=== PATIENT | male | born 1935 | race Caucasian/White ===

== ENCOUNTER 2016-05-11 08:31 | Inpatient (IN) | payer OTHER ==
[2016-05-11] VITALS (10 sets, daily range): BP systolic 95–116; BP diastolic 69–80; PULSE 85–103; TEMP 36.6–36.9; O2SAT 90–99; Ht 180.3 cm; Wt 90.0 kg
[~2016-05-11] VITALS: Ht 180.3 cm; Wt 90.0 kg
[~2016-05-11 08:31] MED LIST: AMOX1TAB43 PO; ATOR-22 PO; DXY100 PO; MULT-190 PO; OMEP20TA PO; OXYC-57 PO; PRED10TA PO; VNTHFA/IN INH; WARF2.5T8 PO
[2016-05-11] MEDS ORDERED: ALBUT/IPRATROP 3MG/0.5MG NEB 3 ML VIAL INH ONE (09:00)
[2016-05-11] MEDS ORDERED: SODIUM CHLORIDE 0.9% 1000ML 1,000 ML IV STA (09:02)
--- NOTE | 2016-05-11 09:11 | EMERGENCY ROOM VISIT NOTE ---
History Report prepared by Wanda: Leia Garcia Under the Supervision of: Dr. Dennys Bal M.D. First contact with patient: 08:47 Chief Complaint: RESPIRATORY PROBLEMS Stated Complaint: RESPIRATORY Nursing Triage Summary: pt here to room B12B from home for respiratory problems. pt was admitted to [facility] 2 weeks ago for pneumonia. pt was placed on prednisone. as per report pt stopped his prednisone. pt states he did not stop his prednisone. pt also states that home health that was arranged at his prior discharge was set to come to his house to do duoneb treatments but as per pt no one ever came to give him a treatment even when he called. 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 pt on arrival with 6 L NC and 94% NC. pt tachypneic and short of breath upon arrival. pt [id number]. pt with demand pacer in place, a-port access for chemo tx (last chemo tx approx 1 month ago) for lymphatic cancer and prostate ca. pt with afib History of Present Illness The patient is a 81 year old male who presents to the Emergency Room with complaints of persistent respiratory problems over the past week. The patient was admitted to the hospital 2 weeks ago for pneumonia and was discharged 6 days ago after treatment. He followed up with a crystal machining coordinator upon discharge and still had some pneumonia. He was instructed to use oxygen at home and 4 breathing treatments a day. The patient was unable to obtain a nebulizer machine until last night and has not gotten any oxygen, so he has not been able to follow the treatment recommendations. The patient called an ambulance this morning due to his worsening shortness of breath. He notes that it improves with rest and worsens with exertion. His O2 sat prior to arrival was 75% on room air. He was put on a 15L nonrebreather which improved his O2 sat to 90s. The patient has lymphatic and prostate cancer. His most recent chemotherapy treatment was a month ago. He was supposed to have a CT scan this morning. He is currently on Prednisone. Source of History: patient Onset: persistent Position: other (Respiratory) Timing: other (persistent) Modifying Factors (Worsening): exertion Modifying Factors (Relieving): rest Review of Systems See HPI for pertinent positives & negatives. A total of 10 systems reviewed and were otherwise negative. Past Medical & Surgical Medical Problems: (1) Asthma (2) Complete AV block (3) Coronary artery disease (4) Dyslipidemia (5) HTN (hypertension) (6) LBBB (left bundle branch block) (7) Metastatic colorectal cancer (8) Obstructive lung disease (9) Pneumoconiosis (10) Pulmonary embolism Surgical Problems: (1) History of appendectomy (2) History of cataract extraction with lens replacement (3) History of cholecystectomy (4) History of partial colectomy Family History FH: cancer Social History Smoking Status: Former Smoker Housing Status: lives with family Occupation Status: retired Current/Historical Medications Scheduled Aspirin (Ecotrin Low Strength), 81 MG PO DAILY Atorvastatin (Lipitor), 20 MG PO QAM Ipratropium-Albuterol (Duoneb), 1 INHA PO QID Ocuvite Preservision (Ocuvite Preservision), 1 TAB PO QAM Omeprazole (Omeprazole), 20 MG PO QAM Ondansetron Hcl (Zofran), 4 MG PO PRN Warfarin Sod (Jantoven), 2.5 MG PO UD Scheduled PRN Albuterol Hfa (Ventolin Hfa), 2 PUFFS INH Q4 PRN for SOB/Wheezing Oxycodone/Acetaminophen 5MG/325MG (Percocet 5MG/325MG), 1 TABLET PO Q6H PRN for Pain Allergies Coded Allergies: Procaine (Verified Adverse Reaction, Unknown, SWEATS, SOB, RAPID HEART BEAT, 05/11/16) Physical Exam Vital Signs Date Time Temp Pulse Resp B/P Pulse Ox O2 Delivery O2 Flow Rate FiO2 05/11/16 12:00 93 18 115/72 90 Nasal Cannula 4.0 05/11/16 11:06 104 18 119/73 98 BiPAP 40 05/11/16 09:53 103 25 142/68 99 BiPAP 40 05/11/16 09:30 103 24 99 BiPAP/CPAP 40 05/11/16 09:25 103 99 40 05/11/16 09:01 95 Nasal Cannula 6.0 05/11/16 08:48 79 05/11/16 08:40 94 Nasal Cannula 6.0 05/11/16 08:40 36.3 91 30 158/64 94 Nasal Cannula 6.0 05/11/16 08:40 94 Nasal Cannula 6.0 Physical Exam GENERAL: Patient is a healthy-appearing well-nourished 81 year old male HEAD: Normocephalic atraumatic EYES: Ocular movements intact pupils equal and react to light OROPHARYNX mucous membranes are moist no exudates present no erythema or edema present NECK: Supple no nuchal rigidity CHEST: Good equal expansion LUNGS: Short of breath on exam. CARDIAC: Normal S1 and S2 ABDOMEN: Soft nontender no guarding BACK: No CVA tenderness EXTREMITIES: No pain upon palpation normal muscle strength in all groups no clubbing cyanosis or edema NEURO: Patient is following commands is answering questions appropriately. Alert and oriented x3 Cranial Nerves 2-12 grossly intact Medical Decision & Procedures ER Provider Diagnostic Interpretation: CT results as stated below per my review and radiologist interpretation: CT ANGIOGRAM OF THE CHEST CLINICAL HISTORY: Colon carcinoma. Shortness of breath. Possible acute pulmonary embolism. COMPARISON STUDY: 04/25/2016 TECHNIQUE: Following the IV administration of 119 mL of Optiray-320, CT angiogram of the thorax was performed from the thoracic inlet to the lung bases utilizing the pulmonary embolus protocol. Images are reviewed in the axial, sagittal, and coronal planes. IV contrast was administered without complication. MIP imaging was performed. CT DOSE: 2019.71 mGy.cm FINDINGS: There are mildly enlarged mediastinal lymph nodes, similar to the preceding study. There was no evidence of thoracic aortic dilatation. There were no pulmonary artery filling defects to indicate acute pulmonary embolism. No pleural effusions are visualized. There is severe pulmonary emphysema. There are progressive bibasal airspace opacities. There is subtle diffuse increased groundglass attenuation of the lungs. There is a stable 21 mm right upper lobe density. A second 11 mm right apical density also remains unchanged. The spleen remains enlarged. There is a stable 19 mm hypodensity within the liver likely representing a cyst IMPRESSION: 1. No CT evidence of acute pulmonary embolism 2. Mild mediastinal lymphadenopathy unchanged the prior study 3. Severe pulmonary emphysema 4. Stable indeterminate right upper lobe irregular nodular densities 5. Developing groundglass attenuation of the lungs, and bibasilar dependent airspace opacities. Diagnostic considerations include pulmonary edema versus an inflammatory/infectious process. Clinical and radiographic follow-up is recommended Electronically signed by: Luciano Cm M.D. 05/11/2016 10:[address] OF THE ABDOMEN AND PELVIS WITH CONTRAST CLINICAL HISTORY: Colon cancer. COMPARISON STUDY: CT of the abdomen and pelvis September 08, 2015. TECHNIQUE: Following IV administration of 119 mL of Optiray-320, axial images of the abdomen and pelvis were obtained from the lung bases to the proximal femurs. Images were reviewed in the axial, sagittal, and coronal planes. IV contrast was administered without complication. FINDINGS: The chest will be reported separately. Several hepatic cysts are again noted. Several additional hypodense hepatic lesions are again noted. These have decreased in size since CT of July 27, 2015. A 1.5 cm right hepatic lobe lesion shown on image 11 has slightly decreased in size since exam of September 08, 2015 when it measured 1.8 cm. No new hepatic lesions are present. The spleen, adrenal glands, kidneys and pancreas are unremarkable. There is no abdominal or pelvic lymphadenopathy. No suspicious skeletal lesions are identified. There are postsurgical findings within the sigmoid colon. There is no evidence for a bowel obstruction. IMPRESSION: 1. No acute process within the abdomen or pelvis. 2. Slight decrease in several hepatic metastases since prior CT of September 08, 2015. Electronically signed by: Glen Elizabeth M.D. 05/11/2016 11:05 AM Laboratory Results 05/11/16 09:15 Red Blood Count 4.14, Mean Corpuscular Volume 85.3, Mean Corpuscular Hemoglobin 28.5, Mean Corpuscular Hemoglobin Concent 33.4, Mean Platelet Volume 10.6, Neutrophils (%) (Auto) 82.6, Lymphocytes (%) (Auto) 4.0, Monocytes (%) (Auto) 11.7, Eosinophils (%) (Auto) 0.0, Basophils (%) (Auto) 0.0, Neutrophils # (Auto ) 3.95, Lymphocytes # (Auto) 0.19, Monocytes # (Auto) 0.56, Eosinophils # (Auto ) 0.00, Basophils # (Auto) 0.00 05/11/16 09:15 Test 05/11/16 09:15 05/11/16 09:18 White Blood Count 4.78 K/uL (4.8-10.8) Red Blood Count 4.14 M/uL (4.7-6.1) Hemoglobin 11.8 g/dL (14.0-18.0) Hematocrit 35.3 % (42-52) Mean Corpuscular Volume 85.3 fL (80-100) Mean Corpuscular Hemoglobin 28.5 pg (25-34) Mean Corpuscular Hemoglobin Concent 33.4 g/dl (32-36) Platelet Count 128 K/uL (130-400) Mean Platelet Volume 10.6 fL (7.4-10.4) Neutrophils (%) (Auto) 82.6 % Lymphocytes (%) (Auto) 4.0 % Monocytes (%) (Auto) 11.7 % Eosinophils (%) (Auto) 0.0 % Basophils (%) (Auto) 0.0 % Neutrophils # (Auto) 3.95 K/uL (1.4-6.5) Lymphocytes # (Auto) 0.19 K/uL (1.2-3.4) Monocytes # (Auto) 0.56 K/uL (0.11-0.59) Eosinophils # (Auto) 0.00 K/uL (0-0.5) Basophils # (Auto) 0.00 K/uL (0-0.2) RDW Standard Deviation 58.7 fL (36.4-46.3) RDW Coefficient of Variation 18.9 % (11.5-14.5) Immature Granulocyte % (Auto) 1.7 % Immature Granulocyte # (Auto) 0.08 K/uL (0.00-0.02) Prothrombin Time 48.0 SECONDS (9.0-12.0) Prothromb Time International Ratio 4.2 (0.9-1.1) Activated Partial Thromboplast Time 49.9 SECONDS (21.0-31.0) Partial Thromboplastin Ratio 1.9 Est Creatinine Clear Calc Drug Dose 69.8 ml/min Estimated GFR () 81.4 Estimated GFR (Non- 70.3 BUN/Creatinine Ratio 11.4 (10-20) Calcium Level 8.6 mg/dl (8.5-10.1) Phosphorus Level 2.1 mg/dl (2.5-4.9) Magnesium Level 2.2 mg/dl (1.8-2.4) Total Bilirubin 2.5 mg/dl (0.2-1) Aspartate Amino Transf (AST/SGOT) 31 U/L (15-37) Alanine Aminotransferase (ALT/SGPT) 13 U/L (12-78) Alkaline Phosphatase 78 U/L (45-117) Total Creatine Kinase 30 U/L (39-308) Creatine Kinase MB 0.6 ng/ml (0.5-3.6) Creatine Kinase MB Ratio 2.0 (0-3.0) Troponin I 0.031 ng/ml (0-0.045) Pro-B-Type Natriuretic Peptide 4623 pg/ml (0-1800) Total Protein 6.1 gm/dl (6.4-8.2) Albumin 3.1 gm/dl (3.4-5.0) Globulin 3.0 gm/dl (2.5-4.0) Albumin/Globulin Ratio 1.0 (0.9-2) Bedside Hemoglobin 11.6 g/dl (14.0-18.0) Bedside Hematocrit 34 % (42-52) Bedside Sodium 131 mEq/L (135-144) Bedside Potassium 3.9 mEq/L (3.3-5.0) Bedside Chloride 97 mEq/L (101-112) Bedside Total CO2 21 mEq/l (24-31) Anion Gap 18.0 mmol/L (16-25) Bedside Blood Urea Nitrogen 11 mg/dl (7-18) Bedside Creatinine 0.9 mg/dl (0.6-1.3) Bedside Glucose (other) 157 mg/dl (70-99) Bedside Ionized Calcium (Rhonda) 1.13 mmol/l (1.12-1.32) Labs reviewed by ED physician. Medications Administered Medications (Trade) Dose Ordered Sig/Karie Route Start Time Stop Time Status Last Admin Dose Admin Albuterol/ Ipratropium 12 ml 12 ml ONE ONCE INH 05/11/16 09:00 05/11/16 09:02 DC 05/11/16 09:25 12 ML Sodium Chloride (Nss 1000ml) 1,000 ml @ 999 mls/hr Q1H1M STAT IV 05/11/16 09:02 05/11/16 10:02 DC 05/11/16 09:27 999 MLS/HR Piperacillin Sod/ Tazobactam Sod 4.5 gm 4.5 gm NOW STAT IV 05/11/16 11:15 05/11/16 11:18 DC 05/11/16 12:18 4.5 GM Vancomycin HCl/ Sodium Chloride (Vancomycin Inj/ Nss 250ml) 270 ml @ 125 mls/hr NOW STAT IV 05/11/16 11:15 05/11/16 13:24 DC 05/11/16 13:06 125 MLS/HR ECG Indication: SOB/dyspnea Rate (beats per minute): 98 Rhythm: other (ventricularly paced) Findings: no acute ischemic change, no ectopy ED Course 0850: Past medical records reviewed. The patient was evaluated in room B12. A complete history and physical examination was performed. 0900: Ordered DuoNeb 12 ml INH, NSS 1000 ml @ 999 mls/hr IV. 1115: Ordered Vancomycin HCl 1000 mg/NSS 270 ml @ 125 mls/hr IV, Levofloxacin 500 mg IV, Zosyn 4.5 gm IV. 1124: Upon reexamination the patient is resting comfortably. I discussed results and treatment plan with the patient. He verbalizes agreement and understanding. 1131: I spoke with Dr. Kirkland from the [facility] Service. The patient will be evaluated for further management. Medical Decision Differential diagnosis: Etiologies such as infections, reactive airway disease, pneumonia, pneumothorax , COPD, CHF, cardiac ischemia, pulmonary embolism, musculoskeletal, gastrointestinal, as well as others were entertained. This is an 81-year-old male that presents emergency department complaining of hypoxia. The patient has had no follow-up with home health care. He was placed on BiPAP upon arrival to emergency department due to how short of breath he was. He was given an hour-long breathing treatment. His CAT scan of his chest is concerning for pneumonia. The patient had plans for an outpatient CAT scan of his abdomen pelvis as lungs as well as his chest today so he was sent for those in the emergency department. I did panculture the patient up and started him on antibiotics. I did discuss the case with the hospitalist service who agreed to admit the patient. Patient was in agreement with the treatment plan. Consults Time Called: [phone] Consulting Physician: Dr. Kirkland from the [facility] Returned Call: [phone] I discussed the case with him. The patient will be evaluated for further management. Impression Primary Impression: Hypoxia Additional Impression: Pneumonia Critical Care I have personally spent greater than 30 minutes of critical care time in the direct management of this patient. This includes bedside care, interpretation of diagnostic studies, and testing, discussion with consultants, patient, and family members, and other required patient management activities. This 30 minutes is in excess of all separately billable procedures. Scribe Attestation The scribe's documentation has been prepared under my direction and personally reviewed by me in its entirety. I confirm that the note above accurately reflects all work, treatment, procedures, and medical decision making performed by me. Departure Information Dispostion Being Evaluated By Hospitalist Referrals Thony Carreno M.D. (PCP) Patient Instructions A Signature Page, [facility]
[2016-05-11] MEDS ORDERED: OPTIRAY 320 IV PRN (09:15)
[2016-05-11 09:34] LABS: ISTAT CREATININE 0.9 mg/dl (0.6-1.3); ISTAT HEMOGLOBIN 11.6 g/dl (14.0-18.0); ISTAT IONIZED CALCIUM 1.13 mmol/l (1.12-1.32)
[2016-05-11 09:39] LABS: COMPLETE YES; HEMATOCRIT 35.3 % (42-52); IG% 1.7 %; LYMPH ABS # 0.19 K/uL (1.2-3.4); MEAN CELL VOLUME 85.3 fL (80-100); MEAN CORPUSCULAR HEMOGLOBIN 28.5 pg (25-34); MEAN CORPUSCULAR HGB CONC 33.4 g/dl (32-36); MEAN PLATELET VOLUME 10.6 fL (7.4-10.4); MONO % 11.7 %; NEUT % 82.6 %; PLATELET COUNT 128 K/uL (130-400); RED BLOOD COUNT 4.14 M/uL (4.7-6.1); WHITE BLOOD COUNT 4.78 K/uL (4.8-10.8)
[2016-05-11 09:58] LABS: BUN/CREATININE RATIO 11.4 (10-20); CALCIUM 8.6 mg/dl (8.5-10.1); MAGNESIUM 2.2 mg/dl (1.8-2.4); POTASSIUM 3.8 mmol/L (3.5-5.1)
[2016-05-11 10:03] LABS: PHOSPHORUS 2.1 mg/dl (2.5-4.9)
--- NOTE | 2016-05-11 10:55 | DIAGNOSTIC IMAGING REPORT ---
CT ANGIOGRAM OF THE CHEST CLINICAL HISTORY: Colon carcinoma. Shortness of breath. Possible acute pulmonary embolism. COMPARISON STUDY: 04/25/2016 TECHNIQUE: Following the IV administration of 119 mL of Optiray-320, CT angiogram of the thorax was performed from the thoracic inlet to the lung bases utilizing the pulmonary embolus protocol. Images are reviewed in the axial, sagittal, and coronal planes. IV contrast was administered without complication. MIP imaging was performed. CT DOSE: 2019.71 mGy.cm FINDINGS: There are mildly enlarged mediastinal lymph nodes, similar to the preceding study. There was no evidence of thoracic aortic dilatation. There were no pulmonary artery filling defects to indicate acute pulmonary embolism. No pleural effusions are visualized. There is severe pulmonary emphysema. There are progressive bibasal airspace opacities. There is subtle diffuse increased groundglass attenuation of the lungs. There is a stable 21 mm right upper lobe density. A second 11 mm right apical density also remains unchanged. The spleen remains enlarged. There is a stable 19 mm hypodensity within the liver likely representing a cyst IMPRESSION: 1. No CT evidence of acute pulmonary embolism 2. Mild mediastinal lymphadenopathy unchanged the prior study 3. Severe pulmonary emphysema 4. Stable indeterminate right upper lobe irregular nodular densities 5. Developing groundglass attenuation of the lungs, and bibasilar dependent airspace opacities. Diagnostic considerations include pulmonary edema versus an inflammatory/infectious process. Clinical and radiographic follow-up is recommended Electronically signed by: Luciano Cm M.D. 05/11/2016 10:53 AM
--- NOTE | 2016-05-11 11:06 | DIAGNOSTIC IMAGING REPORT ---
CT OF THE ABDOMEN AND PELVIS WITH CONTRAST CLINICAL HISTORY: Colon cancer. COMPARISON STUDY: CT of the abdomen and pelvis September 08, 2015. TECHNIQUE: Following IV administration of 119 mL of Optiray-320, axial images of the abdomen and pelvis were obtained from the lung bases to the proximal femurs. Images were reviewed in the axial, sagittal, and coronal planes. IV contrast was administered without complication. FINDINGS: The chest will be reported separately. Several hepatic cysts are again noted. Several additional hypodense hepatic lesions are again noted. These have decreased in size since CT of July 27, 2015. A 1.5 cm right hepatic lobe lesion shown on image 11 has slightly decreased in size since exam of September 08, 2015 when it measured 1.8 cm. No new hepatic lesions are present. The spleen, adrenal glands, kidneys and pancreas are unremarkable. There is no abdominal or pelvic lymphadenopathy. No suspicious skeletal lesions are identified. There are postsurgical findings within the sigmoid colon. There is no evidence for a bowel obstruction. IMPRESSION: 1. No acute process within the abdomen or pelvis. 2. Slight decrease in several hepatic metastases since prior CT of September 08, 2015. Electronically signed by: Glen Elizabeth M.D. 05/11/2016 11:05 AM
[2016-05-11] MEDS ORDERED: CMD/25 PO (11:07)
[2016-05-11] MEDS ORDERED: IPRASOL4 PO (11:07)
[2016-05-11] MEDS ORDERED: ONDA4TAB65 PO (11:09)
[2016-05-11] MEDS ORDERED: PIPERACILLIN/TAZOBACTAM 4.5 GM/100ML D5W IV STA (11:15)
[2016-05-11] MEDS ORDERED: VANCOMYCIN INJ 1,000 MG in SODIUM CHLORIDE 0.9% 250ML 250 ML IV STA (11:15)
[2016-05-11] MEDS ORDERED: LEVAQUIN 500MG / 100ML D5W IV ONE (11:15)
[2016-05-11] MEDS ORDERED: ACETAMINOPHEN 325 MG TAB PO PRN (12:15)
[2016-05-11] MEDS ORDERED: ONDANSETRON INJ 2 MG/ML 2 ML VIAL IV PRN (12:15)
[2016-05-11] MEDS ORDERED: LORAZEPAM 2 MG/ML 1 ML VIAL IV STA (13:01)
[2016-05-11 13:03] LABS: PARTIAL THROMBOPLASTIN RATIO 1.9
[2016-05-11 13:06] LABS: INR 4.2 (0.9-1.1)
[2016-05-11] MEDS ORDERED: ASPI-428 PO (13:46)
[2016-05-11] MEDS ORDERED: SODIUM CHLORIDE 0.65% NA SOLN 45 ML (OCEAN) PRN (14:00)
[2016-05-11] MEDS ORDERED: LORAZEPAM 0.5 MG TAB PO PRN (14:00)
[2016-05-11] MEDS ORDERED: OXYCODONE/ACETAMINOPHEN 5-325 TAB PO PRN (14:00)
[2016-05-11] MEDS ORDERED: WARFARIN SOD 2.5 MG TAB PO SCH (14:00)
[2016-05-11] MEDS ORDERED: PIPERACILL/TAZOBAC IV 0 GM in DEXTROSE 5% 100ML 100 ML IV SCH (14:15)
[2016-05-11] MEDS ORDERED: VANCOMYCIN INJ 0 MG in SODIUM CHLORIDE 0.9% 500ML 500 ML IV SCH (14:15)
[2016-05-11] MEDS ORDERED: LEVALBUTEROL 0.63MG/3 ML NEB INH PRN (14:15)
[2016-05-11] MEDS ORDERED: PNEUMOCOCCAL POLYSACCHARIDES 25 MCG/0.5 ML VIAL/SYR IM. ONE (14:30)
[2016-05-11] MEDS ORDERED: INFLUENZA ADMINISTRATION CHARGE ONE (14:30)
[2016-05-11] MEDS ORDERED: VANCOMYCIN CONSULT ACTIVE PRN (14:30)
[2016-05-11] MEDS ORDERED: PIPERACILL/TAZOBAC CONSULT ACTIVE PRN (14:30)
[2016-05-11] MEDS ORDERED: PNEUMOCOCCAL ADMINISTRATION CHARGE ONE (14:30)
[2016-05-11] MEDS ORDERED: INFLUENZA VIRUS QUAD VACCINE 0.5 ML SYR IM. ONE (14:30)
--- NOTE | 2016-05-11 14:42 | History and Physical ---
History & Physical Date & Time of Service: May 11, 2016 at 12:00 . Chief Complaint: cough, SOB . Primary Care Physician: Thony Carreno M.D. . History of Present Illness Source: patient, family, clinic records, hospital records 81 YO male followed by Dr. Carreno for primary care, Dr. Holm for Cardiology, Dr. Steel for Pulmonary, and Dr. Barkley for Medical Oncology. History of nonocclusive coronary artery disease, reduced LVEF, pacemaker, interstitial lung disease, colon cancer, pulmonary embolism, and other problems noted below. 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 Received chemo with FOLFIRI followed by bevacizumab. Hospitalized 04/25/16 - 05/02/16 with pneumonia. Blood cultures were negative. Sputum culture grew Eikenella corrodens. Discharged on doxycycline and prednisone taper; finished prednisone about 4 days prior to admission. Has noted increasing chest congestion and dyspnea over the past several days. He feels like he has had a low grade temp, also experiencing chills and sweats. Dyspnea worse on exertion. Cough nonproductive. Occasional intermittent sharp midsternal chest pain- nonradiating. Neb treatment last evening seemed to help somewhat. Worsening dyspnea today. Extremely dyspneic at rest. EMS summoned. Upon their arrival patient appeared to be in respiratory distress. O2 saturation in the field was 75% on RA. . 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 Status: Chronic (3) Coronary artery disease Permanent Comment: cath 1986 20% mid LAD stenosis; Lexiscan neg for ischemia 03/27/16 Status: Chronic (4) Dyslipidemia Status: Chronic (5) HTN (hypertension) Status: Chronic (6) LBBB (left bundle branch block) Status: Chronic (7) Metastatic colorectal cancer Permanent Comment: mets to lymph nodes, liver, lung; currently undergoing chemotherapy Status: Chronic (8) Obstructive lung disease Permanent Comment: Status: Chronic (9) Pneumoconiosis Status: Chronic (10) Pulmonary embolism Permanent Comment: 11/01/15 Status: Chronic Surgical Problems: (1) History of appendectomy Status: Chronic (2) History of cataract extraction with lens replacement Status: Chronic (3) History of cholecystectomy Status: Chronic (4) History of partial colectomy Permanent Comment: 06/2015 due to Colon CA performed by Dr. Wong Status: Chronic . Family History FATHER Diabetes mellitus MOTHER Diabetes mellitus Heart disease Hypertension BROTHER Cancer BROTHER Heart disease SISTER Heart disease SISTER Stroke Social History Smoking Status: Former Smoker Alcohol Use: occasionally Marital Status: Occupational Status: retired Immunizations History of Pneumococcal: Yes Multi-Drug Resistant Organisms History of MDRO: Yes Type of MDRO: MRSA Allergies Coded Allergies: Procaine (Verified Adverse Reaction, Unknown, SWEATS, SOB, RAPID HEART BEAT, 05/11/16) Home Medications Scheduled Aspirin (Ecotrin Low Strength), 81 MG PO DAILY Atorvastatin (Lipitor), 20 MG PO QAM Ipratropium-Albuterol (Duoneb), 1 INHA PO QID Ocuvite Preservision (Ocuvite Preservision), 1 TAB PO QAM Omeprazole (Omeprazole), 20 MG PO QAM Ondansetron Hcl (Zofran), 4 MG PO PRN Warfarin Sod (Jantoven), 2.5 MG PO UD Scheduled PRN Albuterol Hfa (Ventolin Hfa), 2 PUFFS INH Q4 PRN for SOB/Wheezing Oxycodone/Acetaminophen 5MG/325MG (Percocet 5MG/325MG), 1 TABLET PO Q6H PRN for Pain Review of Systems Constitutional: + chills, + fever, + sweats, + weight loss (wt fluctuating) Eyes: + worsening of vision (macular degeneration), No diplopia ENT: + hearing loss, + nasal symptoms Respiratory: + cough, + dyspnea at rest, + dyspnea on exertion, + shortness of breath, + wheezing Cardiovascular: + chest pain, No edema, No palpitations Abdomen: + constipation, + diarrhea, + nausea, No GI bleeding, No pain, No vomiting Musculoskeletal: + muscle pain, No joint pain Genitourinary - Male: + urinary frequency, + urinary urgency, No dysuria, No hematuria Neurologic: + problem reported (headaches), No balance problems, No memory loss Endocrine: No excessive thirst Hematologic / Lymphatic: + abnormal bleeding/bruising, No swollen lymph nodes Integumentary: No new/changing skin lesions, No rash Physical Exam Vital Signs Date Time Temp Pulse Resp B/P Pulse Ox O2 Delivery O2 Flow Rate FiO2 05/11/16 13:53 93 20 120/69 99 BiPAP 40 05/11/16 13:33 36.7 102 18 112/80 98 BiPAP 40 05/11/16 13:00 104 18 112/80 96 BiPAP 40 05/11/16 12:30 105 18 94 Nasal Cannula 6.0 05/11/16 12:16 100 05/11/16 12:00 93 18 115/72 90 Nasal Cannula 4.0 05/11/16 11:06 104 18 119/73 98 BiPAP 40 05/11/16 09:53 103 25 142/68 99 BiPAP 40 05/11/16 09:30 103 24 99 BiPAP/CPAP 40 05/11/16 09:25 103 99 40 05/11/16 09:01 95 Nasal Cannula 6.0 05/11/16 08:48 79 05/11/16 08:40 94 Nasal Cannula 6.0 05/11/16 08:40 36.3 91 30 158/64 94 Nasal Cannula 6.0 05/11/16 08:40 94 Nasal Cannula 6.0 General Appearance: WD/WN, + moderate distress Head: normocephalic, atraumatic Eyes: normal inspection, PERRL, EOMI, sclerae normal, + pertinent finding ( conjunctivae pink) ENT: normal ENT inspection, pharynx normal, + pertinent finding (hearing impaired; dentition poor) Neck: supple, no adenopathy, thyroid normal, trachea midline, + JVD Respiratory/Chest: + respiratory distress, + rhonchi, + wheezing Cardiovascular: no edema, + JVD, + pertinent finding (distant heart sounds, no murmur or gallop appreciated, occasional ectopy) Abdomen/GI: normal bowel sounds, non tender, soft, no organomegaly, no pulsatile mass Extremities/Musculoskelatal: no calf tenderness, normal capillary refill, no pedal edema Neurologic/Psych: 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 nml as tested (PERRL, EOMI, no facial palsy, no dysarthria, tongue midline), no motor/sensory deficits, alert, normal mood/ affect, oriented x 3 Skin: normal color, warm/dry, no rash, + pertinent finding (echymoses left ankle / foot) Lymphatic: no adenopathy Diagnostics Laboratory Results Results Past 24 Hours Test 05/11/16 08:59 05/11/16 09:15 12/22/16 09:18 Range/Units Creatine Kinase MB Ratio 2.0 0-3.0 White Blood Count 4.78 4.8-10.8 K/uL Red Blood Count 4.14 4.7-6.1 M/uL Hemoglobin 11.8 14.0-18.0 g/dL Hematocrit 35.3 42-52 % Mean Corpuscular Volume 85.3 80-100 fL Mean Corpuscular Hemoglobin 28.5 25-34 pg Mean Corpuscular Hemoglobin Concent 33.4 32-36 g/dl Platelet Count 128 130-400 K/uL Mean Platelet Volume 10.6 7.4-10.4 fL Neutrophils (%) (Auto) 82.6 % Lymphocytes (%) (Auto) 4.0 % Monocytes (%) (Auto) 11.7 % Eosinophils (%) (Auto) 0.0 % Basophils (%) (Auto) 0.0 % Neutrophils # (Auto) 3.95 1.4-6.5 K/uL Lymphocytes # (Auto) 0.19 1.2-3.4 K/uL Monocytes # (Auto) 0.56 0.11-0.59 K/uL Eosinophils # (Auto) 0.00 0-0.5 K/uL Basophils # (Auto) 0.00 0-0.2 K/uL RDW Standard Deviation 58.7 36.4-46.3 fL RDW Coefficient of Variation 18.9 11.5-14.5 % Immature Granulocyte % (Auto) 1.7 % Immature Granulocyte # (Auto) 0.08 0.00-0.02 K/uL Prothrombin Time 48.0 9.0-12.0 SECONDS Prothromb Time International Ratio 4.2 0.9-1.1 Activated Partial Thromboplast Time 49.9 21.0-31.0 SECONDS Partial Thromboplastin Ratio 1.9 Sodium Level 133 136-145 mmol/L Potassium Level 3.8 3.5-5.1 mmol/L Chloride Level 100 98-107 mmol/L Carbon Dioxide Level 20 21-32 mmol/L Anion Gap 13.0 18.0 16-25 mmol/L Blood Urea Nitrogen 11 7-18 mg/dl Creatinine 1.00 0.60-1.40 mg/dl Est Creatinine Clear Calc Drug Dose 69.8 ml/min Estimated GFR () 81.4 Estimated GFR (Non- 70.3 BUN/Creatinine Ratio 11.4 10-20 Random Glucose 147 70-99 mg/dl Calcium Level 8.6 8.5-10.1 mg/dl Phosphorus Level 2.1 2.5-4.9 mg/dl Magnesium Level 2.2 1.8-2.4 mg/dl Total Bilirubin 2.5 0.2-1 mg/dl Aspartate Amino Transf (AST/SGOT) 31 15-37 U/L Alanine Aminotransferase (ALT/SGPT) 13 12-78 U/L Alkaline Phosphatase 78 45-117 U/L Total Creatine Kinase 30 39-308 U/L Creatine Kinase MB 0.6 0.5-3.6 ng/ml Troponin I 0.031 0-0.045 ng/ml Pro-B-Type Natriuretic Peptide 4623 0-1800 pg/ml Total Protein 6.1 6.4-8.2 gm/dl Albumin 3.1 3.4-5.0 gm/dl Globulin 3.0 2.5-4.0 gm/dl Albumin/Globulin Ratio 1.0 0.9-2 Bedside Hemoglobin 11.6 14.0-18.0 g/dl Bedside Hematocrit 34 42-52 % Bedside Sodium 131 135-144 mEq/L Bedside Potassium 3.9 3.3-5.0 mEq/L Bedside Chloride 97 101-112 mEq/L Bedside Total CO2 21 24-31 mEq/l Bedside Blood Urea Nitrogen 11 7-18 mg/dl Bedside Creatinine 0.9 0.6-1.3 mg/dl Bedside Glucose (other) 157 70-99 mg/dl Bedside Ionized Calcium (Rhodna) 1.13 1.12-1.32 mmol/l Microbiology Results 05/11/16 Blood Culture, Received Pending 05/11/16 Blood Culture, Received Pending Diagnostic Radiology CT ANGIOGRAM OF THE CHEST CLINICAL HISTORY: Colon carcinoma. Shortness of breath. Possible acute pulmonary embolism. COMPARISON STUDY: 04/25/2016 TECHNIQUE: Following the IV administration of 119 mL of Optiray-320, CT angiogram of the thorax was performed from the thoracic inlet to the lung bases utilizing the pulmonary embolus protocol. Images are reviewed in the axial, sagittal, and coronal planes. IV contrast was administered without complication. MIP imaging was performed. CT DOSE: 2019.71 mGy.cm FINDINGS: There are mildly enlarged mediastinal lymph nodes, similar to the preceding study. There was no evidence of thoracic aortic dilatation. There were no pulmonary artery filling defects to indicate acute pulmonary embolism. No pleural effusions are visualized. There is severe pulmonary emphysema. There are progressive bibasal airspace opacities. There is subtle diffuse increased groundglass attenuation of the lungs. There is a stable 21 mm right upper lobe density. A second 11 mm right apical density also remains unchanged. The spleen remains enlarged. There is a stable 19 mm hypodensity within the liver likely representing a cyst IMPRESSION: 1. No CT evidence of acute pulmonary embolism 2. Mild mediastinal lymphadenopathy unchanged the prior study 3. Severe pulmonary emphysema 4. Stable indeterminate right upper lobe irregular nodular densities 5. Developing groundglass attenuation of the lungs, and bibasilar dependent airspace opacities. Diagnostic considerations include pulmonary edema versus an inflammatory/infectious process. Clinical and radiographic follow-up is recommended Electronically signed by: Luciano Cm M.D. 05/11/2016 10:[address] OF THE ABDOMEN AND PELVIS WITH CONTRAST CLINICAL HISTORY: Colon cancer. COMPARISON STUDY: CT of the abdomen and pelvis September 08, 2015. TECHNIQUE: Following IV administration of 119 mL of Optiray-320, axial images of the abdomen and pelvis were obtained from the lung bases to the proximal femurs. Images were reviewed in the axial, sagittal, and coronal planes. IV contrast was administered without complication. FINDINGS: The chest will be reported separately. Several hepatic cysts are again noted. Several additional hypodense hepatic lesions are again noted. These have decreased in size since CT of July 27, 2015. A 1.5 cm right hepatic lobe lesion shown on image 11 has slightly decreased in size since exam of September 08, 2015 when it measured 1.8 cm. No new hepatic lesions are present. The spleen, adrenal glands, kidneys and pancreas are unremarkable. There is no abdominal or pelvic lymphadenopathy. No suspicious skeletal lesions are identified. There are postsurgical findings within the sigmoid colon. There is no evidence for a bowel obstruction. IMPRESSION: 1. No acute process within the abdomen or pelvis. 2. Slight decrease in several hepatic metastases since prior CT of September 08, 2015. Electronically signed by: Glen Elizabeth M.D. 05/11/2016 11:05 AM . . EKG EKG performed at 09:06 reviewed and demonstrated ventricular paced rhythm at 98 / minute, repolarization changes. . Impression Assessment and Plan ACUTE HYPOXIC RESPIRATORY FAILURE Underlying interstitial / obstructive lung disease. Recent pneumonia. Pulmonary embolism about 6 months ago. Worsening SOB over past few days. O2 sats in field 75% on RA today. Dyspneic, tachypneic upon arrival to ED. CTA chest negative for pulmonary embolism, but demonstrated possible pulmonary infiltrates and / or pulmonary edema. BNP elevated. Low grade temp at home, but afebrile in ED. WBC 4780. Check influenza A/B PCR. Management of possible pneumonia and CHF as discussed above. Required BiPAP in ED for ventilatory support- continue as needed. Titrate supplemental O2. PROBABLE PNEUMONIA CT chest suggests pulmonary infiltrates. Recent hospitalization for pneumonia. History of MRSA. Blood cultures obtained in ED. IV antibiotic therapy with levofloxacin, piperacillin / tazobactam, vancomycin pending micro data. Consult Pulmonary Medicine. EXACERBATION OBSTRUCTIVE LUNG DISEASE IV methylprednisolone --> prednisone 40 mg daily. Levalbuterol / ipratropium nebs. POSSIBLE CHF CT suggests pulmonary edema. BNP elevated. Echo last month in clinic 45-50%. IV furosemide x 1, then follow fluid status, labs. HEADACHES Check CT head to rule out mets, sinus disease. HYPOPHOSPHATEMIA Serum phosphorus 2.1. PO replacement. Follow. METASTATIC COLON CA Management per Medical Oncology. HISTORY MRSA Contact isolation. VTE PROPHYLAXIS / HISTORY OF PULMONARY EMBOLISM INR supratherapeutic- follow and titrate warfarin. VACCINATION STATUS Has received pneumococcal vaccination. Need to clarify influenza vaccination status. RESUSCITATION STATUS Discussed with children / POA's. He does not have a living will. He would like resuscitation attempted in the event of a cardiopulmonary arrest if there is a reasonable chance of a meaningful recovery, but does not want prolonged extraordinary measures if prognosis is poor. Therefore, code status = "Level 1" (full resuscitation). DISPOSITION Admit to Telemetry Unit. Expected discharge to home. Medical follow-up with Dr. Carreno. Cardiology follow-up with Dr. Holm. Pulmonary follow-up with Dr. Steel. Medical Oncology follow-up with Dr. Barkley. . Advanced Directives Existing Advance Directive: No Existing Living Will: No Existing Power of Income Tax Adjuster: No VTE Prophylaxis VTE Risk Assessment Done? Y/N: Yes Risk Level: High Given or contraindicated: Warfarin (Coumadin)
[2016-05-11 15:00] LABS: URINE APPEARANCE CLEAR (CLEAR); URINE BILIRUBIN NEG (NEG); URINE COLOR YELLOW; URINE EPITHELIAL CELL AUTO 0-5 /lpf (0-5); URINE NITRITE NEG (NEG); URINE SPECIFIC GRAVITY > 1.045 (1.000-1.030); UROBILINOGEN NEG (NEG)
[2016-05-11 15:08] LABS: MANUAL MICROSCOPIC REQUIRED? NO; REVIEW REQ? NO
[2016-05-11] MEDS ORDERED: FUROSEMIDE INJ 20 MG in SYRINGE 0 ML IV ONE (16:00)
[2016-05-11] MEDS ORDERED: LEVOFLOXACIN CONSULT ACTIVE PRN (16:00)
[2016-05-11] MEDS ORDERED: METHYLPREDNISOLONE IV 40 MG in SYRINGE 0 ML IV ONE (16:00)
--- NOTE | 2016-05-11 16:00 | DIAGNOSTIC IMAGING REPORT ---
HEAD CT NONCONTRAST CT DOSE: 786.26 mGy.cm HISTORY: colon cancer, headache TECHNIQUE: Multiaxial CT images of the head were performed without the use of intravenous contrast. Automated exposure control was utilized for this study. Comparison: Head CT 11/01/2015. Findings: The paranasal sinuses and mastoid air cells are clear. The calvarium and skull base are intact. There is no mass, hematoma, midline shift, acute infarct. White matter hypodensity is nonspecific but suggestive of microvascular ischemic change. The ventricles and sulci demonstrate mild age-related involutional changes. Impression: No acute intracranial abnormality. Electronically signed by: Ebenezer Vela M.D. 05/11/2016 3:59 PM
--- NOTE | 2016-05-11 16:12 | Pharmacy Progress Note ---
Pharmacy Antibiotic Consult Date of Service: May 11, 2016. Pharmacy Dosing Scope Pharmacy is consulted to initiate vancomycin, levaquin, and zosyn IV dosing therapy, order appropriate labs and adjust drug dose/frequency. Subjective The patient is a 81 year old male admitted on May 11, 2016 at 12:08. Objective Height (Feet): 5 Height (Inches): 11.00 Weight (Kilograms): 102.500 Lab Results (24hrs): Laboratory Tests Test 05/11/16 09:15 BUN/Creatinine Ratio 11.4 Blood Urea Nitrogen 11 mg/dl Creatinine 1.00 mg/dl White Blood Count 4.78 K/uL Red Blood Count 4.14 M/uL Hemoglobin 11.8 g/dL Hematocrit 35.3 % Mean Corpuscular Volume 85.3 fL Mean Corpuscular Hemoglobin 28.5 pg Mean Corpuscular Hemoglobin Concent 33.4 g/dl Platelet Count 128 K/uL Mean Platelet Volume 10.6 fL Neutrophils (%) (Auto) 82.6 % Lymphocytes (%) (Auto) 4.0 % Monocytes (%) (Auto) 11.7 % Eosinophils (%) (Auto) 0.0 % Basophils (%) (Auto) 0.0 % Neutrophils # (Auto) 3.95 K/uL Lymphocytes # (Auto) 0.19 K/uL Monocytes # (Auto) 0.56 K/uL Eosinophils # (Auto) 0.00 K/uL Basophils # (Auto) 0.00 K/uL Assessment & Plan Patient admitted with probable pneumonia and started on vancomycin, zosyn, and levaquin. Hx of MRSA and recent hospitalization 04/25-05/02 for which he was discharged on doxycycline. Admitted due to worsening of symptoms, SOB. BC x 2 are ordered. Vancomycin: * LD: 1000 mg (~10 mg/kg) iv given in ED * Will start MD of 1250 mg (~12 mg/kg) iv q 14 hrs - will start earlier due to not full LD given * Estimated kinetics: ke~0.0625 hrs, t1/2~11 hrs, CrCl ~70 ml/min * Will check a vancomycin trough prior to the 1200 dose on 05/13 to ensure therapeutic; patient does have elevated BMI (BMI~32 kg/m2) so could possibly accumulate, therefore was less aggressive with dosing Zosyn: * Received 4.5 gm iv x 1 in ED; start 3.375 gm iv q 8 hrs which is appropriate for CrCl >20 ml/min Levaquin: * Had order for ED; however not charted on/not given - will start Levaquin 500 mg iv qd (appropriate for CrCl >50 ml/min) Pharmacy will continue to follow and will adjust dose/frequency as necessary. Thank you
[2016-05-11 16:16] LABS: INFLUENZA A PCR Neg for Influ A (NEG); INFLUENZA B PCR Neg for Influ B (NEG)
[2016-05-11] MEDS: IPRATROPIUM BROMIDE NEB SOLN 0.02% 2.5 ML VIAL INH SCH ×2 (16:20→19:00)
[2016-05-11] MEDS: LEVALBUTEROL 1.25MG/0.5ML NEB INH SCH ×2 (16:20→19:01)
[2016-05-11] MEDS: LEVOFLOXACIN / D5W 500 MG in PREMIXED IN D5W 100 ML IV SCH (16:25)
[2016-05-11] MEDS: POT PHOSPHATE MONOBASIC W/ SOD TAB PO SCH ×2 (16:27→20:23)
[2016-05-11] MEDS ORDERED: GLUCAGON FOR INJ 1 MG VIAL SQ PRN (17:00)
[2016-05-11] MEDS ORDERED: GLUCOSE 40% GEL 15 GM TUBE PO PRN (17:00)
[2016-05-11] MEDS ORDERED: DEXTROSE 50% 50 ML SYR IV PRN (17:00)
[2016-05-11] MEDS ORDERED: GLUCOSE 10 TABS/TUBE PO PRN (17:00)
[2016-05-11] MEDS: PIPERACILL/TAZOBAC IV 3.375 GM in DEXTROSE 5% 100ML IV SCH (18:21)
[2016-05-11] MEDS: VANCOMYCIN INJ 1,250 MG in SODIUM CHLORIDE 0.9% 250ML 250 ML IV SCH (18:21)
--- NOTE | 2016-05-11 19:16 | Pulmonary Consultation ---
History General Date of Service: May 11, 2016. Stated Complaint: Acute Respiratory Failure HPI The patient is a 81 year old male who presents to [facility] with complaints of Acute Respiratory Failure. The patient's primary care provider is Thony Carreno M.D.. 81-year-old gentleman here for follow-up on progressive dyspnea on exertion over the last 6 months with acute on chronic changes over the last 3-4 days. During our interview he noted some fever, chills mild pleurisy and possible aspiration-type events. His daughter is at the bedside during our interview. 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 The patient underwent surgical resection on 2015 with notable 4 out of 20 lymph nodes positive for metastatic disease. He was pathologically staged at T3N2a. The patient then underwent chemotherapy with a regimen of FOLFIRI/Bevacizumab. Patient was also worked up for shortness of breath and CT thorax on 11/01/15 showed left-sided pulmonary embolism. The patient preferred oral anticoagulation instead of subcutaneous Lovenox and was initiated has been continued on Coumadin. The patient was recently admitted to [facility] from04/25-2015 for hypoxia, asthma exacerbation and pneumonia. He was treated with IV antibiotics Zosyn/doxycycline as well as oxygen and steroids. During that admission the patient grew grew out PROBABLE EIKENELLA CORRODENS (notable oral organism). He has also had intermittent complaints of possible aspiration like events. Primary function test (05/10/2015) PRE POST % CHANGE FEV1/FVC: 83 84 1 FEV1: 2.49/79 % 2.68/85 % 7 FVC: 3.01/74 % 3.20/79 % 6 25-27%: 2.89/95 % 3.21/106 % 11 T.24/73 % VC: 0.01/74 % RV: 1.83/66 % FRC: 2.64/74 % DLCO: 50 % DLCO/VA: 80 % CT head 05/11/16: No signs of acute intracranial abnormalities CT abdomen 05/11/16: No acute processes noted within the abdomen or pelvis CT of the chest 05/11/16: Comparison study 04/25/2016 No evidence of acute pulmonary embolisms No change in mediastinal lymphadenopathy Signs of severe pulmonary emphysema Stable right upper lobe irregular nodule Development of ground-glass attenuations bibasilar dependent regions Stable right upper lobe nodules 21 mm and 11 mm Review of Systems Constitutional: reports: weakness 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 Appendectomy 2. Cardiac Cath 3. Cataract Extraction 4. Cholecystectomy 5. Colon Surgery 6. Eye Surgery 7. Foot Surgery 8. Pacemaker Placement 9. Port-A-Cath placement 08/05/2015 Family History Cancer BROTHER Diabetes mellitus FATHER MOTHER Heart disease MOTHER BROTHER SISTER Hypertension MOTHER Stroke SISTER Social History Hx Tobacco Use In Past Year?: No (quit 25 years ago) Smoking Status: Former Smoker Marital status: Occupational Status: retired Immunizations History of Pneumococcal: Yes History of MDRO History of MDRO: Yes Type of MDRO: MRSA Allergies Coded Allergies: Procaine (Verified Adverse Reaction, Unknown, SWEATS, SOB, RAPID HEART BEAT, 05/11/16) Current Medications Reported Home Medications Medications Dose Route/Sig Max Daily Dose Days Date Category Dose Instructions Ecotrin Low Strength (Aspirin) 81 Mg Tab 81 Mg PO DAILY 05/11/16 Reported Zofran (Ondansetron Hcl) 4 Mg Tab 4 Mg PO PRN 05/11/16 Reported Duoneb (Ipratropium-Albuterol) 3 Ml Nebu 1 Inha PO QID 05/11/16 Reported Jantoven (Warfarin Sodium) 2.5 Mg Tab 2.5 Mg PO UD 04/25/16 Reported Dose as of 05/10/16 2.5 mg daily. Ventolin Hfa (Albuterol) 200 Puffs/54893 Mcg Aers 2 Puffs INH Q4 PRN 11/03/15 Rx Percocet 5MG/325MG (Oxycodone/Acetaminophen) Tab 1 Tablet PO Q6H PRN 09/08/15 Reported PAIN Ocuvite Preservision (Multivitamins/Minerals) 1 Tab Tab 1 Tab PO QAM 06/10/15 Reported Omeprazole 20 Mg Tab 20 Mg PO QAM 06/10/15 Reported Lipitor (Atorvastatin Calcium) 20 Mg Tab 20 Mg PO QAM 06/10/15 Reported Physical Physical Exam Vital Signs: Date Time Temp Pulse Resp B/P Pulse Ox O2 Delivery O2 Flow Rate FiO2 05/11/16 16:20 95 22 95 Nasal Cannula 6.0 05/11/16 16:00 93 Nasal Cannula 6.0 05/11/16 15:57 36.9 85 18 105/69 93 05/11/16 15:05 36.6 94 20 116/73 95 Nasal Cannula 6.0 05/11/16 13:53 93 20 120/69 99 BiPAP 40 05/11/16 13:33 36.7 102 18 112/80 98 BiPAP 40 05/11/16 13:00 104 18 112/80 96 BiPAP 40 05/11/16 12:30 105 18 94 Nasal Cannula 6.0 05/11/16 12:16 100 05/11/16 12:00 93 18 115/72 90 Nasal Cannula 4.0 05/11/16 11:06 104 18 119/73 98 BiPAP 40 05/11/16 09:53 103 25 142/68 99 BiPAP 40 05/11/16 09:30 103 24 99 BiPAP/CPAP 40 05/11/16 09:25 103 99 40 05/11/16 09:01 95 Nasal Cannula 6.0 05/11/16 08:48 79 05/11/16 08:40 94 Nasal Cannula 6.0 05/11/16 08:40 36.3 91 30 158/64 94 Nasal Cannula 6.0 05/11/16 08:40 94 Nasal Cannula 6.0 General Appearance: mild distress Head: NORMOCEPHALIC, ATRAUMATIC Eyes: PERRLA, NO DISCHARGE ENT: NORMAL EAR EXAM, NORMAL NASAL EXAM, NORMAL MOUTH EXAM, NORMAL THROAT EXAM , other (should not patient has severe hearing difficulties) Neck: NORMAL RANGE OF MOTION, NO TENDERNESS, TRACHEA MIDLINE, NO STRIDOR Respiratory: other (clear to auscultation on the apices bilaterally but notable Velcro rales bilaterally at the bases progressing notable crackles about long term up the hemithoraces) Cardiovasular: REGULAR RATE/RHYTHM, NORMAL S1S2, NO M/G/R Abdomen: NON TENDER, other (decreased bowel sounds notably bloated) Genitourinary - Male: EXTERNAL GENITALIA NORMAL Back: NORMAL INSPECTION, NO MIDLINE TENDERNESS, NO CVA TENDERNESS Upper Extremities: NO EDEMA Lower Extremities: NO EDEMA Pulses: carotid (R) (1+), carotid (L) (1+), dorsalis pedis (R) (1+), dorsalis pedis (L) (1+) Neuro: ALERT, ORIENTED x 3, NORMAL MOTOR EXAM Reflexes: biceps (R) (1+), bicpes (L) (1+) Babinski Testing: right (downgoing), left (downgoing) Psychiatric: NORMAL AFFECT, NO SUICIDAL IDEATION Diagnostics Labs Results Past 24 Hours Test 05/11/16 08:59 05/11/16 09:15 05/11/16 09:18 05/11/16 14:10 Range/Units Creatine Kinase MB Ratio 2.0 0-3.0 White Blood Count 4.78 4.8-10.8 K/uL Red Blood Count 4.14 4.7-6.1 M/uL Hemoglobin 11.8 14.0-18.0 g/dL Hematocrit 35.3 42-52 % Mean Corpuscular Volume 85.3 80-100 fL Mean Corpuscular Hemoglobin 28.5 25-34 pg Mean Corpuscular Hemoglobin Concent 33.4 32-36 g/dl Platelet Count 128 130-400 K/uL Mean Platelet Volume 10.6 7.4-10.4 fL Neutrophils (%) (Auto) 82.6 % Lymphocytes (%) (Auto) 4.0 % Monocytes (%) (Auto) 11.7 % Eosinophils (%) (Auto) 0.0 % Basophils (%) (Auto) 0.0 % Neutrophils # (Auto) 3.95 1.4-6.5 K/uL Lymphocytes # (Auto) 0.19 1.2-3.4 K/uL Monocytes # (Auto) 0.56 0.11-0.59 K/uL Eosinophils # (Auto) 0.00 0-0.5 K/uL Basophils # (Auto) 0.00 0-0.2 K/uL RDW Standard Deviation 58.7 36.4-46.3 fL RDW Coefficient of Variation 18.9 11.5-14.5 % Immature Granulocyte % (Auto) 1.7 % Immature Granulocyte # (Auto) 0.08 0.00-0.02 K/uL Prothrombin Time 48.0 9.0-12.0 SECONDS Prothromb Time International Ratio 4.2 0.9-1.1 Activated Partial Thromboplast Time 49.9 21.0-31.0 SECONDS Partial Thromboplastin Ratio 1.9 Sodium Level 133 136-145 mmol/L Potassium Level 3.8 3.5-5.1 mmol/L Chloride Level 100 98-107 mmol/L Carbon Dioxide Level 20 21-32 mmol/L Anion Gap 13.0 18.0 16-25 mmol/L Blood Urea Nitrogen 11 7-18 mg/dl Creatinine 1.00 0.60-1.40 mg/dl Est Creatinine Clear Calc Drug Dose 69.8 ml/min Estimated GFR () 81.4 Estimated GFR (Non- 70.3 BUN/Creatinine Ratio 11.4 10-20 Random Glucose 147 70-99 mg/dl Calcium Level 8.6 8.5-10.1 mg/dl Phosphorus Level 2.1 2.5-4.9 mg/dl Magnesium Level 2.2 1.8-2.4 mg/dl Total Bilirubin 2.5 0.2-1 mg/dl Aspartate Amino Transf (AST/SGOT) 31 15-37 U/L Alanine Aminotransferase (ALT/SGPT) 13 12-78 U/L Alkaline Phosphatase 78 45-117 U/L Total Creatine Kinase 30 39-308 U/L Creatine Kinase MB 0.6 0.5-3.6 ng/ml Troponin I 0.031 0-0.045 ng/ml Pro-B-Type Natriuretic Peptide 4623 0-1800 pg/ml Total Protein 6.1 6.4-8.2 gm/dl Albumin 3.1 3.4-5.0 gm/dl Globulin 3.0 2.5-4.0 gm/dl Albumin/Globulin Ratio 1.0 0.9-2 Bedside Hemoglobin 11.6 14.0-18.0 g/dl Bedside Hematocrit 34 42-52 % Bedside Sodium 131 135-144 mEq/L Bedside Potassium 3.9 3.3-5.0 mEq/L Bedside Chloride 97 101-112 mEq/L Bedside Total CO2 21 24-31 mEq/l Bedside Blood Urea Nitrogen 11 7-18 mg/dl Bedside Creatinine 0.9 0.6-1.3 mg/dl Bedside Glucose (other) 157 70-99 mg/dl Bedside Ionized Calcium (Rhonda) 1.13 1.12-1.32 mmol/l Urine Color YELLOW Urine Appearance CLEAR CLEAR Urine pH 5.0 4.5-7.5 Urine Specific [place] > 1.045 1.000-1.030 Urine Protein TRACE NEG Urine Glucose (UA) 3+ NEG Urine Ketones 1+ NEG Urine Occult Blood TRACE NEG Urine Nitrite NEG NEG Urine Bilirubin NEG NEG Urine Urobilinogen NEG NEG Urine Leukocyte Esterase NEG NEG Urine WBC (Auto) 0 0-5 /hpf Urine RBC (Auto) 0-4 0-4 /hpf Urine Hyaline Casts (Auto) 0 0-5 /lpf Urine Epithelial Cells (Auto) 0-5 0-5 /lpf Urine Bacteria (Auto) NEG NEG Test 05/11/16 14:20 05/11/16 16:29 Range/Units Influenza Type A (RT-PCR) Neg for Influ A NEG Influenza Type B (RT-PCR) Neg for Influ B NEG Bedside Glucose 208 70-99 mg/dl Microbiology Results 05/11/16 Blood Culture, Received Pending 05/11/16 Blood Culture, Received Pending 05/11/16 MRSA DNA Surveillance Screen - Final, Complete Specimen Negative for MRSA by DNA Probe Diagnostic Radiology CT head 05/11/16: No signs of acute intracranial abnormalities CT abdomen 05/11/16: No acute processes noted within the abdomen or pelvis CT of the chest 05/11/16: Comparison study 04/25/2016 No evidence of acute pulmonary embolisms No change in mediastinal lymphadenopathy Signs of severe pulmonary emphysema Stable right upper lobe irregular nodule Development of ground-glass attenuations bibasilar dependent regions Stable right upper lobe nodules 21 mm and 11 mm EKG Ventricular paced rhythm Impression Assessment and Plan 81-year-old gentleman with hypoxemia admitted with respiratory insufficiency: #1 hypoxemia: The patient's hypoxemia is most likely multifactorial with a combination of: Progressive interstitial lung disease, mild volume overload, possible aspiration and possible infection. I agree with the current teams regiments of antibiotics as well as diuresis and oxygen support. I also believe it is important to maintain this patient on aspiration precautions and repeat swallow evaluation/video. With progressive interstitial lung disease is most helpful to treat patient with higher levels of steroids anywhere from 0.5-2 mg/ kg. As this patient is notably intolerant to steroids and has elevated glucoses in the past will initiate a lower dose at 0.5 mg/kg increasing his current dose from 40 mg a day to 50 mg of prednisone. #2 pulmonary embolism: Patient has been chronically anticoagulated with Coumadin in the last 2 CT angios so no signs of repeat pulmonary emboli. Patient has been on Coumadin as he did not prefer Lovenox subcutaneously and Xeralto and other newer anticoagulants had not fully been recommended for cancer related pulmonary emboli at this time. Follow-up thank you for this interesting consultation we'll continue to follow.
[2016-05-11] MEDS: TAMSULOSIN HCL 0.4 MG CAP PO SCH (20:22)
[2016-05-11] MEDS: RANITIDINE HCL 150 MG TAB PO SCH (20:22)
[2016-05-11] MEDS: INSULIN ASPART 100 UNITS/ML 3 ML PEN SC SCH (20:24)
[2016-05-12] VITALS (13 sets, daily range): BP systolic 113–139; BP diastolic 56–83; PULSE 81–103; TEMP 36.3–36.8; O2SAT 89–96
--- NOTE | 2016-05-12 00:18 | CARDIOLOGY CONSULTATION ---
DATE OF CONSULTATION: 05/11/2016 REFERRING PHYSICIAN: Dr. Lonny Kirkland. REASON FOR CONSULTATION: Possible congestive heart failure, respiratory insufficiency. CHIEF COMPLAINT ON ADMISSION: Shortness of breath. HISTORY OF PRESENT ILLNESS: The patient presented to the Emergency Department with worsening shortness of breath at the behest of his daughter. He was recently admitted with community acquired pneumonia. He was treated with antibiotics and discharged to home. He voices concern regarding lack of home health upon his return home. He has been waiting for a nebulizer for 2 weeks since discharge. The patient notes progressive dyspnea, cough as well as shortness of breath with exertion. Upon arrival to the Emergency Department, he was found to be hypoxic and tachycardic. BiPAP was placed. The patient was treated with steroids, antibiotics, and IV diuretic therapy approximately 30 minutes ago. He is currently resting comfortably. I recently evaluated him in the cardiology clinic in February. Due slowly progressive shortness of breath, repeat resting 2D transthoracic echo as well as Lexiscan nuclear stress testing was performed. A stress test was found to be negative for inducible ischemia. Both his stress test and echocardiogram demonstrated mild decline in LV systolic function with qualitative ejection fraction of 45-50%. There was evidence of mild pulmonary hypertension, no significant valvular heart disease. Currently, the patient is comfortable lying in his hospital bed. He denies orthopnea, paroxysmal nocturnal dyspnea. No weight gain or lower extremity edema. His ProBNP was found to be elevated on admission. His troponins are not significantly elevated. The patient denies any chest discomfort, although notes intermittent chest heaviness associated with cough and shortness of breath. Denies lightheadedness, dizziness, syncope or near syncope. ECG demonstrates a ventricular paced rhythm with intermittent atrioventricular paced rhythm as well. The patient carries a history of recent pulmonary embolus diagnosed in October as well as metastatic colon cancer for which he was treated recently with chemotherapy in January. REVIEW OF SYSTEMS: The pertinent positive noted above, a comprehensive 10-system review is otherwise negative. PAST MEDICAL HISTORY: 1. Metastatic colon cancer. 2. Mild left ventricular systolic dysfunction. 3. Recent pneumonia. 4. Reactive airways disease. 5. Complete AV block status post pacemaker implantation. 6. Pulmonary fibrosis. 7. COPD. 8. Pulmonary embolus. 9. Hypertension. 10. Moderate right internal carotid artery stenosis. 11. Dyslipidemia. 12. Pulmonary nodules. PAST SURGICAL HISTORY: 1. Cardiac catheterization demonstrating mild nonobstructive CAD in 1986. 2. Appendectomy. 3. Cataract surgery. 4. Cholecystectomy. 5. Colectomy. FAMILY HISTORY: Negative for premature CAD or sudden cardiac , however noncontributory given the patient's advanced age and current clinical status. SOCIAL HISTORY: Former tobacco abuse. He is . ALLERGIES: LISTED TO PROCAINE. OUTPATIENT MEDICATIONS: 1. Aspirin 81 mg daily. 2. Atorvastatin 20 mg. 3. DuoNeb q.i.d. 4. Omeprazole 20 mg daily. 5. Zofran 4 mg as needed. 6. Warfarin is 2.5 mg daily. Ventricular pacing with occasional AV paced rhythm. The underlying rhythm appears to be sinus. CTA of the chest: No evidence of pulmonary embolus, severe emphysema, ground-glass attenuation of the lungs suggesting edema versus inflammatory/infectious process. CT of the head: No acute intracranial abnormality. LABORATORY DATA: ProBNP 4623. Troponin 0.031. Sodium is 131, potassium is 3.9, chloride is 97, CO2 21, BUN 1 is 11, and creatinine is 0.9. White blood cell count 4.78, hemoglobin is 11.6, platelet count is 128. INR is 4.2 on admission. Influenza screen is negative for influenza A and B. PHYSICAL EXAMINATION: VITAL SIGNS: Temperature is 36.9 degrees centigrade, pulse is 100 beats per minute and regular, respiratory rate is 18 breaths per minute, blood pressure is 115/72, SaO2 94% on 6 liters nasal cannula. GENERAL: Chronically ill, no acute distress, hard of hearing. HEENT: Mucous membranes are dry. No scleral icterus. Conjunctivae pink. NECK: Veins are flat without JVD or HJR. There is no carotid bruit. HEART: Regular, borderline tachycardic with a normal S1 and S2. There is a soft mid systolic murmur heard at the left sternal border. LUNGS: Demonstrate crackles at the bases bilaterally. No rhonchi, mild end expiratory wheeze. ABDOMEN: Soft and nontender. No rebound or guarding. EXTREMITIES: Warm and dry without clubbing, cyanosis, or edema. NEUROLOGIC: Demonstrates no focal motor deficit. FINAL IMPRESSION: 1. Complex 81-year-old male admitted with acute respiratory insufficiency which is multifactorial including recent community acquired pneumonia, underlying pulmonary fibrosis. Mild pulmonary vascular congestion not excluded. Diagnostic testing somewhat equivocal given underlying pulmonary fibrosis and recent pneumonia. His mildly elevated ProBNP is also somewhat difficult to interpret in this complex chronically ill patient. 2. Mild left ventricular systolic dysfunction with most recent ejection fraction of 45-50%. No significant valvular disease. 3. Recent pulmonary embolus, on chronic anticoagulation. Repeat CT angiogram of the chest demonstrates no evidence of pulmonary embolus. 4. Complete atrioventricular block status post pacemaker placement. 5. Metastatic colon cancer. 6. Chronic anticoagulation with Coumadin -- INR supratherapeutic. No signs/symptoms of bleeding. PLAN AND RECOMMENDATIONS: Agree with dose of low dose diuretic therapy to assess clinical response at this time. The patient's respiratory status improved with conservative treatment thus far. He will continue intravenous antibiotics, corticosteroids, nebulizer treatments as per the discretion of pulmonary medicine and the hospitalist service. I will re-interrogate his pacemaker to exclude the presence of paroxysmal dysrhythmias. I do not believe current clinical status represents an acute coronary syndrome. His INR is supratherapeutic; however, we would not recommend reversal at this time. We will repeat his INR in the a.m. We will reassess basic metabolic panel and clinical status determining need for further diuretic therapy pending clinical course. I will not repeat his echocardiogram at this time. We will continue to follow closely during hospitalization. Thank you for allowing me to take part in the care of your patient.
[2016-05-12] MEDS: PIPERACILL/TAZOBAC IV 3.375 GM in DEXTROSE 5% 100ML IV SCH ×3 (02:13→17:27)
[2016-05-12 06:29] LABS: PROTHROMBIN TIME (PATIENT) 62.4 SECONDS (9.0-12.0)
[2016-05-12 06:31] LABS: INR 5.4 (0.9-1.1)
[2016-05-12 06:39] LABS: CALCIUM 8.5 mg/dl (8.5-10.1); CREATININE 0.83 mg/dl (0.60-1.40); POTASSIUM 3.7 mmol/L (3.5-5.1)
[2016-05-12 06:46] LABS: PHOSPHORUS 2.8 mg/dl (2.5-4.9)
[2016-05-12] MEDS: IPRATROPIUM BROMIDE NEB SOLN 0.02% 2.5 ML VIAL INH SCH ×4 (06:58→19:32)
[2016-05-12] MEDS: LEVALBUTEROL 1.25MG/0.5ML NEB INH SCH ×4 (06:58→19:32)
[2016-05-12] MEDS: INSULIN ASPART 100 UNITS/ML 3 ML PEN SC SCH ×4 (07:00→20:56)
--- NOTE | 2016-05-12 07:40 | DIAGNOSTIC IMAGING REPORT ---
CHEST ONE VIEW PORTABLE CLINICAL HISTORY: Shortness of breath. COMPARISON STUDY: Chest CT T May 11, 2016 FINDINGS: A right subclavian [id number] and dual lead left pacemaker are in place. There is no pneumothorax. Cardiomegaly is unchanged. Diffuse interstitial thickening and bibasilar opacities are present. IMPRESSION: Mild interstitial thickening and lower lung airspace opacities which may reflect an infectious process or pulmonary edema superimposed upon chronic interstitial lung disease. Electronically signed by: Glen Elizabeth M.D. 05/12/2016 7:39 AM
--- NOTE | 2016-05-12 08:37 | ONCOLOGY CONSULTATION ---
DATE OF CONSULTATION: 05/12/2016 REASON FOR CONSULTATION: An 81-year-old gentleman with acute respiratory failure secondary to unresolved pneumonia. Renard also is under treatment for metastatic colorectal cancer. HISTORY OF PRESENT ILLNESS: Renard is an 81-year-old gentleman well known to [facility] with history of metastatic colorectal cancer, currently receiving chemotherapy. He was admitted to [facility] yesterday after complaining of increasing chest congestion and dyspnea. He was recently hospitalized from April 25 through May 02 with pneumonia. He was discharged on doxycycline and prednisone taper. Renard states he had a couple of good days before the most part feels he did not recover completely from his previous hospitalization. He describes a low-grade fever with occasional chills and sweats. Dyspnea is worse on exertion with a nonproductive cough. He has been started on oxygen, broad spectrum antimicrobials and bronchodilators. CTA of the chest is negative for pulmonary embolism. Stable mediastinal lymphadenopathy is also noted as well as evidence for emphysema and right upper lobe irregular nodular densities. The interpreting radiologist also notes developing ground-glass attenuation in the bases bilaterally. CT scan of the abdomen and pelvis confirms a slight attenuation of the hepatic lesions secondary to metastatic disease. He is due to receive his next course of chemotherapy on 17 of May. PAST MEDICAL HISTORY: Significant for COPD, complete AV block, coronary artery disease, dyslipidemia, hypertension, left bundle branch block, metastatic colorectal cancer, pneumoconiosis and pulmonary embolism. PAST SURGICAL HISTORY: Includes cataract extraction, appendectomy, cholecystectomy and partial colectomy. FAMILY HISTORY: Includes diabetes mellitus on both sides of his family; heart disease and hypertension on his mother's side; his brother suffers from cancer and another brother with heart disease; sister with heart disease and another sibling sister to be specific with stroke. SOCIAL HISTORY: The patient is , retired. He is a reformed smoker. Negative for alcohol. MEDICATIONS: On admission include aspirin 81 mg p.o. daily, atorvastatin 20 mg p.o. daily, DuoNeb 1 inhalation p.o. q.i.d., Ocuvite 1 tablet p.o. q.a.m., omeprazole 20 mg p.o. daily, Zofran 4 mg p.o. q. 6 hours p.r.n. and warfarin 2.5 mg p.o. daily. ALLERGIES: PROCAINE. REVIEW OF SYSTEMS: GENERAL: Positive for low grade fever, sweats and fluctuating weight. HEENT: Negative for headaches, lightheadedness or dizziness. No dysphagia or sore throat. No sinus symptoms. LYMPH: Negative for history of lymphoproliferative disorder. PULMONARY: Positive for dyspnea on exertion, shortness of breath, wheezing and cough. He reports no hemoptysis. CARDIOVASCULAR: Negative for angina, no palpitations. Positive history of coronary artery disease. ABDOMEN: Positive for constipation, occasional nausea, no hematochezia, melena or jeanna rectal bleeding. MUSCULOSKELETAL: No arthralgias or myalgias. ENDOCRINE: Negative for diabetes or thyroid disease. NEUROLOGIC: Negative for seizure, stroke, or migraine headache. HEMATOLOGIC: Positive for anemia and mild thrombocytopenia. PHYSICAL EXAMINATION: GENERAL: Renard is a pleasant 81-year-old gentleman, in no acute distress. VITAL SIGNS: Temperature 36.3, pulse 93, respirations 22, blood pressure 134/78. SKIN: Pale, warm, dry, noncyanotic without petechia, rash or ecchymosis. HEENT: Atraumatic, normocephalic. Eyes: PERRLA, EOMI. Sclerae nonicteric. No conjunctival injection. Nares patent without rhinorrhea or discharge. Throat is clear. Tongue midline. Mucous membranes are moist. NECK: Supple without JVD or thyromegaly. LYMPH: No cervical, supraclavicular, axillary palpable nodes. HEART: Regular rate and rhythm. No clicks, rubs, murmurs or gallops. LUNGS: Diffuse rhonchi heard in all key posteriorly. ABDOMEN: Soft, nontender, nondistended, without palpable hepatosplenomegaly. EXTREMITIES: No calf tenderness or swelling. No clubbing, cyanosis or edema. NEUROLOGICALLY: He is awake, alert and oriented x3. Cranial nerves II-XII are intact. No gross motor or sensory deficits are noted. LABORATORY DATA: WBC count 4780, hemoglobin 11.8, platelet count 128,000. Sodium 137, potassium 3.7, chloride 103, carbon dioxide 22, BUN 13, creatinine 0.83. RADIOGRAPHIC DATA: As described in the HPI. IMPRESSION: 1. Exacerbation of chronic obstructive pulmonary disease. 2. Superimposed unresolved pneumonia. 3. Metastatic colorectal cancer. 4. Acute hypoxic respiratory failure. PLAN: From an oncologic standpoint, chemotherapy will be suspended until patient is medically stable. He has had 2 hospitalizations here in the last couple of weeks and thus reluctant to resume cytotoxic therapy until he is recovered. I agree with his current medical management. Blood counts are adequate, transfusion is not needed at this time. He is scheduled to resume chemotherapy on the ; however, in light of recent clinical events, again treatment will be held indefinitely. I have nothing further to add at this time; however, will be surgeon chief throughout the holiday weekend. If there are any questions or concerns, feel free to call me at any time. Thank you for allowing me to participate in Renard's care MTDD
[2016-05-12] MEDS: VANCOMYCIN INJ 1,250 MG in SODIUM CHLORIDE 0.9% 250ML 250 ML IV SCH ×2 (08:38→21:24)
[2016-05-12] MEDS: POT PHOSPHATE MONOBASIC W/ SOD TAB PO SCH ×4 (09:16→19:58)
[2016-05-12] MEDS: RANITIDINE HCL 150 MG TAB PO SCH ×2 (09:16→19:58)
[2016-05-12] MEDS: ATORVASTATIN 20 MG TAB PO SCH (09:17)
[2016-05-12] MEDS: ASPIRIN 81 MG ECTAB PO SCH (09:17)
[2016-05-12] MEDS: CEROVITE ADV FORMULA TAB PO SCH (09:18)
--- NOTE | 2016-05-12 11:08 | Cardiology Follow-Up ---
Subjective General Date of Service: May 12, 2016. Pt evaluation today including: conversation w/ patient, physical exam, chart review, lab review, review of studies, review of inpatient medication list History of Present Illness The patient is a 81 year old male seen in follow up. Respiratory status improved with medical therapy. Denies chest discomfort or palpitations. No orthopnea or paroxysmal nocturnal dyspnea. Cough improved. Allergies Coded Allergies: Procaine (Verified Adverse Reaction, Unknown, SWEATS, SOB, RAPID HEART BEAT, 05/11/16) Social History Smoking Status: Former Smoker Hx Tobacco Use In Past Year?: No (quit 25 years ago) Hx Alcohol Use - Type And Amou: No Hx Substance Use - Type And Am: No Problem List Medical Problems: (1) Colitis Status: Acute (2) Diarrhea Status: Acute (3) Hypophosphatemia Status: Acute (4) Pneumonia Status: Acute (5) Pneumonia Status: Acute Review of Systems Respiratory: + cough, + dyspnea on exertion, + shortness of breath, No hemoptysis, No wheezing Cardiac: No chest pain, No edema, No orthopnea, No palpitations Physical Exam Vital Signs Last Vital Signs Documentation Date Time Temp Pulse Resp B/P Pulse Ox O2 Delivery O2 Flow Rate FiO2 05/12/16 07:56 36.4 84 18 120/63 89 Nasal Cannula 6.0 05/11/16 20:15 40 Physical Exam Constitutional: General Apperance: overweight Level of Distress: NAD, chronically ill Head: normocephalic ENMT: normal ENT inspection Neck: supple, trachea midline Lungs: Auscultation: rales/crackles on the left, rales/crackles on the right Cardiovascular: Heart Auscultation: RRR, normal S1, normal S2, I/ WSM Abdomen: Inspection & Palpation: soft, non-distended, no tenderness, guarding & rebound, no masses Extremities: no cyanosis, no edema, no clubbing, no ulcers Neurologic: Gait & Station: pertinent finding (no focal motor deficit) Cranial Nerves: grossly intact Assessment and Plan Assessment and Plan FINAL IMPRESSION: 1. Multifactorial respiratory insufficiency secondary to recent community acquired pneumonia, COPD exacerbation, progressive pulmonary fibrosis, and mild volume overload. 2. Mild left ventricular systolic dysfunction with most recent ejection fraction of 45-50%. No significant valvular disease. 3. Recent pulmonary embolus, on chronic anticoagulation. Repeat CT angiogram of the chest demonstrates no evidence of pulmonary embolus. 4. Complete atrioventricular block status post pacemaker placement. 5. Metastatic colon cancer. 6. Chronic anticoagulation with Coumadin -- INR supratherapeutic. No signs/symptoms of bleeding. PLAN AND RECOMMENDATIONS: Give additional 20 mg intravenous Lasix today. Repeat basic metabolic panel in the a.m. and reassess volume status at that time. Continue other cardiovascular medications as previously ordered. Hold Coumadin with supratherapeutic INR. Repeat INR in the a.m. Antibiotics, nebulizer treatments, corticosteroids as per pulmonary medicine. Laboratory Results Last 24 Hours Test 05/11/16 14:10 05/11/16 14:20 05/11/16 16:29 05/11/16 19:48 Urine Color YELLOW Urine Appearance CLEAR Urine pH 5.0 Urine Specific [place] > 1.045 Urine Protein TRACE Urine Glucose (UA) 3+ Urine Ketones 1+ Urine Occult Blood TRACE Urine Nitrite NEG Urine Bilirubin NEG Urine Urobilinogen NEG Urine Leukocyte Esterase NEG Urine WBC (Auto) 0 /hpf Urine RBC (Auto) 0-4 /hpf Urine Hyaline Casts (Auto) 0 /lpf Urine Epithelial Cells (Auto) 0-5 /lpf Urine Bacteria (Auto) NEG Influenza Type A (RT-PCR) Neg for Influ A Influenza Type B (RT-PCR) Neg for Influ B Bedside Glucose 208 mg/dl 238 mg/dl Test 05/12/16 05:29 05/12/16 07:18 Prothrombin Time 62.4 SECONDS Prothromb Time International Ratio 5.4 Sodium Level 137 mmol/L Potassium Level 3.7 mmol/L Chloride Level 103 mmol/L Carbon Dioxide Level 22 mmol/L Anion Gap 12.0 mmol/L Blood Urea Nitrogen 13 mg/dl Creatinine 0.83 mg/dl Est Creatinine Clear Calc Drug Dose 80.7 ml/min Estimated GFR () 95.6 Estimated GFR (Non- 82.5 BUN/Creatinine Ratio 16.0 Random Glucose 159 mg/dl Calcium Level 8.5 mg/dl Phosphorus Level 2.8 mg/dl Bedside Glucose 190 mg/dl
[2016-05-12] MEDS ORDERED: FUROSEMIDE INJ 20 MG in SYRINGE 0 ML IV ONE (11:45)
--- NOTE | 2016-05-12 13:42 | Clinical Documentation Query ---
CLINICAL DOCUMENTATION QUERY Dr. DIAZ, In your clinical opinion is this patient being managed for: ( x) Acute on chronic systolic CHF ( ) Other explanation of clinical findings (Please Explain) ( ) Unable to determine (Please Define) ( ) Need to Discuss ( ) Not Agree The medical record reflects the following clinical findings, treatment, and risk factors. Clinical Indicators: 81 yo male presenting with persistent respiratory problems. O2 sat 75% on RA at home, 94% on 6L and 99% on BIPAP. BNP 4623. Most recent ECHO showed EF 45-50%. Lungs noted to have bilateral crackles. Treatment: O2/BIPAP support, IV lasix, cardiology consult, tele, I/O, daily wts Risk Factors: age, CAD, HTN Please clarify and document your clinical opinion in the progress notes and discharge summary. Terms such as "probable", "suspected", "likely", "questionable", "possible", or "still to be ruled out" are acceptable. IF IN AGREEMENT, YOU MUST DOCUMENT ABOVE DIAGNOSTIC STATEMENT IN DAILY PROGRESS NOTES AND DISCHARGE SUMMARY. This document is not part of the patient's record. Thank You, Ria Baez, RN [phone]
[2016-05-12] MEDS ORDERED: WARFARIN SOD 2.5 MG TAB PO SCH ×2 (16:00)
[2016-05-12] MEDS: LEVOFLOXACIN / D5W 500 MG in PREMIXED IN D5W 100 ML IV SCH (16:03)
--- NOTE | 2016-05-12 17:04 | Pulmonology Progress Note ---
Pulmonary Progress Note Date of Service May 12, 2016. Attending Dr. Rip Steel Subjective Patient shortness of breath is greatly improved. Only notes dyspnea on exertion back to baseline. Objective The patient is able to complete full sentences not using accessory muscle sitting in a chair showing no signs of increased work of breathing. He denies fever, cough, chills or signs of aspiration at this time. Neck sign Physical exam: Respiratory: Crackles bilaterally mid lung down posteriorly with Velcro rales inspiration Cardiac: S1-S2 regular rate and rhythm 2/6 systolic murmur best appreciated left upper sternal border Labs: INR 5.4 Radiology Chest x-ray 05/12/16: Poor penetration expiratory film does appear to have increased hilar fullness parabronchial cuffing with costophrenic blunting left greater than right Assessment & Plan 81-year-old gentleman with progressive hypoxia and history of stage IV colon cancer: #1 Hypoxemia: It's possible our patient is having progressive hypoxia secondary to ILD/C.O.P. FOLFIRI chemotherapy induced ILD has been very rarely reported with irinotecan being the most likely source. At this time I suggest we just continue his current prednisone dosing and monitor him for response. We should also continue to monitor the patient for silent GERD which would be consistent with the lower lobe increasing fibrosis. #2 Pneumonia: Would also continue to cover for active pneumonia at this time for a total of a 7 day course. Data Medications: Current Inpatient Medications Medications (Trade) Dose Ordered Sig/Karie Route Start Time Stop Time Status Last Admin Dose Admin Ioversol (Optiray 320) 125 ml UD PRN IV 05/11/16 09:15 05/15/16 09:14 Acetaminophen (Tylenol Tab) 650 mg Q4H PRN PO 05/11/16 12:15 06/10/16 12:14 Ondansetron HCl (Zofran Inj) 4 mg Q6H PRN IV 05/11/16 12:15 06/10/16 12:14 Aspirin (Ecotrin Tab) 81 mg DAILY PO 05/12/16 09:00 06/11/16 08:59 05/12/16 09:17 81 MG Atorvastatin Calcium (Lipitor Tab) 20 mg QAM PO 05/12/16 09:00 06/11/16 08:59 05/12/16 09:17 20 MG Multivitamins/ Minerals (Multivitamin W/ Minerals Tab) 1 tab QAM PO 05/12/16 09:00 06/11/16 08:59 05/12/16 09:18 1 TAB Oxycodone/ Acetaminophen (Percocet 5-325MG Tab) 1 tab Q6H PRN PO 05/11/16 14:00 05/25/16 13:59 Ranitidine HCl (zANTac TAB) 150 mg BID PO 05/11/16 21:00 06/10/16 20:59 05/12/16 09:16 150 MG Lorazepam (Ativan Tab) 0.5 mg Q8H PRN PO 05/11/16 14:00 06/10/16 13:59 Sodium Chloride ([place] Nasal [place]) 4 sprays Q2H PRN NA 05/11/16 14:00 06/10/16 13:59 Potassium/ Phosphorus/Sodium (Phospha 250 Neutral 155-852-130 Mg) 1 tab QID PO 05/11/16 17:00 06/10/16 16:59 05/12/16 16:06 1 TAB Prednisone 40 mg 40 mg DAILY PO 05/12/16 09:00 06/11/16 08:59 05/12/16 09:17 40 MG Levofloxacin/Prmx (Levaquin / D5W/ Premixed D5W) 100 ml @ 100 mls/hr DAILY@1600 IV 05/11/16 16:00 05/21/16 15:59 05/12/16 16:03 100 MLS/HR Ipratropium [place] (Atrovent 0.02% 0.5MG/2.5ML Neb) 0.5 mg QIDR INH 05/11/16 16:00 06/10/16 15:59 05/12/16 14:32 0.5 MG Levalbuterol (Xopenex 1.25MG/ 0.5ML Neb) 1.25 mg QIDR INH 05/11/16 16:00 06/10/16 15:59 05/12/16 14:32 1.25 MG Levalbuterol (Xopenex 0.63 Mg/ 3 Ml Neb) 0.63 mg Q2H PRN INH 05/11/16 14:15 06/10/16 14:14 Vancomycin HCl (Consult) 1 ea UD PRN N/A 05/11/16 14:30 06/10/16 14:29 Piperacillin Sod/ Tazobactam Sod (Consult) 1 ea UD PRN N/A 05/11/16 14:30 06/10/16 14:29 Levofloxacin 1 ea 1 ea UD PRN N/A 05/11/16 16:00 06/10/16 15:59 Vancomycin HCl 1250 mg/Sodium Chloride 275 ml @ 125 mls/hr Q14H IV 05/11/16 18:00 05/21/16 17:59 05/12/16 08:38 125 MLS/HR Piperacillin Sod/ Tazobactam Sod/ Dextrose (Zosyn Iv/D5 100ml) 115 ml @ 28.75 mls/ hr Q8H IV 05/11/16 18:00 05/21/16 17:59 05/12/16 09:24 28.75 MLS/HR Insulin Aspart (novoLOG ASPART) SLIDING SCALE G... ACHS SC 05/11/16 21:00 06/10/16 20:59 05/12/16 07:00 1 UNITS Glucose (Glucose 40% Gel) 15-30 GRAMS 15 GRAMS... UD PRN PO 05/11/16 17:00 06/10/16 16:59 Glucose (Glucose Chew Tab) 4-8 Tablets 4 Tabl... UD PRN PO 05/11/16 17:00 06/10/16 16:59 Dextrose (Dextrose 50% 50ML Syringe) 25-50ML OF 50% DW IV FOR... UD PRN IV 05/11/16 17:00 06/10/16 16:59 Glucagon (Glucagon Inj) 1 mg UD PRN SQ 05/11/16 17:00 06/10/16 16:59 Tamsulosin HCl (Flomax Cap) 0.4 mg HS PO 05/11/16 21:00 06/10/16 20:59 05/11/16 20:22 0.4 MG I & O: 24-Hour Column 05/12/16 08:00 Intake Total 1385 ml Output Total 850 ml Balance 535 ml Vital Signs: Date Time Temp Pulse Resp B/P Pulse Ox O2 Delivery O2 Flow Rate FiO2 05/12/16 15:52 36.7 103 20 122/72 96 Nasal Cannula 6.0 Humidified Oxygen 05/12/16 14:33 89 20 96 Nasal Cannula 6.0 05/12/16 12:45 36.6 95 18 139/83 92 Nasal Cannula 05/12/16 12:00 92 Nasal Cannula 6.0 05/12/16 11:10 101 20 95 Nasal Cannula 6.0 05/12/16 08:00 89 Nasal Cannula 6.0 05/12/16 07:56 36.4 84 18 120/63 89 Nasal Cannula 6.0 05/12/16 06:59 81 20 89 Nasal Cannula 6.0 05/12/16 04:00 36.3 93 22 134/78 95 Nasal Cannula 7.0 05/12/16 04:00 95 Nasal Cannula 6.0 05/12/16 00:10 95 Nasal Cannula 6.0 05/12/16 00:00 36.8 82 21 113/56 90 Nasal Cannula 7.0 05/11/16 20:15 95 Nasal Cannula 6.0 40 05/11/16 19:54 36.9 102 22 95/72 95 05/11/16 19:09 88 20 90 Nasal Cannula 6.0 Laboratory Results: Last 24 Hours Test 05/11/16 19:48 05/12/16 05:29 05/12/16 07:18 05/12/16 11:33 Bedside Glucose 238 mg/dl 190 mg/dl 138 mg/dl Prothrombin Time 62.4 SECONDS Prothromb Time International Ratio 5.4 Sodium Level 137 mmol/L Potassium Level 3.7 mmol/L Chloride Level 103 mmol/L Carbon Dioxide Level 22 mmol/L Anion Gap 12.0 mmol/L Blood Urea Nitrogen 13 mg/dl Creatinine 0.83 mg/dl Est Creatinine Clear Calc Drug Dose 80.7 ml/min Estimated GFR () 95.6 Estimated GFR (Non- 82.5 BUN/Creatinine Ratio 16.0 Random Glucose 159 mg/dl Calcium Level 8.5 mg/dl Phosphorus Level 2.8 mg/dl Test 05/12/16 16:23 Bedside Glucose 227 mg/dl
--- NOTE | 2016-05-12 19:54 | Progress Note ---
Internal Med Progress Note Date of Service: May 12, 2016. Provider Documentation: SUBJECTIVE: patient says his sob is better than yesterday but whenever exerts feeling sob has cough afebrile denies chest pain no nausea hemodynamics stable OBJECTIVE: Vital Signs-as noted below Exam: General-alert and awake and oriented ENT-normal hearing Neck-no neck masses Lungs-cta b/l no wheezing bibasilar crackles present Heart-s1 and s2 heard regular rate and rhythm, no murmurs Abdomen-soft bowel sounds present nn tender no distension Extremities-no edema present no erythema Neuro-alert and awake moves extremities Lab data as noted below. ASSESSMENT & PLAN: ACUTE HYPOXIC RESPIRATORY FAILURE Underlying interstitial / obstructive lung disease. Recently in the hospital for pneumonia. Had Pulmonary embolism about 6 months ago. presented with sob and hypoxia. CTA chest done in ER negative for pulmonary embolism, but demonstrated possible pulmonary infiltrates and / or pulmonary edema. influenza negative improving with steroids, abx and received Lasix PROBABLE PNEUMONIA HCAP? CT chest suggests pulmonary infiltrates. Recent hospitalization for pneumonia. History of MRSA. Await cultures On IV antibiotic therapy with levofloxacin, piperacillin / tazobactam, vancomycin continue same for now pulmonary on board and appreciate inputs EXACERBATION OBSTRUCTIVE LUNG DISEASE received solumedrol currently on prednisone POSSIBLE CHF CT - pulmonary edema. BNP elevated. Echo last month in clinic 45-50%. had iv lasix yesterday and today will f/u volume status and labs appreciate cardiology inputs. HEADACHES unremarkable CT head no complaints today HYPOPHOSPHATEMIA Serum phosphorus 2.1. PO replacement. replaced METASTATIC COLON CA Management per Medical Oncology. 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 HISTORY MRSA Contact isolation. VTE PROPHYLAXIS / HISTORY OF PULMONARY EMBOLISM INR 5.4. RESUSCITATION STATUS level 1 as per h and P DISPOSITION Monitor in Telemetry Unit. Expected discharge to home. Medical follow-up with Dr. Carreno. Cardiology follow-up with Dr. Holm. Pulmonary follow-up with Dr. Steel. Medical Oncology follow-up with Dr. Barklye. . Vital Signs: Date Time Temp Pulse Resp B/P Pulse Ox O2 Delivery O2 Flow Rate FiO2 05/12/16 19:39 36.4 103 18 128/74 93 Nasal Cannula 6.0 05/12/16 19:32 84 18 94 Nasal Cannula 6.0 05/12/16 16:00 Nasal Cannula 6.0 Humidified Oxygen 05/12/16 15:52 36.7 103 20 122/72 96 Nasal Cannula 6.0 Humidified Oxygen 05/12/16 14:33 89 20 96 Nasal Cannula 6.0 05/12/16 12:45 36.6 95 18 139/83 92 Nasal Cannula 05/12/16 12:00 92 Nasal Cannula 6.0 05/12/16 11:10 101 20 95 Nasal Cannula 6.0 05/12/16 08:00 89 Nasal Cannula 6.0 05/12/16 07:56 36.4 84 18 120/63 89 Nasal Cannula 6.0 05/12/16 06:59 81 20 89 Nasal Cannula 6.0 05/12/16 04:00 36.3 93 22 134/78 95 Nasal Cannula 7.0 05/12/16 04:00 95 Nasal Cannula 6.0 05/12/16 00:10 95 Nasal Cannula 6.0 05/12/16 00:00 36.8 82 21 113/56 90 Nasal Cannula 7.0 05/11/16 20:15 95 Nasal Cannula 6.0 40 05/11/16 19:54 36.9 102 22 95/72 95 Lab Results: Results Past 24 Hours Test 05/11/16 19:48 05/12/16 05:29 05/12/16 07:18 05/12/16 11:33 Range/Units Bedside Glucose 238 190 138 70-99 mg/dl Prothrombin Time 62.4 9.0-12.0 SECONDS Prothromb Time International Ratio 5.4 0.9-1.1 Sodium Level 137 136-145 mmol/L Potassium Level 3.7 3.5-5.1 mmol/L Chloride Level 103 98-107 mmol/L Carbon Dioxide Level 22 21-32 mmol/L Anion Gap 12.0 3-11 mmol/L Blood Urea Nitrogen 13 7-18 mg/dl Creatinine 0.83 0.60-1.40 mg/dl Est Creatinine Clear Calc Drug Dose 80.7 ml/min Estimated GFR () 95.6 Estimated GFR (Non- 82.5 BUN/Creatinine Ratio 16.0 10-20 Random Glucose 159 70-99 mg/dl Calcium Level 8.5 8.5-10.1 mg/dl Phosphorus Level 2.8 2.5-4.9 mg/dl Test 12/23/16 16:23 Range/Units Bedside Glucose 227 70-99 mg/dl
[2016-05-12] MEDS: TAMSULOSIN HCL 0.4 MG CAP PO SCH (19:58)
[2016-05-13] VITALS (14 sets, daily range): BP systolic 117–142; BP diastolic 59–76; PULSE 65–106; TEMP 35.9–36.9; O2SAT 90–96
[2016-05-13] MEDS: PIPERACILL/TAZOBAC IV 3.375 GM in DEXTROSE 5% 100ML IV SCH ×3 (02:20→17:15)
[2016-05-13 06:41] LABS: PROTHROMBIN TIME (PATIENT) 52.6 SECONDS (9.0-12.0)
[2016-05-13 06:45] LABS: BLOOD UREA NITROGEN 13 mg/dl (7-18); BUN/CREATININE RATIO 17.1 (10-20); CALCIUM 8.1 mg/dl (8.5-10.1); CARBON DIOXIDE 27 mmol/L (21-32); CHLORIDE 102 mmol/L (98-107); CREATININE 0.76 mg/dl (0.60-1.40); GLUCOSE 130 mg/dl (70-99); SODIUM 139 mmol/L (136-145)
[2016-05-13 06:46] LABS: INR 4.6 (0.9-1.1)
[2016-05-13] MEDS: IPRATROPIUM BROMIDE NEB SOLN 0.02% 2.5 ML VIAL INH SCH ×4 (06:51→19:30)
[2016-05-13] MEDS: LEVALBUTEROL 1.25MG/0.5ML NEB INH SCH ×4 (06:51→19:30)
[2016-05-13] MEDS: INSULIN ASPART 100 UNITS/ML 3 ML PEN SC SCH ×4 (07:00→21:44)
[2016-05-13 07:20] LABS: POTASSIUM 3.7 mmol/L (3.5-5.1)
--- NOTE | 2016-05-13 07:45 | PULMONARY PROGRESS NOTE ---
DATE: 05/13/2016 SUBJECTIVE: The patient is improved every day. He states he is able to stand up now and walk to the other side of his room and sit down in the chair without significant hypoxemia. He denies cough or chest pain. States he feels 100% better than he did at the time of admission. His oxygen saturation has improved now on 6 liters a sat is 96%. I reviewed the CT scan and x-rays. This certainly could be consistent with cryptogenic organizing pneumonitis or pneumonia associated with his chemotherapy. According to nurses' notes, he had a fairly good night last night, sleeping comfortably and he was out of bed yesterday for an extended period of time. He is tolerating his antimicrobial agents and steroids well. PHYSICAL EXAMINATION: VITAL SIGNS: Stable and he is afebrile. Oxygen saturation is again 96% on 6 liters. Blood pressure is 117/76. His weight is stable at 91.4 kilograms, that is probably his baseline. NECK: His posterior pharynx shows no evidence of thrush. There is no neck vein distention or HJR. HEART: Regular rate and rhythm. Heart sounds are distant. No murmurs are heard. LUNGS: Reveal few crackles at the lung bases, right greater than left. No fremitus or dullness to percussion is noted. Expansion of the thorax actually is very good with deep inspiration. ABDOMEN: Soft, nontender. He has no cyanosis, clubbing or edema. LABORATORY DATA: Stable. He does have a history of pulmonary embolism, which has resolved. His pacer implanted, which has been functioning well, has a mild cardiomyopathy with an LVEF of about 45-50%. H\T\H on the was 11.6 and 34%. PRP today looks good with a CO2 of 27. INR is high at 4.6. MRSA DNA surveillance screen is negative. Blood cultures are still pending. IMPRESSION: 1. Bilateral pulmonary infiltrates. It is certainly conceivable this could be related to cryptogenic organizing pneumonia. Seems to be improving. 2. Recent history of pulmonary embolism. The INR is a bit high and that has been adjusted. 3. Metastatic colon carcinoma. 4. Cardiomyopathy. 5. Status post pacer implantation. RECOMMENDATIONS: At this point, I would continue with his present medications. Good ulcer prophylaxis would be helpful as well. I think the Atrovent could be discontinued. Continue on the Xopenex, vancomycin, Zosyn, and prednisone 40 mg daily. The addition of Protonix along with the Zantac would be helpful as well. Cardiology notes are appreciated. Overall, he is stable.
[2016-05-13] MEDS: ATORVASTATIN 20 MG TAB PO SCH (08:29)
[2016-05-13] MEDS: ASPIRIN 81 MG ECTAB PO SCH (08:29)
[2016-05-13] MEDS: CEROVITE ADV FORMULA TAB PO SCH (08:29)
[2016-05-13] MEDS: RANITIDINE HCL 150 MG TAB PO SCH ×2 (08:30→21:42)
[2016-05-13] MEDS: POT PHOSPHATE MONOBASIC W/ SOD TAB PO SCH ×4 (08:30→21:42)
[2016-05-13] MEDS ORDERED: VANCOMYCIN TROUGH ONE (11:30)
--- NOTE | 2016-05-13 11:33 | HEME/ONC PROGRESS NOTE ---
DATE: 05/13/2016 DIAGNOSES: 1. Exacerbation of chronic obstructive pulmonary disease. 2. Superimposed unresolved pneumonia. 3. Metastatic colorectal cancer. 4. Acute hypoxic respiratory failure. HOSPITAL COURSE: Renard is a pleasant 81-year-old gentleman well known to [facility] with current diagnosis of metastatic colorectal cancer. He was admitted to [facility] yesterday with what appears to be exacerbation of COPD. This is second such admission in the last couple of weeks. He continues on corticosteroids, bronchodilators and broad-spectrum antibiotics. Seems to be feeling much better. States his appetite is decent; however, has not moved his bowels in last 24 hours. He has been out of bed periodically. He reports no difficulties overnight. PHYSICAL EXAMINATION: GENERAL: He is in no acute distress. VITAL SIGNS: Temperature 36.4, pulse 80, respirations 20, blood pressure 142/59. SKIN: Without rash or lesion. HEENT: Oral mucosa without erythema or ulceration. NECK: Supple. HEART: Regular rate and rhythm. No clicks, rubs, murmurs, gallops. LUNGS: Coarse rhonchi heard in the posterior bases bilaterally. ABDOMEN: Soft, nontender, nondistended. EXTREMITIES: No clubbing, cyanosis or edema. NEUROLOGIC: Grossly intact. LABORATORY DATA: Sodium 139, chloride 102, carbon dioxide 27, potassium 3.7, creatinine 0.76, BUN 13. Chest x-ray from 05/12/2016 reveals mild interstitial thickening and lower lung airspace opacities thought to be superimposed pneumonia or pulmonary edema. IMPRESSION: 1. Exacerbation of chronic obstructive pulmonary disease. 2. Superimposed pneumonia. 3. Metastatic colorectal cancer. PLAN: Renard seems to be doing a bit better today. Again, he has had 2 hospitalizations in the past couple of weeks and therefore we will continue to hold chemotherapy until he is medically stable. Agree with current medical management and perhaps extend his course of corticosteroids (slower wean). Will ensure expedient hospital follow up upon discharge.
[2016-05-13] MEDS: VANCOMYCIN INJ 1,250 MG in SODIUM CHLORIDE 0.9% 250ML 250 ML IV SCH (13:12)
--- NOTE | 2016-05-13 14:40 | Progress Note ---
Internal Med Progress Note Date of Service: May 13, 2016. Provider Documentation: SUBJECTIVE: says sob while walking resting feeling better afebrile 'has cough eating ok OBJECTIVE: Vital Signs-as noted below Exam: General-alert and awake and oriented ENT-normal hearing Neck-no neck masses Lungs-cta b/l no wheezing no crackles Heart-s1 and s2 heard regular rate and rhythm, no murmurs Abdomen-soft bowel sounds present nn tender no distension Extremities-no edema present no erythema Neuro-alert and awake moves extremities Lab data as noted below. ASSESSMENT & PLAN: ACUTE HYPOXIC RESPIRATORY FAILURE Underlying interstitial / obstructive lung disease. Recently in the hospital for pneumonia. Had Pulmonary embolism about 6 months ago. presented with sob and hypoxia. CTA chest done in ER negative for pulmonary embolism, but demonstrated possible pulmonary infiltrates and / or pulmonary edema. influenza negative improving with steroids, abx and received Lasix may need long steroid taper continue same for now PROBABLE PNEUMONIA HCAP? CT chest suggests pulmonary infiltrates. Recent hospitalization for pneumonia. History of MRSA. Await cultures On IV antibiotic therapy with levofloxacin, piperacillin / tazobactam, vancomycin mrsa swab negative will stop vancomycin pulmonary on board and appreciate inputs EXACERBATION OBSTRUCTIVE LUNG DISEASE received solumedrol currently on prednisone will taper slowly POSSIBLE CHF CT - pulmonary edema. BNP elevated. Echo last month in clinic 45-50%. had iv lasix yesterday and today will f/u volume status and labs appreciate cardiology inputs. HEADACHES unremarkable CT head no complaints today HYPOPHOSPHATEMIA Serum phosphorus 2.1. PO replacement. replaced METASTATIC COLON CA Management per Medical Oncology. 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 HISTORY MRSA Contact isolation. VTE PROPHYLAXIS / HISTORY OF PULMONARY EMBOLISM INR 4.6 RESUSCITATION STATUS level 1 as per h and P DISPOSITION Monitor in Telemetry Unit. Expected discharge to home. pt/ot prior to dishrge social service for d/c planning Medical follow-up with Dr. Carreno. Cardiology follow-up with Dr. Hlom. Pulmonary follow-up with Dr. Steel. Medical Oncology follow-up with Dr. Barkley. . Vital Signs: Date Time Temp Pulse Resp B/P Pulse Ox O2 Delivery O2 Flow Rate FiO2 05/13/16 12:00 36.4 105 20 132/62 95 Nasal Cannula 6.0 05/13/16 12:00 Nasal Cannula 6.0 05/13/16 11:09 65 16 91 Nasal Cannula 6.0 05/13/16 08:00 Nasal Cannula 6.0 05/13/16 07:41 36.4 80 20 142/59 94 6.0 05/13/16 06:50 80 16 93 Nasal Cannula 6.0 05/13/16 04:00 96 Nasal Cannula 6.0 95 05/13/16 03:53 36.9 71 20 117/76 96 Nasal Cannula 7.0 05/13/16 00:15 93 Nasal Cannula 6.0 05/13/16 00:00 36.3 83 20 120/62 93 Nasal Cannula 7.0 05/12/16 20:00 Nasal Cannula 6.0 Humidified Oxygen 05/12/16 19:39 36.4 103 18 128/74 93 Nasal Cannula 6.0 05/12/16 19:32 84 18 94 Nasal Cannula 6.0 05/12/16 16:00 Nasal Cannula 6.0 Humidified Oxygen 05/12/16 15:52 36.7 103 20 122/72 96 Nasal Cannula 6.0 Humidified Oxygen Lab Results: Results Past 24 Hours Test 05/12/16 16:23 05/12/16 20:13 05/13/16 05:30 05/13/16 05:39 Range/Units Bedside Glucose 227 223 70-99 mg/dl Prothrombin Time 52.6 9.0-12.0 SECONDS Prothromb Time International Ratio 4.6 0.9-1.1 Sodium Level 139 136-145 mmol/L Potassium Level 3.5-5.1 mmol/L Chloride Level 102 98-107 mmol/L Carbon Dioxide Level 27 21-32 mmol/L Anion Gap 10.0 3-11 mmol/L Blood Urea Nitrogen 13 7-18 mg/dl Creatinine 0.76 0.60-1.40 mg/dl Est Creatinine Clear Calc Drug Dose 88.1 ml/min Estimated GFR () 99.2 Estimated GFR (Non- 85.6 BUN/Creatinine Ratio 17.1 10-20 Random Glucose 130 70-99 mg/dl Calcium Level 8.1 8.5-10.1 mg/dl Phosphorus Level 3.0 2.5-4.9 mg/dl Test 05/13/16 06:54 05/13/16 06:58 05/13/16 11:16 05/13/16 11:42 Range/Units Potassium Level 3.7 3.5-5.1 mmol/L Chemistry Specimen Hemolysis Bedside Glucose 122 157 70-99 mg/dl Vancomycin Level Trough 11.2 SEE COMMENT mcg/ml
[2016-05-13] MEDS: LEVOFLOXACIN / D5W 500 MG in PREMIXED IN D5W 100 ML IV SCH (15:41)
[2016-05-13] MEDS: TAMSULOSIN HCL 0.4 MG CAP PO SCH (21:42)
[2016-05-14] VITALS (13 sets, daily range): BP systolic 111–160; BP diastolic 60–82; PULSE 71–98; TEMP 36.4–36.7; O2SAT 88–98
[2016-05-14] MEDS ORDERED: VANCOMYCIN INJ 1,250 MG in SODIUM CHLORIDE 0.9% 250ML 250 ML IV SCH ×2
[2016-05-14] MEDS: PIPERACILL/TAZOBAC IV 3.375 GM in DEXTROSE 5% 100ML IV SCH ×3 (02:23→17:15)
[2016-05-14 05:59] LABS: INR 3.1 (0.9-1.1); PROTHROMBIN TIME (PATIENT) 34.4 SECONDS (9.0-12.0)
[2016-05-14 06:19] LABS: BUN/CREATININE RATIO 15.1 (10-20); CALCIUM 8.4 mg/dl (8.5-10.1); CREATININE 0.67 mg/dl (0.60-1.40); POTASSIUM 3.8 mmol/L (3.5-5.1)
[2016-05-14 06:22] LABS: PHOSPHORUS 2.4 mg/dl (2.5-4.9)
[2016-05-14] MEDS: LEVALBUTEROL 1.25MG/0.5ML NEB INH SCH ×4 (06:58→19:47)
[2016-05-14] MEDS: IPRATROPIUM BROMIDE NEB SOLN 0.02% 2.5 ML VIAL INH SCH ×4 (06:58→19:47)
[2016-05-14] MEDS: INSULIN ASPART 100 UNITS/ML 3 ML PEN SC SCH ×4 (07:00→21:14)
[2016-05-14] MEDS: ASPIRIN 81 MG ECTAB PO SCH (07:58)
[2016-05-14] MEDS: CEROVITE ADV FORMULA TAB PO SCH (07:58)
[2016-05-14] MEDS: ATORVASTATIN 20 MG TAB PO SCH (07:58)
[2016-05-14] MEDS: POT PHOSPHATE MONOBASIC W/ SOD TAB PO SCH ×4 (07:59→21:13)
[2016-05-14] MEDS: RANITIDINE HCL 150 MG TAB PO SCH ×2 (08:00→21:13)
[2016-05-14] MEDS: PANTOprazole SOD 40 MG TAB PO SCH (08:00)
[2016-05-14] MEDS ORDERED: POT PHOSPHATE MONOBASIC W/ SOD TAB PO SCH (09:00)
[2016-05-14] MEDS ORDERED: POLYETHYLENE (MIRALAX) 17 GM PACK PO ONE (10:00)
[2016-05-14] MEDS ORDERED: POLYETHYLENE (MIRALAX) 17 GM PACK PO PRN (10:00)
[2016-05-14] MEDS: LEVOFLOXACIN / D5W 500 MG in PREMIXED IN D5W 100 ML IV SCH (15:33)
[2016-05-14] MEDS ORDERED: COUGH DROP (SUGAR FREE) LOZ 24 LOZ/1 BOX ONE (17:28)
--- NOTE | 2016-05-14 17:35 | Progress Note ---
Internal Med Progress Note Date of Service: May 14, 2016. Provider Documentation: SUBJECTIVE: little more sob in morning has cough constipated no pains afebrile eating ok OBJECTIVE: Vital Signs-as noted below Exam: General-alert and awake and oriented ENT-normal hearing Neck-no neck masses Lungs-cta b/l no wheezing mild bibasilar crackles Heart-s1 and s2 heard regular rate and rhythm, no murmurs Abdomen-soft bowel sounds present nn tender no distension Extremities-trace pedal edema present no erythema Neuro-alert and awake moves extremities Lab data as noted below. ASSESSMENT & PLAN: ACUTE HYPOXIC RESPIRATORY FAILURE Underlying interstitial / obstructive lung disease. Recently in the hospital for pneumonia. Had Pulmonary embolism about 6 months ago. presented with sob and hypoxia. CTA chest done in ER negative for pulmonary embolism, but demonstrated possible pulmonary infiltrates and / or pulmonary edema. influenza negative improving with steroids, abx and received Lasix may need long steroid taper as per pulmonary continue same for now f/u cxr in am. PROBABLE PNEUMONIA HCAP? CT chest suggests pulmonary infiltrates. Recent hospitalization for pneumonia. History of MRSA. On IV antibiotic therapy with levofloxacin, piperacillin / tazobactam, vancomycin mrsa swab negative will stop vancomycin await cx no growth pulmonary on board and appreciate inputs EXACERBATION OBSTRUCTIVE LUNG DISEASE received solumedrol currently on prednisone will taper slowly POSSIBLE CHF CT - pulmonary edema. BNP elevated. Echo last month in clinic 45-50%. had iv lasix will f/u volume status and labs will give one dose of Lasix today appreciate cardiology inputs. HEADACHES unremarkable CT head no complaints today HYPOPHOSPHATEMIA Serum phosphorus 2.1. PO replacement. METASTATIC COLON CA Management per Medical Oncology. 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 VTE PROPHYLAXIS / HISTORY OF PULMONARY EMBOLISM INR 3.1 RESUSCITATION STATUS level 1 as per h and P DISPOSITION Monitor in Telemetry Unit. Expected discharge to home. pt/ot prior to discharge social service for d/c planning Medical follow-up with Dr. Carreno. Cardiology follow-up with Dr. Holm. Pulmonary follow-up with Dr. Steel. Medical Oncology follow-up with Dr. Barkley. . Vital Signs: Date Time Temp Pulse Resp B/P Pulse Ox O2 Delivery O2 Flow Rate FiO2 12/25/16 16:00 Nasal Cannula 6.0 05/14/16 15:55 36.7 89 20 137/76 94 Nasal Cannula 5.0 05/14/16 14:34 75 20 93 Nasal Cannula 4.5 05/14/16 12:00 Nasal Cannula 6.0 05/14/16 11:45 36.4 91 20 131/69 97 Nasal Cannula 5.0 05/14/16 11:02 77 20 95 Nasal Cannula 4.5 05/14/16 08:00 Nasal Cannula 6.0 05/14/16 07:34 36.7 73 20 111/60 98 Nasal Cannula 6.0 05/14/16 06:59 71 20 96 Nasal Cannula 6.0 05/14/16 04:00 36.5 88 20 121/60 98 Nasal Cannula 6.0 05/14/16 04:00 95 Nasal Cannula 6.0 05/14/16 00:00 36.6 83 19 140/65 98 Nasal Cannula 6.0 05/13/16 23:59 90 Nasal Cannula 6.0 05/13/16 20:00 90 Nasal Cannula 6.0 05/13/16 19:52 35.9 106 19 123/60 90 Nasal Cannula 6.0 05/13/16 19:30 106 24 90 Nasal Cannula 6.0 Lab Results: Results Past 24 Hours Test 05/13/16 20:22 05/14/16 05:40 05/14/16 06:34 05/14/16 10:57 Range/Units Bedside Glucose 218 105 125 70-99 mg/dl Prothrombin Time 34.4 9.0-12.0 SECONDS Prothromb Time International Ratio 3.1 0.9-1.1 Sodium Level 142 136-145 mmol/L Potassium Level 3.8 3.5-5.1 mmol/L Chloride Level 106 98-107 mmol/L Carbon Dioxide Level 27 21-32 mmol/L Anion Gap 9.0 3-11 mmol/L Blood Urea Nitrogen 10 7-18 mg/dl Creatinine 0.67 0.60-1.40 mg/dl Est Creatinine Clear Calc Drug Dose 104.2 ml/min Estimated GFR () 104.4 Estimated GFR (Non- 90.1 BUN/Creatinine Ratio 15.1 10-20 Random Glucose 108 70-99 mg/dl Calcium Level 8.4 8.5-10.1 mg/dl Phosphorus Level 2.4 2.5-4.9 mg/dl
[2016-05-14] MEDS ORDERED: FUROSEMIDE INJ 20 MG in SYRINGE 0 ML IV ONE (18:00)
[2016-05-14] MEDS: TAMSULOSIN HCL 0.4 MG CAP PO SCH (21:13)
[2016-05-15] VITALS (12 sets, daily range): BP systolic 117–134; BP diastolic 65–73; PULSE 72–102; TEMP 36.5–36.8; O2SAT 83–96
[2016-05-15] MEDS: PIPERACILL/TAZOBAC IV 3.375 GM in DEXTROSE 5% 100ML IV SCH ×3 (02:04→17:30)
[2016-05-15 06:52] LABS: HEMATOCRIT 28.6 % (42-52); MEAN CORPUSCULAR HEMOGLOBIN 27.7 pg (25-34); MEAN CORPUSCULAR HGB CONC 31.5 g/dl (32-36); RED BLOOD COUNT 3.25 M/uL (4.7-6.1); WHITE BLOOD COUNT 3.44 K/uL (4.8-10.8)
[2016-05-15] MEDS: IPRATROPIUM BROMIDE NEB SOLN 0.02% 2.5 ML VIAL INH SCH ×4 (06:53→18:52)
[2016-05-15] MEDS: LEVALBUTEROL 1.25MG/0.5ML NEB INH SCH ×4 (06:53→18:52)
[2016-05-15] MEDS: INSULIN ASPART 100 UNITS/ML 3 ML PEN SC SCH ×4 (07:00→20:15)
[2016-05-15 07:02] LABS: INR 1.8 (0.9-1.1); PROTHROMBIN TIME (PATIENT) 19.5 SECONDS (9.0-12.0)
[2016-05-15 07:35] LABS: BUN/CREATININE RATIO 13.2 (10-20); CALCIUM 8.4 mg/dl (8.5-10.1); CREATININE 0.71 mg/dl (0.60-1.40); PHOSPHORUS 2.5 mg/dl (2.5-4.9); POTASSIUM 3.8 mmol/L (3.5-5.1)
--- NOTE | 2016-05-15 07:38 | PROGRESS NOTE ---
DATE: 05/15/2016 The patient is very comfortable this morning. He continues to have shortness of breath with any exertion with oxygen desaturation with exertion such as when he stands. Last night he was standing at the bedside, dropped his sat to 88%. When he is sitting quietly, he does well. He slept very well last night. His oxygen saturation on 6 liters is 92-93%. He denies cough of any significance. No sputum production, chest pain, orthopnea. He has not had any peripheral edema. He states he is 100% better than at the time of admission but still takes a while to recover from his dyspnea. PHYSICAL EXAMINATION: VITAL SIGNS: Stable. He is afebrile. His blood pressure is 134/82 and was 134/67 this morning at 0309. I\T\O was 1134 in, 4525 out. His weight is 89.6 kilograms, it generally runs around 91.4 kilograms. Nurses' notes and medications reviewed. HEENT: Posterior pharynx looks good with no thrush. NECK: There is no neck vein distention or HJR. LUNGS: No subcutaneous emphysema is noted. Expansion of the thorax is good with deep inspiration. Lungs reveal coarse breath sounds bilaterally. Few crackles at the bases, otherwise they are clear. HEART: Regular rate and rhythm. Pacer pocket looks good. Right subclavian line looks good. ABDOMEN: Soft, nontender. EXTREMITIES: He has no cyanosis, clubbing or edema, and there is no clinical evidence of DVT. Chest x-ray this morning shows more of an alveolar-type pattern compared to the previous x-ray of 05/12/2016. There are small patchy alveolar infiltrates in all lung key, a bit heavier at the bases. No cardiomegaly or pneumothorax is noted. No significant effusions are noted. LABORATORY DATA: White count is 3.44, H\T\H 9 and 28.6%, platelet count is pending. INR is 1.8. PRP is pending. Sugars have been in the 200 range. His CO2 yesterday was 27 on the electrolytes with phosphorus of 2.4. Blood cultures are negative from 05/11/2016. MRSA DNA surveillance screen by DNA probe is negative. IMPRESSION: 1. Bilateral pulmonary infiltrates. This may be hypersensitivity pneumonitis related to his medication treatment for metastatic colon carcinoma. I think it is unlikely or at least less likely now that this is an infectious process. 2. Profound hypoxemia related to the alveolar infiltrates. By his exam, clinical presentation, he is improved. Chest x-ray continues to show severe disease. So far, all the cultures have been unremarkable. RECOMMENDATIONS: 1. At this point, I would like to obtain a Legionella titer. 2. Continue with his present medications including high dose prednisone, Zosyn and Levaquin. Levaquin will be a good choice if this would be Legionnaires, although I think that is less likely. At this point, however, he is improving. 3. Increase activity as much as possible, keep his strength up. Perhaps bedside PT would be helpful or even getting him over to physical therapy in a wheelchair would be helpful. He will need high-flow O2 for any activity. Overall, at this point, by his presentation and his clinical exam, he is improved.
[2016-05-15 07:49] LABS: COMPLETE YES; GIANT PLATELETS 1+; IG% 0.9 %; LYMPH % 15.1 %; LYMPH ABS # 0.52 K/uL (1.2-3.4); MEAN PLATELET VOLUME 9.2 fL (7.4-10.4); MONO % 10.5 %; NEUT % 73.5 %; PLATELET COUNT 98 K/uL (130-400); PLT ESTIMATE DECREASED; POLYCHROMASIA 1+
[2016-05-15] MEDS: PANTOprazole SOD 40 MG TAB PO SCH (08:04)
[2016-05-15] MEDS: ASPIRIN 81 MG ECTAB PO SCH (08:04)
[2016-05-15] MEDS: RANITIDINE HCL 150 MG TAB PO SCH ×2 (08:04→20:07)
[2016-05-15] MEDS: POT PHOSPHATE MONOBASIC W/ SOD TAB PO SCH ×4 (08:05→20:10)
[2016-05-15] MEDS: CEROVITE ADV FORMULA TAB PO SCH (08:05)
[2016-05-15] MEDS: ATORVASTATIN 20 MG TAB PO SCH (08:05)
--- NOTE | 2016-05-15 08:11 | DIAGNOSTIC IMAGING REPORT ---
CHEST ONE VIEW PORTABLE CLINICAL HISTORY: congestion COMPARISON STUDY: 05/12/2016 FINDINGS: The heart remains enlarged. There is a left subclavian dual-chamber central venous pacemaker present. There is a right-sided A-Port catheter. There are progressive bilateral residual opacities, consistent with congestive failure superimposed on chronic lung disease.[ IMPRESSION: Progressive bilateral interstitial opacities, likely representing worsening congestive failure superimposed on chronic lung disease. Electronically signed by: Luciano Cm M.D. 05/15/2016 8:09 AM
[2016-05-15] MEDS: FUROSEMIDE INJ 40 MG in SYRINGE 0 ML IV SCH (10:12)
[2016-05-15] MEDS: LEVOFLOXACIN / D5W 500 MG in PREMIXED IN D5W 100 ML IV SCH (15:51)
[2016-05-15] MEDS ORDERED: WARFARIN SOD 1 MG TAB PO SCH (16:00)
--- NOTE | 2016-05-15 16:50 | Progress Note ---
Internal Med Progress Note Date of Service: May 15, 2016. Provider Documentation: SUBJECTIVE: resting in the chair says whenever he is sitting he is ok but when he stands up or walking his oxygen sats dropping says feeling better than when he came in afebrile has dry cough eating ok constipated OBJECTIVE: Vital Signs-as noted below Exam: General-alert and awake and oriented ENT-normal hearing Neck-no neck masses Lungs-cta b/l no wheezing bibasilar crackles Heart-s1 and s2 heard regular rate and rhythm, no murmurs Abdomen-soft bowel sounds present nn tender no distension Extremities- no pedal edema present no erythema Neuro-alert and awake moves extremities Lab data as noted below. ASSESSMENT & PLAN: 81M with hx of copd,, interstitial lung disease, systolic chf, hx of PE hx of metastatic colon cancer who was in hospital recently with similar complaints presented with acute respiratory failure from possible health care pneumonia. copd/interstitial lung disease flare and acute systolic chf. On abx, steroids, nebs and Lasix. Slowly improving. 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 Cxr today also shows worsening chf. Started on iv Lasix 40mg daily. Need to re discuss with cardiology. close monitor. ACUTE HYPOXIC RESPIRATORY FAILURE Underlying interstitial / obstructive lung disease. Recently in the hospital for pneumonia. Had Pulmonary embolism about 6 months ago. presented with sob and hypoxia. CTA chest done in ER negative for pulmonary embolism, but demonstrated possible pulmonary infiltrates and / or pulmonary edema. influenza negative improving with steroids, abx and received Lasix may need long steroid taper as per pulmonary continue same for now appreciate pulmonary inputs PROBABLE PNEUMONIA HCAP? CT chest suggests pulmonary infiltrates. Recent hospitalization for pneumonia. History of MRSA. On IV antibiotic therapy with levofloxacin, piperacillin / tazobactam, vancomycin mrsa swab negative Stopped vancomycin cx no growth currently on Levaquin and Zosyn #5 pulmonary on board and appreciate inputs EXACERBATION OBSTRUCTIVE LUNG DISEASE received solumedrol currently on prednisone will taper slowly POSSIBLE acute on chronic systolic CHF CT - pulmonary edema. BNP elevated. Echo last month in clinic 45-50%. had iv lasix will f/u volume status and labs cxr today shows worsening chf will start on iv lasix 40mg daily as renal function is ok and monitor' will d/w cardiology HEADACHES unremarkable CT head no complaints today HYPOPHOSPHATEMIA Serum phosphorus 2.1. PO replacement. METASTATIC COLON CA Management per Medical Oncology. 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 VTE PROPHYLAXIS / HISTORY OF PULMONARY EMBOLISM presented with inr 4.2 Coumadin held inr 1.8 today- restart Coumadin at lower dose1.5mg daily and adjust based on inr RESUSCITATION STATUS level 1 as per h and P DISPOSITION Monitor in Telemetry Unit. Expected discharge to home. pt/ot prior to discharge social service for d/c planning Medical follow-up with Dr. Carreno. Cardiology follow-up with Dr. Holm. Pulmonary follow-up with Dr. Steel. Medical Oncology follow-up with Dr. Barkley. . Vital Signs: Date Time Temp Pulse Resp B/P Pulse Ox O2 Delivery O2 Flow Rate FiO2 05/15/16 19:02 36.5 82 18 129/70 96 6.0 05/15/16 18:52 85 20 96 Nasal Cannula 6.0 05/15/16 16:00 Nasal Cannula 6.0 Humidified Oxygen 05/15/16 15:55 36.5 86 20 117/73 96 6.0 05/15/16 15:23 77 20 96 Nasal Cannula 6.0 05/15/16 12:00 Nasal Cannula 6.0 Humidified Oxygen 05/15/16 11:59 36.5 102 22 126/70 90 Nasal Cannula 6.0 05/15/16 11:00 80 20 91 Nasal Cannula 5.0 05/15/16 08:00 92 Nasal Cannula 6.0 Humidified Oxygen 05/15/16 07:14 36.7 84 18 130/65 92 Nasal Cannula 6.0 Humidified Oxygen 05/15/16 06:53 72 20 83 Nasal Cannula 5.0 05/15/16 04:00 92 Nasal Cannula 6.0 05/15/16 03:09 36.8 82 19 134/67 92 Nasal Cannula 6.0 05/14/16 23:59 88 Nasal Cannula 5.0 05/14/16 23:27 36.5 98 20 134/82 88 Nasal Cannula 5.0 Lab Results: Results Past 24 Hours Test 05/15/16 00:00 05/15/16 06:31 05/15/16 06:40 05/15/16 11:32 Range/Units Bedside Glucose 110 131 70-99 mg/dl White Blood Count 3.44 4.8-10.8 K/uL Red Blood Count 3.25 4.7-6.1 M/uL Hemoglobin 9.0 14.0-18.0 g/dL Hematocrit 28.6 42-52 % Mean Corpuscular Volume 88.0 80-100 fL Mean Corpuscular Hemoglobin 27.7 25-34 pg Mean Corpuscular Hemoglobin Concent 31.5 32-36 g/dl Platelet Count 98 130-400 K/uL Mean Platelet Volume 9.2 7.4-10.4 fL Neutrophils (%) (Auto) 73.5 % Lymphocytes (%) (Auto) 15.1 % Monocytes (%) (Auto) 10.5 % Eosinophils (%) (Auto) 0.0 % Basophils (%) (Auto) 0.0 % Neutrophils # (Auto) 2.53 1.4-6.5 K/uL Lymphocytes # (Auto) 0.52 1.2-3.4 K/uL Monocytes # (Auto) 0.36 0.11-0.59 K/uL Eosinophils # (Auto) 0.00 0-0.5 K/uL Basophils # (Auto) 0.00 0-0.2 K/uL RDW Standard Deviation 60.4 36.4-46.3 fL RDW Coefficient of Variation 18.8 11.5-14.5 % Immature Granulocyte % (Auto) 0.9 % Immature Granulocyte # (Auto) 0.03 0.00-0.02 K/uL Platelet Estimate DECREASED Giant Platelets 1+ Polychromasia 1+ Prothrombin Time 19.5 9.0-12.0 SECONDS Prothromb Time International Ratio 1.8 0.9-1.1 Sodium Level 141 136-145 mmol/L Potassium Level 3.8 3.5-5.1 mmol/L Chloride Level 105 98-107 mmol/L Carbon Dioxide Level 29 21-32 mmol/L Anion Gap 7.0 3-11 mmol/L Blood Urea Nitrogen 9 7-18 mg/dl Creatinine 0.71 0.60-1.40 mg/dl Est Creatinine Clear Calc Drug Dose 86.9 ml/min Estimated GFR () 102.0 Estimated GFR (Non- 88.0 BUN/Creatinine Ratio 13.2 10-20 Random Glucose 117 70-99 mg/dl Calcium Level 8.4 8.5-10.1 mg/dl Phosphorus Level 2.5 2.5-4.9 mg/dl Test 05/15/16 16:14 05/15/16 20:05 Range/Units Bedside Glucose 209 216 70-99 mg/dl
[2016-05-15] MEDS ORDERED: WARFARIN SOD 0.5 MG TAB PO ONE (17:00)
[2016-05-15] MEDS: TAMSULOSIN HCL 0.4 MG CAP PO SCH (20:09)
[2016-05-16] VITALS (13 sets, daily range): BP systolic 85–140; BP diastolic 63–85; PULSE 74–109; TEMP 36.4–36.8; O2SAT 93–99
[2016-05-16] MEDS: PIPERACILL/TAZOBAC IV 3.375 GM in DEXTROSE 5% 100ML IV SCH ×2 (02:01→09:22)
[2016-05-16 06:03] LABS: INR 1.6 (0.9-1.1); PROTHROMBIN TIME (PATIENT) 17.4 SECONDS (9.0-12.0)
[2016-05-16 06:23] LABS: CALCIUM 8.2 mg/dl (8.5-10.1)
[2016-05-16 06:24] LABS: BUN/CREATININE RATIO 13.8 (10-20); CREATININE 0.64 mg/dl (0.60-1.40); POTASSIUM 3.7 mmol/L (3.5-5.1)
[2016-05-16 06:25] LABS: PHOSPHORUS 2.8 mg/dl (2.5-4.9)
[2016-05-16] MEDS: INSULIN ASPART 100 UNITS/ML 3 ML PEN SC SCH ×4 (07:00→19:53)
--- NOTE | 2016-05-16 07:22 | PULMONARY PROGRESS NOTE ---
DATE: 05/16/2016 The patient is improved. He states he was able to walk around in his room yesterday. The dyspnea was considerably improved and the recovery time from the development of dyspnea was much shorter. His oxygen saturation has been stable at 99% on 6 liters. He slept fairly well last night. He states his strength is good. His vital signs are stable. He is afebrile. According to nurses' notes, he had a fairly good night last night with a paced rhythm, no complaints of shortness of breath or chest discomfort. He continues to tolerate the IV antimicrobial agents fairly well. PHYSICAL EXAMINATION: VITAL SIGNS: His weight is 88.7 kilograms. He was 91.4 kilograms on the . HEENT: Posterior pharynx is unremarkable, no neck vein distention or HJR. HEART: Regular rate and rhythm. LUNGS: Revealed coarse breath sounds but otherwise are clear now. ABDOMEN: Soft, nontender. EXTREMITIES: He has no cyanosis or clubbing. Chest x-ray yesterday revealed worsening congestive failure, although that is not supported by the I\T\O or his weight. Hemoglobin 9.0 yesterday. White count 3.4. PRP is unremarkable today with a CO2 of 29, ionized calcium 2.8. INR is 1.6. IMPRESSION: 1. Pulmonary infiltrates. This certainly could be consistent with cryptogenic organizing pneumonia. 2. Metastatic colon carcinoma. 3. Ventricular paced rhythm on the monitor. RECOMMENDATIONS: At this point, I would continue with the steroids. Increase the Coumadin to obtain an INR of 2-2.5. I would follow the glucose, PRP, BUN, creatinine and CBC carefully. I am not sure whether the Zosyn is effective now and that has been on board since the . I think that probably could be discontinued. I will continue on the Levaquin for a full 10 days. That could even be switched over to p.o. Overall, he is improving slowly. Increasing his activity and getting him to physical therapy would be helpful as well.
[2016-05-16] MEDS: IPRATROPIUM BROMIDE NEB SOLN 0.02% 2.5 ML VIAL INH SCH ×4 (07:44→19:35)
[2016-05-16] MEDS: LEVALBUTEROL 1.25MG/0.5ML NEB INH SCH ×4 (07:44→19:35)
--- NOTE | 2016-05-16 08:17 | DIAGNOSTIC IMAGING REPORT ---
CHEST 2 VIEWS ROUTINE CLINICAL HISTORY: Acute respiratory failure. Shortness of breath. COMPARISON STUDY: 05/15/2016 FINDINGS: The heart remains enlarged. There is a left subclavian dual-chamber central venous pacemaker present. There is a right-sided A-Port catheter present. There are bilateral interstitial opacities consistent with congestive failure superimposed on chronic lung disease. This appears slightly improved.[ IMPRESSION: Slight improvement in the bilateral interstitial opacities, likely representing congestive failure superimposed on chronic lung disease Electronically signed by: Luciano Cm M.D. 05/16/2016 8:16 AM
[2016-05-16] MEDS: ATORVASTATIN 20 MG TAB PO SCH (09:00)
[2016-05-16] MEDS: POT PHOSPHATE MONOBASIC W/ SOD TAB PO SCH (09:00)
[2016-05-16] MEDS: RANITIDINE HCL 150 MG TAB PO SCH ×2 (09:19→19:52)
[2016-05-16] MEDS: PANTOprazole SOD 40 MG TAB PO SCH (09:19)
[2016-05-16] MEDS: ASPIRIN 81 MG ECTAB PO SCH (09:19)
[2016-05-16] MEDS: CEROVITE ADV FORMULA TAB PO SCH (09:19)
[2016-05-16] MEDS: FUROSEMIDE INJ 40 MG in SYRINGE 0 ML IV SCH (09:20)
[2016-05-16] MEDS ORDERED: BISACODYL 10 MG SUPP PR PRN (10:15)
[2016-05-16] MEDS: ENOXAPARIN 40 MG/0.4 ML SYR SQ SCH (10:15)
[2016-05-16] MEDS ORDERED: POLYETHYLENE (MIRALAX) 17 GM PACK PO PRN (10:15)
[2016-05-16] MEDS ORDERED: BISACODYL 5 MG TABEC PO PRN (10:15)
--- NOTE | 2016-05-16 10:22 | Progress Note ---
Medicine Progress Note Date & Time of Visit: May 16, 2016 at 09:40. Subjective 81M with hx of copd,, interstitial lung disease, systolic chf, hx of PE and hx of metastatic colon cancer who was in hospital recently with similar complaints presented with acute respiratory failure from possible health care pneumonia. copd/interstitial lung disease flare and acute systolic chf. -reports breathing is slowly improving -not on home oxygen and currently at 6L NC +coughing, non-productive -denies fevers and chills overnight -strength is 5/5 throughout, however, patient has signifcant SOB with ambulation and this is frustrating for him -he also has singificant baseline visual impairment 2/2 reported macular degeneration -reports no BM since admission 6 days ago Objective Last 8 Hrs Date Time Temp Pulse Resp B/P Pulse Ox O2 Delivery O2 Flow Rate FiO2 05/16/16 07:37 77 18 95 Nasal Cannula 6.0 05/16/16 07:16 36.4 74 20 133/75 94 Room Air 05/16/16 04:00 99 Nasal Cannula 6.0 05/16/16 04:00 36.4 78 14 127/65 96 Nasal Cannula 6.0 Physical Exam: GEN: WNWD, in no acute distress, alert and appropriate, 6L NC in place, come conversational dyspnea, port accessed on right anterior chest wall HEENT: NC/AT, PERRL, normal sclerae, MMM, pharynx non-acute CARDIO: reg rate, S1/2 heard without m/g/r, PM in place on left anterior chest wall (subQ) LUNGS: CTA bilaterally, crackles at bases bilaterally, no rales or wheezes, good diaphragmatic excursion ABD: soft, non-tender, non-distended, no rebound or guarding, +BS present EXTREMITY: RP and DP palpable 2+ bilat, no LE swelling or edema, extremities are warm and well-perfused, diffuse ecchymosis noted on left lower leg. NEURO: CN 2-12 grossly intact, sensation intact throughout MUSC: 5/5 strength throughout, no focal deficits, gait not assessed 2/2 fall risk SKIN: warm and dry and as above Laboratory Results: Last 24 Hours Test 05/15/16 11:32 05/15/16 16:14 05/15/16 20:05 05/16/16 05:10 Bedside Glucose 131 mg/dl 209 mg/dl 216 mg/dl Prothrombin Time 17.4 SECONDS Prothromb Time International Ratio 1.6 Sodium Level 141 mmol/L Potassium Level 3.7 mmol/L Chloride Level 106 mmol/L Carbon Dioxide Level 29 mmol/L Anion Gap 6.0 mmol/L Blood Urea Nitrogen 9 mg/dl Creatinine 0.64 mg/dl Est Creatinine Clear Calc Drug Dose 96.4 ml/min Estimated GFR () 106.4 Estimated GFR (Non- 91.8 BUN/Creatinine Ratio 13.8 Random Glucose 109 mg/dl Calcium Level 8.2 mg/dl Phosphorus Level 2.8 mg/dl Test 05/16/16 06:51 Bedside Glucose 80 mg/dl Assessment & Plan 81M with hx of copd,, interstitial lung disease, systolic chf, hx of PE, hx of metastatic colon cancer who was admitted recently with similar complaints presented with acute respiratory failure from possible health care pneumonia. 1. Acute hypoxic respiratory failure-multifactorial 2/2 ILD flare, HCAP vs pulmonary edema in setting of acute systolic CHF (compensated) and underlying COPD (no wheezing present today). H/O PE 6 months ago, on coumadin/no PE found on admission imaging. Flu negative. Blood cultures negative to date. Received Lasix for diuresis and appears euvolemic on exam. Was started on Vanc, Levaquin and Zosyn, however, Vanc was stopped 2/2 MRSA screen negative. (Has h/ o MRSA). Slowly improving on steroids and abx but still requiring 6 via NC when not on home O2. Also still with some conversational dyspnea and SOB limiting ambulation abilities. CXR shows improvement this morning. Per pulm, cont steroids, stop Zosyn and cont Levaquin for 10 days. Per Heme/Onc, agree with long steroid taper and holding any further chemo at this time. 2. H/O MRSA-first swab negative. No open wounds present. Will order swab q72hrs for clearance while admitted. Cont contact isolation until cleared. 3. Chronic systolic CHF-acute decompensation this admission but now is compensated and euvolemic. Initial CT chest revealed pulmonary edema. TTE last month in clinic 45-50%. Per Cardiology, cont daily Lasix 4. Hypophosphatemia-normal phos level today, stopping PO replacement and will check again in am. 5. Metastatic colon cancer-per Oncology. 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 h/o PE-uncertain why not on Lovenox as this is preferred in oncology patient. Cont with coumadin for goal INR 2-3. Currently on warfarin 1.5 mg PO daily just restarted. Will cont at this dose for now and follow daily INR. Cover with Lovenox 40mg for DVT prophy if INR<2.0. 7. Anemia-likely 2/2 chronic disease vs hemodilution vs frequent phlebotomy as inpatient- will monitor in am. 8. Constipation-no BM in 6 days per patient. Discussed using PRNs with nurse to achieve BM today/tomorrow. DVT prophy: Coumadin/Jann 40 for INR<2 Full Code DISPOSITION: Monitor on tele. Expected discharge to home-son and daughter live with him. Medical follow-up with Dr. Carreno. Cardiology follow-up with Dr. Holm. Pulmonary follow-up with Dr. Steel. Medical Oncology follow-up with Dr. Barkley. Yoselin Santiago DO [facility] Hospitalist Continued [facility] stay due to: other (hypoxia) Discharge planning: home Consultants: Pulm, Cards, Heme Current Inpatient Medications: Current Inpatient Medications Medications (Trade) Dose Ordered Sig/Karie Route Start Time Stop Time Status Last Admin Dose Admin Acetaminophen (Tylenol Tab) 650 mg Q4H PRN PO 05/11/16 12:15 06/10/16 12:14 Ondansetron HCl (Zofran Inj) 4 mg Q6H PRN IV 05/11/16 12:15 06/10/16 12:14 Aspirin (Ecotrin Tab) 81 mg DAILY PO 05/12/16 09:00 06/11/16 08:59 05/16/16 09:19 81 MG Atorvastatin Calcium (Lipitor Tab) 20 mg QAM PO 05/12/16 09:00 06/11/16 08:59 05/16/16 09:00 20 MG Multivitamins/ Minerals (Multivitamin W/ Minerals Tab) 1 tab QAM PO 05/12/16 09:00 06/11/16 08:59 05/16/16 09:19 1 TAB Oxycodone/ Acetaminophen (Percocet 5-325MG Tab) 1 tab Q6H PRN PO 05/11/16 14:00 05/25/16 13:59 Ranitidine HCl (zANTac TAB) 150 mg BID PO 05/11/16 21:00 06/10/16 20:59 05/16/16 09:19 150 MG Lorazepam (Ativan Tab) 0.5 mg Q8H PRN PO 05/11/16 14:00 06/10/16 13:59 Sodium Chloride ([place] Nasal Coward) 4 sprays Q2H PRN NA 05/11/16 14:00 06/10/16 13:59 Potassium/ Phosphorus/Sodium (Phospha 250 Neutral 155-852-130 Mg) 1 tab QID PO 05/11/16 17:00 06/10/16 16:59 05/16/16 09:00 1 TAB Prednisone 40 mg 40 mg DAILY PO 05/12/16 09:00 06/11/16 08:59 05/16/16 09:19 40 MG Levofloxacin/Prmx (Levaquin / D5W/ Premixed D5W) 100 ml @ 100 mls/hr DAILY@1600 IV 05/11/16 16:00 05/21/16 15:59 05/15/16 15:51 100 MLS/HR Ipratropium [place] (Atrovent 0.02% 0.5MG/2.5ML Neb) 0.5 mg QIDR INH 05/11/16 16:00 06/10/16 15:59 05/16/16 07:44 0.5 MG Levalbuterol (Xopenex 1.25MG/ 0.5ML Neb) 1.25 mg QIDR INH 05/11/16 16:00 06/10/16 15:59 05/16/16 07:44 1.25 MG Levalbuterol (Xopenex 0.63 Mg/ 3 Ml Neb) 0.63 mg Q2H PRN INH 05/11/16 14:15 06/10/16 14:14 Piperacillin Sod/ Tazobactam Sod (Consult) 1 ea UD PRN N/A 05/11/16 14:30 06/10/16 14:29 Levofloxacin 1 ea 1 ea UD PRN N/A 05/11/16 16:00 06/10/16 15:59 Piperacillin Sod/ Tazobactam Sod/ Dextrose (Zosyn Iv/D5 100ml) 115 ml @ 28.75 mls/ hr Q8H IV 05/11/16 18:00 05/21/16 17:59 05/16/16 09:22 28.75 MLS/HR Insulin Aspart (novoLOG ASPART) SLIDING SCALE G... ACHS SC 05/11/16 21:00 06/10/16 20:59 05/15/16 20:15 3 UNITS Glucose (Glucose 40% Gel) 15-30 GRAMS 15 GRAMS... UD PRN PO 05/11/16 17:00 06/10/16 16:59 Glucose (Glucose Chew Tab) 4-8 Tablets 4 Tabl... UD PRN PO 05/11/16 17:00 06/10/16 16:59 Dextrose (Dextrose 50% 50ML Syringe) 25-50ML OF 50% DW IV FOR... UD PRN IV 05/11/16 17:00 06/10/16 16:59 Glucagon (Glucagon Inj) 1 mg UD PRN SQ 05/11/16 17:00 06/10/16 16:59 Tamsulosin HCl (Flomax Cap) 0.4 mg HS PO 05/11/16 21:00 06/10/16 20:59 05/15/16 20:09 0.4 MG Heparin Sodium (Porcine) (Heparin 100 Unit/ml 5ml Flush) 5 ml PRN PRN IV 05/13/16 02:45 06/12/16 02:44 05/13/16 06:24 5 ML Pantoprazole Sodium (Protonix Tab) 40 mg QAM PO 05/14/16 09:00 06/13/16 08:59 05/16/16 09:19 40 MG Polyethylene 17 gm 17 gm DAILY PRN PO 05/14/16 10:00 06/13/16 09:59 Furosemide/Syringe (Lasix Inj/ Syringe) 4 ml @ 4 mls/min DAILY IV 05/15/16 09:15 06/14/16 09:14 05/16/16 09:20 4 MLS/MIN Warfarin Sodium (Coumadin Tab) 1.5 mg DAILY@16 PO 05/16/16 16:00 06/15/16 15:59
[2016-05-16 12:17] LABS: LEGIONELLA ANTIGEN NOT DETECTED
--- NOTE | 2016-05-16 15:01 | Hematology/Oncology Prog Note ---
Hematology/Onc Progress Note Date of Service May 16, 2016. Diagnoses metastatic colorectal cancer COPD Medications Medications Administered Medications (Trade) Dose Ordered Sig/Karie Route Start Time Stop Time Status Last Admin Dose Admin Albuterol/ Ipratropium 12 ml 12 ml ONE ONCE INH 05/11/16 09:00 05/11/16 09:02 DC 05/11/16 09:25 12 ML Sodium Chloride (Nss 1000ml) 1,000 ml @ 999 mls/hr Q1H1M STAT IV 05/11/16 09:02 05/11/16 10:02 DC 05/11/16 09:27 999 MLS/HR Piperacillin Sod/ Tazobactam Sod (Zosyn Iv) 4.5 gm NOW STAT IV 05/11/16 11:15 05/11/16 11:18 DC 05/11/16 12:18 4.5 GM Levofloxacin 500 mg 500 mg NOW ONCE IV 05/11/16 11:15 05/11/16 11:18 DC 05/11/16 11:15 500 MG Vancomycin HCl/ Sodium Chloride (Vancomycin Inj/ Nss 250ml) 270 ml @ 125 mls/hr NOW STAT IV 05/11/16 11:15 05/11/16 13:24 DC 05/11/16 13:06 125 MLS/HR Lorazepam (Ativan Inj) 0.25 mg NOW STAT IV 05/11/16 13:01 05/11/16 13:02 DC 05/11/16 13:06 0.25 MG Aspirin (Ecotrin Tab) 81 mg DAILY PO 05/12/16 09:00 06/11/16 08:59 05/16/16 09:19 81 MG Atorvastatin Calcium (Lipitor Tab) 20 mg QAM PO 05/12/16 09:00 06/11/16 08:59 05/16/16 09:00 20 MG Multivitamins/ Minerals (Multivitamin W/ Minerals Tab) 1 tab QAM PO 05/12/16 09:00 06/11/16 08:59 05/16/16 09:19 1 TAB Ranitidine HCl 150 mg 150 mg BID PO 05/11/16 21:00 06/10/16 20:59 05/16/16 09:19 150 MG Furosemide/Syringe (Lasix Inj/ Syringe) 2 ml @ 4 mls/min TODAY@1600 ONCE IV 05/11/16 16:00 05/11/16 16:02 DC 05/11/16 16:26 4 MLS/MIN Potassium/ Phosphorus/Sodium 1 tab 1 tab QID PO 05/11/16 17:00 05/16/16 10:08 DC 05/16/16 09:00 1 TAB Methylprednisolone Sodium Succinate/ Syringe (Solu-Medrol IV/ Syringe) 0.64 ml @ 1.5 mls/min TODAY@1600 ONCE IV 05/11/16 16:00 05/11/16 16:02 DC 05/11/16 16:25 1.5 MLS/MIN Prednisone 40 mg 40 mg DAILY PO 05/12/16 09:00 06/11/16 08:59 05/16/16 09:19 40 MG Levofloxacin/Prmx (Levaquin / D5W/ Premixed D5W) 100 ml @ 100 mls/hr DAILY@1600 IV 05/11/16 16:00 05/21/16 15:59 05/15/16 15:51 100 MLS/HR Ipratropium [place] (Atrovent 0.02% 0.5MG/2.5ML Neb) 0.5 mg QIDR INH 05/11/16 16:00 06/10/16 15:59 05/16/16 11:08 0.5 MG Levalbuterol 1.25 mg 1.25 mg QIDR INH 05/11/16 16:00 06/10/16 15:59 05/16/16 11:08 1.25 MG Vancomycin HCl 1250 mg/Sodium Chloride 275 ml @ 125 mls/hr Q14H IV 05/11/16 18:00 05/13/16 14:40 DC 05/13/16 13:12 125 MLS/HR Piperacillin Sod/ Tazobactam Sod/ Dextrose (Zosyn Iv/D5 100ml) 115 ml @ 28.75 mls/ hr Q8H IV 05/11/16 18:00 05/16/16 10:08 DC 05/16/16 09:22 28.75 MLS/HR Insulin Aspart (novoLOG ASPART) SLIDING SCALE G... ACHS SC 05/11/16 21:00 06/10/16 20:59 05/15/16 20:15 3 UNITS Tamsulosin HCl 0.4 mg 0.4 mg HS PO 05/11/16 21:00 06/10/16 20:59 05/15/16 20:09 0.4 MG Furosemide/Syringe (Lasix Inj/ Syringe) 2 ml @ 4 mls/min ONE ONCE IV 05/12/16 11:45 05/12/16 11:46 DC 05/12/16 11:45 4 MLS/MIN Heparin Sodium (Porcine) (Heparin 100 Unit/ml 5ml Flush) 5 ml PRN PRN IV 05/13/16 02:45 06/12/16 02:44 05/13/16 06:24 5 ML Pantoprazole Sodium (Protonix Tab) 40 mg QAM PO 05/14/16 09:00 06/13/16 08:59 05/16/16 09:19 40 MG Polyethylene (Miralax Powder Packet) 17 gm DAILY PRN PO 05/14/16 10:00 06/13/16 09:59 05/16/16 09:56 17 GM Polyethylene (Miralax Powder Packet) 17 gm NOW ONCE PO 05/14/16 10:00 05/14/16 10:05 DC 05/14/16 10:51 17 GM Menthol 24 angie 24 angie STK-MED ONCE .ROUTE 05/14/16 17:28 05/14/16 17:29 DC 05/14/16 17:28 24 ANGIE Furosemide/Syringe (Lasix Inj/ Syringe) 2 ml @ 4 mls/min NOW ONCE IV 05/14/16 18:00 05/14/16 18:01 DC 05/14/16 18:24 4 MLS/MIN Warfarin Sodium 1 mg 1 mg DAILY@16 PO 05/15/16 16:00 05/15/16 16:51 DC 05/15/16 15:52 1 MG Furosemide/Syringe (Lasix Inj/ Syringe) 4 ml @ 4 mls/min DAILY IV 05/15/16 09:15 06/14/16 09:14 05/16/16 09:20 4 MLS/MIN Warfarin Sodium (Coumadin Tab) 0.5 mg NOW ONCE PO 05/15/16 17:00 05/15/16 17:01 DC 05/15/16 17:30 0.5 MG Enoxaparin Sodium (Lovenox Inj) 40 mg QAM SQ 05/16/16 10:15 06/15/16 10:14 05/16/16 10:15 40 MG Subjective Mr. Balderrama was seated in his chair when we spoke. He continues to require nasal cannula oxygen and describes a sensation of chest heaviness and shortness of breath when he stands from sitting. He remains on antibiotics and steroids and received a dose of Lasix for some possible volume overload earlier. Review of Systems: Constitutional: No chills, No fever Eyes: No worsening of vision ENT: No unusual epistaxis Respiratory: + dyspnea on exertion, + shortness of breath Cardiovascular: + edema, + see HPI Abdomen: No nausea, No pain, No vomiting Musculoskeletal: No joint pain, No muscle pain Male : No dysuria Neurologic: No numbness/tingling, No weakness Heme: No abnormal bleeding/bruising, No swollen lymph nodes Skin: No rash Vital Signs Vital Signs Past 12 Hours Date Time Temp Pulse Resp B/P Pulse Ox O2 Delivery O2 Flow Rate FiO2 05/16/16 11:23 36.5 105 20 94/63 97 Nasal Cannula 6.0 05/16/16 11:08 109 22 95 Nasal Cannula 6.0 05/16/16 07:37 77 18 95 Nasal Cannula 6.0 05/16/16 07:16 36.4 74 20 133/75 94 Room Air 05/16/16 04:00 99 Nasal Cannula 6.0 05/16/16 04:00 36.4 78 14 127/65 96 Nasal Cannula 6.0 Physical Exam Constitutional: Level of Distress: NAD, chronically ill Psychiatric: Mental Status: active & alert Orientation: oriented except where noted Eyes: EOM: EOMI ENMT: pharynx normal, pertinent finding (hard of hearing ) Lungs: Respiratory Effort: no dyspnea Auscuitation: breath sounds normal Cardiovascular: Heart Auscultation: RRR, no murmurs Abdomen: Inspection & Palpation: soft, no tenderness, guarding & rebound Extremities: no edema Neurologic: Cranial Nerves: grossly intact Laboratory Last 24 Hours Test 05/15/16 16:14 05/15/16 20:05 05/16/16 05:10 05/16/16 06:51 Bedside Glucose 209 mg/dl 216 mg/dl 80 mg/dl Prothrombin Time 17.4 SECONDS Prothromb Time International Ratio 1.6 Sodium Level 141 mmol/L Potassium Level 3.7 mmol/L Chloride Level 106 mmol/L Carbon Dioxide Level 29 mmol/L Anion Gap 6.0 mmol/L Blood Urea Nitrogen 9 mg/dl Creatinine 0.64 mg/dl Est Creatinine Clear Calc Drug Dose 96.4 ml/min Estimated GFR () 106.4 Estimated GFR (Non- 91.8 BUN/Creatinine Ratio 13.8 Random Glucose 109 mg/dl Calcium Level 8.2 mg/dl Phosphorus Level 2.8 mg/dl Test 05/16/16 11:20 Bedside Glucose 158 mg/dl Assessment & Plan Mr. Balderrama is an 81 year old gentleman with metastatic colorectal cancer. He was initially treated with FOLFIRI/Cetuximab, but was recently changed to maintenance Avastin due to chemo toxicity. He was due for restaging and consideration of treatment change this week, but he was hospitalized with shortness of breath that appears multifactorial, with components of PNA, COPD, ILD, and heart failure. He is being managed by internal medicine for these issues. From an oncologic perspective, we will hold off on treatment until his acute issues are resolved. He will need to return to see Dr. Barkley once he is discharged. His cancer is not contributing to his other medical issues, so for now we will sign off. We would be happy to return to comment at any time if other issues arise.
[2016-05-16] MEDS ORDERED: WARFARIN SOD 1 MG TAB PO SCH (16:00)
[2016-05-16] MEDS: LEVOFLOXACIN / D5W 500 MG in PREMIXED IN D5W 100 ML IV SCH (17:06)
[2016-05-16] MEDS: TAMSULOSIN HCL 0.4 MG CAP PO SCH (19:52)
[2016-05-17] VITALS (9 sets, daily range): BP systolic 116–142; BP diastolic 71–89; PULSE 74–99; TEMP 36.4–36.8; O2SAT 89–97
[2016-05-17 05:42] LABS: HEMATOCRIT 30.6 % (42-52); MEAN CELL VOLUME 86.9 fL (80-100); MEAN CORPUSCULAR HEMOGLOBIN 28.1 pg (25-34); MEAN CORPUSCULAR HGB CONC 32.4 g/dl (32-36); MEAN PLATELET VOLUME 10.1 fL (7.4-10.4); PLATELET COUNT 128 K/uL (130-400); RED BLOOD COUNT 3.52 M/uL (4.7-6.1); WHITE BLOOD COUNT 4.66 K/uL (4.8-10.8)
[2016-05-17 05:52] LABS: INR 1.4 (0.9-1.1); PROTHROMBIN TIME (PATIENT) 15.7 SECONDS (9.0-12.0)
[2016-05-17 06:07] LABS: BUN/CREATININE RATIO 21.3 (10-20); CALCIUM 8.5 mg/dl (8.5-10.1); CREATININE 0.68 mg/dl (0.60-1.40); MAGNESIUM 2.4 mg/dl (1.8-2.4); PHOSPHORUS 2.5 mg/dl (2.5-4.9); POTASSIUM 3.7 mmol/L (3.5-5.1)
[2016-05-17] MEDS: INSULIN ASPART 100 UNITS/ML 3 ML PEN SC SCH ×4 (07:00→20:36)
[2016-05-17] MEDS: LEVALBUTEROL 1.25MG/0.5ML NEB INH SCH ×4 (07:06→19:07)
[2016-05-17] MEDS: IPRATROPIUM BROMIDE NEB SOLN 0.02% 2.5 ML VIAL INH SCH ×4 (07:06→19:07)
[2016-05-17] MEDS ORDERED: PHARMACY GLYCEMIC MGMT CONSULT PRN (08:13)
[2016-05-17] MEDS: CEROVITE ADV FORMULA TAB PO SCH (09:00)
[2016-05-17] MEDS: FUROSEMIDE INJ 40 MG in SYRINGE 0 ML IV SCH (09:00)
[2016-05-17] MEDS: ENOXAPARIN 40 MG/0.4 ML SYR SQ SCH (09:00)
[2016-05-17] MEDS: RANITIDINE HCL 150 MG TAB PO SCH ×2 (09:00→20:36)
[2016-05-17] MEDS: PANTOprazole SOD 40 MG TAB PO SCH (09:00)
[2016-05-17] MEDS: ASPIRIN 81 MG ECTAB PO SCH (09:00)
[2016-05-17] MEDS: ATORVASTATIN 20 MG TAB PO SCH (09:00)
--- NOTE | 2016-05-17 12:04 | Pharmacy Progress Note ---
Glycemic Control Intl Consult Date of Service May 17, 2016. Scope Glycemic Pharmacist consulted by Dr Santiago on 05/17/16 for glycemic control and to write orders per [facility] inpatient glycemic control protocol. Objective Weight (Kilograms): 88.400 Accuchecks BSG (last 24hrs): Test 05/16/16 16:38 05/16/16 19:51 05/17/16 05:15 05/17/16 07:14 Bedside Glucose 325 mg/dl (70-99) 223 mg/dl (70-99) 87 mg/dl (70-99) Random Glucose 108 mg/dl (70-99) Test 05/17/16 11:07 Bedside Glucose 110 mg/dl (70-99) Laboratory Data (last 24hrs) Test 05/17/16 05:15 Anion Gap 7.0 mmol/L BUN/Creatinine Ratio 21.3 Blood Urea Nitrogen 15 mg/dl Creatinine 0.68 mg/dl Potassium Level 3.7 mmol/L Sodium Level 139 mmol/L White Blood Count 4.66 K/uL Recent Pertinent Medications Outpatient Anti-diabetic Regimen: * n/a * A1c = 6.3 % (04/27/16) Risk Factors for Insulin Resistance: * Steroids: Prednisone 40mg PO daily * Infection: Levaquin IV * Diet: AHA Assessment & Plan ASSESSMENT: * Patient is an 81yo non-diabetic male currently with some steroid-induced hyperglycemia. * Recent A1c (6.3%) indicates acceptable glycemic control as an outpatient. * Patient was started on some correctional insulin yesterday and received 9 units last evening for hyperglycemia. * Do not feel that basal insulin is required at this time, but will keep Novolog on board to correct for any steroid-induced hyperglycemia until steroids are tapered off. * Do not feel that patient will likely require any additional meds for glycemic control after discharge. * ADA & AACE recommend a goal blood sugar range 140-180 mg/dl for the majority of critically ill & non-critically ill patients. However, more stringent targets may be selected in individual cases. PLAN FOR INPATIENT GLYCEMIC CONTROL: * No basal insulin at this time. * Continue correction factor of 30 mg/dl/unit * No carb coverage needed at this time. Will re-assess if BSGs unable to be managed w/ correction only. * Change goal range to Low 140 mg/dL - High 180 mg/dL, per ADA/AACE recommendations * Please note that the plan above was derived based on current level of insulin resistance and hospital stress. These recommendations are appropriate for inpatient admission only. Plan of care upon discharge will need to be reassessed to avoid potential outpatient hypo/hyperglycemia. Thank you.
[2016-05-17] MEDS: LEVOFLOXACIN 500 MG TAB PO SCH (17:05)
[2016-05-17] MEDS: WARFARIN SOD 2.5 MG TAB PO SCH (17:06)
--- NOTE | 2016-05-17 20:26 | Progress Note ---
Medicine Progress Note Date & Time of Visit: May 17, 2016 at 20:17. Subjective 81M with hx of copd, interstitial lung disease, systolic chf, hx of PE, hx of metastatic colon cancer who was admitted recently with similar complaints presented with acute respiratory failure from possible health care pneumonia. -doing well on tapered antibiotics -still requiring 6L NC and is extremely winded with minimal movements -just standing at bedside to use urinal is problematic for him and he is visibly frustrated with his lack of progress -some cough, non-productive -denies CP -denies nausea, tolerating PO Objective Last 8 Hrs Date Time Temp Pulse Resp B/P Pulse Ox O2 Delivery O2 Flow Rate FiO2 05/17/16 19:31 36.6 96 20 128/71 97 6.0 05/17/16 19:07 90 18 96 Nasal Cannula 6.0 05/17/16 16:00 Nasal Cannula 6.0 05/17/16 15:43 36.8 99 18 116/72 96 6.0 05/17/16 15:17 84 18 93 Nasal Cannula 6.0 Physical Exam: GEN: WNWD, in no acute distress, alert and appropriate, 6L NC in place, come conversational dyspnea, port accessed on right anterior chest wall HEENT: NC/AT, normal sclerae, MMM, pharynx non-acute CARDIO: reg rate, S1/2 heard without m/g/r, PM in place on left anterior chest wall (subQ) LUNGS: CTA bilaterally, crackles at bases bilaterally, no rales or wheezes, good diaphragmatic excursion ABD: soft, non-tender, non-distended, no rebound or guarding, +BS present EXTREMITY: RP and DP palpable 2+ bilat, no LE swelling or edema, extremities are warm and well-perfused, diffuse ecchymosis noted on left lower leg. NEURO: CN 2-12 grossly intact, sensation intact throughout MUSC: 5/5 strength throughout, no focal deficits, gait not assessed 2/2 fall risk SKIN: warm and dry and as above Laboratory Results: Last 24 Hours Test 05/17/16 05:15 05/17/16 07:14 05/17/16 11:07 05/17/16 16:13 White Blood Count 4.66 K/uL Red Blood Count 3.52 M/uL Hemoglobin 9.9 g/dL Hematocrit 30.6 % Mean Corpuscular Volume 86.9 fL Mean Corpuscular Hemoglobin 28.1 pg Mean Corpuscular Hemoglobin Concent 32.4 g/dl RDW Standard Deviation 57.6 fL RDW Coefficient of Variation 18.2 % Platelet Count 128 K/uL Mean Platelet Volume 10.1 fL Prothrombin Time 15.7 SECONDS Prothromb Time International Ratio 1.4 Sodium Level 139 mmol/L Potassium Level 3.7 mmol/L Chloride Level 102 mmol/L Carbon Dioxide Level 30 mmol/L Anion Gap 7.0 mmol/L Blood Urea Nitrogen 15 mg/dl Creatinine 0.68 mg/dl Est Creatinine Clear Calc Drug Dose 90.7 ml/min Estimated GFR () 103.8 Estimated GFR (Non- 89.6 BUN/Creatinine Ratio 21.3 Random Glucose 108 mg/dl Calcium Level 8.5 mg/dl Phosphorus Level 2.5 mg/dl Magnesium Level 2.4 mg/dl Bedside Glucose 87 mg/dl 110 mg/dl 231 mg/dl Assessment & Plan 81M with hx of copd,, interstitial lung disease, systolic chf, hx of PE, hx of metastatic colon cancer who was admitted recently with similar complaints presented with acute respiratory failure from possible health care pneumonia. 1. Acute hypoxic respiratory failure-multifactorial 2/2 ILD flare (pulm fibrosis from chemo?), HCAP vs pulmonary edema in setting of acute systolic CHF (compensated) and underlying COPD (no wheezing present today). H/O PE 6 months ago, on coumadin/no PE found on admission imaging. Flu negative. Blood cultures negative to date. Received Lasix for diuresis and appears euvolemic on exam. Was started on Vanc, Levaquin and Zosyn, however, Vanc was stopped 2/2 MRSA screen negative. (Has h/o MRSA). Slowly improving on steroids and abx but still requiring 6 via NC when not on home O2. Also still with some conversational dyspnea and SOB limiting ambulation abilities-pt is frustrated with lack of progress. Recent CXR showing improvement. Appreciate pulm re- engaging with patient and setting reasonable expectations as he is concerned with lack of progress. Cont steroids, stopped Zosyn and cont Levaquin for 10 days. Per Heme/Onc, agree with long steroid taper and holding any further chemo at this time. 2. H/O MRSA-first swab negative. No open wounds present. Will order swab q72hrs for clearance while admitted. Cont contact isolation until cleared. 3. Chronic systolic CHF-acute decompensation this admission but now is compensated and euvolemic. Initial CT chest revealed pulmonary edema. TTE last month in clinic 45-50%. Per Cardiology, cont daily Lasix, will add daily standing weights. 4. Hypophosphatemia-resolved. Cont off supplementation. 5. Metastatic colon cancer-per Oncology. 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 h/o PE-Cont with coumadin for goal INR 2-3. Increased daily dose to 2.5mg as at home. Will cont at this dose for now and follow daily INR. Cover with Lovenox 40mg for DVT prophy if INR<2.0. 7. Anemia-likely 2/2 chronic disease vs hemodilution vs frequent phlebotomy as inpatient- improved. Hold am labs to minimize phlebotomy. 8. Constipation-no BM in 6 days per patient. Still persistent although he is starting to feel some movement. Cont PRN meds DVT prophy: Coumadin/Jann 40 for INR<2 Full Code DISPOSITION: Monitor on tele. Expected discharge to home-son and daughter live with him. Medical follow-up with Dr. Carreno. Cardiology follow-up with Dr. Holm. Pulmonary follow-up with Dr. Steel. Medical Oncology follow-up with Dr. Barkley. Yoselin Santiago DO [facility] Hospitalist Continued [facility] stay due to: other (hypoxia) Discharge planning: home Consultants: Pulm, Cards, Heme Current Inpatient Medications: Current Inpatient Medications Medications (Trade) Dose Ordered Sig/Karie Route Start Time Stop Time Status Last Admin Dose Admin Acetaminophen (Tylenol Tab) 650 mg Q4H PRN PO 05/11/16 12:15 06/10/16 12:14 Ondansetron HCl (Zofran Inj) 4 mg Q6H PRN IV 05/11/16 12:15 06/10/16 12:14 Aspirin (Ecotrin Tab) 81 mg DAILY PO 05/12/16 09:00 06/11/16 08:59 05/17/16 09:00 81 MG Atorvastatin Calcium (Lipitor Tab) 20 mg QAM PO 05/12/16 09:00 06/11/16 08:59 05/17/16 09:00 20 MG Multivitamins/ Minerals (Multivitamin W/ Minerals Tab) 1 tab QAM PO 05/12/16 09:00 06/11/16 08:59 05/17/16 09:00 1 TAB Oxycodone/ Acetaminophen (Percocet 5-325MG Tab) 1 tab Q6H PRN PO 05/11/16 14:00 05/25/16 13:59 Ranitidine HCl (zANTac TAB) 150 mg BID PO 05/11/16 21:00 06/10/16 20:59 05/17/16 09:00 150 MG Lorazepam (Ativan Tab) 0.5 mg Q8H PRN PO 05/11/16 14:00 06/10/16 13:59 Sodium Chloride ([place] Nasal [place]) 4 sprays Q2H PRN NA 05/11/16 14:00 06/10/16 13:59 Prednisone (PredniSONE TAB) 40 mg DAILY PO 05/12/16 09:00 06/11/16 08:59 05/17/16 09:00 40 MG Ipratropium [place] (Atrovent 0.02% 0.5MG/2.5ML Neb) 0.5 mg QIDR INH 05/11/16 16:00 06/10/16 15:59 05/17/16 19:07 0.5 MG Levalbuterol (Xopenex 1.25MG/ 0.5ML Neb) 1.25 mg QIDR INH 05/11/16 16:00 06/10/16 15:59 05/17/16 19:07 1.25 MG Levalbuterol (Xopenex 0.63 Mg/ 3 Ml Neb) 0.63 mg Q2H PRN INH 05/11/16 14:15 06/10/16 14:14 Levofloxacin (Consult) 1 ea UD PRN N/A 05/11/16 16:00 06/10/16 15:59 Insulin Aspart (novoLOG ASPART) SLIDING SCALE G... ACHS SC 05/11/16 21:00 06/10/16 20:59 05/17/16 17:09 2 UNITS Glucose (Glucose 40% Gel) 15-30 GRAMS 15 GRAMS... UD PRN PO 05/11/16 17:00 1/21/17 16:59 Glucose (Glucose Chew Tab) 4-8 Tablets 4 Tabl... UD PRN PO 05/11/16 17:00 06/10/16 16:59 Dextrose (Dextrose 50% 50ML Syringe) 25-50ML OF 50% DW IV FOR... UD PRN IV 05/11/16 17:00 06/10/16 16:59 Glucagon (Glucagon Inj) 1 mg UD PRN SQ 05/11/16 17:00 06/10/16 16:59 Tamsulosin HCl (Flomax Cap) 0.4 mg HS PO 05/11/16 21:00 06/10/16 20:59 05/16/16 19:52 0.4 MG Heparin Sodium (Porcine) (Heparin 100 Unit/ml 5ml Flush) 5 ml PRN PRN IV 05/13/16 02:45 06/12/16 02:44 05/13/16 06:24 5 ML Pantoprazole Sodium (Protonix Tab) 40 mg QAM PO 05/14/16 09:00 06/13/16 08:59 05/17/16 09:00 40 MG Polyethylene 17 gm 17 gm DAILY PRN PO 05/14/16 10:00 06/13/16 09:59 05/16/16 09:56 17 GM Furosemide/Syringe (Lasix Inj/ Syringe) 4 ml @ 4 mls/min DAILY IV 05/15/16 09:15 06/14/16 09:14 05/17/16 09:00 4 MLS/MIN Bisacodyl (Dulcolax Tab) 5 mg BID PRN PO 05/16/16 10:15 06/15/16 10:14 Bisacodyl (Dulcolax Supp) 10 mg DAILY PRN [place] 05/16/16 10:15 06/15/16 10:14 Enoxaparin Sodium (Lovenox Inj) 40 mg QAM SQ 05/16/16 10:15 06/15/16 10:14 05/17/16 09:00 40 MG Miscellaneous Information (Consult Glycemic Management Pharmacy) 1 ea UD PRN N/A 05/17/16 08:13 06/16/16 08:12 Warfarin Sodium (Coumadin Tab) 2.5 mg DAILY@16 PO 05/17/16 16:00 06/16/16 15:59 05/17/16 17:06 2.5 MG Levofloxacin (Levaquin Tab) 500 mg DAILY@1600 PO 05/17/16 16:00 05/20/16 16:01 05/17/16 17:05 500 MG
[2016-05-17] MEDS: TAMSULOSIN HCL 0.4 MG CAP PO SCH (20:36)
[2016-05-18] VITALS (12 sets, daily range): BP systolic 101–133; BP diastolic 58–87; PULSE 75–99; TEMP 36–36.8; O2SAT 91–98
[2016-05-18 05:22] LABS: INR 1.3 (0.9-1.1); PROTHROMBIN TIME (PATIENT) 14.1 SECONDS (9.0-12.0)
[2016-05-18] MEDS: INSULIN ASPART 100 UNITS/ML 3 ML PEN SC SCH ×4 (07:00→21:00)
[2016-05-18] MEDS: IPRATROPIUM BROMIDE NEB SOLN 0.02% 2.5 ML VIAL INH SCH ×4 (07:04→19:15)
[2016-05-18] MEDS: LEVALBUTEROL 1.25MG/0.5ML NEB INH SCH ×4 (07:04→19:16)
--- NOTE | 2016-05-18 07:21 | PULMONARY PROGRESS NOTE ---
DATE: 05/18/2016 The patient is comfortable. He states he is considerably improved since the time of admission, but continues to have exertional dyspnea with any activity. He slept fairly well last night. According to nurses' notes he has been stable sleeping periodically throughout the night. On 6 liters his oxygen saturation has been stable. He still gets dyspnea with exertion, even with urinating. He denies cough or chest pain and has not had any peripheral edema. His vital signs are stable. PHYSICAL EXAMINATION: VITAL SIGNS: Blood pressure is 101/61, oxygen saturations 98% on 6 liters and he is afebrile. His I\T\O is 1025 in and 2125 out. He has had more out than in over the last 4 days. His weight is 86.5 kilograms; he was 91.4 kilograms on the . MEDICATIONS: Reviewed. HEENT: Nose exam is unremarkable. Posterior pharynx shows no thrush. There is no adenopathy. No fremitus is noted. Expansion of the thorax is very good with deep inspiration. HEART: Regular rate and rhythm. LUNGS: Continue to reveal coarse breath sounds bilaterally with crackles at the lung bases, left greater than right. The mid lung key and the upper lung key show no crackles, no wheezing is noted. Anteriorly, the lungs are clear. No dullness to percussion is noted. ABDOMEN: Soft, nontender. EXTREMITIES: He has no cyanosis, clubbing or edema. MRSA DNA surveillance screen is negative. Blood cultures are negative. White count 4.66, H\T\H 9.9 and 31%, platelet count 128,000 which has improved. His PRP yesterday looked good with a CO2 of 30. Sugars are in the 87-231 range. Urine legionella titer is negative. Chest x-ray on the is noted and is improved. IMPRESSION: 1. Bilateral pulmonary infiltrates. This is most consistent with cryptogenic organizing pneumonitis. I believe it is improved. 2. Metastatic colon carcinoma. RECOMMENDATIONS: At this point, the patient seems to be stable but it is a slow improvement. I will continue on the Coumadin to keep his INR in the 2-2.5 range. It was 1.3 this morning and that will need to be adjusted. I would finish out the Levaquin 2 more days. Lovenox could be discontinued once the INR is appropriate. I would continue on high dose steroids, prednisone 40 mg daily. He is slowly improving. Increasing his activity will be helpful. Continue on the short acting bronchodilators as well to enhance mucociliary clearance. Overall, he is stable, but I believe the long-term prognosis is guarded at best.
[2016-05-18] MEDS: ASPIRIN 81 MG ECTAB PO SCH (07:35)
[2016-05-18] MEDS: CEROVITE ADV FORMULA TAB PO SCH (07:35)
[2016-05-18] MEDS: FUROSEMIDE INJ 40 MG in SYRINGE 0 ML IV SCH (07:35)
[2016-05-18] MEDS: RANITIDINE HCL 150 MG TAB PO SCH ×2 (07:35→21:06)
[2016-05-18] MEDS: ATORVASTATIN 20 MG TAB PO SCH (07:35)
[2016-05-18] MEDS: PANTOprazole SOD 40 MG TAB PO SCH (07:36)
[2016-05-18] MEDS: ENOXAPARIN 40 MG/0.4 ML SYR SQ SCH (07:36)
--- NOTE | 2016-05-18 10:55 | Pharmacy Progress Note ---
Glycemic: Assessment & Plan Date of Service May 18, 2016. Assessment & Plan Outpatient Anti-diabetic Regimen: * n/a * A1c = 6.3 % (04/27/16) ASSESSMENT: 05/18/16: * Patient received 2 units of insulin in the past 24 hours to correct for some hyperglycemia yesterday afternoon * Expect that this is a reasonable regimen to continue. Patient will likely have some afternoon hyperglycemia while on prednisone, but current correctional parameters appear to be sufficient to correct for this. In an 81yo otherwise non-diabetic patient, would continue current plan. 05/17/16 * Patient is an 81yo non-diabetic male currently with some steroid-induced hyperglycemia. * Recent A1c (6.3%) indicates acceptable glycemic control as an outpatient. * Patient was started on some correctional insulin yesterday and received 9 units last evening for hyperglycemia. * Do not feel that basal insulin is required at this time, but will keep Novolog on board to correct for any steroid-induced hyperglycemia until steroids are tapered off. * Do not feel that patient will likely require any additional meds for glycemic control after discharge. * ADA & AACE recommend a goal blood sugar range 140-180 mg/dl for the majority of critically ill & non-critically ill patients. However, more stringent targets may be selected in individual cases. PLAN FOR INPATIENT GLYCEMIC CONTROL: * No basal insulin at this time. * Continue correction factor of 30 mg/dl/unit * No carb coverage needed at this time. Will re-assess if BSGs unable to be managed w/ correction only. * Change goal range to Low 140 mg/dL - High 180 mg/dL, per ADA/AACE recommendations * Please note that the plan above was derived based on current level of insulin resistance and hospital stress. These recommendations are appropriate for inpatient admission only. Plan of care upon discharge will need to be reassessed to avoid potential outpatient hypo/hyperglycemia. Thank you.
[2016-05-18] MEDS: WARFARIN SOD 2.5 MG TAB PO SCH (15:47)
[2016-05-18] MEDS: LEVOFLOXACIN 500 MG TAB PO SCH (15:47)
--- NOTE | 2016-05-18 17:07 | Progress Note ---
Medicine Progress Note Date & Time of Visit: May 18, 2016 at 1000. Subjective 81M with hx of copd,, interstitial lung disease, systolic chf, hx of PE, hx of metastatic colon cancer who was admitted recently with similar complaints presented with acute respiratory failure from possible health care pneumonia. -pt still very short of breath with standing -denies chest pain -no real change today -afebrile -tolerating PO Objective Last 8 Hrs Date Time Temp Pulse Resp B/P Pulse Ox O2 Delivery O2 Flow Rate FiO2 05/18/16 16:00 Nasal Cannula 6.0 05/18/16 15:42 36.4 90 16 130/69 98 05/18/16 15:41 36.4 05/18/16 12:00 Nasal Cannula 6.0 05/18/16 11:38 36.1 99 20 103/61 96 Nasal Cannula 6.0 05/18/16 11:06 91 18 97 Nasal Cannula 6.0 Physical Exam: GEN: WNWD, in no acute distress, alert and appropriate, 6L NC in place, some conversational dyspnea, port accessed on right anterior chest wall HEENT: NC/AT, normal sclerae, MMM, pharynx non-acute CARDIO: reg rate, S1/2 heard without m/g/r, PM in place on left anterior chest wall (subQ) LUNGS: CTA bilaterally, crackles at bases bilaterally but this is significantly improved today, no rales or wheezes, good diaphragmatic excursion ABD: soft, non-tender, non-distended, no rebound or guarding, +BS present EXTREMITY: RP and DP palpable 2+ bilat, no LE swelling or edema, extremities are warm and well-perfused NEURO: CN 2-12 grossly intact, sensation intact throughout MUSC: 5/5 strength throughout, no focal deficits, gait not assessed 2/2 fall risk SKIN: warm and dry and as above Laboratory Results: Last 24 Hours Test 05/17/16 20:31 05/18/16 04:46 05/18/16 06:55 05/18/16 11:38 Bedside Glucose 178 mg/dl 83 mg/dl 198 mg/dl Prothrombin Time 14.1 SECONDS Prothromb Time International Ratio 1.3 Test 05/18/16 16:14 Bedside Glucose 220 mg/dl Assessment & Plan 81M with hx of copd,, interstitial lung disease, systolic chf, hx of PE, hx of metastatic colon cancer who was admitted recently with similar complaints presented with acute respiratory failure from possible health care pneumonia. 1. Acute hypoxic respiratory failure-multifactorial 2/2 ILD flare (pulm fibrosis from chemo?), HCAP vs pulmonary edema in setting of acute systolic CHF (compensated) and underlying COPD (continues to have no wheezing on exam). H/O PE 6 months ago, on coumadin/no PE found on admission imaging. Flu negative. Blood cultures negative to date. Received Lasix for diuresis and appears euvolemic on exam again today. Was started on Vanc, Levaquin and Zosyn, however , Vanc was stopped 2/2 MRSA screen negative. (Has h/o MRSA). Slowly improving on steroids and abx but still requiring 6 via NC when not on home O2. Also still with some conversational dyspnea and SOB limiting ambulation abilities-pt is still frustrated with lack of progress. Recent CXR showing improvement. Appreciate pulm recs. Cont steroids, stopped Zosyn and cont Levaquin for 10 days. Per Heme/Onc, agree with long steroid taper and holding any further chemo at this time. 2. H/O MRSA-first swab negative. No open wounds present. Will order swab q72hrs for clearance while admitted. Cont contact isolation until cleared by infection control. 3. Chronic systolic CHF-acute decompensation this admission but now is compensated and euvolemic. Initial CT chest revealed pulmonary edema. TTE last month in clinic 45-50%. Per Cardiology, cont daily Lasix, will add daily standing weights. 4. Metastatic colon cancer-per Oncology. 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 h/o PE-Cont with coumadin for goal INR 2-3. Increased daily dose to 2.5mg yesterday, continue this for the next two days and adjust based on INR. Cover with Lovenox 40mg for DVT prophy if INR<2.0. 7. Anemia-likely 2/2 chronic disease vs hemodilution vs frequent phlebotomy as inpatient- improved. Hold am labs to minimize phlebotomy. 8. Constipation-BM today and patient feels better. Cont PRN DVT prophy: Coumadin/Jann 40 for INR<2 Full Code DISPOSITION: Monitor on tele with persistent hypoxia. Expected discharge to home -son and daughter live with him. Medical follow-up with Dr. Carreno. Cardiology follow-up with Dr. Holm. Pulmonary follow-up with Dr. Steel. Medical Oncology follow-up with Dr. Barkley. Yoselin Santiago DO [facility] Hospitalist Continued [facility] stay due to: other (hypoxia) Discharge planning: home Consultants: Pulm, Cards, Heme Current Inpatient Medications: Current Inpatient Medications Medications (Trade) Dose Ordered Sig/Karie Route Start Time Stop Time Status Last Admin Dose Admin Acetaminophen (Tylenol Tab) 650 mg Q4H PRN PO 05/11/16 12:15 06/10/16 12:14 Ondansetron HCl (Zofran Inj) 4 mg Q6H PRN IV 05/11/16 12:15 06/10/16 12:14 Aspirin (Ecotrin Tab) 81 mg DAILY PO 05/12/16 09:00 06/11/16 08:59 05/18/16 07:35 81 MG Atorvastatin Calcium (Lipitor Tab) 20 mg QAM PO 05/12/16 09:00 06/11/16 08:59 05/18/16 07:35 20 MG Multivitamins/ Minerals (Multivitamin W/ Minerals Tab) 1 tab QAM PO 05/12/16 09:00 06/11/16 08:59 05/18/16 07:35 1 TAB Oxycodone/ Acetaminophen (Percocet 5-325MG Tab) 1 tab Q6H PRN PO 05/11/16 14:00 05/25/16 13:59 Ranitidine HCl (zANTac TAB) 150 mg BID PO 05/11/16 21:00 06/10/16 20:59 05/18/16 07:35 150 MG Lorazepam (Ativan Tab) 0.5 mg Q8H PRN PO 05/11/16 14:00 06/10/16 13:59 Sodium Chloride ([place] Nasal [place]) 4 sprays Q2H PRN NA 05/11/16 14:00 06/10/16 13:59 Prednisone (PredniSONE TAB) 40 mg DAILY PO 05/12/16 09:00 06/11/16 08:59 05/18/16 07:35 40 MG Ipratropium [place] (Atrovent 0.02% 0.5MG/2.5ML Neb) 0.5 mg QIDR INH 05/11/16 16:00 06/10/16 15:59 05/18/16 16:14 0.5 MG Levalbuterol (Xopenex 1.25MG/ 0.5ML Neb) 1.25 mg QIDR INH 05/11/16 16:00 06/10/16 15:59 05/18/16 16:14 1.25 MG Levalbuterol (Xopenex 0.63 Mg/ 3 Ml Neb) 0.63 mg Q2H PRN INH 05/11/16 14:15 06/10/16 14:14 Levofloxacin (Consult) 1 ea UD PRN N/A 05/11/16 16:00 06/10/16 15:59 Insulin Aspart (novoLOG ASPART) SLIDING SCALE G... ACHS SC 05/11/16 21:00 06/10/16 20:59 05/18/16 16:47 2 UNITS Glucose (Glucose 40% Gel) 15-30 GRAMS 15 GRAMS... UD PRN PO 05/11/16 17:00 06/10/16 16:59 Glucose (Glucose Chew Tab) 4-8 Tablets 4 Tabl... UD PRN PO 05/11/16 17:00 06/10/16 16:59 Dextrose (Dextrose 50% 50ML Syringe) 25-50ML OF 50% DW IV FOR... UD PRN IV 05/11/16 17:00 06/10/16 16:59 Glucagon (Glucagon Inj) 1 mg UD PRN SQ 05/11/16 17:00 06/10/16 16:59 Tamsulosin HCl (Flomax Cap) 0.4 mg HS PO 05/11/16 21:00 06/10/16 20:59 05/17/16 20:36 0.4 MG Heparin Sodium (Porcine) (Heparin 100 Unit/ml 5ml Flush) 5 ml PRN PRN IV 05/13/16 02:45 06/12/16 02:44 05/18/16 16:07 5 ML Pantoprazole Sodium (Protonix Tab) 40 mg QAM PO 05/14/16 09:00 06/13/16 08:59 05/18/16 07:36 40 MG Polyethylene 17 gm 17 gm DAILY PRN PO 05/14/16 10:00 06/13/16 09:59 05/16/16 09:56 17 GM Furosemide/Syringe (Lasix Inj/ Syringe) 4 ml @ 4 mls/min DAILY IV 05/15/16 09:15 06/14/16 09:14 05/18/16 07:35 4 MLS/MIN Bisacodyl (Dulcolax Tab) 5 mg BID PRN PO 05/16/16 10:15 06/15/16 10:14 Bisacodyl (Dulcolax Supp) 10 mg DAILY PRN [place] 05/16/16 10:15 06/15/16 10:14 Enoxaparin Sodium (Lovenox Inj) 40 mg QAM SQ 05/16/16 10:15 06/15/16 10:14 05/18/16 07:36 40 MG Miscellaneous Information (Consult Glycemic Management Pharmacy) 1 ea UD PRN N/A 05/17/16 08:13 06/16/16 08:12 Warfarin Sodium (Coumadin Tab) 2.5 mg DAILY@16 PO 05/17/16 16:00 06/16/16 15:59 05/18/16 15:47 2.5 MG Levofloxacin (Levaquin Tab) 500 mg DAILY@1600 PO 05/17/16 16:00 05/20/16 16:01 05/18/16 15:47 500 MG
[2016-05-18] MEDS: TAMSULOSIN HCL 0.4 MG CAP PO SCH (21:06)
[2016-05-19] VITALS (10 sets, daily range): BP systolic 111–154; BP diastolic 47–74; PULSE 74–100; TEMP 36.3–36.8; O2SAT 93–98
[2016-05-19] MEDS: INSULIN ASPART 100 UNITS/ML 3 ML PEN SC SCH ×4 (07:00→20:42)
[2016-05-19 07:20] LABS: INR 1.3 (0.9-1.1); PROTHROMBIN TIME (PATIENT) 14.5 SECONDS (9.0-12.0)
[2016-05-19] MEDS: IPRATROPIUM BROMIDE NEB SOLN 0.02% 2.5 ML VIAL INH SCH ×4 (07:39→19:10)
[2016-05-19] MEDS: LEVALBUTEROL 1.25MG/0.5ML NEB INH SCH ×4 (07:39→19:10)
[2016-05-19] MEDS: ENOXAPARIN 40 MG/0.4 ML SYR SQ SCH (08:17)
[2016-05-19] MEDS: RANITIDINE HCL 150 MG TAB PO SCH ×2 (08:18→20:41)
[2016-05-19] MEDS: ASPIRIN 81 MG ECTAB PO SCH (08:18)
[2016-05-19] MEDS: ATORVASTATIN 20 MG TAB PO SCH (08:18)
[2016-05-19] MEDS: CEROVITE ADV FORMULA TAB PO SCH (08:18)
[2016-05-19] MEDS: FUROSEMIDE INJ 40 MG in SYRINGE 0 ML IV SCH (08:18)
[2016-05-19] MEDS: PANTOprazole SOD 40 MG TAB PO SCH (08:18)
[2016-05-19] MEDS: WARFARIN SOD 2.5 MG TAB PO SCH (15:50)
[2016-05-19] MEDS: LEVOFLOXACIN 500 MG TAB PO SCH (15:50)
[2016-05-19] MEDS: TAMSULOSIN HCL 0.4 MG CAP PO SCH (20:41)
--- NOTE | 2016-05-19 23:20 | Progress Note ---
Medicine Progress Note Date & Time of Visit: May 19, 2016 at 17:06. Subjective No changes today ROS otherwise negative except for severe shortness of breath and inability to ambulate Objective Last 8 Hrs Date Time Temp Pulse Resp B/P Pulse Ox O2 Delivery O2 Flow Rate FiO2 05/19/16 16:00 Nasal Cannula 6.0 05/19/16 15:48 36.4 93 22 125/68 95 Room Air 6.0 05/19/16 15:15 84 20 95 Nasal Cannula 6.0 05/19/16 12:55 36.7 100 20 154/47 97 Nasal Cannula 6.0 05/19/16 12:00 Nasal Cannula 6.0 05/19/16 11:06 90 20 97 Nasal Cannula 6.0 Physical Exam: GEN: WNWD, in no acute distress, alert and appropriate, 6L NC in place, some conversational dyspnea, port accessed on right anterior chest wall HEENT: NC/AT, normal sclerae, MMM CARDIO: reg rate, S1/2 heard without m/g/r, PM in place on left anterior chest wall (subQ) LUNGS: CTA bilaterally, crackles at bases bilaterally but this is again significantly improved today, no rales or wheezes, good diaphragmatic excursion ABD: soft, non-tender, non-distended, no rebound or guarding +BS present EXTREMITY: RP and DP palpable 2+ bilat, no LE swelling or edema, extremities are warm and well-perfused NEURO: CN 2-12 grossly intact, sensation intact throughout MUSC: 5/5 strength throughout, no focal deficits, gait not assessed 2/2 fall risk SKIN: warm and dry and as above Laboratory Results: Last 24 Hours Test 05/18/16 20:20 05/19/16 06:23 05/19/16 06:58 05/19/16 11:29 Bedside Glucose 174 mg/dl 84 mg/dl 152 mg/dl Prothrombin Time 14.5 SECONDS Prothromb Time International Ratio 1.3 Test 05/19/16 16:29 Bedside Glucose 219 mg/dl Assessment & Plan 81M with hx of copd,, interstitial lung disease, systolic chf, hx of PE, hx of metastatic colon cancer s/p chemo who was admitted recently with similar complaints presented with acute respiratory failure from possible health care pneumonia, thought to have BOOP 1. 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 H/O PE 6 months ago, on coumadin/no PE found on admission imaging. Flu negative. Blood cultures negative to date. Received Lasix for diuresis and appears euvolemic on exam again today. Was started on Vanc, Levaquin and Zosyn , however, Vanc was stopped 2/2 MRSA screen negative. (Has h/o MRSA). Slowly improving on steroids and abx but still requiring 6 via NC when not on home O2. Also still with some conversational dyspnea and SOB limiting ambulation abilities-pt is still frustrated with lack of progress. Recent CXR showing improvement. Appreciate pulm recs. Cont steroids, stopped Zosyn and cont Levaquin for 10 days, although abx have not improved the situation. Per Heme/Onc , agree with long steroid taper and holding any further chemo at this time. Appreciate continued recs from pulm. Discussed with the patient that it may take 1-2 weeks for him to come off oxygen. 2. H/O MRSA-first swab negative. No open wounds present. Will order swab q7d for clearance while admitted. Cont contact isolation until cleared by infection control. 3. Chronic systolic CHF-acute decompensation this admission but now is compensated and euvolemic. Initial CT chest revealed pulmonary edema. TTE last month in clinic 45-50%. Per Cardiology, cont daily Lasix, will add daily standing weights. 4. Metastatic colon cancer-per Oncology. 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 h/o PE-Cont with coumadin for goal INR 2-3. Increased daily dose to 2.5mg yesterday, continue this for the next two days and adjust based on INR. Cover with Lovenox 40mg for DVT prophy if INR<2.0. 7. Anemia-likely 2/2 chronic disease vs hemodilution vs frequent phlebotomy as inpatient- improved. Hold am labs to minimize phlebotomy. 8. Constipation-BM today and patient feels better. Cont PRN DVT prophy: Coumadin/Jann 40 for INR<2 Full Code DISPOSITION: Monitor on tele with persistent hypoxia. Expected discharge to home -son and daughter live with him. Medical follow-up with Dr. Carreno. Cardiology follow-up with Dr. Holm. Pulmonary follow-up with Dr. Steel. Medical Oncology follow-up with Dr. Barkley. Yoselin Santiago DO [facility] Hospitalist Continued [facility] stay due to: other (hypoxia) Discharge planning: home Consultants: Pulm, Cards, Heme Current Inpatient Medications: Current Inpatient Medications Medications (Trade) Dose Ordered Sig/Karie Route Start Time Stop Time Status Last Admin Dose Admin Acetaminophen (Tylenol Tab) 650 mg Q4H PRN PO 05/11/16 12:15 06/10/16 12:14 Ondansetron HCl (Zofran Inj) 4 mg Q6H PRN IV 05/11/16 12:15 06/10/16 12:14 Aspirin (Ecotrin Tab) 81 mg DAILY PO 05/12/16 09:00 06/11/16 08:59 05/19/16 08:18 81 MG Atorvastatin Calcium (Lipitor Tab) 20 mg QAM PO 05/12/16 09:00 06/11/16 08:59 05/19/16 08:18 20 MG Multivitamins/ Minerals (Multivitamin W/ Minerals Tab) 1 tab QAM PO 05/12/16 09:00 06/11/16 08:59 05/19/16 08:18 1 TAB Oxycodone/ Acetaminophen (Percocet 5-325MG Tab) 1 tab Q6H PRN PO 05/11/16 14:00 05/25/16 13:59 Ranitidine HCl (zANTac TAB) 150 mg BID PO 05/11/16 21:00 06/10/16 20:59 05/19/16 08:18 150 MG Lorazepam (Ativan Tab) 0.5 mg Q8H PRN PO 05/11/16 14:00 06/10/16 13:59 Sodium Chloride ([place] Nasal [place]) 4 sprays Q2H PRN NA 05/11/16 14:00 06/10/16 13:59 Prednisone (PredniSONE TAB) 40 mg DAILY PO 05/12/16 09:00 06/11/16 08:59 05/19/16 08:18 40 MG Ipratropium [place] (Atrovent 0.02% 0.5MG/2.5ML Neb) 0.5 mg QIDR INH 05/11/16 16:00 06/10/16 15:59 05/19/16 15:43 0.5 MG Levalbuterol (Xopenex 1.25MG/ 0.5ML Neb) 1.25 mg QIDR INH 05/11/16 16:00 06/10/16 15:59 05/19/16 15:43 1.25 MG Levalbuterol (Xopenex 0.63 Mg/ 3 Ml Neb) 0.63 mg Q2H PRN INH 05/11/16 14:15 06/10/16 14:14 Levofloxacin (Consult) 1 ea UD PRN N/A 05/11/16 16:00 06/10/16 15:59 Insulin Aspart (novoLOG ASPART) SLIDING SCALE G... ACHS SC 05/11/16 21:00 06/10/16 20:59 05/18/16 16:47 2 UNITS Glucose (Glucose 40% Gel) 15-30 GRAMS 15 GRAMS... UD PRN PO 05/11/16 17:00 06/10/16 16:59 Glucose (Glucose Chew Tab) 4-8 Tablets 4 Tabl... UD PRN PO 05/11/16 17:00 06/10/16 16:59 Dextrose (Dextrose 50% 50ML Syringe) 25-50ML OF 50% DW IV FOR... UD PRN IV 05/11/16 17:00 06/10/16 16:59 Glucagon (Glucagon Inj) 1 mg UD PRN SQ 05/11/16 17:00 06/10/16 16:59 Tamsulosin HCl (Flomax Cap) 0.4 mg HS PO 05/11/16 21:00 06/10/16 20:59 05/18/16 21:06 0.4 MG Heparin Sodium (Porcine) (Heparin 100 Unit/ml 5ml Flush) 5 ml PRN PRN IV 05/13/16 02:45 06/12/16 02:44 05/18/16 16:07 5 ML Pantoprazole Sodium (Protonix Tab) 40 mg QAM PO 05/14/16 09:00 06/13/16 08:59 05/19/16 08:18 40 MG Polyethylene 17 gm 17 gm DAILY PRN PO 05/14/16 10:00 1/24/17 09:59 05/16/16 09:56 17 GM Furosemide/Syringe (Lasix Inj/ Syringe) 4 ml @ 4 mls/min DAILY IV 05/15/16 09:15 06/14/16 09:14 05/19/16 08:18 4 MLS/MIN Bisacodyl (Dulcolax Tab) 5 mg BID PRN PO 05/16/16 10:15 06/15/16 10:14 Bisacodyl (Dulcolax Supp) 10 mg DAILY PRN ME 05/16/16 10:15 06/15/16 10:14 Enoxaparin Sodium (Lovenox Inj) 40 mg QAM SQ 05/16/16 10:15 06/15/16 10:14 05/19/16 08:17 40 MG Miscellaneous Information (Consult Glycemic Management Pharmacy) 1 ea UD PRN N/A 05/17/16 08:13 06/16/16 08:12 Warfarin Sodium (Coumadin Tab) 2.5 mg DAILY@16 PO 05/17/16 16:00 06/16/16 15:59 05/19/16 15:50 2.5 MG Levofloxacin (Levaquin Tab) 500 mg DAILY@1600 PO 05/17/16 16:00 05/20/16 16:01 05/19/16 15:50 500 MG
[2016-05-20] VITALS (12 sets, daily range): BP systolic 107–124; BP diastolic 38–74; PULSE 73–102; TEMP 36–36.9; O2SAT 90–99
[2016-05-20 06:25] LABS: HEMATOCRIT 30.4 % (42-52); MEAN CELL VOLUME 86.4 fL (80-100); MEAN CORPUSCULAR HEMOGLOBIN 27.6 pg (25-34); MEAN CORPUSCULAR HGB CONC 31.9 g/dl (32-36); MEAN PLATELET VOLUME 9.7 fL (7.4-10.4); PLATELET COUNT 142 K/uL (130-400); RED BLOOD COUNT 3.52 M/uL (4.7-6.1); WHITE BLOOD COUNT 4.57 K/uL (4.8-10.8)
[2016-05-20 06:36] LABS: INR 1.5 (0.9-1.1); PROTHROMBIN TIME (PATIENT) 16.1 SECONDS (9.0-12.0)
[2016-05-20] MEDS: IPRATROPIUM BROMIDE NEB SOLN 0.02% 2.5 ML VIAL INH SCH ×4 (06:47→19:20)
[2016-05-20] MEDS: LEVALBUTEROL 1.25MG/0.5ML NEB INH SCH ×4 (06:47→19:20)
[2016-05-20] MEDS: INSULIN ASPART 100 UNITS/ML 3 ML PEN SC SCH ×4 (07:00→20:56)
[2016-05-20 07:04] LABS: BUN/CREATININE RATIO 26.1 (10-20); CALCIUM 8.7 mg/dl (8.5-10.1); CREATININE 0.72 mg/dl (0.60-1.40); POTASSIUM 3.6 mmol/L (3.5-5.1)
[2016-05-20] MEDS: FUROSEMIDE INJ 40 MG in SYRINGE 0 ML IV SCH (08:13)
[2016-05-20] MEDS: ASPIRIN 81 MG ECTAB PO SCH (08:13)
[2016-05-20] MEDS: ATORVASTATIN 20 MG TAB PO SCH (08:13)
[2016-05-20] MEDS: CEROVITE ADV FORMULA TAB PO SCH (08:14)
[2016-05-20] MEDS: ENOXAPARIN 40 MG/0.4 ML SYR SQ SCH (08:14)
[2016-05-20] MEDS: RANITIDINE HCL 150 MG TAB PO SCH ×2 (08:14→20:52)
[2016-05-20] MEDS: PANTOprazole SOD 40 MG TAB PO SCH (08:14)
[2016-05-20] MEDS: LEVOFLOXACIN 500 MG TAB PO SCH (16:00)
[2016-05-20] MEDS: WARFARIN SOD 2.5 MG TAB PO SCH (16:00)
--- NOTE | 2016-05-20 18:20 | Progress Note ---
Medicine Progress Note Date & Time of Visit: May 20, 2016 at 08:18. Subjective No real changes today Same report of shortness of breath with standing up Tolerating PO Afebrile. Objective Last 8 Hrs Date Time Temp Pulse Resp B/P Pulse Ox O2 Delivery O2 Flow Rate FiO2 05/20/16 07:10 36.4 78 24 107/38 96 Nasal Cannula 6.0 Humidified Oxygen 05/20/16 06:47 73 20 99 Nasal Cannula 6.0 05/20/16 04:25 36.9 76 21 119/42 97 Nasal Cannula 6.0 05/20/16 04:00 95 Nasal Cannula 6.0 95 Physical Exam: GEN: WNWD, in no acute distress, alert and appropriate, 6L NC in place, some conversational dyspnea, port accessed on right anterior chest wall HEENT: NC/AT, normal sclerae, MMM CARDIO: reg rate, S1/2 heard without m/g/r, PM in place on left anterior chest wall (subQ) LUNGS: CTA bilaterally, crackles at bases bilaterally but this is again significantly improved today, no rales or wheezes, good diaphragmatic excursion ABD: soft, non-tender, non-distended, no rebound or guarding +BS present EXTREMITY: RP and DP palpable 2+ bilat, no LE swelling or edema, extremities are warm and well-perfused NEURO: CN 2-12 grossly intact, sensation intact throughout MUSC: 5/5 strength throughout, no focal deficits, gait not assessed 2/2 fall risk SKIN: warm and dry and as above Laboratory Results: Last 24 Hours Test 05/19/16 11:29 05/19/16 16:29 05/19/16 20:38 05/20/16 05:53 Bedside Glucose 152 mg/dl 219 mg/dl 182 mg/dl White Blood Count 4.57 K/uL Red Blood Count 3.52 M/uL Hemoglobin 9.7 g/dL Hematocrit 30.4 % Mean Corpuscular Volume 86.4 fL Mean Corpuscular Hemoglobin 27.6 pg Mean Corpuscular Hemoglobin Concent 31.9 g/dl RDW Standard Deviation 55.3 fL RDW Coefficient of Variation 17.5 % Platelet Count 142 K/uL Mean Platelet Volume 9.7 fL Prothrombin Time 16.1 SECONDS Prothromb Time International Ratio 1.5 Sodium Level 140 mmol/L Potassium Level 3.6 mmol/L Chloride Level 104 mmol/L Carbon Dioxide Level 28 mmol/L Anion Gap 8.0 mmol/L Blood Urea Nitrogen 19 mg/dl Creatinine 0.72 mg/dl Est Creatinine Clear Calc Drug Dose 85.7 ml/min Estimated GFR () 101.4 Estimated GFR (Non- 87.5 BUN/Creatinine Ratio 26.1 Random Glucose 90 mg/dl Calcium Level 8.7 mg/dl Test 05/20/16 06:30 Bedside Glucose 85 mg/dl Assessment & Plan 81M with hx of copd,, interstitial lung disease, systolic chf, hx of PE, hx of metastatic colon cancer s/p chemo who was admitted recently with similar complaints presented with acute respiratory failure from possible health care pneumonia, thought to have BOOP 1. 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 H/O PE 6 months ago, on coumadin/no PE found on admission imaging. Flu negative. Blood cultures negative to date. Received Lasix for diuresis and appears euvolemic on exam again today. Was started on Vanc, Levaquin and Zosyn , however, Vanc was stopped 2/2 MRSA screen negative. (Has h/o MRSA). Slowly improving on steroids and abx but still requiring 6 via NC when not on home O2. Also still with some conversational dyspnea and SOB limiting ambulation abilities-pt is still frustrated with lack of progress. Recent CXR showing improvement. Appreciate pulm recs. Cont steroids, stopped Zosyn and cont Levaquin for 10 days, although abx have not improved the situation. Per Heme/Onc , agree with long steroid taper and holding any further chemo at this time. Appreciate continued recs from pulm. Discussed with the patient that it may take 1-2 weeks for him to come off oxygen. No real changes today-cont current medical therapy. 2. H/O MRSA-first swab negative. No open wounds present. Will order swab q7d for clearance while admitted. Cont contact isolation until cleared by infection control. 3. Chronic systolic CHF-acute decompensation this admission but now is compensated and euvolemic. Initial CT chest revealed pulmonary edema. TTE last month in clinic 45-50%. Per Cardiology, cont daily Lasix, will add daily standing weights. 4. Metastatic colon cancer-per Oncology. 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 h/o PE-Cont with coumadin for goal INR 2-3. Continue at 2.5mg dosage for now. INR this for the next two days and adjust based on INR. Cover with Lovenox 40mg for DVT prophy if INR<2.0. 7. Anemia-likely 2/2 chronic disease vs hemodilution vs frequent phlebotomy as inpatient- improved. Hold am labs to minimize phlebotomy. DVT prophy: Coumadin/Jann 40 for INR<2 Full Code DISPOSITION: Monitor on tele with persistent hypoxia. Expected discharge to home -son and daughter live with him. Medical follow-up with Dr. Carreno. Cardiology follow-up with Dr. Holm. Pulmonary follow-up with Dr. Steel. Medical Oncology follow-up with Dr. Barkley. Yoselin Santiago DO [facility] Hospitalist Continued [facility] stay due to: other (hypoxia) Discharge planning: home Consultants: Pulm, Cards, Heme Current Inpatient Medications: Current Inpatient Medications Medications (Trade) Dose Ordered Sig/Karie Route Start Time Stop Time Status Last Admin Dose Admin Acetaminophen (Tylenol Tab) 650 mg Q4H PRN PO 05/11/16 12:15 06/10/16 12:14 Ondansetron HCl (Zofran Inj) 4 mg Q6H PRN IV 05/11/16 12:15 06/10/16 12:14 Aspirin (Ecotrin Tab) 81 mg DAILY PO 05/12/16 09:00 06/11/16 08:59 05/20/16 08:13 81 MG Atorvastatin Calcium (Lipitor Tab) 20 mg QAM PO 05/12/16 09:00 06/11/16 08:59 05/20/16 08:13 20 MG Multivitamins/ Minerals (Multivitamin W/ Minerals Tab) 1 tab QAM PO 05/12/16 09:00 06/11/16 08:59 05/20/16 08:14 1 TAB Oxycodone/ Acetaminophen (Percocet 5-325MG Tab) 1 tab Q6H PRN PO 05/11/16 14:00 05/25/16 13:59 Ranitidine HCl (zANTac TAB) 150 mg BID PO 05/11/16 21:00 06/10/16 20:59 05/20/16 08:14 150 MG Lorazepam (Ativan Tab) 0.5 mg Q8H PRN PO 05/11/16 14:00 06/10/16 13:59 Sodium Chloride ([place] Nasal [place]) 4 sprays Q2H PRN NA 05/11/16 14:00 06/10/16 13:59 Prednisone (PredniSONE TAB) 40 mg DAILY PO 05/12/16 09:00 06/11/16 08:59 05/20/16 08:14 40 MG Ipratropium [place] (Atrovent 0.02% 0.5MG/2.5ML Neb) 0.5 mg QIDR INH 05/11/16 16:00 06/10/16 15:59 05/20/16 06:47 0.5 MG Levalbuterol (Xopenex 1.25MG/ 0.5ML Neb) 1.25 mg QIDR INH 05/11/16 16:00 06/10/16 15:59 05/20/16 06:47 1.25 MG Levalbuterol (Xopenex 0.63 Mg/ 3 Ml Neb) 0.63 mg Q2H PRN INH 05/11/16 14:15 06/10/16 14:14 Levofloxacin (Consult) 1 ea UD PRN N/A 05/11/16 16:00 06/10/16 15:59 Insulin Aspart (novoLOG ASPART) SLIDING SCALE G... ACHS SC 05/11/16 21:00 06/10/16 20:59 05/19/16 20:42 1 UNITS Glucose (Glucose 40% Gel) 15-30 GRAMS 15 GRAMS... UD PRN PO 05/11/16 17:00 06/10/16 16:59 Glucose (Glucose Chew Tab) 4-8 Tablets 4 Tabl... UD PRN PO 05/11/16 17:00 06/10/16 16:59 Dextrose (Dextrose 50% 50ML Syringe) 25-50ML OF 50% DW IV FOR... UD PRN IV 05/11/16 17:00 06/10/16 16:59 Glucagon (Glucagon Inj) 1 mg UD PRN SQ 05/11/16 17:00 06/10/16 16:59 Tamsulosin HCl (Flomax Cap) 0.4 mg HS PO 05/11/16 21:00 06/10/16 20:59 05/19/16 20:41 0.4 MG Heparin Sodium (Porcine) (Heparin 100 Unit/ml 5ml Flush) 5 ml PRN PRN IV 05/13/16 02:45 06/12/16 02:44 05/18/16 16:07 5 ML Pantoprazole Sodium (Protonix Tab) 40 mg QAM PO 05/14/16 09:00 06/13/16 08:59 05/20/16 08:14 40 MG Polyethylene 17 gm 17 gm DAILY PRN PO 05/14/16 10:00 06/13/16 09:59 05/16/16 09:56 17 GM Furosemide/Syringe (Lasix Inj/ Syringe) 4 ml @ 4 mls/min DAILY IV 05/15/16 09:15 06/14/16 09:14 05/20/16 08:13 4 MLS/MIN Bisacodyl (Dulcolax Tab) 5 mg BID PRN PO 05/16/16 10:15 06/15/16 10:14 Bisacodyl (Dulcolax Supp) 10 mg DAILY PRN [place] 05/16/16 10:15 06/15/16 10:14 Enoxaparin Sodium (Lovenox Inj) 40 mg QAM SQ 05/16/16 10:15 06/15/16 10:14 05/20/16 08:14 40 MG Miscellaneous Information (Consult Glycemic Management Pharmacy) 1 ea UD PRN N/A 05/17/16 08:13 06/16/16 08:12 Warfarin Sodium (Coumadin Tab) 2.5 mg DAILY@16 PO 05/17/16 16:00 06/16/16 15:59 05/19/16 15:50 2.5 MG Levofloxacin (Levaquin Tab) 500 mg DAILY@1600 PO 05/17/16 16:00 05/20/16 16:01 05/19/16 15:50 500 MG
[2016-05-20] MEDS: TAMSULOSIN HCL 0.4 MG CAP PO SCH (20:52)
[2016-05-21] VITALS (10 sets, daily range): BP systolic 111–141; BP diastolic 64–87; PULSE 70–97; TEMP 36.3–37.1; O2SAT 94–100
[2016-05-21 06:39] LABS: INR 1.5 (0.9-1.1); PROTHROMBIN TIME (PATIENT) 16.1 SECONDS (9.0-12.0)
[2016-05-21] MEDS: INSULIN ASPART 100 UNITS/ML 3 ML PEN SC SCH ×4 (07:00→20:57)
[2016-05-21] MEDS: LEVALBUTEROL 1.25MG/0.5ML NEB INH SCH ×4 (07:14→19:18)
[2016-05-21] MEDS: IPRATROPIUM BROMIDE NEB SOLN 0.02% 2.5 ML VIAL INH SCH ×4 (07:14→19:18)
--- NOTE | 2016-05-21 09:46 | Pharmacy Progress Note ---
Glycemic: Assessment & Plan Date of Service May 21, 2016. Assessment & Plan Item Value Date Time Bedside Glucose 94 mg/dl 05/21/16 0624 Bedside Glucose 211 mg/dl H 05/20/16 2023 Bedside Glucose 278 mg/dl H 05/20/16 1620 Bedside Glucose 168 mg/dl H 05/20/16 1112 Bedside Glucose 85 mg/dl 05/20/16 0630 05/17/16: The patient received 2 units of insulin. 05/18/16: The patient received 3 units of insulin. 05/19/16: The patient received 3 units of insulin. 05/20/16: The patient received 6 units of insulin. Plan: Steroid induced hyperglycemia (prednisone 40mg po qAM). The hyperglycemic effects appear to peak @ dinner each day but pt nicely responds to Novolog per CF. Fasting BSGs normalize each am. No changes warranted. * Basal insulin: not ordered at this time * Correctional Insulin: Novolog Correction per scale ACHS Goal Range: Low 140 mg/dL - High 180 mg/dL Correction Factor: 30 mg/dL/unit * Prandial insulin: not ordered at this time Pharmacy will continue to monitor patient daily and write orders per [facility] inpatient glycemic control protocol. Thanks. * Please note that the plan above was derived based on current level of insulin resistance and hospital stress. These recommendations are appropriate for inpatient admission only. Plan of care upon discharge will need to be reassessed to avoid potential outpatient hypo/hyperglycemia.
[2016-05-21] MEDS: RANITIDINE HCL 150 MG TAB PO SCH ×2 (09:53→21:09)
[2016-05-21] MEDS: CEROVITE ADV FORMULA TAB PO SCH (09:53)
[2016-05-21] MEDS: ENOXAPARIN 40 MG/0.4 ML SYR SQ SCH (09:54)
[2016-05-21] MEDS: ASPIRIN 81 MG ECTAB PO SCH (09:54)
[2016-05-21] MEDS: PANTOprazole SOD 40 MG TAB PO SCH (09:54)
[2016-05-21] MEDS: ATORVASTATIN 20 MG TAB PO SCH (09:54)
[2016-05-21] MEDS: FUROSEMIDE INJ 40 MG in SYRINGE 0 ML IV SCH (09:55)
--- NOTE | 2016-05-21 11:18 | Pulmonology Progress Note ---
Pulmonary Progress Note Date of Service May 21, 2016. Attending Dr. Rip Steel Subjective Patient still notes dyspnea on exertion but also is complaining of upper abdominal gas type symptoms. Objective Patient little more tachypnea During conversation and will using accessory muscles showing signs of increased work of breathing. Physical exam: Respiratory: Crackles bilaterally mid lung down posteriorly with Velcro rales inspiration/rhonchi and expiration. Cardiac: S1-S2 regular rate and rhythm 2/6 systolic murmur best appreciated left upper sternal border Assessment & Plan 81-year-old gentleman with progressive hypoxia and history of stage IV colon cancer: #1 Hypoxemia: Hypoxia with ILD/C.O.P. on CT the thorax also likely secondary to FOLFIRI chemotherapy with irinotecan being the most likely source. Steroids are currently 40 mg per day I will move him back to 50 mg day per day to keep him at 0.5 mg/kilograms. Patient is to hypoxic and sick at this time to undergo bronchoscopy and/or surgical lung biopsy. #2 Pneumonia: Agree with Dr. Rizzo with continuing/finishing out current Levaquin IV therapy. #2 GI: Patient complaining of upper GI type symptoms will obtain KUB for evaluation. Data Medications: Current Inpatient Medications Medications (Trade) Dose Ordered Sig/Karie Route Start Time Stop Time Status Last Admin Dose Admin Acetaminophen (Tylenol Tab) 650 mg Q4H PRN PO 05/11/16 12:15 06/10/16 12:14 Ondansetron HCl (Zofran Inj) 4 mg Q6H PRN IV 05/11/16 12:15 06/10/16 12:14 Aspirin (Ecotrin Tab) 81 mg DAILY PO 05/12/16 09:00 06/11/16 08:59 05/21/16 09:54 81 MG Atorvastatin Calcium (Lipitor Tab) 20 mg QAM PO 05/12/16 09:00 06/11/16 08:59 05/21/16 09:54 20 MG Multivitamins/ Minerals (Multivitamin W/ Minerals Tab) 1 tab QAM PO 05/12/16 09:00 06/11/16 08:59 05/21/16 09:53 1 TAB Oxycodone/ Acetaminophen (Percocet 5-325MG Tab) 1 tab Q6H PRN PO 05/11/16 14:00 05/25/16 13:59 Ranitidine HCl (zANTac TAB) 150 mg BID PO 05/11/16 21:00 06/10/16 20:59 05/21/16 09:53 150 MG Lorazepam (Ativan Tab) 0.5 mg Q8H PRN PO 05/11/16 14:00 06/10/16 13:59 Sodium Chloride ([place] Nasal [place]) 4 sprays Q2H PRN NA 05/11/16 14:00 06/10/16 13:59 Prednisone (PredniSONE TAB) 40 mg DAILY PO 05/12/16 09:00 06/11/16 08:59 05/21/16 09:53 40 MG Ipratropium [place] (Atrovent 0.02% 0.5MG/2.5ML Neb) 0.5 mg QIDR INH 05/11/16 16:00 06/10/16 15:59 05/21/16 07:14 0.5 MG Levalbuterol (Xopenex 1.25MG/ 0.5ML Neb) 1.25 mg QIDR INH 05/11/16 16:00 06/10/16 15:59 05/21/16 07:14 1.25 MG Levalbuterol (Xopenex 0.63 Mg/ 3 Ml Neb) 0.63 mg Q2H PRN INH 05/11/16 14:15 06/10/16 14:14 Insulin Aspart (novoLOG ASPART) SLIDING SCALE G... ACHS SC 05/11/16 21:00 06/10/16 20:59 05/20/16 20:56 2 UNITS Glucose (Glucose 40% Gel) 15-30 GRAMS 15 GRAMS... UD PRN PO 05/11/16 17:00 06/10/16 16:59 Glucose (Glucose Chew Tab) 4-8 Tablets 4 Tabl... UD PRN PO 05/11/16 17:00 06/10/16 16:59 Dextrose (Dextrose 50% 50ML Syringe) 25-50ML OF 50% DW IV FOR... UD PRN IV 05/11/16 17:00 06/10/16 16:59 Glucagon (Glucagon Inj) 1 mg UD PRN SQ 05/11/16 17:00 06/10/16 16:59 Tamsulosin HCl (Flomax Cap) 0.4 mg HS PO 05/11/16 21:00 06/10/16 20:59 05/20/16 20:52 0.4 MG Heparin Sodium (Porcine) (Heparin 100 Unit/ml 5ml Flush) 5 ml PRN PRN IV 05/13/16 02:45 06/12/16 02:44 05/18/16 16:07 5 ML Pantoprazole Sodium (Protonix Tab) 40 mg QAM PO 05/14/16 09:00 06/13/16 08:59 05/21/16 09:54 40 MG Polyethylene 17 gm 17 gm DAILY PRN PO 05/14/16 10:00 06/13/16 09:59 05/16/16 09:56 17 GM Furosemide/Syringe (Lasix Inj/ Syringe) 4 ml @ 4 mls/min DAILY IV 05/15/16 09:15 06/14/16 09:14 05/21/16 09:55 4 MLS/MIN Bisacodyl (Dulcolax Tab) 5 mg BID PRN PO 05/16/16 10:15 06/15/16 10:14 Bisacodyl (Dulcolax Supp) 10 mg DAILY PRN [place] 05/16/16 10:15 06/15/16 10:14 Enoxaparin Sodium (Lovenox Inj) 40 mg QAM SQ 05/16/16 10:15 06/15/16 10:14 05/21/16 09:54 40 MG Miscellaneous Information (Consult Glycemic Management Pharmacy) 1 ea UD PRN N/A 05/17/16 08:13 06/16/16 08:12 Warfarin Sodium (Coumadin Tab) 4 mg DAILY@16 PO 05/21/16 16:00 06/20/16 15:59 I & O: 24-Hour Column 05/21/16 08:00 Intake Total 640 ml Output Total 1900 ml Balance -1260 ml Vital Signs: Date Time Temp Pulse Resp B/P Pulse Ox O2 Delivery O2 Flow Rate FiO2 05/21/16 08:00 Nasal Cannula 6.0 05/21/16 07:51 36.4 80 18 123/70 94 Nasal Cannula 6.0 Humidified Oxygen 05/21/16 07:14 80 16 100 Nasal Cannula 6.0 05/21/16 04:49 36.3 70 20 114/69 98 Nasal Cannula 6.0 05/21/16 04:00 Nasal Cannula 6.0 05/21/16 00:00 Nasal Cannula 6.0 05/20/16 23:08 36.4 76 18 121/62 99 Nasal Cannula 6.0 05/20/16 20:00 Nasal Cannula 6.0 05/20/16 19:20 84 16 96 Nasal Cannula 6.0 05/20/16 19:14 36.7 98 18 111/74 96 Nasal Cannula 6.0 05/20/16 16:06 102 20 95 Nasal Cannula 6.0 05/20/16 16:00 Nasal Cannula 6.0 05/20/16 15:48 36.5 93 20 124/53 95 Nasal Cannula 6.0 05/20/16 12:00 Nasal Cannula 6.0 05/20/16 11:25 36.0 88 16 124/53 90 Nasal Cannula 6.0 Humidified Oxygen Laboratory Results: Last 24 Hours Test 05/20/16 16:20 05/20/16 20:23 05/21/16 05:19 05/21/16 06:24 Bedside Glucose 278 mg/dl 211 mg/dl 94 mg/dl Prothrombin Time 16.1 SECONDS Prothromb Time International Ratio 1.5
--- NOTE | 2016-05-21 15:45 | DIAGNOSTIC IMAGING REPORT ---
KUB CLINICAL HISTORY: Generalized abdominal pain. Assess for intraperitoneal free air. FINDINGS: 2 AP, portable, supine abdominal radiograph are correlated with abdominal CT dated 05/11/2016. There is a nonobstructed abdominal bowel gas pattern noting moderate colonic fecal retention. No evidence of intraperitoneal free air is seen on these supine views. There are no abnormal abdominal calcifications. Cholecystotomy clips are noted in the right upper quadrant. The skeletal structures are osteopenic. There is lumbosacral spondylosis. Cardiomegaly is observed. Interstitial lung disease is partially imaged at the lung bases. IMPRESSION: 1. Nonobstructed abdominal gas pattern noting moderate colonic fecal retention. 2. There is no evidence of intraperitoneal free air as clinically queried on these supine views. Note that upright or decubitus views are more sensitive. Electronically signed by: Jean Paul Johnson M.D. 05/21/2016 3:43 PM
[2016-05-21] MEDS: WARFARIN SOD 4 MG TAB PO SCH (16:13)
[2016-05-21] MEDS: TAMSULOSIN HCL 0.4 MG CAP PO SCH (21:09)
--- NOTE | 2016-05-21 22:51 | Progress Note ---
Medicine Progress Note Date & Time of Visit: May 21, 2016 at 17:19. Subjective Same reports of wworking hard to breathe when he stands up Chest fullness when he stands up since last chemo treatment KUB today reveal presence of stool but no free air or obstruction CT chest was performed on admission Objective Last 8 Hrs Date Time Temp Pulse Resp B/P Pulse Ox O2 Delivery O2 Flow Rate FiO2 05/21/16 16:00 Nasal Cannula 6.0 05/21/16 15:51 84 16 96 Nasal Cannula 6.0 05/21/16 15:28 37.1 86 18 116/76 96 Nasal Cannula 6.0 05/21/16 12:00 Nasal Cannula 6.0 05/21/16 12:00 36.3 94 16 118/64 94 Nasal Cannula 6.0 05/21/16 11:43 84 16 96 Nasal Cannula 6.0 Physical Exam: GEN: WNWD, in no acute distress, alert and appropriate, 6L NC in place, port accessed on right anterior chest wall HEENT: NC/AT, normal sclerae, MMM CARDIO: reg rate, S1/2 heard without m/g/r, PM in place on left anterior chest wall (subQ) LUNGS: CTA bilaterally, No crackles, no rales or wheezes, good diaphragmatic excursion ABD: soft, non-tender, non-distended, no rebound or guarding +BS present EXTREMITY: no LE swelling or edema, extremities are warm and well-perfused N/M: generally deconditioned SKIN: warm and dry and as above Laboratory Results: Last 24 Hours Test 05/20/16 20:23 05/21/16 05:19 05/21/16 06:24 05/21/16 11:15 Bedside Glucose 211 mg/dl 94 mg/dl 122 mg/dl Prothrombin Time 16.1 SECONDS Prothromb Time International Ratio 1.5 Test 05/21/16 16:17 Bedside Glucose 193 mg/dl Assessment & Plan 81M with hx of copd, interstitial lung disease, systolic chf, hx of PE, hx of metastatic colon cancer s/p chemo who was admitted recently with similar complaints presented with acute respiratory failure from possible health care pneumonia, thought to have BOOP 1. 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 H/O PE 6 months ago, on coumadin/no PE found on admission imaging. Flu negative. Blood cultures negative to date. Was started on Vanc, Levaquin and Zosyn, however, Vanc was stopped 2/2 MRSA screen negative. (Has h/o MRSA). Slowly improving on steroids and abx but still requiring 6 via NC when not on home O2. Conversational dyspnea has improved and SOB limiting ambulation abilities-pt is still frustrated with lack of progress. Recent CXR showing improvement. Appreciate pulm recs to cont current treatment. Cont steroids, stopped Zosyn and cont Levaquin for 10 days. Per Heme/Onc, agree with long steroid taper and holding any further chemo at this time. Lungs improved and resp to cont to wean oxygen as tolerated. Cont current medical therapy. 2. H/O MRSA-first swab negative. No open wounds present. Will order swab q7d for clearance while admitted. Cont contact isolation until cleared by infection control. 3. Chronic systolic CHF-acute decompensation this admission but now is compensated and euvolemic. Initial CT chest revealed pulmonary edema. TTE last month in clinic 45-50%. Per Cardiology, cont daily Lasix, will add daily standing weights. 4. Metastatic colon cancer-per Oncology. 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 h/o PE-Cont with coumadin for goal INR 2-3. Increased to 4mg dosage. INR for the next two days and adjust based on INR. Cover with Lovenox 40mg for DVT prophy if INR<2.0. 7. Anemia-likely 2/2 chronic disease vs hemodilution vs frequent phlebotomy as inpatient- improved. Hold am labs to minimize phlebotomy. 8. Chronic constipation-cont PRN laxatives/suppositories DVT prophy: Coumadin/Jann 40 for INR<2 Full Code DISPOSITION: Monitor on tele with persistent hypoxia. Expected discharge to home -son and daughter live with him. Medical follow-up with Dr. Carreno. Cardiology follow-up with Dr. Holm. Pulmonary follow-up with Dr. Steel. Medical Oncology follow-up with Dr. Barkley. Yoselin [place], DO [facility] Hospitalist Continued [facility] stay due to: other (hypoxia) Discharge planning: home Consultants: Pulfernandez, Cortney, Nick Current Inpatient Medications: Current Inpatient Medications Medications (Trade) Dose Ordered Sig/Karie Route Start Time Stop Time Status Last Admin Dose Admin Acetaminophen (Tylenol Tab) 650 mg Q4H PRN PO 05/11/16 12:15 06/10/16 12:14 Ondansetron HCl (Zofran Inj) 4 mg Q6H PRN IV 05/11/16 12:15 06/10/16 12:14 Aspirin (Ecotrin Tab) 81 mg DAILY PO 05/12/16 09:00 06/11/16 08:59 05/21/16 09:54 81 MG Atorvastatin Calcium (Lipitor Tab) 20 mg QAM PO 05/12/16 09:00 06/11/16 08:59 05/21/16 09:54 20 MG Multivitamins/ Minerals (Multivitamin W/ Minerals Tab) 1 tab QAM PO 05/12/16 09:00 06/11/16 08:59 05/21/16 09:53 1 TAB Oxycodone/ Acetaminophen (Percocet 5-325MG Tab) 1 tab Q6H PRN PO 05/11/16 14:00 05/25/16 13:59 Ranitidine HCl (zANTac TAB) 150 mg BID PO 05/11/16 21:00 06/10/16 20:59 05/21/16 09:53 150 MG Lorazepam (Ativan Tab) 0.5 mg Q8H PRN PO 05/11/16 14:00 06/10/16 13:59 Sodium Chloride ([place] Nasal [place]) 4 sprays Q2H PRN NA 05/11/16 14:00 06/10/16 13:59 Ipratropium [place] (Atrovent 0.02% 0.5MG/2.5ML Neb) 0.5 mg QIDR INH 05/11/16 16:00 06/10/16 15:59 05/21/16 15:51 0.5 MG Levalbuterol (Xopenex 1.25MG/ 0.5ML Neb) 1.25 mg QIDR INH 05/11/16 16:00 06/10/16 15:59 05/21/16 15:51 1.25 MG Levalbuterol (Xopenex 0.63 Mg/ 3 Ml Neb) 0.63 mg Q2H PRN INH 05/11/16 14:15 06/10/16 14:14 Insulin Aspart (novoLOG ASPART) SLIDING SCALE G... ACHS SC 05/11/16 21:00 06/10/16 20:59 05/20/16 20:56 2 UNITS Glucose (Glucose 40% Gel) 15-30 GRAMS 15 GRAMS... UD PRN PO 05/11/16 17:00 06/10/16 16:59 Glucose (Glucose Chew Tab) 4-8 Tablets 4 Tabl... UD PRN PO 05/11/16 17:00 06/10/16 16:59 Dextrose (Dextrose 50% 50ML Syringe) 25-50ML OF 50% DW IV FOR... UD PRN IV 05/11/16 17:00 06/10/16 16:59 Glucagon (Glucagon Inj) 1 mg UD PRN SQ 05/11/16 17:00 06/10/16 16:59 Tamsulosin HCl (Flomax Cap) 0.4 mg HS PO 05/11/16 21:00 06/10/16 20:59 05/20/16 20:52 0.4 MG Heparin Sodium (Porcine) (Heparin 100 Unit/ml 5ml Flush) 5 ml PRN PRN IV 05/13/16 02:45 06/12/16 02:44 05/18/16 16:07 5 ML Pantoprazole Sodium (Protonix Tab) 40 mg QAM PO 05/14/16 09:00 06/13/16 08:59 05/21/16 09:54 40 MG Polyethylene 17 gm 17 gm DAILY PRN PO 05/14/16 10:00 06/13/16 09:59 05/16/16 09:56 17 GM Furosemide/Syringe (Lasix Inj/ Syringe) 4 ml @ 4 mls/min DAILY IV 05/15/16 09:15 06/14/16 09:14 05/21/16 09:55 4 MLS/MIN Bisacodyl (Dulcolax Tab) 5 mg BID PRN PO 05/16/16 10:15 06/15/16 10:14 Bisacodyl (Dulcolax Supp) 10 mg DAILY PRN [place] 05/16/16 10:15 06/15/16 10:14 Enoxaparin Sodium (Lovenox Inj) 40 mg QAM SQ 05/16/16 10:15 06/15/16 10:14 05/21/16 09:54 40 MG Miscellaneous Information (Consult Glycemic Management Pharmacy) 1 ea UD PRN N/A 05/17/16 08:13 06/16/16 08:12 Warfarin Sodium (Coumadin Tab) 4 mg DAILY@16 PO 05/21/16 16:00 06/20/16 15:59 05/21/16 16:13 4 MG Prednisone (PredniSONE TAB) 50 mg DAILY PO 05/22/16 09:00 06/21/16 08:59
[2016-05-22] VITALS (12 sets, daily range): BP systolic 83–124; BP diastolic 49–97; PULSE 76–103; TEMP 36–36.6; O2SAT 93–98
[2016-05-22 05:56] LABS: HEMATOCRIT 31.5 % (42-52); MEAN CELL VOLUME 85.1 fL (80-100); MEAN CORPUSCULAR HEMOGLOBIN 27.8 pg (25-34); MEAN CORPUSCULAR HGB CONC 32.7 g/dl (32-36); MEAN PLATELET VOLUME 9.5 fL (7.4-10.4); PLATELET COUNT 143 K/uL (130-400)
[2016-05-22 06:31] LABS: BUN/CREATININE RATIO 25.8 (10-20); CALCIUM 8.6 mg/dl (8.5-10.1); CREATININE 0.81 mg/dl (0.60-1.40); POTASSIUM 3.5 mmol/L (3.5-5.1)
[2016-05-22] MEDS: INSULIN ASPART 100 UNITS/ML 3 ML PEN SC SCH ×4 (07:00→21:00)
[2016-05-22] MEDS: IPRATROPIUM BROMIDE NEB SOLN 0.02% 2.5 ML VIAL INH SCH ×4 (07:06→20:28)
[2016-05-22] MEDS: LEVALBUTEROL 1.25MG/0.5ML NEB INH SCH ×4 (07:06→20:28)
[2016-05-22] MEDS: PANTOprazole SOD 40 MG TAB PO SCH (07:45)
[2016-05-22] MEDS: FUROSEMIDE INJ 40 MG in SYRINGE 0 ML IV SCH (07:45)
[2016-05-22] MEDS: ATORVASTATIN 20 MG TAB PO SCH (07:45)
[2016-05-22] MEDS: RANITIDINE HCL 150 MG TAB PO SCH ×2 (07:45→20:59)
[2016-05-22] MEDS: ASPIRIN 81 MG ECTAB PO SCH (07:45)
[2016-05-22] MEDS: CEROVITE ADV FORMULA TAB PO SCH (07:45)
[2016-05-22] MEDS: ENOXAPARIN 40 MG/0.4 ML SYR SQ SCH (07:47)
--- NOTE | 2016-05-22 08:55 | PULMONARY PROGRESS NOTE ---
DATE: 05/22/2016 DATE: 05/22/2016 TIME: 8:15 a.m. SUBJECTIVE: The patient continues to have difficulty when he is standing. He states that about 3:00 a.m. today he had some distress when he was standing up to urinate. He describes a feeling in his chest when this happens. This time it felt higher up near the throat. Usually it was lowered down. Subsequently, he felt some relief. This seems to be only when standing. Overall, the patient feels that he is gradually getting a bit less short of breath than he has been. Obviously, he has been ill for several weeks. He feels like he has mucus to bring up but nothing ever comes up. His cough is mild. The patient states he continues to have episodes of constipation alternating with diarrhea. He relates that this all began after his colon surgery. OBJECTIVE: GENERAL: The patient was fairly comfortable at rest. VITAL SIGNS: He is afebrile. Most recent temperature was 36.6. NECK: Palpation of the neck reveals no lymph nodes. CHEST: Inspection of the chest reveals a pacemaker in the left upper chest and a port on the right side. Heart rate is 97 per minute. Occasional extrasystoles were seen. These would appear to be PVCs. The upper lung key were fairly clear. Rales are heard bilaterally from the mid lung key and downward. Respiratory rate is 20 breaths per minute. Blood pressure is 113/49. Oxygen saturation was 95% on 5 liter nasal cannula. ABDOMEN: Soft. Scars were seen from prior surgeries. Bowel sounds were present and sounded normal. No definite mass was palpable. EXTREMITIES: Showed no cyanosis, clubbing or edema. LABORATORY DATA: CBC showed a white count of 5.3. Hemoglobin is 10.3. Platelets today are 143,000. These results are all fairly similar to prior results. There is not an INR reported from today. Sodium was 138, potassium 3.5, chloride 101, bicarbonate 29. BUN was 21 with a creatinine of 0.81. Random glucose was 146. The patient had a KUB done yesterday. This showed a nonobstructive abdominal gas pattern with no evidence of free air. IMPRESSIONS: 1. Respiratory failure with hypoxia. 2. Interstitial lung disease -- possibly related to chemotherapy. 3. Pneumonia. 4. Emphysema. 5. History of colon cancer, stage IV. COMMENTS AND RECOMMENDATIONS: The patient describes slow improvement. He still sounds very abnormal on x-ray. He is currently on prednisone 50 mg daily. His INRs have not prolonged to a significant degree. Consideration is given to adjusting the warfarin dose. This is deferred to his hospitalist team. Would continue the neb treatments with levalbuterol and ipratropium. Will continue to follow the patient with you.
[2016-05-22] MEDS: WARFARIN SOD 4 MG TAB PO SCH (16:32)
--- NOTE | 2016-05-22 18:58 | Progress Note ---
Medicine Progress Note Date & Time of Visit: May 22, 2016 at 18:51. Subjective Pt with same reports today of feeling of fullness frm the xiphoid process up to lower neck when he stands up at bedside. Gets very short of breath when he stands at bedside Unable to ambulate and expressing frustration Stating that he only needs one month so he can get his affairs in order Reoriented him to stay optimistic as he is improving albeit slowly Tolerating PO Down to 5L NC today Objective Last 8 Hrs Date Time Temp Pulse Resp B/P Pulse Ox O2 Delivery O2 Flow Rate FiO2 05/22/16 16:00 Nasal Cannula 5.0 Humidified Oxygen 05/22/16 15:59 36.0 103 14 118/97 98 Nasal Cannula 5.0 Humidified Oxygen 05/22/16 15:24 103 18 97 Nasal Cannula 6.0 05/22/16 12:00 Nasal Cannula 5.0 05/22/16 11:58 36.5 96 18 124/94 93 Nasal Cannula 5.0 Humidified Oxygen 05/22/16 10:56 88 18 96 Nasal Cannula 5.0 Physical Exam: GEN: WNWD, in no acute distress, alert and appropriate, 5L NC in place, port accessed on right anterior chest wall HEENT: NC/AT, normal sclerae, MMM CARDIO: reg rate, S1/2 heard without m/g/r, PM in place on left anterior chest wall (subQ) LUNGS: CTA bilaterally, mild crackles (sounds like velcro) at right lower base, no rales or wheezes, good diaphragmatic excursion ABD: soft, non-tender, non-distended, no rebound or guarding +BS present EXTREMITY: no LE swelling or edema, extremities are warm and well-perfused N/M: generally deconditioned SKIN: warm and dry and as above Laboratory Results: Last 24 Hours Test 05/21/16 20:21 05/22/16 05:41 05/22/16 07:00 05/22/16 11:03 Bedside Glucose 210 mg/dl 104 mg/dl 177 mg/dl White Blood Count 5.30 K/uL Red Blood Count 3.70 M/uL Hemoglobin 10.3 g/dL Hematocrit 31.5 % Mean Corpuscular Volume 85.1 fL Mean Corpuscular Hemoglobin 27.8 pg Mean Corpuscular Hemoglobin Concent 32.7 g/dl RDW Standard Deviation 53.7 fL RDW Coefficient of Variation 17.2 % Platelet Count 143 K/uL Mean Platelet Volume 9.5 fL Sodium Level 138 mmol/L Potassium Level 3.5 mmol/L Chloride Level 101 mmol/L Carbon Dioxide Level 29 mmol/L Anion Gap 8.0 mmol/L Blood Urea Nitrogen 21 mg/dl Creatinine 0.81 mg/dl Est Creatinine Clear Calc Drug Dose 76.2 ml/min Estimated GFR () 96.6 Estimated GFR (Non- 83.4 BUN/Creatinine Ratio 25.8 Random Glucose 146 mg/dl Calcium Level 8.6 mg/dl Test 05/22/16 15:56 Bedside Glucose 269 mg/dl Assessment & Plan 81M with hx of copd, interstitial lung disease, systolic chf, hx of PE, hx of metastatic colon cancer s/p chemo who was admitted recently with similar complaints presented with acute respiratory failure from possible health care pneumonia, thought to have BOOP 1. 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 H/O PE 6 months ago, on coumadin/no PE found on admission imaging. Flu negative. Blood cultures negative to date. Was started on Vanc, Levaquin and Zosyn, however, Vanc was stopped 2/2 MRSA screen negative. (Has h/o MRSA). Slowly improving on steroids and abx but still requiring 6 via NC when not on home O2. Conversational dyspnea has improved and SOB limiting ambulation abilities-pt is still frustrated with lack of progress. Recent CXR showing improvement. Appreciate pulm recs to cont current treatment. Cont steroids, stopped Zosyn and cont Levaquin for 10 days (last day today). Per Heme/Onc, agree with long steroid taper and holding any further chemo at this time. Lungs improved and resp to cont to wean oxygen as tolerated. Cont current medical therapy. 2. H/O MRSA-first swab negative. No open wounds present. Will order swab q7d for clearance while admitted. Cont contact isolation until cleared by infection control. 3. Chronic systolic CHF-acute decompensation this admission but now is compensated and euvolemic. Initial CT chest revealed pulmonary edema. TTE last month in clinic 45-50%. Per Cardiology, cont daily Lasix, will add daily standing weights. 4. Metastatic colon cancer-per Oncology. 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 h/o PE-Cont with coumadin for goal INR 2-3. No PE seen on admission CTA. Warfarin Increased to 4mg dosage yesterday and today. Follow INR. Cover with Lovenox 40mg for DVT prophy if INR<2.0. 7. Anemia-likely 2/2 chronic disease vs hemodilution vs frequent phlebotomy as inpatient- improved. Hold am labs to minimize phlebotomy. 8. Chronic constipation-cont PRN laxatives/suppositories DVT prophy: Coumadin/Jann 40 for INR<2 Full Code DISPOSITION: Monitor on tele with persistent hypoxia. Expected discharge to home -son and daughter live with him. Medical follow-up with Dr. Carreno. Cardiology follow-up with Dr. Holm. Pulmonary follow-up with Dr. Steel. Medical Oncology follow-up with Dr. Barkley. Yoselin Santiago DO [facility] Hospitalist Continued [facility] stay due to: other (hypoxia) Discharge planning: home Consultants: Pulm, Cards, Heme Current Inpatient Medications: Current Inpatient Medications Medications (Trade) Dose Ordered Sig/Karie Route Start Time Stop Time Status Last Admin Dose Admin Acetaminophen (Tylenol Tab) 650 mg Q4H PRN PO 05/11/16 12:15 06/10/16 12:14 Ondansetron HCl (Zofran Inj) 4 mg Q6H PRN IV 05/11/16 12:15 06/10/16 12:14 Aspirin (Ecotrin Tab) 81 mg DAILY PO 05/12/16 09:00 06/11/16 08:59 05/22/16 07:45 81 MG Atorvastatin Calcium (Lipitor Tab) 20 mg QAM PO 05/12/16 09:00 06/11/16 08:59 05/22/16 07:45 20 MG Multivitamins/ Minerals (Multivitamin W/ Minerals Tab) 1 tab QAM PO 05/12/16 09:00 06/11/16 08:59 05/22/16 07:45 1 TAB Oxycodone/ Acetaminophen (Percocet 5-325MG Tab) 1 tab Q6H PRN PO 05/11/16 14:00 05/25/16 13:59 Ranitidine HCl (zANTac TAB) 150 mg BID PO 05/11/16 21:00 06/10/16 20:59 05/22/16 07:45 150 MG Lorazepam (Ativan Tab) 0.5 mg Q8H PRN PO 05/11/16 14:00 06/10/16 13:59 Sodium Chloride ([place] Nasal [place]) 4 sprays Q2H PRN NA 05/11/16 14:00 06/10/16 13:59 Ipratropium [place] (Atrovent 0.02% 0.5MG/2.5ML Neb) 0.5 mg QIDR INH 05/11/16 16:00 06/10/16 15:59 05/22/16 15:24 0.5 MG Levalbuterol (Xopenex 1.25MG/ 0.5ML Neb) 1.25 mg QIDR INH 05/11/16 16:00 06/10/16 15:59 05/22/16 15:24 1.25 MG Levalbuterol (Xopenex 0.63 Mg/ 3 Ml Neb) 0.63 mg Q2H PRN INH 05/11/16 14:15 06/10/16 14:14 05/22/16 04:02 0.63 MG Insulin Aspart (novoLOG ASPART) SLIDING SCALE G... ACHS SC 05/11/16 21:00 06/10/16 20:59 05/22/16 16:34 3 UNITS Glucose (Glucose 40% Gel) 15-30 GRAMS 15 GRAMS... UD PRN PO 05/11/16 17:00 06/10/16 16:59 Glucose (Glucose Chew Tab) 4-8 Tablets 4 Tabl... UD PRN PO 05/11/16 17:00 06/10/16 16:59 Dextrose (Dextrose 50% 50ML Syringe) 25-50ML OF 50% DW IV FOR... UD PRN IV 05/11/16 17:00 06/10/16 16:59 Glucagon (Glucagon Inj) 1 mg UD PRN SQ 05/11/16 17:00 06/10/16 16:59 Tamsulosin HCl (Flomax Cap) 0.4 mg HS PO 05/11/16 21:00 06/10/16 20:59 05/21/16 21:09 0.4 MG Heparin Sodium (Porcine) (Heparin 100 Unit/ml 5ml Flush) 5 ml PRN PRN IV 05/13/16 02:45 06/12/16 02:44 05/18/16 16:07 5 ML Pantoprazole Sodium (Protonix Tab) 40 mg QAM PO 05/14/16 09:00 06/13/16 08:59 05/22/16 07:45 40 MG Polyethylene 17 gm 17 gm DAILY PRN PO 05/14/16 10:00 06/13/16 09:59 05/16/16 09:56 17 GM Furosemide/Syringe (Lasix Inj/ Syringe) 4 ml @ 4 mls/min DAILY IV 05/15/16 09:15 06/14/16 09:14 05/22/16 07:45 4 MLS/MIN Bisacodyl (Dulcolax Tab) 5 mg BID PRN PO 05/16/16 10:15 06/15/16 10:14 Bisacodyl (Dulcolax Supp) 10 mg DAILY PRN [place] 05/16/16 10:15 06/15/16 10:14 Enoxaparin Sodium (Lovenox Inj) 40 mg QAM SQ 05/16/16 10:15 06/15/16 10:14 05/22/16 07:47 40 MG Miscellaneous Information (Consult Glycemic Management Pharmacy) 1 ea UD PRN N/A 05/17/16 08:13 06/16/16 08:12 Warfarin Sodium (Coumadin Tab) 4 mg DAILY@16 PO 05/21/16 16:00 06/20/16 15:59 05/22/16 16:32 4 MG Prednisone (PredniSONE TAB) 50 mg DAILY PO 05/22/16 09:00 06/21/16 08:59 05/22/16 07:46 50 MG
[2016-05-22] MEDS: TAMSULOSIN HCL 0.4 MG CAP PO SCH (20:58)
[2016-05-23] VITALS (10 sets, daily range): BP systolic 109–130; BP diastolic 65–78; PULSE 78–105; TEMP 36.6–36.9; O2SAT 94–98
[2016-05-23 05:35] LABS: HEMATOCRIT 31.3 % (42-52); MEAN CORPUSCULAR HEMOGLOBIN 28.6 pg (25-34); MEAN CORPUSCULAR HGB CONC 33.2 g/dl (32-36); MEAN PLATELET VOLUME 9.7 fL (7.4-10.4); PLATELET COUNT 152 K/uL (130-400); RED BLOOD COUNT 3.64 M/uL (4.7-6.1); WHITE BLOOD COUNT 6.52 K/uL (4.8-10.8)
[2016-05-23 06:03] LABS: BUN/CREATININE RATIO 20.9 (10-20); CALCIUM 8.6 mg/dl (8.5-10.1); CREATININE 0.83 mg/dl (0.60-1.40); POTASSIUM 3.6 mmol/L (3.5-5.1)
[2016-05-23] MEDS: INSULIN ASPART 100 UNITS/ML 3 ML PEN SC SCH ×4 (07:00→20:48)
[2016-05-23] MEDS: IPRATROPIUM BROMIDE NEB SOLN 0.02% 2.5 ML VIAL INH SCH ×4 (07:12→19:45)
[2016-05-23] MEDS: LEVALBUTEROL 1.25MG/0.5ML NEB INH SCH ×4 (07:12→19:45)
[2016-05-23] MEDS: ASPIRIN 81 MG ECTAB PO SCH (08:33)
[2016-05-23] MEDS: PANTOprazole SOD 40 MG TAB PO SCH (08:33)
[2016-05-23] MEDS: RANITIDINE HCL 150 MG TAB PO SCH ×2 (08:33→20:41)
[2016-05-23] MEDS: CEROVITE ADV FORMULA TAB PO SCH (08:33)
[2016-05-23] MEDS: FUROSEMIDE 40 MG TAB PO SCH (08:33)
[2016-05-23] MEDS: ATORVASTATIN 20 MG TAB PO SCH (08:33)
--- NOTE | 2016-05-23 08:33 | Pharmacy Progress Note ---
Glycemic Control: Progress Nt Date of Service May 23, 2016. Scope Glycemic Pharmacist consulted by Dr Santiago on 05/17/16 for glycemic control and to write orders per [facility] inpatient glycemic control protocol. Objective Accuchecks BSG (last 24hrs): Test 05/22/16 11:03 05/22/16 15:56 05/22/16 20:16 05/23/16 05:20 Bedside Glucose 177 mg/dl (70-99) 269 mg/dl (70-99) 192 mg/dl (70-99) Random Glucose 132 mg/dl (70-99) Laboratory Data (last 24hrs) Test 05/23/16 05:20 Anion Gap 6.0 mmol/L BUN/Creatinine Ratio 20.9 Blood Urea Nitrogen 17 mg/dl Creatinine 0.83 mg/dl Potassium Level 3.6 mmol/L Sodium Level 138 mmol/L White Blood Count 6.52 K/uL Recent Pertinent Medications Outpatient Anti-diabetic Regimen: * N/A * A1c = 6.3 % 04/27/16 indicating pre-diabetes The patient is currently receiving: * Basal insulin: not needed at this time * Correctional Insulin: Novolog Correction per scale ACHS Goal Range: Low 120 mg/dL - High 150 mg/dL Correction Factor: 30 mg/dL/unit * Prandial insulin: Per carb ratio of 1 unit per -- grams CHO consumed Risk Factors for Insulin Resistance: * Steroids * Diet Assessment & Plan ASSESSMENT: * 81yo male without history of diabetes - no outpatient antidiabetic medications. A1c is indicative of "pre-diabetes." Based on age and co- morbidities, would not recommend any outpatient treatment for steroid induced hyperglycemia. Will likely resolve with each step down in steroid dosing. * Pt with steroid induced hyperglycemia d/t prednisone. Hyperglycemia is being controlled with conservative bolus insulin with Novolog per scale (CF only) * Patient has required minimal insulin (0-3 units/day) with adequate control & minimal medication changes. * ADA & AACE recommend a goal blood sugar range 140-180 mg/dl for the majority of critically ill & non-critically ill patients. However, more stringent targets may be selected in individual cases. Will use a slightly more stringent goal range of 120-150mg/dl based on tight glycemic control as an outpatient. PLAN FOR INPATIENT GLYCEMIC CONTROL: * Continue Correctional Insulin with NOVOLOG per scale ACHS or Q6hrs while NPO * Goal Range: Low 120 mg/dL - High 150 mg/dL * Correction Factor: 30 mg/dL/unit * Nutritional / Prandial insulin per carb ratio of 1 unit per -- grams CHO consumed * Pharmacy is signing off of glycemic consult. Please feel free to re-consult if needed. Thank you. * Please note that the plan above was derived based on current level of insulin resistance and hospital stress. These recommendations are appropriate for inpatient admission only. Plan of care upon discharge will need to be reassessed to avoid potential outpatient hypo/hyperglycemia. Thank you.
[2016-05-23] MEDS ORDERED: BISACODYL 5 MG TABEC PO PRN (09:00)
[2016-05-23] MEDS ORDERED: BISACODYL 5 MG TABEC PO SCH (09:00)
[2016-05-23 11:15] LABS: INR 2.2 (0.9-1.1); PROTHROMBIN TIME (PATIENT) 24.7 SECONDS (9.0-12.0)
--- NOTE | 2016-05-23 11:48 | PROGRESS NOTE ---
DATE: 05/23/2016 DATE: 05/23/2016. PROBLEM LIST: Includes: 1. Respiratory failure with hypoxia. 2. Interstitial lung disease. 3. Pneumonia. 4. Emphysema. 5. History of colon cancer stage IV. SUBJECTIVE: The patient reports that his breathing is doing better. He states that he continues to have difficulty when he stands up. He has a sensation in his upper chest where it feels like everything is closing off. He states it had been lower down but recently has moved up into his upper chest. He is doing better with his breathing overall. He is requiring less oxygen and he is less short of breath. He has no significant cough at this time. He has not noticed any wheezing. He denies any other concerns or problems. No abdominal pain, no chest pain, no change in his bowels. He still has difficulty with alternating diarrhea and constipation. No swelling in his extremities. OBJECTIVE: GENERAL: The patient is an 81-year-old male in no acute distress, lying in bed. He is alert and oriented x3. Mood is good. Affect is good. VITAL SIGNS: Temp 36.9, pulse 89, respirations 18, blood pressure 125/77, pulse ox 94% on 5 liters. HEAD, EYES, EARS, NOSE, AND THROAT: Normocephalic, atraumatic. Pupils equal, round and reactive to light and accommodation. Extraocular movements are intact. [place] moist gingival and buccal mucosa. NECK: Short, thick, supple. No mass. No adenopathy. No JVD, no thyromegaly, no bruits. CHEST: The patient has bibasilar rales about midway up his chest, otherwise chest for the most part is clear. CARDIOVASCULAR: Regular rate and rhythm. No appreciated murmurs, gallops or rubs. ABDOMEN: Obese, soft, nontender. EXTREMITIES: No cyanosis or clubbing. No erythema or edema. NEUROLOGIC: Cranial nerves II through XII are intact. No focal deficit noted. LABORATORY DATA: Shows white count 6000, H\T\H 10.4 and 31.3, platelet count 152,000. No new imaging data. IMPRESSION: 1. Respiratory failure with hypoxia. The patient is doing better. His oxygen demand is improving. I would recommend that we continue him on prednisone 50 mg currently and do a very slow taper. 2. Interstitial lung disease, question if this is from his chemotherapy. At this point, continue prednisone 50 mg daily. 3. Pneumonia, improving. 4. Emphysema. 5. Stage IV colon cancer. Unfortunately, the patient is unable to receive chemotherapy at this time due to his interstitial lung disease. PLAN: At this point is to continue his medications as they are. I would like to continue to follow the patient.
[2016-05-23] MEDS: WARFARIN SOD 4 MG TAB PO SCH (16:07)
--- NOTE | 2016-05-23 17:04 | Progress Note ---
Internal Med Progress Note Date of Service: May 23, 2016. Provider Documentation: SUBJECTIVE: says he is fine when in the bed but as soon he is on feet his oxygn edith drop and he feels sob coughing but no sputum AFEBRILE NO CHEST PAIN EATING OK CONSTIPATED OBJECTIVE: Vital Signs-as noted below Exam: General-alert and awake and oriented ENT-normal hearing Neck-no neck masses Lungs-cta b/l no wheezing bibasilar crackles Heart-s1 and s2 heard regular rate and rhythm, no murmurs Abdomen-soft bowel sounds present nn tender no distension Extremities- no pedal edema present no erythema Neuro-alert and awake moves extremities Lab data as noted below. ASSESSMENT & PLAN: 81M with hx of copd,, interstitial lung disease, systolic chf, hx of PE hx of metastatic colon cancer who was in hospital recently with similar complaints presented with acute respiratory failure from possible health care pneumonia. copd/interstitial lung disease flare and acute systolic chf. On abx, steroids, nebs and Lasix. Slowly improving. 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 As Cxr showed worsening chf. Started on iv Lasix 40mg daily. currently on lasix 40mg daily, prednisone 50mg daily with plan for sow taper,complete abx course with levaquin. ACUTE HYPOXIC RESPIRATORY FAILURE Underlying interstitial / obstructive lung disease. Recently in the hospital for pneumonia. Had Pulmonary embolism about 6 months ago. presented with sob and hypoxia. CTA chest done in ER negative for pulmonary embolism, but demonstrated possible pulmonary infiltrates and / or pulmonary edema. influenza negative improving with steroids, abx and received Lasix may need long steroid taper as per pulmonary currently on 50mg daily prednisone and to taper slowly appreciate pulmonary inputs PROBABLE PNEUMONIA HCAP? CT chest suggests pulmonary infiltrates. Recent hospitalization for pneumonia. History of MRSA. On IV antibiotic therapy with levofloxacin, piperacillin / tazobactam, vancomycin mrsa swab negative Stopped vancomycin cx no growth was on Levaquin and Zosyn currently off of abx pulmonary on board and appreciate inputs EXACERBATION OBSTRUCTIVE LUNG DISEASE received solumedrol currently on prednisone 50mg daily will taper slowly two step home oxygen evaluations at the time of discharge POSSIBLE acute on chronic systolic CHF CT - pulmonary edema. BNP elevated. Echo last month in clinic 45-50%. had iv lasix will f/u volume status and labs [id number] cxr shows worsening chf received iv lasix 40mg daily as renal function is ok and monitor' currently on po Lasix 40mg daily will f/u cxr in am HEADACHES unremarkable CT head no complaints today HYPOPHOSPHATEMIA Serum phosphorus 2.1. PO replacement. METASTATIC COLON CA Management per Medical Oncology. 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 VTE PROPHYLAXIS / HISTORY OF PULMONARY EMBOLISM presented with inr 4.2 Coumadin held currently on Coumadin 4mg daily INR today 2.2 RESUSCITATION STATUS level 1 as per h and P DISPOSITION Monitor in Telemetry Unit. Expected discharge to home. pt/ot prior to discharge social service for d/c planning Medical follow-up with Dr. Carreno. Cardiology follow-up with Dr. Holm. Pulmonary follow-up with Dr. Steel. Medical Oncology follow-up with Dr. Barkley. . Vital Signs: Date Time Temp Pulse Resp B/P Pulse Ox O2 Delivery O2 Flow Rate FiO2 05/23/16 15:28 36.6 84 18 130/78 96 Nasal Cannula 3.0 05/23/16 15:20 90 16 98 Nasal Cannula 4.0 05/23/16 14:00 96 Nasal Cannula 4.0 05/23/16 12:00 Nasal Cannula 5.0 05/23/16 11:53 36.7 89 18 119/66 96 05/23/16 11:16 78 12 97 Nasal Cannula 6.0 05/23/16 08:46 36.9 89 18 125/77 94 5.0 05/23/16 08:00 Nasal Cannula 5.0 05/23/16 07:13 87 12 98 Nasal Cannula 6.0 05/23/16 04:00 Nasal Cannula 5.0 Humidified Oxygen 05/23/16 03:45 81 18 109/67 96 Nasal Cannula 5.0 Humidified Oxygen 05/23/16 00:05 Nasal Cannula 5.0 Humidified Oxygen 05/22/16 23:57 36.4 80 18 106/69 98 Nasal Cannula 5.0 05/22/16 20:28 88 18 97 Nasal Cannula 6.0 05/22/16 20:00 Nasal Cannula 5.0 Humidified Oxygen 05/22/16 19:21 36.6 97 20 115/73 97 Nasal Cannula 5.0 Humidified Oxygen Lab Results: Results Past 24 Hours Test 05/22/16 20:16 05/23/16 05:20 05/23/16 06:31 05/23/16 10:40 Range/Units Bedside Glucose 192 113 70-99 mg/dl White Blood Count 6.52 4.8-10.8 K/uL Red Blood Count 3.64 4.7-6.1 M/uL Hemoglobin 10.4 14.0-18.0 g/dL Hematocrit 31.3 42-52 % Mean Corpuscular Volume 86.0 80-100 fL Mean Corpuscular Hemoglobin 28.6 25-34 pg Mean Corpuscular Hemoglobin Concent 33.2 32-36 g/dl RDW Standard Deviation 53.9 36.4-46.3 fL RDW Coefficient of Variation 17.1 11.5-14.5 % Platelet Count 152 130-400 K/uL Mean Platelet Volume 9.7 7.4-10.4 fL Sodium Level 138 136-145 mmol/L Potassium Level 3.6 3.5-5.1 mmol/L Chloride Level 100 98-107 mmol/L Carbon Dioxide Level 32 21-32 mmol/L Anion Gap 6.0 3-11 mmol/L Blood Urea Nitrogen 17 7-18 mg/dl Creatinine 0.83 0.60-1.40 mg/dl Est Creatinine Clear Calc Drug Dose 74.3 ml/min Estimated GFR () 95.6 Estimated GFR (Non- 82.5 BUN/Creatinine Ratio 20.9 10-20 Random Glucose 132 70-99 mg/dl Calcium Level 8.6 8.5-10.1 mg/dl Prothrombin Time 24.7 9.0-12.0 SECONDS Prothromb Time International Ratio 2.2 0.9-1.1 Test 05/23/16 11:34 05/23/16 16:15 Range/Units Bedside Glucose 205 220 70-99 mg/dl
[2016-05-23] MEDS: TAMSULOSIN HCL 0.4 MG CAP PO SCH (20:41)
[2016-05-24] VITALS (10 sets, daily range): BP systolic 117–145; BP diastolic 55–99; PULSE 61–96; TEMP 36.3–37; O2SAT 90–100
[2016-05-24] MEDS: INSULIN ASPART 100 UNITS/ML 3 ML PEN SC SCH ×4 (07:00→20:21)
[2016-05-24] MEDS: LEVALBUTEROL 1.25MG/0.5ML NEB INH SCH ×4 (07:03→20:11)
[2016-05-24] MEDS: IPRATROPIUM BROMIDE NEB SOLN 0.02% 2.5 ML VIAL INH SCH ×4 (07:03→20:11)
[2016-05-24] MEDS: PANTOprazole SOD 40 MG TAB PO SCH (08:09)
[2016-05-24] MEDS: FUROSEMIDE 40 MG TAB PO SCH (08:09)
[2016-05-24] MEDS: CEROVITE ADV FORMULA TAB PO SCH (08:09)
[2016-05-24] MEDS: RANITIDINE HCL 150 MG TAB PO SCH ×2 (08:09→20:16)
[2016-05-24] MEDS: ATORVASTATIN 20 MG TAB PO SCH (08:09)
[2016-05-24] MEDS: ASPIRIN 81 MG ECTAB PO SCH (08:09)
[2016-05-24 10:23] LABS: INR 2.5 (0.9-1.1); PROTHROMBIN TIME (PATIENT) 27.7 SECONDS (9.0-12.0)
--- NOTE | 2016-05-24 10:37 | PROGRESS NOTE ---
DATE: 05/24/2016 DATE: 05/24/2016. PROBLEM LIST: Includes: 1. Respiratory failure with hypoxemic. 2. Interstitial lung disease. 3. Pneumonia. 4. Emphysema. 5. History of colon cancer which is stage IV. SUBJECTIVE: The patient reports today that his breathing is significantly improved. He states that he had his oxygen turned down and he no longer has as much of that sensation of pressure going up through his chest. When he is up ambulating he states that it has made a significant difference. He states that he feels much improved today. He states that he is not getting nearly as short of breath as he was when he is up moving around. He states he would like to walk today. He still has a little bit of cough but it is minimal at this time. He is not having any chest congestion at this time, no chest pain or painful respirations. He overall is feeling improved. His oxygen requirement is down to 4 liters via nasal cannula. He states that his bowels have not moved lately. He did have something to help his bowels move today but he states that his bowels have not moved yet. He states that otherwise he is doing well, no GI pain, no abdominal pain, no nausea or vomiting, no indigestion or heartburn, no difficulty voiding. No swelling in his extremities. OBJECTIVE: GENERAL: The patient is an 81-year-old male in no acute distress. He is alert and oriented x3. Mood is good. Affect is good. VITAL SIGNS: Temp 36.4, pulse 89, respirations 20, blood pressure is 117/60, pulse ox 94% on 4 liters. HEAD, EYES, EARS, NOSE, AND THROAT: Normocephalic, atraumatic. Pupils equal, round and reactive to light and accommodation. Extraocular movements are intact. [place] moist gingival and buccal mucosa. NECK: Supple. No mass. No adenopathy. No bruit. CHEST: Improved breath sounds. The patient still has some coarse Velcro rales at the bases, but it is improved compared to yesterday. Rales go about actually one-third of the way up chest today, upper airways sound pretty clear. CARDIOVASCULAR: Regular rate and rhythm. No murmurs, gallops or rubs. ABDOMEN: Obese, soft, nontender. No guarding, rigidity or organomegaly. EXTREMITIES: No erythema or edema. NEUROLOGIC: Cranial nerves II through XII are grossly intact. No focal deficit noted. LABORATORY DATA: INR today is 2.2. Otherwise, no pertinent new lab data. No new imaging data. IMPRESSION: This is an 81-year-old male with a significant history of respiratory failure with hypoxia most likely secondary to interstitial lung disease which was exacerbated by his chemotherapy. At this point, the patient is showing signs of improvement. Would recommend to continue high dose steroids for another day. Currently he is on 50 mg daily and then tomorrow I think we can try and go down to 40 mg and see how he does. If he continues to do well, I would recommend a very slow taper, decreasing by 5 mg every 5 days as an outpatient going home on 40 mg and starting from there. I would like for the patient to ambulate today. This was discussed with him. He is agreeable to this and if he continues hopefully potentially see the patient being discharged to home at the end of the week. I would recommend that he continue aggressive pulmonary toilet and will continue to follow through hospitalization.
--- NOTE | 2016-05-24 15:07 | Progress Note ---
Internal Med Progress Note Date of Service: May 24, 2016. Provider Documentation: SUBJECTIVE: patient says he is feeling much better today he can walk a little today sob and cough much improved afebrile eating ok still constipated OBJECTIVE: Vital Signs-as noted below Exam: General-alert and awake and oriented ENT-normal hearing Neck-no neck masses Lungs-cta b/l no wheezing bibasilar crackles Heart-s1 and s2 heard regular rate and rhythm, no murmurs Abdomen-soft bowel sounds present nn tender no distension Extremities- no pedal edema present no erythema Neuro-alert and awake moves extremities Lab data as noted below. ASSESSMENT & PLAN: 81M with hx of copd,, interstitial lung disease, systolic chf, hx of PE hx of metastatic colon cancer who was in hospital recently with similar complaints presented with acute respiratory failure from possible health care pneumonia. copd/interstitial lung disease flare and acute systolic chf. On abx, steroids, nebs and Lasix. Slowly improving. 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 As Cxr showed worsening chf. Started on iv Lasix 40mg daily. currently on lasix 40mg daily, prednisone 50mg daily with plan for sow taper,completed abx course with levaquin. Improving. pt/ot ACUTE HYPOXIC RESPIRATORY FAILURE Underlying interstitial / obstructive lung disease. Recently in the hospital for pneumonia. Had Pulmonary embolism about 6 months ago. presented with sob and hypoxia. CTA chest done in ER negative for pulmonary embolism, but demonstrated possible pulmonary infiltrates and / or pulmonary edema. influenza negative improving with steroids, abx and received Lasix may need long steroid taper as per pulmonary currently on 50mg daily prednisone and to taper slowly improving to taper prednisone to 40mg daily in am will f/u pt/ot appreciate pulmonary inputs PROBABLE PNEUMONIA HCAP? CT chest suggests pulmonary infiltrates. Recent hospitalization for pneumonia. History of MRSA. On IV antibiotic therapy with levofloxacin, piperacillin / tazobactam, vancomycin mrsa swab negative Stopped vancomycin cx no growth was on Levaquin and Zosyn currently off of abx pulmonary on board and appreciate inputs stable EXACERBATION OBSTRUCTIVE LUNG DISEASE received solumedrol currently on prednisone 50mg daily will taper slowly two step home oxygen evaluations at the time of discharge POSSIBLE acute on chronic systolic CHF CT - pulmonary edema. BNP elevated. Echo last month in clinic 45-50%. had iv lasix will f/u volume status and labs [id number] cxr shows worsening chf received iv lasix 40mg daily as renal function is ok and monitor' currently on po Lasix 40mg daily will f/u cxr in am HEADACHES unremarkable CT head no complaints today HYPOPHOSPHATEMIA Serum phosphorus 2.1. replaced. METASTATIC COLON CA Management per Medical Oncology. 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 VTE PROPHYLAXIS / HISTORY OF PULMONARY EMBOLISM presented with inr 4.2 Coumadin held currently on Coumadin 4mg daily INR today 2.5 changed Coumadin back to 2.5mg daily RESUSCITATION STATUS level 1 as per h and P DISPOSITION Monitor in Telemetry Unit. Expected discharge to home. pt/ot prior to discharge social service for d/c planning Medical follow-up with Dr. Carreno. Cardiology follow-up with Dr. Holm. Pulmonary follow-up with Dr. Steel. Medical Oncology follow-up with Dr. Barkley. . Vital Signs: Date Time Temp Pulse Resp B/P Pulse Ox O2 Delivery O2 Flow Rate FiO2 05/24/16 12:06 36.4 88 20 128/78 96 Nasal Cannula 3.0 05/24/16 12:00 Nasal Cannula 3.0 05/24/16 10:51 82 18 95 Nasal Cannula 4.0 05/24/16 08:00 Nasal Cannula 3.0 05/24/16 07:25 36.4 89 20 117/60 94 Nasal Cannula 4.0 05/24/16 07:03 78 18 96 Nasal Cannula 4.0 05/24/16 04:31 36.3 61 18 118/57 95 Nasal Cannula 4.0 05/24/16 04:00 Nasal Cannula 4.0 05/23/16 23:59 Nasal Cannula 4.0 05/23/16 20:00 Nasal Cannula 4.0 05/23/16 19:45 105 18 96 Nasal Cannula 4.0 05/23/16 19:10 36.8 92 18 117/65 96 05/23/16 16:00 Nasal Cannula 4.0 05/23/16 15:28 36.6 84 18 130/78 96 Nasal Cannula 3.0 05/23/16 15:20 90 16 98 Nasal Cannula 4.0 Lab Results: Results Past 24 Hours Test 05/23/16 16:15 05/23/16 20:16 05/24/16 06:40 05/24/16 10:05 Range/Units Bedside Glucose 220 306 88 70-99 mg/dl Prothrombin Time 27.7 9.0-12.0 SECONDS Prothromb Time International Ratio 2.5 0.9-1.1 Test 05/24/16 10:55 Range/Units Bedside Glucose 225 70-99 mg/dl
[2016-05-24] MEDS: WARFARIN SOD 2.5 MG TAB PO SCH (16:06)
[2016-05-24] MEDS: TAMSULOSIN HCL 0.4 MG CAP PO SCH (20:15)
[2016-05-25] VITALS (10 sets, daily range): BP systolic 111–137; BP diastolic 65–99; PULSE 66–100; TEMP 36.4–36.8; O2SAT 90–98
[2016-05-25 05:13] LABS: COMPLETE YES; EOS % 0.1 %; HEMATOCRIT 30.9 % (42-52); IG% 2.4 %; LYMPH % 9.9 %; LYMPH ABS # 0.67 K/uL (1.2-3.4); MEAN CELL VOLUME 84.9 fL (80-100); MEAN PLATELET VOLUME 10.3 fL (7.4-10.4); MONO % 12.1 %; NEUT % 75.5 %; PLATELET COUNT 146 K/uL (130-400); RED BLOOD COUNT 3.64 M/uL (4.7-6.1); WHITE BLOOD COUNT 6.75 K/uL (4.8-10.8)
[2016-05-25 05:32] LABS: BUN/CREATININE RATIO 19.3 (10-20); CALCIUM 8.7 mg/dl (8.5-10.1); CREATININE 0.74 mg/dl (0.60-1.40); MAGNESIUM 2.3 mg/dl (1.8-2.4); PHOSPHORUS 2.6 mg/dl (2.5-4.9); POTASSIUM 3.3 mmol/L (3.5-5.1)
[2016-05-25] MEDS ORDERED: POTASSIUM CHLR 20 MEQ / WTR 20 MEQ in PREMIXED WATER 100 ML IV STA (05:38)
[2016-05-25] MEDS: IPRATROPIUM BROMIDE NEB SOLN 0.02% 2.5 ML VIAL INH SCH ×4 (07:05→20:26)
[2016-05-25] MEDS: LEVALBUTEROL 1.25MG/0.5ML NEB INH SCH ×4 (07:05→20:26)
[2016-05-25] MEDS: INSULIN ASPART 100 UNITS/ML 3 ML PEN SC SCH ×4 (07:45→21:05)
[2016-05-25] MEDS: CEROVITE ADV FORMULA TAB PO SCH (07:46)
[2016-05-25] MEDS: ASPIRIN 81 MG ECTAB PO SCH (07:46)
[2016-05-25] MEDS: PANTOprazole SOD 40 MG TAB PO SCH (07:46)
[2016-05-25] MEDS: ATORVASTATIN 20 MG TAB PO SCH (07:46)
[2016-05-25] MEDS: RANITIDINE HCL 150 MG TAB PO SCH ×2 (07:46→20:57)
[2016-05-25] MEDS: FUROSEMIDE 40 MG TAB PO SCH (07:47)
--- NOTE | 2016-05-25 09:04 | DIAGNOSTIC IMAGING REPORT ---
CHEST 2 VIEWS ROUTINE HISTORY: Interstitial lung disease. Acute rest heart failure. COMPARISON: Chest 05/16/2016. FINDINGS: Left-sided dual-chamber pacemaker. Right subclavian Port-A-Cath terminates at the SVC. The heart remains enlarged. There are low lung volumes. No pneumothorax. No pleural effusions. Diffuse interstitial thickening most pronounced within the left lung base remains unchanged. No new focal lung consolidations. IMPRESSION: No change compared to the prior study. No acute process within the chest. Diffuse interstitial thickening and low lung volumes consistent with chronic interstitial lung disease persists. Electronically signed by: Ebenezer Vela M.D. 05/25/2016 9:02 AM
[2016-05-25 10:02] LABS: PROTHROMBIN TIME (PATIENT) 33.8 SECONDS (9.0-12.0)
[2016-05-25] MEDS ORDERED: POTASSIUM CHLORIDE 10 MEQ TABCR PO ONE (10:30)
[2016-05-25] MEDS ORDERED: FUROSEMIDE INJ 20 MG in SYRINGE 0 ML IV ONE (10:40)
--- NOTE | 2016-05-25 10:52 | Progress Note ---
Internal Med Progress Note Date of Service: May 25, 2016. Provider Documentation: SUBJECTIVE: patient says he is again feeling worse today. Could not able to stand denies chest pain eating ok moved bowels yesterday has cough OBJECTIVE: Vital Signs-as noted below Exam: General-alert and awake and oriented ENT-normal hearing Neck-no neck masses Lungs-cta b/l no wheezing bibasilar crackles Heart-s1 and s2 heard regular rate and rhythm, no murmurs Abdomen-soft bowel sounds present nn tender no distension Extremities- no pedal edema present no erythema Neuro-alert and awake moves extremities Lab data as noted below. ASSESSMENT & PLAN: 81M with hx of copd,, interstitial lung disease, systolic chf, hx of PE hx of metastatic colon cancer who was in hospital recently with similar complaints presented with acute respiratory failure from possible health care pneumonia. copd/interstitial lung disease flare and acute systolic chf. On abx, steroids, nebs and Lasix. Slowly improving. 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 As Cxr showed worsening chf. Started on iv Lasix 40mg daily. currently on lasix 40mg daily, prednisone 50mg daily with plan for sow taper,completed abx course with levaquin. Not improving. Will d/w Pulmonary for further plans.. pt/ot ACUTE HYPOXIC RESPIRATORY FAILURE Underlying interstitial / obstructive lung disease. Recently in the hospital for pneumonia. Had Pulmonary embolism about 6 months ago. presented with sob and hypoxia. CTA chest done in ER negative for pulmonary embolism, but demonstrated possible pulmonary infiltrates and / or pulmonary edema. influenza negative improving with steroids, abx and received Lasix may need long steroid taper as per pulmonary currently on 50mg daily prednisone and to taper slowly to taper prednisone to 40mg daily in am will f/u pt/ot no significant improvement - will d/w pulmonary for further plans appreciate pulmonary inputs PROBABLE PNEUMONIA HCAP? CT chest suggests pulmonary infiltrates. Recent hospitalization for pneumonia. History of MRSA. On IV antibiotic therapy with levofloxacin, piperacillin / tazobactam, vancomycin mrsa swab negative Stopped vancomycin cx no growth was on Levaquin and Zosyn currently off of abx pulmonary on board and appreciate inputs stable EXACERBATION OBSTRUCTIVE LUNG DISEASE received solumedrol currently on prednisone 50mg daily To taper very slowly will d/w pulmonary two step home oxygen evaluations at the time of discharge POSSIBLE acute on chronic systolic CHF CT - pulmonary edema. BNP elevated. Echo last month in clinic 45-50%. had iv lasix will f/u volume status and labs [id number] cxr shows worsening chf received iv lasix 40mg daily as renal function is ok and monitor' currently on po Lasix 40mg daily repeat cxr today- no change HEADACHES unremarkable CT head no complaints today HYPOPHOSPHATEMIA Serum phosphorus 2.1. replaced. METASTATIC COLON CA Management per Medical Oncology. 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 VTE PROPHYLAXIS / HISTORY OF PULMONARY EMBOLISM presented with inr 4.2 Coumadin held currently on Coumadin 4mg daily INR today 3.0 changed Coumadin back to 2.5mg daily RESUSCITATION STATUS level 1 as per h and P DISPOSITION Monitor in Telemetry Unit. Expected discharge to home. pt/ot prior to discharge social service for d/c planning Medical follow-up with Dr. Carreno. Cardiology follow-up with Dr. Holm. Pulmonary follow-up with Dr. Steel. Medical Oncology follow-up with Dr. Barkley. . Vital Signs: Date Time Temp Pulse Resp B/P Pulse Ox O2 Delivery O2 Flow Rate FiO2 05/25/16 08:27 36.6 66 18 120/65 97 3.0 05/25/16 08:00 Nasal Cannula 2.0 05/25/16 07:05 81 18 90 Nasal Cannula 2.0 05/25/16 04:03 36.4 75 18 125/69 91 3.0 05/25/16 04:02 Nasal Cannula 3.0 05/25/16 00:02 Nasal Cannula 2.0 05/24/16 23:49 37.0 68 18 145/82 94 2.0 05/24/16 20:15 96 18 90 Nasal Cannula 2.0 05/24/16 20:00 Nasal Cannula 3.0 05/24/16 19:22 36.5 88 16 135/99 93 Nasal Cannula 2.0 05/24/16 16:20 36.4 86 18 141/55 100 Nasal Cannula 2.0 05/24/16 16:01 Nasal Cannula 3.0 05/24/16 15:33 67 18 98 Nasal Cannula 3.0 05/24/16 12:06 36.4 88 20 128/78 96 Nasal Cannula 3.0 05/24/16 12:00 Nasal Cannula 3.0 05/24/16 10:51 82 18 95 Nasal Cannula 4.0 Lab Results: Results Past 24 Hours Test 05/24/16 10:55 05/24/16 16:34 05/24/16 19:45 05/25/16 05:00 Range/Units Bedside Glucose 225 276 195 70-99 mg/dl White Blood Count 6.75 4.8-10.8 K/uL Red Blood Count 3.64 4.7-6.1 M/uL Hemoglobin 10.2 14.0-18.0 g/dL Hematocrit 30.9 42-52 % Mean Corpuscular Volume 84.9 80-100 fL Mean Corpuscular Hemoglobin 28.0 25-34 pg Mean Corpuscular Hemoglobin Concent 33.0 32-36 g/dl Platelet Count 146 130-400 K/uL Mean Platelet Volume 10.3 7.4-10.4 fL Neutrophils (%) (Auto) 75.5 % Lymphocytes (%) (Auto) 9.9 % Monocytes (%) (Auto) 12.1 % Eosinophils (%) (Auto) 0.1 % Basophils (%) (Auto) 0.0 % Neutrophils # (Auto) 5.09 1.4-6.5 K/uL Lymphocytes # (Auto) 0.67 1.2-3.4 K/uL Monocytes # (Auto) 0.82 0.11-0.59 K/uL Eosinophils # (Auto) 0.01 0-0.5 K/uL Basophils # (Auto) 0.00 0-0.2 K/uL RDW Standard Deviation 52.6 36.4-46.3 fL RDW Coefficient of Variation 16.9 11.5-14.5 % Immature Granulocyte % (Auto) 2.4 % Immature Granulocyte # (Auto) 0.16 0.00-0.02 K/uL Sodium Level 140 136-145 mmol/L Potassium Level 3.3 3.5-5.1 mmol/L Chloride Level 100 98-107 mmol/L Carbon Dioxide Level 32 21-32 mmol/L Anion Gap 8.0 3-11 mmol/L Blood Urea Nitrogen 14 7-18 mg/dl Creatinine 0.74 0.60-1.40 mg/dl Est Creatinine Clear Calc Drug Dose 83.4 ml/min Estimated GFR () 100.3 Estimated GFR (Non- 86.5 BUN/Creatinine Ratio 19.3 10-20 Random Glucose 99 70-99 mg/dl Calcium Level 8.7 8.5-10.1 mg/dl Phosphorus Level 2.6 2.5-4.9 mg/dl Magnesium Level 2.3 1.8-2.4 mg/dl Test 05/25/16 09:30 Range/Units Prothrombin Time 33.8 9.0-12.0 SECONDS Prothromb Time International Ratio 3.0 0.9-1.1
--- NOTE | 2016-05-25 15:33 | PULMONARY PROGRESS NOTE ---
DATE: 05/25/2016 DATE: 05/25/2016. TIME: 3:05 p.m. SUBJECTIVE: The patient did not feel well this morning. He states he often is more bothered in the morning hours. When he got up this morning and was standing, he developed a lot of discomfort in the chest and felt quite short of breath. Nursing staff states he does desaturate at times when he stands. He feels much better this afternoon. He was able to get up and walk around and do more. The patient indicates this is typically the way it is, later in the day he does better. He has not had much cough. OBJECTIVE: GENERAL: The patient remains afebrile. No lymph nodes are palpable. Heart rate was 100 per minute. Occasional extrasystoles were heard. CHEST: Auscultation of the lung key reveals fairly clear breath sounds in the upper lungs posteriorly, but in the mid and lower lung key there are a lot of crackles throughout. This would correlate with his x-ray findings. Currently, he is on 3 liter nasal cannula and his saturation is 98%. ABDOMEN: Soft and nontender. EXTREMITIES: Showed no edema. Chest x-ray done today showed no change in the bilateral interstitial process. IMPRESSIONS: 1. Respiratory failure with hypoxia. 2. Interstitial lung disease, likely secondary to chemotherapy. 3. Pneumonia. 4. Emphysema. 5. Colon cancer - stage IV. COMMENTS AND RECOMMENDATIONS: The patient is mildly better than earlier in the week, but not dramatically so. He is getting frustrated at being here. He remains on prednisone 50 mg daily. I would continue the prednisone as it is. It is unclear with certainty if he is going to improve in this process, although it is possible. I tried to emphasize to the patient that we still do not know exactly what his long-term course will be. Obviously, his prognosis from the underlying malignancy may well not be very good. He seems somewhat depressed today. I tried to perk up his spirits a bit. We will continue with current therapy.
[2016-05-25] MEDS: WARFARIN SOD 2.5 MG TAB PO SCH (17:21)
[2016-05-25] MEDS: TAMSULOSIN HCL 0.4 MG CAP PO SCH (20:57)
[2016-05-26] VITALS (9 sets, daily range): BP systolic 119–147; BP diastolic 59–83; PULSE 58–94; TEMP 36.3–36.7; O2SAT 91–98
[2016-05-26 06:10] LABS: COMPLETE YES; HEMATOCRIT 28.9 % (42-52); IG% 1.2 %; LYMPH % 11.9 %; LYMPH ABS # 0.61 K/uL (1.2-3.4); MEAN CELL VOLUME 87.8 fL (80-100); MEAN CORPUSCULAR HEMOGLOBIN 28.9 pg (25-34); MEAN CORPUSCULAR HGB CONC 32.9 g/dl (32-36); MEAN PLATELET VOLUME 9.6 fL (7.4-10.4); MONO % 9.4 %; NEUT % 77.5 %; PLATELET COUNT 132 K/uL (130-400); RED BLOOD COUNT 3.29 M/uL (4.7-6.1); WHITE BLOOD COUNT 5.11 K/uL (4.8-10.8)
[2016-05-26 06:40] LABS: BUN/CREATININE RATIO 22.1 (10-20); CALCIUM 8.8 mg/dl (8.5-10.1); CREATININE 0.73 mg/dl (0.60-1.40); MAGNESIUM 2.3 mg/dl (1.8-2.4); POTASSIUM 3.6 mmol/L (3.5-5.1)
[2016-05-26] MEDS: INSULIN ASPART 100 UNITS/ML 3 ML PEN SC SCH ×4 (07:00→21:09)
[2016-05-26] MEDS: IPRATROPIUM BROMIDE NEB SOLN 0.02% 2.5 ML VIAL INH SCH ×4 (07:03→20:35)
[2016-05-26] MEDS: LEVALBUTEROL 1.25MG/0.5ML NEB INH SCH ×4 (07:03→20:35)
[2016-05-26] MEDS: FUROSEMIDE 40 MG TAB PO SCH (09:06)
[2016-05-26] MEDS: CEROVITE ADV FORMULA TAB PO SCH (09:06)
[2016-05-26] MEDS: ASPIRIN 81 MG ECTAB PO SCH (09:06)
[2016-05-26] MEDS: ATORVASTATIN 20 MG TAB PO SCH (09:06)
[2016-05-26] MEDS: PANTOprazole SOD 40 MG TAB PO SCH (09:06)
[2016-05-26] MEDS: RANITIDINE HCL 150 MG TAB PO SCH ×2 (09:06→20:18)
--- NOTE | 2016-05-26 11:08 | Progress Note ---
Internal Med Progress Note Date of Service: May 26, 2016. 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 ASSESSMENT & PLAN: 81M with hx of copd,, interstitial lung disease, systolic chf, hx of PE hx of metastatic colon cancer who was in hospital recently with similar complaints presented with acute respiratory failure from possible health care pneumonia. copd/interstitial lung disease flare and acute systolic chf. On abx, steroids, nebs and Lasix. Slowly improving. 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 As Cxr showed worsening chf. Started on iv Lasix 40mg daily. currently on lasix 40mg daily, prednisone 50mg daily with plan for sow taper,completed abx course with Levaquin. Not improving. To continue current tx plan as per pulmonary.Notified heme/oncology the [facility]. After heme/onco recommendations will consult palliative care for further goals and plan. pt/ot ACUTE HYPOXIC RESPIRATORY FAILURE Underlying interstitial / obstructive lung disease. Recently in the hospital for pneumonia. Had Pulmonary embolism about 6 months ago. presented with sob and hypoxia. CTA chest done in ER negative for pulmonary embolism, but demonstrated possible pulmonary infiltrates and / or pulmonary edema. influenza negative improving with steroids, abx and received Lasix may need long steroid taper as per pulmonary currently on 50mg daily prednisone and to taper slowly to taper prednisone to 40mg daily in am will f/u pt/ot no significant improvement to continue current tx appreciate pulmonary inputs PROBABLE PNEUMONIA HCAP? CT chest suggests pulmonary infiltrates. Recent hospitalization for pneumonia. History of MRSA. On IV antibiotic therapy with levofloxacin, piperacillin / tazobactam, vancomycin mrsa swab negative Stopped vancomycin cx no growth was on Levaquin and Zosyn currently off of abx pulmonary on board and appreciate inputs stable EXACERBATION OBSTRUCTIVE LUNG DISEASE received solumedrol currently on prednisone 50mg daily To taper very slowly will d/w pulmonary refuses placement two step home oxygen evaluations at the time of discharge POSSIBLE acute on chronic systolic CHF CT - pulmonary edema. BNP elevated. Echo last month in clinic 45-50%. had iv lasix will f/u volume status and labs [id number] cxr shows worsening chf received iv lasix 40mg daily as renal function is ok and monitor' currently on po Lasix 40mg daily repeat cxr - no change HEADACHES unremarkable CT head no complaints today HYPOPHOSPHATEMIA Serum phosphorus 2.1. replaced. METASTATIC COLON CA Management per Medical Oncology. 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 VTE PROPHYLAXIS / HISTORY OF PULMONARY EMBOLISM presented with inr 4.2 Coumadin held currently on Coumadin 4mg daily INR today 3.0 changed Coumadin back to 2.5mg daily RESUSCITATION STATUS level 1 as per h and P DISPOSITION Monitor in Telemetry Unit. Expected discharge to home with home helath/PT pt/ot prior to discharge social service for d/c planning Medical follow-up with Dr. Carreno. Cardiology follow-up with Dr. Holm. Pulmonary follow-up with Dr. Steel. Medical Oncology follow-up with Dr. Barkley. . Vital Signs: Date Time Temp Pulse Resp B/P Pulse Ox O2 Delivery O2 Flow Rate FiO2 05/26/16 08:19 36.3 72 18 147/66 91 Nasal Cannula 2.0 05/26/16 07:03 58 18 94 Nasal Cannula 2.0 05/26/16 03:30 Nasal Cannula 2.0 05/26/16 03:28 36.7 70 18 131/59 95 Nasal Cannula 2.0 05/25/16 23:30 Nasal Cannula 2.0 05/25/16 22:56 36.7 82 22 137/74 92 Nasal Cannula 2.0 05/25/16 20:26 86 18 98 Nasal Cannula 3.0 05/25/16 19:30 Nasal Cannula 3.0 1/5/17 19:17 36.7 93 20 111/74 97 Nasal Cannula 3.0 05/25/16 16:00 Nasal Cannula 2.0 05/25/16 15:38 84 18 95 Nasal Cannula 3.0 05/25/16 15:22 36.8 98 20 126/99 93 Nasal Cannula 3.0 05/25/16 12:00 Nasal Cannula 2.0 05/25/16 11:54 36.5 100 18 126/93 98 05/25/16 11:00 85 18 96 Nasal Cannula 3.0 Lab Results: Results Past 24 Hours Test 05/25/16 11:31 05/25/16 16:27 05/25/16 20:49 05/26/16 04:45 Range/Units Bedside Glucose 167 288 175 70-99 mg/dl White Blood Count 5.11 4.8-10.8 K/uL Red Blood Count 3.29 4.7-6.1 M/uL Hemoglobin 9.5 14.0-18.0 g/dL Hematocrit 28.9 42-52 % Mean Corpuscular Volume 87.8 80-100 fL Mean Corpuscular Hemoglobin 28.9 25-34 pg Mean Corpuscular Hemoglobin Concent 32.9 32-36 g/dl Platelet Count 132 130-400 K/uL Mean Platelet Volume 9.6 7.4-10.4 fL Neutrophils (%) (Auto) 77.5 % Lymphocytes (%) (Auto) 11.9 % Monocytes (%) (Auto) 9.4 % Eosinophils (%) (Auto) 0.0 % Basophils (%) (Auto) 0.0 % Neutrophils # (Auto) 3.96 1.4-6.5 K/uL Lymphocytes # (Auto) 0.61 1.2-3.4 K/uL Monocytes # (Auto) 0.48 0.11-0.59 K/uL Eosinophils # (Auto) 0.00 0-0.5 K/uL Basophils # (Auto) 0.00 0-0.2 K/uL RDW Standard Deviation 54.7 36.4-46.3 fL RDW Coefficient of Variation 17.2 11.5-14.5 % Immature Granulocyte % (Auto) 1.2 % Immature Granulocyte # (Auto) 0.06 0.00-0.02 K/uL Sodium Level 139 136-145 mmol/L Potassium Level 3.6 3.5-5.1 mmol/L Chloride Level 101 98-107 mmol/L Carbon Dioxide Level 31 21-32 mmol/L Anion Gap 7.0 3-11 mmol/L Blood Urea Nitrogen 16 7-18 mg/dl Creatinine 0.73 0.60-1.40 mg/dl Est Creatinine Clear Calc Drug Dose 84.5 ml/min Estimated GFR () 100.8 Estimated GFR (Non- 87.0 BUN/Creatinine Ratio 22.1 10-20 Random Glucose 103 70-99 mg/dl Calcium Level 8.8 8.5-10.1 mg/dl Magnesium Level 2.3 1.8-2.4 mg/dl Test 05/26/16 06:54 05/26/16 09:24 Range/Units Bedside Glucose 101 70-99 mg/dl
[2016-05-26 12:00] LABS: INR 2.3 (0.9-1.1)
--- NOTE | 2016-05-26 16:52 | PULMONARY PROGRESS NOTE ---
DATE: 05/26/2016 TIME: 4:30 p.m. SUBJECTIVE: The patient is feeling better. He was less short of breath. He was able to ambulate without difficulty today in his room. The patient did not want to be moved out of ICU today. He prefers to stay in this room until discharge. Clinically, however, he has improved. His son was with him during this evaluation. He has very minimal cough. OBJECTIVE: GENERAL: The patient appeared comfortable. He is afebrile. VITAL SIGNS: Heart rate 94 per minute. Blood pressure 119/68. Respiratory rate was 20 breaths per minute. EARS, NOSE, THROAT: Unremarkable. LUNGS: Rales were heard in the lower lung eky posteriorly bilaterally. Oxygen saturation on 2 liter nasal cannula was 95%. ABDOMEN: Soft. EXTREMITIES: Showed no edema. He still has some ecchymosis in the left foot slightly below the ankle. LABORATORY DATA: White count today was 5.11. Hemoglobin 9.5. Platelets are 132,000. INR is 2.3. Electrolytes show sodium 139, potassium 3.6, chloride 101, bicarbonate 31. BUN 16, creatinine 0.73. IMPRESSIONS: 1. Respiratory failure with hypoxia - improved. 2. Interstitial lung disease, likely secondary to chemotherapy. 3. Pneumonia. 4. Emphysema. 5. Colon cancer - stage IV. COMMENTS AND RECOMMENDATIONS: The patient is clinically improved. Hopefully, he can be discharged soon. He needs oxygen at home which he does not currently have. He also needs a nebulizer at home. His prednisone currently is 50 mg daily. This likely could be decreased to 40 mg daily upon discharge. He should follow up with Dr. Steel in his office after discharge.
[2016-05-26] MEDS: WARFARIN SOD 2.5 MG TAB PO SCH (17:06)
[2016-05-26] MEDS: TAMSULOSIN HCL 0.4 MG CAP PO SCH (20:18)
[2016-05-27] VITALS (8 sets, daily range): BP systolic 108–138; BP diastolic 50–81; PULSE 56–78; TEMP 36.3–36.6; O2SAT 91–95
[2016-05-27] MEDS: INSULIN ASPART 100 UNITS/ML 3 ML PEN SC SCH ×3 (07:00→16:51)
[2016-05-27] MEDS: LEVALBUTEROL 1.25MG/0.5ML NEB INH SCH ×3 (07:03→15:17)
[2016-05-27] MEDS: IPRATROPIUM BROMIDE NEB SOLN 0.02% 2.5 ML VIAL INH SCH ×3 (07:03→15:17)
[2016-05-27 07:06] LABS: COMPLETE YES; EOS % 0.4 %; HEMATOCRIT 28.9 % (42-52); LYMPH % 12.3 %; LYMPH ABS # 0.61 K/uL (1.2-3.4); MEAN CELL VOLUME 86.8 fL (80-100); MEAN CORPUSCULAR HEMOGLOBIN 28.5 pg (25-34); MEAN CORPUSCULAR HGB CONC 32.9 g/dl (32-36); MEAN PLATELET VOLUME 10.1 fL (7.4-10.4); MONO % 12.3 %; PLATELET COUNT 146 K/uL (130-400); RED BLOOD COUNT 3.33 M/uL (4.7-6.1); WHITE BLOOD COUNT 4.96 K/uL (4.8-10.8)
[2016-05-27 07:14] LABS: INR 2.3 (0.9-1.1); PROTHROMBIN TIME (PATIENT) 25.5 SECONDS (9.0-12.0)
[2016-05-27 07:41] LABS: BUN/CREATININE RATIO 17.9 (10-20); CALCIUM 8.8 mg/dl (8.5-10.1); CREATININE 0.75 mg/dl (0.60-1.40); MAGNESIUM 2.3 mg/dl (1.8-2.4); POTASSIUM 3.5 mmol/L (3.5-5.1)
--- NOTE | 2016-05-27 09:10 | PULMONARY PROGRESS NOTE ---
DATE: 05/27/2016 TIME: 8:50 a.m. SUBJECTIVE: The patient states he feels well. He has had no shortness of breath overnight. He has been sitting up today without difficulty. He has not ambulated yet. He has very little cough. OBJECTIVE: GENERAL: The patient appears comfortable. He was in no distress. He is cooperative and alert. VITAL SIGNS: Temperature is 36.6. ENT: Exam is unremarkable. HEART: Heart rate is 62 beats per minute. Blood pressure 117/50. LUNGS: Lung key reveal mild rales bilaterally posteriorly, respiratory rate 20 breaths per minute. Saturation 92% on 2 liters. ABDOMEN: Soft and nontender. LABORATORY DATA: White count today is 4.96. Hemoglobin 9.5. Platelets 146,000. INR is 2.3. Sodium 141, potassium 3.5, chloride 102, bicarbonate 31. BUN 13 with a creatinine of 0.75. IMPRESSION: 1. Acute respiratory failure with hypoxia. 2. Interstitial lung disease -- possibly secondary to chemotherapy. 3. Pneumonia. 4. Emphysema. 5. Colon cancer. COMMENTS AND RECOMMENDATIONS: The patient is scheduled to be discharged soon. This apparently depends upon when they can arrange the proper oxygen and nebulizer machine. I would suggest discharging him on 40 mg of prednisone per day. He should follow up with Dr. Steel in approximately 2 weeks.
[2016-05-27] MEDS: ATORVASTATIN 20 MG TAB PO SCH (09:20)
[2016-05-27] MEDS: CEROVITE ADV FORMULA TAB PO SCH (09:20)
[2016-05-27] MEDS: PANTOprazole SOD 40 MG TAB PO SCH (09:20)
[2016-05-27] MEDS: FUROSEMIDE 40 MG TAB PO SCH (09:20)
[2016-05-27] MEDS: ASPIRIN 81 MG ECTAB PO SCH (09:20)
[2016-05-27] MEDS: RANITIDINE HCL 150 MG TAB PO SCH (09:21)
[2016-05-27 11:15] LABS: ESTIMATED AVERAGE GLUCOSE 114 mg/dl; HA1C FLAG Normal (Normal)
[2016-05-27] MEDS ORDERED: NVLGIPEN SC (13:06)
[2016-05-27] MEDS ORDERED: LSX40 PO (13:06)
[2016-05-27] MEDS ORDERED: PRED10TA PO (13:06)
[2016-05-27] MEDS ORDERED: TAMS0.4C38 PO (13:06)
[2016-05-27] MEDS ORDERED: RANI150T3 PO (13:06)
[2016-05-27] MEDS ORDERED: BISA-16 PO (13:06)
[2016-05-27] MEDS ORDERED: POTA8CAP6 PO (13:07)
--- NOTE | 2016-05-27 13:23 | Discharge Instructions ---
Discharge Instructions Admission Reason for Admission: Acute Respiratory Failure Discharge Discharge Diagnosis / Problem: ACUTE RESPIRATORY FAILURE, INTERSITAL LUNG DISEASE FLARE, ACUTE CHF Discharge Goals Goal(s): Decrease discomfort, Improve function Activity Recommendations Activity Limitations: resume your previous activity . Instructions / Follow-Up Instructions / Follow-Up FOLLOWUP WITH FAMILY DOCTOR ([place]) ON May AT 4:05PM FOLLOWUP WITH PULMONARY IN 1-2 WEEKS FOLLOWUP WITH ONCOLOGY IN 1-2 WEEKS. FOLLOWUP WITH CARDIOLOGY IN 2-3 WEEKS. FOLLOWUP WITH COUMADIN CLINIC IN 3-4 DAYS FOR COUMADIN DOSING. TO TAKE PREDNISONE 50MG DAILY UNTIL FURTHER TAPER BY PULMONARY. PREDNISONE CAN MAKE SUGARS GO HIGH TO USE INSULIN SLIDING SCALE IF NEEDED WHILE ON STEROIDS. INSULIN SLIDING SCALE WITH NOVOLOG: BLOOD SUGARS GOAL RANGE 120- 150 INSULIN SLIDING SCALE BLOOD SUGARS INSULIN 150-180 1 UNIT 180-210 2 UNITS 210-240 3 UNITS 240-270 4 UNITS 270-300 5 UNITS >300 6 UNITS AND CALL FAMILY DOCTOR. LAB: BMP WITH MG LEVELS IN ONE WEEK AND FOLLOW RESULTS WITH FAMILY DOCTOR. Call your Primary Care doctor if any of the following symptoms or problems start or get worse: * Shortness of breath or difficulty breathing * Wake up at night short of breath * Chest pain * Cough * Swelling of your hands, feet, or legs * More fatigued or tired with your normal activity * Palpitations - sudden fast heart beats WEIGHT * Weigh yourself every morning after using the bathroom. * Use the same scale. * Wear the same amount of clothing. * Write your weight down on a chart. * Call your Primary Care doctor if you gain more than 2-3 pounds in 1-2 days. MEDICATIONS * Use this discharge instruction sheet for medication instructions. * Take your medications at the time your doctor ordered. * Do not skip a dose of your medicines. * If you miss a dose of medicine, take it as soon as possible, but DO NOT DOUBLE A DOSE. * Read your medicine information when you get home. * Know all of the side effects of your medicine. If in doubt, ask your pharmacist * Call your Primary Care doctor's office if you have any side effects. * Be sure all of your doctors know what medicine and herbs you take (including cold, flu, and herbal medicine). Take the following with you to your follow-up doctor appointments: * Weight Chart * Medication List * List of questions Do not drink excessive alcohol, beer or wine. Current Hospital Diet Patient's current hospital diet: AHA Diet (Heart Healthy), Diabetes Type 2 Diet Discharge Diet Recommended Diet: AHA Diet (Heart Healthy) Pending Studies Studies pending at discharge: no Laboratory Results Hemoglobin A1c Test 05/27/16 06:10 Range/Units Estimated Average Glucose 114 mg/dl Hemoglobin A1c 5.6 4.5-5.6 % Medical Emergencies . Who to Call and When: Call 911 or go to the Emergency Room if: * If at any time you feel your situation is an emergency * You have tightness or pain in your chest that does not go away with rest or Nitroglycerin * You are very short of breath even with rest . Non-Emergent Contact Non-Emergency issues call your: Primary Care Provider . . "Provider Documentation" section prepared by Ron Finch. VTE Core Measure Inpt VTE Proph given/why not?: Warfarin (Coumadin)
[2016-05-27] MEDS: WARFARIN SOD 2.5 MG TAB PO SCH (16:33)
--- NOTE | 2016-05-27 18:37 | Progress Note ---
Internal Med Progress Note Date of Service: May 27, 2016. Provider Documentation: SUBJECTIVE: Says feeling much better ambulated and felt ok denies any pain doesn't want to stay until Sunday want to go home today OBJECTIVE: Vital Signs-as noted below Exam: General-alert and awake and oriented ENT-normal hearing Neck-no neck masses Lungs-cta b/l no wheezing no crackles Heart-s1 and s2 heard regular rate and rhythm, no murmurs Abdomen-soft bowel sounds present non tender no distension Extremities- no pedal edema present no erythema Neuro-alert and awake moves extremities Lab data as noted below. ASSESSMENT & PLAN: 81M with hx of copd,, interstitial lung disease, systolic chf, hx of PE hx of metastatic colon cancer who was in hospital recently with similar complaints presented with acute respiratory failure from possible health care pneumonia. copd/interstitial lung disease flare and acute systolic chf. On abx, steroids, nebs and Lasix. Slowly improving. 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 As Cxr showed worsening chf. Started on iv Lasix 40mg daily. currently on Lasix 40mg daily, prednisone 50mg daily with plan for sow taper,completed abx course with Levaquin. Not improving. To continue current tx plan as per pulmonary.Notified heme/oncology the patient status. After heme/ onco recommendations will consult palliative care for further goals and plan. pt /ot. But declined to stay until Sunday. Feeling better and wanted to be discharged. Two step done and requiring oxygen 3lts while ambulating and 2lts while resting. ACUTE HYPOXIC RESPIRATORY FAILURE Underlying interstitial / obstructive lung disease. Recently in the hospital for pneumonia. Had Pulmonary embolism about 6 months ago. presented with sob and hypoxia. CTA chest done in ER negative for pulmonary embolism, but demonstrated possible pulmonary infiltrates and / or pulmonary edema. influenza negative improving with steroids, abx and received Lasix may need long steroid taper as per pulmonary currently on 50mg daily prednisone and to taper slowly feeling better and wanted to be discharged discharged on prednisone 50mg daily and further taper as per pulmonary neb machine ordered. Two step home oxygen evaluation done and requiring oxygen 3lts while ambulating and 2ts while resting f/u with pcp and pulmonary PROBABLE PNEUMONIA HCAP? CT chest suggests pulmonary infiltrates. Recent hospitalization for pneumonia. History of MRSA. On IV antibiotic therapy with levofloxacin, piperacillin / tazobactam, vancomycin mrsa swab negative Stopped vancomycin cx no growth was on Levaquin and Zosyn currently off of abx pulmonary on board and appreciate inputs stable EXACERBATION OBSTRUCTIVE LUNG DISEASE received solumedrol currently on prednisone 50mg daily To taper very slowly will d/w pulmonary refuses placement Two step home oxygen evaluation done and requiring oxygen 3lts while ambulating and 2ts while resting POSSIBLE acute on chronic systolic CHF CT - pulmonary edema. BNP elevated. Echo last month in clinic 45-50%. had iv lasix will f/u volume status and labs [id number] cxr shows worsening chf received iv lasix 40mg daily as renal function is ok and monitor' currently on po Lasix 40mg daily repeat cxr - no change discharged on lasix 40mg daily f/u with pcp and cardiology HEADACHES unremarkable CT head no complaints today HYPOPHOSPHATEMIA Serum phosphorus 2.1. replaced. METASTATIC COLON CA Management per Medical Oncology. 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 VTE PROPHYLAXIS / HISTORY OF PULMONARY EMBOLISM presented with inr 4.2 Coumadin held currently on Coumadin 4mg daily INR today 2.3 changed Coumadin back to 2.5mg daily f/u with Coumadin clinic Discharged home with home health Vital Signs: Date Time Temp Pulse Resp B/P Pulse Ox O2 Delivery O2 Flow Rate FiO2 05/27/16 16:17 36.3 71 18 95 Nasal Cannula 05/27/16 15:18 71 18 95 Nasal Cannula 2.0 05/27/16 12:47 36.3 62 20 138/56 92 Nasal Cannula 2.0 05/27/16 12:00 Nasal Cannula 2.0 05/27/16 11:22 78 18 91 Nasal Cannula 3.0 05/27/16 10:24 36.3 64 24 109/60 92 Nasal Cannula 2.0 05/27/16 08:00 Nasal Cannula 2.0 05/27/16 07:03 62 18 92 Nasal Cannula 2.0 05/27/16 04:00 36.6 56 19 117/50 93 Nasal Cannula 2.0 05/27/16 03:30 Nasal Cannula 2.0 05/27/16 00:01 36.6 76 19 108/81 93 Nasal Cannula 2.0 05/26/16 23:30 Nasal Cannula 2.0 05/26/16 20:36 83 18 91 Nasal Cannula 2.0 05/26/16 19:34 36.7 86 22 139/83 97 Nasal Cannula 2.0 05/26/16 19:30 Nasal Cannula 2.0 Lab Results: Results Past 24 Hours Test 05/26/16 20:27 05/27/16 06:10 05/27/16 06:45 05/27/16 11:06 Range/Units Bedside Glucose 178 102 151 70-99 mg/dl White Blood Count 4.96 4.8-10.8 K/uL Red Blood Count 3.33 4.7-6.1 M/uL Hemoglobin 9.5 14.0-18.0 g/dL Hematocrit 28.9 42-52 % Mean Corpuscular Volume 86.8 80-100 fL Mean Corpuscular Hemoglobin 28.5 25-34 pg Mean Corpuscular Hemoglobin Concent 32.9 32-36 g/dl Platelet Count 146 130-400 K/uL Mean Platelet Volume 10.1 7.4-10.4 fL Neutrophils (%) (Auto) 74.0 % Lymphocytes (%) (Auto) 12.3 % Monocytes (%) (Auto) 12.3 % Eosinophils (%) (Auto) 0.4 % Basophils (%) (Auto) 0.0 % Neutrophils # (Auto) 3.67 1.4-6.5 K/uL Lymphocytes # (Auto) 0.61 1.2-3.4 K/uL Monocytes # (Auto) 0.61 0.11-0.59 K/uL Eosinophils # (Auto) 0.02 0-0.5 K/uL Basophils # (Auto) 0.00 0-0.2 K/uL RDW Standard Deviation 54.5 36.4-46.3 fL RDW Coefficient of Variation 17.3 11.5-14.5 % Immature Granulocyte % (Auto) 1.0 % Immature Granulocyte # (Auto) 0.05 0.00-0.02 K/uL Prothrombin Time 25.5 9.0-12.0 SECONDS Prothromb Time International Ratio 2.3 0.9-1.1 Sodium Level 141 136-145 mmol/L Potassium Level 3.5 3.5-5.1 mmol/L Chloride Level 102 98-107 mmol/L Carbon Dioxide Level 31 21-32 mmol/L Anion Gap 8.0 3-11 mmol/L Blood Urea Nitrogen 13 7-18 mg/dl Creatinine 0.75 0.60-1.40 mg/dl Est Creatinine Clear Calc Drug Dose 82.3 ml/min Estimated GFR () 99.7 Estimated GFR (Non- 86.0 BUN/Creatinine Ratio 17.9 10-20 Random Glucose 82 70-99 mg/dl Estimated Average Glucose 114 mg/dl Hemoglobin A1c 5.6 4.5-5.6 % Calcium Level 8.8 8.5-10.1 mg/dl Magnesium Level 2.3 1.8-2.4 mg/dl Test 05/27/16 16:27 Range/Units Bedside Glucose 258 70-99 mg/dl
--- NOTE | 2016-05-27 19:57 | Discharge Summary ---
Discharge Summary Admission Date: May 11, 2016 at 12:08 Discharge Date: May 27, 2016 Discharge Disposition: Home with services Principal Diagnosis: ACUTE RESP FAILURE INTERSTITIAL LUNG DISEASE FLARE COPD FLARE PNEUMONIA? POSSIBLE ACUTE ON CHRONIC SYSTOLIC CHF Secondary Diagnoses/Problems: 1) Asthma Status: Chronic (2) Complete AV block Permanent Comment: s/p pacemaker placement Status: Chronic (3) Coronary artery disease Permanent Comment: cath 1987 20% mid LAD stenosis; Lexiscan neg for ischemia 03/27/16 Status: Chronic (4) Dyslipidemia Status: Chronic (5) HTN (hypertension) Status: Chronic (6) LBBB (left bundle branch block) Status: Chronic (7) Metastatic colorectal cancer Permanent Comment: mets to lymph nodes, liver, lung; currently undergoing chemotherapy Status: Chronic (8) Obstructive lung disease Permanent Comment: Status: Chronic (9) Pneumoconiosis Status: Chronic (10) Pulmonary embolism Permanent Comment: 11/01/15 Status: Chronic Procedures: CTA CHEST: 1. No CT evidence of acute pulmonary embolism 2. Mild mediastinal lymphadenopathy unchanged the prior study 3. Severe pulmonary emphysema 4. Stable indeterminate right upper lobe irregular nodular densities 5. Developing groundglass attenuation of the lungs, and bibasilar dependent airspace opacities. Diagnostic considerations include pulmonary edema versus an inflammatory/infectious process. Clinical and radiographic follow-up is recommended CT ABD/PELVIS: 1. No acute process within the abdomen or pelvis. 2. Slight decrease in several hepatic metastases since prior CT of September 08, 2015. HEAD CT: No acute intracranial abnormality. Consultations: Pulm, Cards, Heme Medication Reconciliation New Medications: Bisacodyl (Dulcolax) 5 Mg Tab 2 TAB PO UD PRN for Constipation, #30 TAB 2 Refills Potassium Chloride (Klor-Con Ext Rel) 8 Meq Tabcr 8 MEQ PO DAILY, #30 CAP 2 Refills Prednisone Tab (Prednisone) 10 Mg Tab 50 MG PO UD, #60 TAB 2 Refills PREDNISONE 50MG PO DAILY UNTIL FURTHER TAPER BY PULMONARY Ranitidine Hcl (Zantac) 150 Mg Tab 150 MG PO BID, #60 TAB 2 Refills Tamsulosin Hcl (Flomax) 0.4 Mg Cap 0.4 MG PO DAILY, #30 CAP 2 Refills Furosemide (Furosemide) 40 Mg Tab 40 MG PO QAM, #30 TAB 2 Refills Insulin Aspart (Novolog Flexpen) 100 Units/Ml Inj 0 UNITS SC ACHS, #1 2 Refills BLOOD SUGARS GOAL RANGE 120- 150 INSULING SLIDING SCALE BLOOD SUGARS INSULIN 150-180 1 UNIT 180-210 2 UNITS 210-240 3 UNITS 240-270 4 UNITS 270-300 5 UNITS >300 6 UNITS AND CALL FAMILY DOCTOR. Continued Medications: Albuterol Hfa (Ventolin Hfa) 200 Puffs/05569 Mcg Aers 2 PUFFS INH Q4 PRN for SOB/Wheezing, #1 2 Refills Aspirin (Ecotrin Low Strength) 81 Mg Tab 81 MG PO DAILY, TAB 3 Refills Atorvastatin (Lipitor) 20 Mg Tab 20 MG PO QAM, TAB Ipratropium-Albuterol (Duoneb) 3 Ml Nebu 1 INHA PO QID, #360 Ocuvite Preservision (Ocuvite Preservision) 1 Tab Tab 1 TAB PO QAM, TAB Omeprazole (Omeprazole) 20 Mg Tab 20 MG PO QAM, TAB Ondansetron Hcl (Zofran) 4 Mg Tab 4 MG PO PRN, TAB Oxycodone/Acetaminophen 5MG/325MG (Percocet 5MG/325MG) Tab 1 TABLET PO Q6H PRN for Pain, TAB PAIN Warfarin Sod (Jantoven) 2.5 Mg Tab 2.5 MG PO UD, TAB Dose as of 05/10/16 2.5 mg daily. Admission Information HPI (per Admitting provider): 81 YO male followed by Dr. Carreno for primary care, Dr. Holm for Cardiology, Dr. Steel for Pulmonary, and Dr. Barkley for Medical Oncology. History of nonocclusive coronary artery disease, reduced LVEF, pacemaker, interstitial lung disease, colon cancer, pulmonary embolism, and other problems noted below. 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 Received chemo with FOLFIRI followed by bevacizumab. Hospitalized 04/25/16 - 05/02/16 with pneumonia. Blood cultures were negative. Sputum culture grew Eikenella corrodens. Discharged on doxycycline and prednisone taper; finished prednisone about 4 days prior to admission. Has noted increasing chest congestion and dyspnea over the past several days. He feels like he has had a low grade temp, also experiencing chills and sweats. Dyspnea worse on exertion. Cough nonproductive. Occasional intermittent sharp midsternal chest pain- nonradiating. Neb treatment last evening seemed to help somewhat. Worsening dyspnea today. Extremely dyspneic at rest. EMS summoned. Upon their arrival patient appeared to be in respiratory distress. O2 saturation in the field was 75% on RA. . Physical Exam (per Admitting): General Appearance: WD/WN, + moderate distress Head: normocephalic, atraumatic Eyes: normal inspection, PERRL, EOMI, sclerae normal, + pertinent finding ( conjunctivae pink) ENT: normal ENT inspection, pharynx normal, + pertinent finding (hearing impaired; dentition poor) Neck: supple, no adenopathy, thyroid normal, trachea midline, + JVD Respiratory/Chest: + respiratory distress, + rhonchi, + wheezing Cardiovascular: no edema, + JVD, + pertinent finding (distant heart sounds, no murmur or gallop appreciated, occasional ectopy) Abdomen/GI: normal bowel sounds, non tender, soft, no organomegaly, no pulsatile mass Extremities/Musculoskelatal: no calf tenderness, normal capillary refill, no pedal edema Neurologic/Psych: content administrator II-XII nml as tested (PERRL, EOMI, no facial palsy, no dysarthria, tongue midline), no motor/sensory deficits, alert, normal mood/ affect, oriented x 3 Skin: normal color, warm/dry, no rash, + pertinent finding (echymoses left ankle / foot) Lymphatic: no adenopathy Physical Exam (per Admitting): General Appearance: WD/WN, + moderate distress Head: normocephalic, atraumatic Eyes: normal inspection, PERRL, EOMI, sclerae normal, + pertinent finding ( conjunctivae pink) ENT: normal ENT inspection, pharynx normal, + pertinent finding (hearing impaired; dentition poor) Neck: supple, no adenopathy, thyroid normal, trachea midline, + JVD Respiratory/Chest: + respiratory distress, + rhonchi, + wheezing Cardiovascular: no edema, + JVD, + pertinent finding (distant heart sounds, no murmur or gallop appreciated, occasional ectopy) Abdomen/GI: normal bowel sounds, non tender, soft, no organomegaly, no pulsatile mass Extremities/Musculoskelatal: no calf tenderness, normal capillary refill, no pedal edema Neurologic/Psych: content administrator II-XII nml as tested (PERRL, EOMI, no facial palsy, no dysarthria, tongue midline), no motor/sensory deficits, alert, normal mood/ affect, oriented x 3 Skin: normal color, warm/dry, no rash, + pertinent finding (echymoses left ankle / foot) Lymphatic: no adenopathy Hospital Course 81M with hx of copd,, interstitial lung disease, systolic chf, hx of PE hx of metastatic colon cancer who was in hospital recently with similar complaints presented with acute respiratory failure from possible health care pneumonia. copd/interstitial lung disease flare and acute systolic chf. On abx, steroids, nebs and Lasix. Slowly improving. 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 As Cxr showed worsening chf. Started on iv Lasix 40mg daily. currently on Lasix 40mg daily, prednisone 50mg daily with plan for sow taper,completed abx course with Levaquin. Not improving. To continue current tx plan as per pulmonary.Notified heme/oncology the patient status. After heme/ onco recommendations will consult palliative care for further goals and plan. pt /ot. But declined to stay until Sunday. Feeling better and wanted to be discharged. Two step done and requiring oxygen 3lts while ambulating and 2lts while resting. ACUTE HYPOXIC RESPIRATORY FAILURE Underlying interstitial / obstructive lung disease. Recently in the hospital for pneumonia. Had Pulmonary embolism about 6 months ago. presented with sob and hypoxia. CTA chest done in ER negative for pulmonary embolism, but demonstrated possible pulmonary infiltrates and / or pulmonary edema. influenza negative improving with steroids, abx and received Lasix may need long steroid taper as per pulmonary currently on 50mg daily prednisone and to taper slowly feeling better and wanted to be discharged discharged on prednisone 50mg daily and further taper as per pulmonary neb machine ordered. Two step home oxygen evaluation done and requiring oxygen 3lts while ambulating and 2ts while resting f/u with pcp and pulmonary PROBABLE PNEUMONIA HCAP? CT chest suggests pulmonary infiltrates. Recent hospitalization for pneumonia. History of MRSA. On IV antibiotic therapy with levofloxacin, piperacillin / tazobactam, vancomycin mrsa swab negative Stopped vancomycin cx no growth was on Levaquin and Zosyn currently off of abx pulmonary on board and appreciate inputs stable EXACERBATION OBSTRUCTIVE LUNG DISEASE received solumedrol currently on prednisone 50mg daily To taper very slowly will d/w pulmonary refuses placement Two step home oxygen evaluation done and requiring oxygen 3lts while ambulating and 2ts while resting POSSIBLE acute on chronic systolic CHF CT - pulmonary edema. BNP elevated. Echo last month in clinic 45-50%. had iv lasix will f/u volume status and labs [id number] cxr shows worsening chf received iv lasix 40mg daily as renal function is ok and monitor' currently on po Lasix 40mg daily repeat cxr - no change discharged on lasix 40mg daily f/u with pcp and cardiology HEADACHES unremarkable CT head no complaints today HYPOPHOSPHATEMIA Serum phosphorus 2.1. replaced. METASTATIC COLON CA Management per Medical Oncology. 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 VTE PROPHYLAXIS / HISTORY OF PULMONARY EMBOLISM presented with inr 4.2 Coumadin held currently on Coumadin 4mg daily INR today 2.3 changed Coumadin back to 2.5mg daily f/u with Coumadin clinic Discharged home with home health Total time spent on discharge = 45MINUTES This includes examination of the patient, discharge planning, medication reconciliation, and communication with other providers. Discharge Instructions Please take this sheet to every appointment for the next month Discharge Instructions Admission Reason for Admission: Acute Respiratory Failure Discharge Discharge Diagnosis / Problem: ACUTE RESPIRATORY FAILURE, INTERSITAL LUNG DISEASE FLARE, ACUTE CHF Discharge Goals Goal(s): Decrease discomfort, Improve function Activity Recommendations Activity Limitations: resume your previous activity . Instructions / Follow-Up Instructions / Follow-Up FOLLOWUP WITH FAMILY DOCTOR ([place]) ON May AT 4:05PM FOLLOWUP WITH PULMONARY IN 1-2 WEEKS FOLLOWUP WITH ONCOLOGY IN 1-2 WEEKS. FOLLOWUP WITH CARDIOLOGY IN 2-3 WEEKS. FOLLOWUP WITH COUMADIN CLINIC IN 3-4 DAYS FOR COUMADIN DOSING. TO TAKE PREDNISONE 50MG DAILY UNTIL FURTHER TAPER BY PULMONARY. PREDNISONE CAN MAKE SUGARS GO HIGH TO USE INSULIN SLIDING SCALE IF NEEDED WHILE ON STEROIDS. INSULIN SLIDING SCALE WITH NOVOLOG: BLOOD SUGARS GOAL RANGE 120- 150 INSULIN SLIDING SCALE BLOOD SUGARS INSULIN 150-180 1 UNIT 180-210 2 UNITS 210-240 3 UNITS 240-270 4 UNITS 270-300 5 UNITS >300 6 UNITS AND CALL FAMILY DOCTOR. LAB: BMP WITH MG LEVELS IN ONE WEEK AND FOLLOW RESULTS WITH FAMILY DOCTOR. Call your Primary Care doctor if any of the following symptoms or problems start or get worse: * Shortness of breath or difficulty breathing * Wake up at night short of breath * Chest pain * Cough * Swelling of your hands, feet, or legs * More fatigued or tired with your normal activity * Palpitations - sudden fast heart beats WEIGHT * Weigh yourself every morning after using the bathroom. * Use the same scale. * Wear the same amount of clothing. * Write your weight down on a chart. * Call your Primary Care doctor if you gain more than 2-3 pounds in 1-2 days. MEDICATIONS * Use this discharge instruction sheet for medication instructions. * Take your medications at the time your doctor ordered. * Do not skip a dose of your medicines. * If you miss a dose of medicine, take it as soon as possible, but DO NOT DOUBLE A DOSE. * Read your medicine information when you get home. * Know all of the side effects of your medicine. If in doubt, ask your pharmacist * Call your Primary Care doctor's office if you have any side effects. * Be sure all of your doctors know what medicine and herbs you take (including cold, flu, and herbal medicine). Take the following with you to your follow-up doctor appointments: * Weight Chart * Medication List * List of questions Do not drink excessive alcohol, beer or wine. Current Hospital Diet Patient's current hospital diet: AHA Diet (Heart Healthy), Diabetes Type 2 Diet Discharge Diet Recommended Diet: AHA Diet (Heart Healthy) Pending Studies Studies pending at discharge: no Laboratory Results Hemoglobin A1c Test 05/27/16 06:10 Range/Units Estimated Average Glucose 114 mg/dl Hemoglobin A1c 5.6 4.5-5.6 % Medical Emergencies . Who to Call and When: Call 911 or go to the Emergency Room if: * If at any time you feel your situation is an emergency * You have tightness or pain in your chest that does not go away with rest or Nitroglycerin * You are very short of breath even with rest . Non-Emergent Contact Non-Emergency issues call your: Primary Care Provider . . "Provider Documentation" section prepared by Ron Finch. VTE Core Measure Inpt VTE Proph given/why not?: Warfarin (Coumadin)
--- NOTE | 2016-05-29 08:20 | EDITING REQUIRED CODING QUERY ---
CODING QUERY To promote full compliance with coding requirements relating to patient care, provider participation is requested in all cases of edge setter uncertainty. Please assist us with the question(s) below: Coding Question(s): There is documentation of possible Pneumonia. 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 Please clarify below, in your clinical opinion, regarding the Possible Pneumonia. ( X ) Possible Pneumonia is likely Hypersensitivity Pneumonitis from chemo ( ) Possible Pneumonia is likely healthcare Pneumonia, unspecified ( ) Possible Pneumonia is likely both Hypersensitivity Pneumonitis and HCAP Pneumonia ( ) Other Pneumonia, Specify Physician's Response(s): Thank you [place] Celis Principal Diagnosis: "_that condition established after study, to be chiefly responsible for occasioning the admission of the patient to the hospital for care." Co-Existing Principal Diagnosis: "_when two or more diagnoses equally meet the criteria for principal diagnosis as determined by the circumstances of admission, diagnostic work up, and/or therapy provided, and the Alphabetic Index, Tabular List, or another coding guideline does not provide sequencing direction, any one of the diagnoses may be sequenced first." "When the physician has documented what appears to be a current diagnosis in the body of the record, but has not included the diagnosis in the final diagnostic statement, the physician should be asked whether the diagnosis should be added." (Source Coding [facility] 2 QTR90. p3-4)
[2016-06-24] MEDS ORDERED: OXYC-57 PO ×2 (14:07→14:09)
[2016-06-24] MEDS ORDERED: CMD2 PO (14:07)
[2016-06-24] MEDS ORDERED: PRD20 PO (14:07)
== END 2016-05-27 18:05 | disposition home health service (06) | DRG 291 ==
LOC: ENRESERVDT → ENRESERVTM → EDBD 08:31 → C.EDB 08:34 → C.2E 12:08 → EDBEDREQ 12:45
PROVIDERS: ADMIT Hospitalist; ATTEND Internal Medicine
DX: I50.23 Acute on chronic systolic (congestive) heart failure (principal); J96.01 Acute respiratory failure with hypoxia; J44.1 Chronic obstructive pulmonary disease with (acute) exacerbation; C78.7 Secondary malignant neoplasm of liver and intrahepatic bile duct; C78.00 Secondary malignant neoplasm of unspecified lung; J70.2 Acute drug-induced interstitial lung disorders; T45.1X5A Adverse effect of antineoplastic and immunosuppressive drugs, initial encounter; E83.39 Other disorders of phosphorus metabolism; R51 Headache; R79.1 Abnormal coagulation profile; K59.00 Constipation, unspecified; I11.0 Hypertensive heart disease with heart failure; J45.909 Unspecified asthma, uncomplicated; I25.10 Atherosclerotic heart disease of native coronary artery without angina pectoris; E78.5 Hyperlipidemia, unspecified; E66.3 Overweight; Z79.899 Other long term (current) drug therapy; Z79.01 Long term (current) use of anticoagulants; Z79.82 Long term (current) use of aspirin; Z86.14 Personal history of Methicillin resistant Staphylococcus aureus infection; Z85.038 Personal history of other malignant neoplasm of large intestine; Z86.711 Personal history of pulmonary embolism; Z95.0 Presence of cardiac pacemaker; Z68.27 Body mass index [BMI] 27.0-27.9, adult; Z87.891 Personal history of nicotine dependence; Z80.9 Family history of malignant neoplasm, unspecified; Z82.49 Family history of ischemic heart disease and other diseases of the circulatory system

== ENCOUNTER 2016-06-13 13:12 | Inpatient (IN) | payer OTHER ==
[~2016-06-13] VITALS: Ht 180.3 cm; Wt 89.1 kg
[~2016-06-13 13:12] MED LIST changes: -AMOX1TAB43 PO; +ASPI-428 PO; +BISA-16 PO; -DXY100 PO; +IPRASOL4 PO; +LSX40 PO; +NVLGIPEN SC; +ONDA4TAB65 PO; +POTA8CAP6 PO; +RANI150T3 PO; +TAMS0.4C38 PO
[2016-06-13] MEDS ORDERED: METHYLPREDNISOLONE 125 MG VIAL IV STA (13:26)
[2016-06-13] MEDS ORDERED: FUROSEMIDE 40 MG/4 ML VIAL IV STA (13:26)
[2016-06-13 13:30] VITALS: PULSE 95; O2SAT 91
[2016-06-13] MEDS ORDERED: ALBUT/IPRATROP 3MG/0.5MG NEB 3 ML VIAL INH ONE (13:30)
[2016-06-13] MEDS ORDERED: TAMS0.4C38 PO (13:42)
[2016-06-13] MEDS ORDERED: CMD/25 PO (13:42)
[2016-06-13] MEDS ORDERED: NVLG SQ (13:42)
[2016-06-13] MEDS ORDERED: PRED10TA PO (13:42)
[2016-06-13] MEDS ORDERED: POTA8CAP6 PO (13:42)
[2016-06-13] MEDS ORDERED: MULTCAP33 PO (13:42)
[2016-06-13] MEDS ORDERED: RANI150T3 PO ×2 (13:42→15:49)
[2016-06-13] MEDS ORDERED: FURO40TA3 PO (13:42)
[2016-06-13] MEDS ORDERED: IPRASOL4 INH (13:42)
[2016-06-13] MEDS ORDERED: OMEP20CA9 PO (13:42)
[2016-06-13] MEDS ORDERED: ATOR-22 PO (13:42)
--- NOTE | 2016-06-13 13:45 | DIAGNOSTIC IMAGING REPORT ---
CHEST ONE VIEW PORTABLE CLINICAL HISTORY: Atypical chest pain COMPARISON STUDY: No previous studies for comparison. FINDINGS: The heart is enlarged. There is a right-sided A-Port catheter present. There is a left subclavian dual-chamber central venous pacemaker present. There are coarse bilateral interstitial pulmonary opacities. The findings could represent chronic interstitial lung disease, congestive failure superimposed on chronic lung disease, or a bilateral interstitial inflammatory process. Clinical and radiographic follow-up is recommended.[ IMPRESSION: Cardiomegaly and coarse bilateral interstitial opacities. Electronically signed by: Luciano Cm M.D. 06/13/2016 1:44 PM Dictated Date/Time: 06/13/2016 1:42 PM
[2016-06-13 13:52] LABS: MEAN CORPUSCULAR HEMOGLOBIN 30.3 pg (25-34); MEAN CORPUSCULAR HGB CONC 33.6 g/dl (32-36); MEAN PLATELET VOLUME 9.9 fL (7.4-10.4); PLATELET COUNT 134 K/uL (130-400)
[2016-06-13 14:01] LABS: POINT OF CARE TROPONIN I 0.04 ng/ml (0-0.045)
[2016-06-13 14:05] LABS: BUN/CREATININE RATIO 22.7 (10-20); CALCIUM 9.1 mg/dl (8.5-10.1); CREATININE 0.89 mg/dl (0.60-1.40); POTASSIUM 4.1 mmol/L (3.5-5.1)
[2016-06-13 14:07] LABS: PARTIAL THROMBOPLASTIN RATIO 1.3; PROTHROMBIN TIME (PATIENT) 22.1 SECONDS (9.0-12.0)
[2016-06-13 14:14] LABS: COMPLETE YES; IG% 2.5 %; NEUT % 89.5 %; POLYCHROMASIA 1+
[2016-06-13] MEDS ORDERED: ONDANSETRON INJ 2 MG/ML 2 ML VIAL IV PRN (15:45)
[2016-06-13] MEDS ORDERED: NITROGLYCERIN 0.4 MG SL PER TAB CHARGE SL PRN (15:45)
[2016-06-13] MEDS ORDERED: ACETAMINOPHEN 325 MG TAB PO PRN (15:45)
[2016-06-13] MEDS ORDERED: GLUCAGON FOR INJ 1 MG VIAL SQ PRN (16:00)
[2016-06-13] MEDS ORDERED: BISACODYL 5 MG TABEC PO PRN (16:00)
[2016-06-13] MEDS ORDERED: GLUCOSE 10 TABS/TUBE PO PRN (16:00)
[2016-06-13] MEDS ORDERED: GLUCOSE 40% GEL 15 GM TUBE PO PRN (16:00)
[2016-06-13] MEDS ORDERED: CEFTRIAXONE SOD INJ 1 GM in DEXTROSE 5% ADD-VANTAGE 50ML 50 ML IV SCH (16:00)
[2016-06-13] MEDS ORDERED: DEXTROSE 50% 50 ML SYR IV PRN (16:00)
[2016-06-13] MEDS ORDERED: VANCOMYCIN CONSULT ACTIVE PRN (16:12)
[2016-06-13] MEDS ORDERED: PHARMACY GLYCEMIC MGMT CONSULT PRN (16:20)
--- NOTE | 2016-06-13 16:27 | Pharmacy Progress Note ---
Pharmacy Antibiotic Consult Date of Service: Jun 13, 2016. Pharmacy Dosing Scope Pharmacy is consulted to initiate vancomycin/Zosyn IV dosing therapy, order appropriate labs and adjust drug dose/frequency. Subjective The patient is a 81 year old male admitted on 06/13/2016 for Pneumonia. There is concern regarding a hospital acquired pneumonia (recent hospitalization, prednisone use) VS aspiration. Therefore expanded coverage is warranted. He has a history of a + MRSA swab in 06/2015 but all additional swabs have been negative. Objective Height (Feet): 5 Height (Inches): 11.00 Weight (Kilograms): 90.000 Lab Results (24hrs): Laboratory Tests Test 06/13/16 13:35 BUN/Creatinine Ratio 22.7 Blood Urea Nitrogen 20 mg/dl Creatinine 0.89 mg/dl White Blood Count 12.40 K/uL Red Blood Count 4.00 M/uL Hemoglobin 12.1 g/dL Hematocrit 36.0 % Mean Corpuscular Volume 90.0 fL Mean Corpuscular Hemoglobin 30.3 pg Mean Corpuscular Hemoglobin Concent 33.6 g/dl Platelet Count 134 K/uL Mean Platelet Volume 9.9 fL Neutrophils (%) (Auto) 89.5 % Lymphocytes (%) (Auto) 4.0 % Monocytes (%) (Auto) 4.0 % Eosinophils (%) (Auto) 0.0 % Basophils (%) (Auto) 0.0 % Neutrophils # (Auto) 11.10 K/uL Lymphocytes # (Auto) 0.50 K/uL Monocytes # (Auto) 0.49 K/uL Eosinophils # (Auto) 0.00 K/uL Basophils # (Auto) 0.00 K/uL Assessment & Plan Loading dose: vancomycin 2250 mg (25 mg/kg) IV X 1 dose then: vancomycin 1350 mg IV every 12 hours (population pharmacokinetics suggest a half-life of 12 hours). Goal peak level estimate: between 35 - 40 mcg/mL. Goal trough level estimate: between 15 - 20 mcg/mL (due to pulmonary source). Trough has been ordered for: before the fourth dose ZOSYN: as the patient is not critically ill, Zosyn 3.375 IV x 1 then q8 hours was selected -due to the possibility of nephrotoxicity with Zosyn + vancomycin --> consider narrowing therapy as soon as possible. MRSA nasal swab was ordered. Pharmacy will continue to follow and will adjust dose/frequency as necessary. Thank you
--- NOTE | 2016-06-13 16:28 | History and Physical ---
History & Physical Date & Time of Service: Jun 13, 2016 at 16:00 Chief Complaint: SOB Primary Care Physician: Thony Carreno M.D. History of Present Illness Source: patient, family, clinic records, hospital records Patient seen and examined. 81 year old male recently admitted to this hospital from 05/11-05/27/15 with acute respiratory failure secondary to pneumonia versus chemo induced pneumonitis with PMHx of COPD, Interstitial lung disease, pulmonary embolism on Coumadin, systolic CHF, Complete AV block s/p pacemaker, HTN, HLD, and colon CA with mets presents to the ED today complaining of increased SOB x 1 week. Patient reports he was doing well upon discharge until last week when his prednisone was decreased from 50mg daily to 20 mg BID, the next day the patient reports he started to become more SOB, he resumed his 50mg daily but his symptoms continued to worsen. Today the patient reports he can not stand up without becoming extremely SOB. He reports associated cough with minimal sputum production, but states he feels like there is a lot of "junk" in his lungs that he can't cough up. He reports he is to use a flutter valve to help with this but it just arrived yesterday. He states he can hear rattling in his chest and sometimes wheezing. He has associated rhinorrhea. He reports he feels generally weak and wiped out. He states he was to have a speech eval and swallow study today for concerns about aspiration but he was too tired to do. He denies fevers, chills, chest pain, palpitations, dyspnea at rest, orthopnea, PND, nausea, vomiting, diarrhea, dysuria, calf pain and edema. He is on 4L oxygen chronically at home. He reports family has had flu like symptoms. In the ED patient is hypoxic on his 4L, other VS are stable, WBC count is 12K, BNP is 2.5K, CXR shows pneumonia, versus CHF. He received a duoneb, solu-medrol and lasix. He is resting comfortably, he will be admitted for further workup and treatment. 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 Status: Chronic (3) Coronary artery disease Permanent Comment: cath 1986 20% mid LAD stenosis; Lexiscan neg for ischemia 03/27/16 Status: Chronic (4) Dyslipidemia Status: Chronic (5) HTN (hypertension) Status: Chronic (6) LBBB (left bundle branch block) Status: Chronic (7) Metastatic colorectal cancer Permanent Comment: mets to lymphnodes; currently undergoing chemotherapy Status: Chronic (8) Obstructive lung disease Permanent Comment: Status: Chronic (9) Pneumoconiosis Status: Chronic (10) Pulmonary embolism Permanent Comment: 11/01/15 Status: Chronic Surgical Problems: (1) History of appendectomy Status: Chronic (2) History of cataract extraction with lens replacement Status: Chronic (3) History of cholecystectomy Status: Chronic (4) History of partial colectomy Permanent Comment: 06/2015 due to Colon CA performed by Dr. Wong Status: Chronic Family History Cancer BROTHER Diabetes mellitus FATHER MOTHER Heart disease MOTHER BROTHER SISTER Hypertension MOTHER Stroke SISTER Social History Smoking Status: Former Smoker Alcohol Use: none Housing status: lives alone Occupational Status: retired Allergies Coded Allergies: Procaine (Verified Adverse Reaction, Unknown, SWEATS, SOB, RAPID HEART BEAT, 05/11/16) Home Medications Scheduled Aspirin (Ecotrin Low Strength), 81 MG PO DAILY Atorvastatin (Lipitor), 20 MG PO QAM Atorvastatin (Lipitor), 20 MG PO DAILY Furosemide (Furosemide), 40 MG PO QAM Furosemide (Lasix), 40 MG PO DAILY Insulin Aspart (Novolog Flexpen), 0 UNITS SC ACHS Insulin Aspart (Novolog), 0 SQ UD Ipratropium-Albuterol (Duoneb), 1 INHA PO QID Ipratropium-Albuterol (Duoneb), 1 TREATMENT INH Q6H Multiple Vitamins W/ Minerals (Preservision Areds), 1 CAP PO DAILY Ocuvite Preservision (Ocuvite Preservision), 1 TAB PO QAM Omeprazole (Omeprazole), 20 MG PO QAM Omeprazole (Prilosec), 20 MG PO DAILY Ondansetron Hcl (Zofran), 4 MG PO PRN Potassium Chloride (Klor-Con Ext Rel), 8 MEQ PO DAILY Potassium Chloride (Klor-Con Ext Rel), 8 MEQ PO DAILY Prednisone Tab (Prednisone), 50 MG PO UD Prednisone Tab (Prednisone), 50 MG PO DAILY Ranitidine Hcl (Zantac), 150 MG PO PM Ranitidine Hcl (Zantac), 150 MG PO DAILY Tamsulosin Hcl (Flomax), 0.4 MG PO DAILY Warfarin Sod (Jantoven), 2.5 MG PO UD Warfarin Sod (Coumadin), 2.5 MG PO DAILY@1600 Scheduled PRN Albuterol Hfa (Ventolin Hfa), 2 PUFFS INH Q4 PRN for SOB/Wheezing Bisacodyl (Dulcolax), 2 TAB PO UD PRN for Constipation Oxycodone/Acetaminophen 5MG/325MG (Percocet 5MG/325MG), 1 TABLET PO Q6H PRN for Pain Miscellaneous Medications Tamsulosin Hcl (Flomax), 0.4 MG PO Review of Systems See above for pertinent positives & negatives. A total of 10 systems reviewed and were otherwise negative. Physical Exam Vital Signs Date Time Temp Pulse Resp B/P Pulse Ox O2 Delivery O2 Flow Rate FiO2 06/13/16 14:46 80 22 128/66 97 Room Air 06/13/16 14:23 80 06/13/16 14:11 96 Nebulizer 06/13/16 14:10 89 Nebulizer 06/13/16 13:48 97 20 144/62 98 Nebulizer 06/13/16 13:30 95 17 91 Nasal Cannula 4.0 06/13/16 13:30 91 Nasal Cannula 6.0 06/13/16 13:27 86 06/13/16 13:14 36.9 65 28 136/66 81 Nasal Cannula 4.0 General Appearance: + pertinent finding (Pleasant WD/WN 81 year old male lying in bed in NAD with family at bedside ) Head: normocephalic, atraumatic Eyes: PERRL, EOMI, sclerae normal ENT: pharynx normal, + pertinent finding (hearing grossly decreased ) Neck: supple, no JVD, trachea midline Respiratory/Chest: chest non-tender, no respiratory distress, no accessory muscle use, + crackles (bibasilar L>R, no wheezinge, no rales ) Cardiovascular: regular rate, rhythm, no edema, no gallop, no JVD, no murmur, normal peripheral pulses Abdomen/GI: normal bowel sounds, non tender, soft Back: normal inspection, no muscle spasm Extremities/Musculoskelatal: no calf tenderness, normal capillary refill, no pedal edema Neurologic/Psych: alert, oriented x 3, + pertinent finding (no focal deficits noted on gross exam ) Skin: normal color, warm/dry, no rash Lymphatic: no adenopathy Diagnostics Laboratory Results Results Past 24 Hours Test 06/13/16 13:35 06/13/16 13:41 06/13/16 15:49 Range/Units White Blood Count 12.40 4.8-10.8 K/uL Red Blood Count 4.00 4.7-6.1 M/uL Hemoglobin 12.1 14.0-18.0 g/dL Hematocrit 36.0 42-52 % Mean Corpuscular Volume 90.0 80-100 fL Mean Corpuscular Hemoglobin 30.3 25-34 pg Mean Corpuscular Hemoglobin Concent 33.6 32-36 g/dl Platelet Count 134 130-400 K/uL Mean Platelet Volume 9.9 7.4-10.4 fL Neutrophils (%) (Auto) 89.5 % Lymphocytes (%) (Auto) 4.0 % Monocytes (%) (Auto) 4.0 % Eosinophils (%) (Auto) 0.0 % Basophils (%) (Auto) 0.0 % Neutrophils # (Auto) 11.10 1.4-6.5 K/uL Lymphocytes # (Auto) 0.50 1.2-3.4 K/uL Monocytes # (Auto) 0.49 0.11-0.59 K/uL Eosinophils # (Auto) 0.00 0-0.5 K/uL Basophils # (Auto) 0.00 0-0.2 K/uL RDW Standard Deviation 56.1 36.4-46.3 fL RDW Coefficient of Variation 17.4 11.5-14.5 % Immature Granulocyte % (Auto) 2.5 % Immature Granulocyte # (Auto) 0.31 0.00-0.02 K/uL Polychromasia 1+ Prothrombin Time 22.1 9.0-12.0 SECONDS Prothromb Time International Ratio 2.0 0.9-1.1 Activated Partial Thromboplast Time 34.3 21.0-31.0 SECONDS Partial Thromboplastin Ratio 1.3 Sodium Level 133 136-145 mmol/L Potassium Level 4.1 3.5-5.1 mmol/L Chloride Level 97 98-107 mmol/L Carbon Dioxide Level 22 21-32 mmol/L Anion Gap 14.0 3-11 mmol/L Blood Urea Nitrogen 20 7-18 mg/dl Creatinine 0.89 0.60-1.40 mg/dl Est Creatinine Clear Calc Drug Dose 69.3 ml/min Estimated GFR () 92.9 Estimated GFR (Non- 80.2 BUN/Creatinine Ratio 22.7 10-20 Random Glucose 150 70-99 mg/dl Calcium Level 9.1 8.5-10.1 mg/dl Bedside Troponin I 0.040 0-0.045 ng/ml FD-Iiz-M-Type Natriuretic Peptide 2489 0-1800 pg/ml Microbiology Results 06/13/16 Blood Culture, Received Pending 06/13/16 Blood Culture, Received Pending Diagnostic Radiology CXR Per radiologist read: IMPRESSION: Cardiomegaly and coarse bilateral interstitial opacities. EKG Ventricular paced 76 BPM, QTc 483 Impression Assessment and Plan 81 year old male presents to the ED with increased SOB, symptoms started after tapering prednisone dose, has associated cough/congestion, generalized weakness ACUTE ON CHRONIC RESPIRATORY FAILURE -Admit to tele -Differential diagnosis to include Pneumonia, COPD exacerbation, Influenza, Acute CHF and other causes POSSIBLE PNEUMONIA -CXR nonspecific, symptoms concerning for PNA -? HCAP versus Aspiration pneumonia versus Flu -Blood cultures, sputum cultures pending -Check Flu PCR -WBC count 12K, check procalcitonin -Empirically treat with Zosyn and vancomycin -MRSA swab -Sputum cultures -Dysphagia screening, speech eval, aspiration precautions -Repeat CXR in AM -Supplemental oxygen, VS stable POSSIBLE COPD EXACERBATION -Symptoms worsening with taper of prednisone, ?superimposed PNA -Duonebs QID and prn SOB -Solu-Medrol 40mg q8h -Flutter Valve -Continue Supplemental oxygen -Pulmonology consult placed - Follows closely with Dr. Steel POSSIBLE ACUTE DECOMPENSATION OF SYSTOLIC CHF -BNP 2.5K, CXR cannot r/o CHF -Appears euvolemic, no weight gain, orthopnea, edema -Last echo with EF 40-45% -received 40mg IV Lasix in ED, will resume outpatient 40mg po dose -Repeat CXR in AM, I&Os, daily weights H/O PULMONARY EMBOLISM -INR therapeutic -continue Coumadin METASTATIC COLON CA -follows with Dr. Rosado -Previously pulmonology thought that chemo maybe causing pulmonary fibrosis -patient currently not on any treatment -followup with Heme/onc as previously schedule H/O MRSA -contact precautions -check MRSA swab H/O OF COMPLETE AV BLOCK -s/p pacemaker HLD -continue Statin BPH -continue Flomax GERD -continue PPI DVT PROPHYLAXIS: Coumadin CODE STATUS: LEVEL 5 DNR per my discussion with the patient and his son DISPO:In my clinical judgment this beneficiary meets acute admission criteria, established by [facility], that includes being hospitalized through two midnights. discharge planning eval Patient seen in collaboration with Dr. Isidro Attending Addendum Pt was seen and examined. Agree with Kinsey's PA exam, assessment and plan. 81 year old male recently admitted at [facility] in Apr for acute respiratory failure secondary to pneumonia versus chemo induced pneumonitis with PMHx of COPD, Interstitial lung disease, pulmonary embolism on Coumadin, systolic CHF, Complete AV block s/p pacemaker, HTN, HLD, and colon CA with mets, came the ED with c/o worsening SOB for the past week. General- mild respiratory distress Head- atraumatic Eyes- PERRL, EOMI ENT- oropharynx clear Neck- supple, no JVD Lungs- Coarse BS Heart- No murmur Abdomen- normal bowel sounds A/P Acute on chronic respiratory failure Possible related to Pneumonia Vs COPD exacerbation VS CHF exacerbation CXR showed Cardiomegaly and coarse bilateral interstitial opacities. Elevated BNP and procalcitonin level received lasix in the ER, continue lasix will start on abx with zosyn and vanco continue IV steroid consult pulmonary will check blood cx and sputum cx and influenza continue breathing treatment will repeat cxr in am continue monitor in tele Lab, imaging and EKG reviewed Please refer to Kinsey's PA documentation for other problems Remy Isidro MD VTE Prophylaxis VTE Risk Assessment Done? Y/N: Yes Risk Level: Moderate
[2016-06-13] MEDS ORDERED: PIPERACILL/TAZOBAC IV 3.375 GM in DEXTROSE 5% 100ML IV ONE (16:30)
[2016-06-13] MEDS ORDERED: PIPERACILL/TAZOBAC CONSULT ACTIVE PRN (16:30)
[2016-06-13] MEDS ORDERED: VANCOMYCIN INJ 2,250 MG in SODIUM CHLORIDE 0.9% 500ML 500 ML IV ONE (16:30)
[2016-06-13 17:45] VITALS: O2SAT 92; BMI 27.7
--- NOTE | 2016-06-13 19:09 | Pharmacy Progress Note ---
Glycemic Control Intl Consult Date of Service Jun 13, 2016. Scope Glycemic Pharmacist consulted by MARLON Jimenez on 06/13/16 for glycemic control and to write orders per [facility] inpatient glycemic control protocol Objective Weight (Kilograms): 90.000 Accuchecks BSG (last 24hrs): Test 06/13/16 13:35 Random Glucose 150 mg/dl (70-99) Laboratory Data (last 24hrs) Test 06/13/16 13:35 Anion Gap 14.0 mmol/L BUN/Creatinine Ratio 22.7 Blood Urea Nitrogen 20 mg/dl Creatinine 0.89 mg/dl Potassium Level 4.1 mmol/L Sodium Level 133 mmol/L White Blood Count 12.40 K/uL Red Blood Count 4.00 M/uL Hemoglobin 12.1 g/dL Hematocrit 36.0 % Mean Corpuscular Volume 90.0 fL Mean Corpuscular Hemoglobin 30.3 pg Mean Corpuscular Hemoglobin Concent 33.6 g/dl Platelet Count 134 K/uL Mean Platelet Volume 9.9 fL Neutrophils (%) (Auto) 89.5 % Lymphocytes (%) (Auto) 4.0 % Monocytes (%) (Auto) 4.0 % Eosinophils (%) (Auto) 0.0 % Basophils (%) (Auto) 0.0 % Neutrophils # (Auto) 11.10 K/uL Lymphocytes # (Auto) 0.50 K/uL Monocytes # (Auto) 0.49 K/uL Eosinophils # (Auto) 0.00 K/uL Basophils # (Auto) 0.00 K/uL HbA1c 05/27/16 Hgb A1c 5.6% Recent Pertinent Medications Outpatient Anti-diabetic Regimen: * N/A * A1c = 5.6% 05/27/16 The patient is currently receiving: * Basal insulin: none * Correctional Insulin: Novolog Correction per scale ACHS Goal Range: Low 100 mg/dL - High 140 mg/dL Correction Factor: 25 mg/dL/unit * Prandial insulin: Per carb ratio of 1 unit per 9 grams CHO consumed * Oral Agents: none Risk Factors for Insulin Resistance: * Steroids: Solumedrol 125 mg in ED, then 40 mg q8h * Infection: possible pneumonia, on Zosyn and vancomycin IV * Pressors: none * IVF: Zosyn mixed in D5W * Recent Surgery: no * Diet: type 2 diabetic AHA mechanical soft, aspiration precautions * Mechanical Ventilation: no Assessment & Plan ASSESSMENT: * ADA & AACE recommend a goal blood sugar range 140-180 mg/dl for the majority of critically ill & non-critically ill patients. However, more stringent targets may be selected in individual cases. * 81 yo with history of steroid-induced hyperglycemia, known to us from previous admission. Since he is usually normoglycemic on no meds, will start conservative Novolog correction factor, but no basal or carb ratio at this time. Will use somewhat higher goal range than initially ordered, to decrease risk of hypoglycemia in elderly patient. Will reassess in am. PLAN FOR INPATIENT GLYCEMIC CONTROL: * No basal insulin at this time * Correctional Insulin with NOVOLOG per scale ACHS or Q6hrs while NPO * Goal Range: Low 120 mg/dL - High 150 mg/dL * Correction Factor: 30 mg/dL/unit * No Nutritional / Prandial insulin at this time * Please note that the plan above was derived based on current level of insulin resistance and hospital stress. These recommendations are appropriate for inpatient admission only. Plan of care upon discharge will need to be reassessed to avoid potential outpatient hypo/hyperglycemia. Thank you.
[2016-06-13 19:39] VITALS: PULSE 69; O2SAT 95
[2016-06-13] MEDS: ALBUT/IPRATROP 3MG/0.5MG NEB 3 ML VIAL INH SCH (19:39)
[2016-06-13 20:00] VITALS: O2SAT 92
[2016-06-13] MEDS: WARFARIN SOD 2.5 MG TAB PO SCH (20:06)
[2016-06-13] MEDS: INSULIN ASPART 100 UNITS/ML 3 ML PEN SC SCH (20:13)
--- NOTE | 2016-06-13 20:22 | EMERGENCY ROOM VISIT NOTE ---
History Report prepared by Wanda: Leia Garcia Under the Supervision of: Dr. Rip Mahoney M.D. First contact with patient: 13:18 Chief Complaint: SHORTNESS OF BREATH Stated Complaint: SOB Nursing Triage Summary: triage note: Pt reports increased shortness of breath over several days. pt reports he has cancer - pt is unable to tell this triage nurse what kind of cancer. History of Present Illness The patient is a 81 year old male who presents to the Emergency Room with complaints of worsened shortness of breath over the past few days. It is worse with exertion. He also complains of chills. The patient has been feeling short of breath for the past several months and is on 4L oxygen at home. Yesterday afternoon, the home health nurse listened to his lungs and they sounded clear; however, his son heard his lungs rattling last evening. Per patient's family, the patient has metastatic colon cancer. He has had chemotherapy. The patient is on Coumadin due to a history of PEs. Denies fevers, chest pain, vomiting, diarrhea, black or bloody stools, leg swelling or pain, or other complaints. He is on Lasix. Source of History: patient Onset: a few days ago Position: other (Global - SOB) Timing: worsening Modifying Factors (Worsening): exertion Associated Symptoms: + chills, No chest pain, No diarrhea, No fevers, No hematochezia, No melena, No vomiting Review of Systems See HPI for pertinent positives & negatives. A total of 10 systems reviewed and were otherwise negative. 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 Social History Smoking Status: Former Smoker Current/Historical Medications Scheduled Aspirin (Ecotrin Low Strength), 81 MG PO DAILY Atorvastatin (Lipitor), 20 MG PO QAM Atorvastatin (Lipitor), 20 MG PO DAILY Furosemide (Furosemide), 40 MG PO QAM Furosemide (Lasix), 40 MG PO DAILY Insulin Aspart (Novolog Flexpen), 0 UNITS SC ACHS Insulin Aspart (Novolog), 0 SQ UD Ipratropium-Albuterol (Duoneb), 1 INHA PO QID Ipratropium-Albuterol (Duoneb), 1 TREATMENT INH Q6H Multiple Vitamins W/ Minerals (Preservision Areds), 1 CAP PO DAILY Ocuvite Preservision (Ocuvite Preservision), 1 TAB PO QAM Omeprazole (Omeprazole), 20 MG PO QAM Omeprazole (Prilosec), 20 MG PO DAILY Ondansetron Hcl (Zofran), 4 MG PO PRN Potassium Chloride (Klor-Con Ext Rel), 8 MEQ PO DAILY Potassium Chloride (Klor-Con Ext Rel), 8 MEQ PO DAILY Prednisone Tab (Prednisone), 50 MG PO UD Prednisone Tab (Prednisone), 50 MG PO DAILY Ranitidine Hcl (Zantac), 150 MG PO PM Ranitidine Hcl (Zantac), 150 MG PO DAILY Tamsulosin Hcl (Flomax), 0.4 MG PO DAILY Warfarin Sod (Jantoven), 2.5 MG PO UD Warfarin Sod (Coumadin), 2.5 MG PO DAILY@1600 Scheduled PRN Albuterol Hfa (Ventolin Hfa), 2 PUFFS INH Q4 PRN for SOB/Wheezing Bisacodyl (Dulcolax), 2 TAB PO UD PRN for Constipation Oxycodone/Acetaminophen 5MG/325MG (Percocet 5MG/325MG), 1 TABLET PO Q6H PRN for Pain Miscellaneous Medications Tamsulosin Hcl (Flomax), 0.4 MG PO Allergies Coded Allergies: Procaine (Verified Adverse Reaction, Unknown, SWEATS, SOB, RAPID HEART BEAT, 05/11/16) Physical Exam Vital Signs Date Time Temp Pulse Resp B/P Pulse Ox O2 Delivery O2 Flow Rate FiO2 06/13/16 14:46 80 22 128/66 97 Room Air 06/13/16 14:23 80 06/13/16 14:11 96 Nebulizer 06/13/16 14:10 89 Nebulizer 06/13/16 13:48 97 20 144/62 98 Nebulizer 06/13/16 13:30 95 17 91 Nasal Cannula 4.0 06/13/16 13:30 91 Nasal Cannula 6.0 06/13/16 13:27 86 06/13/16 13:14 36.9 65 28 136/66 81 Nasal Cannula 4.0 Physical Exam Constitutional: Vital signs reviewed. Noted to be hypoxic at 85% on 4L oxygen. Eyes: Pupils are equal round reactive to light. Conjunctiva are noninjected. ENT: Pharynx is clear without erythema or exudate. Mucous membranes are moist. Neck supple without meningeal signs. Respiratory: Bibasilar crackles to auscultation bilaterally. Breath sounds are equal bilaterally. Cardiovascular: Regular rate and rhythm. No rubs or gallops. GI: Soft, nondistended and nontender. Bowel sounds are present. Musculoskeletal: No peripheral edema. No lower extremity tenderness. Integumentary: No cyanosis. Neurological: The patient is awake and alert. No focal deficits. Psychiatric: Normal affect. Medical Decision & Procedures ER Provider Diagnostic Interpretation: X-ray results as stated below per interpretation by me and the radiologist: CHEST ONE VIEW PORTABLE CLINICAL HISTORY: Atypical chest pain COMPARISON STUDY: No previous studies for comparison. FINDINGS: The heart is enlarged. There is a right-sided A-Port catheter present. There is a left subclavian dual-chamber central venous pacemaker present. There are coarse bilateral interstitial pulmonary opacities. The findings could represent chronic interstitial lung disease, congestive failure superimposed on chronic lung disease, or a bilateral interstitial inflammatory process. Clinical and radiographic follow-up is recommended.[ IMPRESSION: Cardiomegaly and coarse bilateral interstitial opacities. Electronically signed by: Luciano Cm M.D. 06/13/2016 1:44 PM Dictated Date/Time: 06/13/2016 1:42 PM Laboratory Results 06/13/16 13:35 Red Blood Count 4.00, Mean Corpuscular Volume 90.0, Mean Corpuscular Hemoglobin 30.3, Mean Corpuscular Hemoglobin Concent 33.6, Mean Platelet Volume 9.9, Neutrophils (%) (Auto) 89.5, Lymphocytes (%) (Auto) 4.0, Monocytes (%) (Auto) 4.0, Eosinophils (%) (Auto) 0.0, Basophils (%) (Auto) 0.0, Neutrophils # (Auto) 11.10, Lymphocytes # (Auto) 0.50, Monocytes # (Auto) 0.49, Eosinophils # (Auto) 0.00, Basophils # (Auto) 0.00 06/13/16 13:35 Test 06/13/16 13:35 06/13/16 13:41 White Blood Count 12.40 K/uL (4.8-10.8) Red Blood Count 4.00 M/uL (4.7-6.1) Hemoglobin 12.1 g/dL (14.0-18.0) Hematocrit 36.0 % (42-52) Mean Corpuscular Volume 90.0 fL (80-100) Mean Corpuscular Hemoglobin 30.3 pg (25-34) Mean Corpuscular Hemoglobin Concent 33.6 g/dl (32-36) Platelet Count 134 K/uL (130-400) Mean Platelet Volume 9.9 fL (7.4-10.4) Neutrophils (%) (Auto) 89.5 % Lymphocytes (%) (Auto) 4.0 % Monocytes (%) (Auto) 4.0 % Eosinophils (%) (Auto) 0.0 % Basophils (%) (Auto) 0.0 % Neutrophils # (Auto) 11.10 K/uL (1.4-6.5) Lymphocytes # (Auto) 0.50 K/uL (1.2-3.4) Monocytes # (Auto) 0.49 K/uL (0.11-0.59) Eosinophils # (Auto) 0.00 K/uL (0-0.5) Basophils # (Auto) 0.00 K/uL (0-0.2) RDW Standard Deviation 56.1 fL (36.4-46.3) RDW Coefficient of Variation 17.4 % (11.5-14.5) Immature Granulocyte % (Auto) 2.5 % Immature Granulocyte # (Auto) 0.31 K/uL (0.00-0.02) Polychromasia 1+ Prothrombin Time 22.1 SECONDS (9.0-12.0) Prothromb Time International Ratio 2.0 (0.9-1.1) Activated Partial Thromboplast Time 34.3 SECONDS (21.0-31.0) Partial Thromboplastin Ratio 1.3 Anion Gap 14.0 mmol/L (3-11) Est Creatinine Clear Calc Drug Dose 69.3 ml/min Estimated GFR () 92.9 Estimated GFR (Non- 80.2 BUN/Creatinine Ratio 22.7 (10-20) Calcium Level 9.1 mg/dl (8.5-10.1) Procalcitonin 2.30 ng/mL (0-0.5) Bedside Troponin I 0.040 ng/ml (0-0.045) CK-Enk-R-Type Natriuretic Peptide 2489 pg/ml (0-1800) Laboratory results as reviewed by me. Medications Administered Medications (Trade) Dose Ordered Sig/Karie Route Start Time Stop Time Status Last Admin Dose Admin Albuterol/ Ipratropium (Duoneb) 12 ml ONE ONCE INH 06/13/16 13:30 06/13/16 13:31 DC 06/13/16 13:30 12 ML Methylprednisolone Sodium Succinate (Solu-Medrol IV) 125 mg NOW STAT IV 06/13/16 13:26 06/13/16 13:28 DC 06/13/16 13:41 125 MG Furosemide (Lasix Inj) 40 mg NOW STAT IV 06/13/16 13:26 06/13/16 13:28 DC 06/13/16 13:42 40 MG ECG Indication: SOB/dyspnea Rate (beats per minute): 76 Rhythm: other (ventricularly paced) Findings: PVC, no acute ischemic change ED Course 1318: The patient was evaluated in room B1. A complete history and physical exam was performed. 1326: Ordered Lasix Inj 125 mg IV, Solu-Medrol 125 mg IV, DuoNeb 12 ml INH. 1445: I reassessed the patient and discussed test results with him. He was still feeling short of breath and "washed out." He was 99% on a nebulizer. He had no wheezing on exam and improved air entry. 1457: I discussed the case with [facility]. The patient will be evaluated for further management. Medical Decision This is an 81-year-old male who presents with shortness of breath. Differential diagnosis includes CHF, COPD, acute coronary syndrome, anemia, pneumonia. I did perform a limited focused review of portions of the patient's old chart on the electronic medical record. He was admitted in April of last year for acute respiratory failure, interstitial lung disease, COPD, and CHF exacerbation. He had a CT chest which did not show any signs of pulmonary embolism. I did evaluate the patient as noted above. The patient is hypoxemic on supplemental oxygen. He is in respiratory distress. He was placed on a hour- long DuoNeb and his saturations improved. IV access was established. The patient was placed on a continuous monitoring analyst. I did treat him with Lasix IV. He was also given Solu-Medrol IV. I did order and personally review the patient's 12-lead EKG and chest x-ray as described above. I did order and review the patient's blood work as noted in the electronic medical record. INR is 2.0. Troponin is negative. I did reassess the patient. He is feeling better. He has better air entry on examination I did discuss the test results and recommended hospitalization as he is still short of breath than feeling extremely weak. I did discuss the case with the hospitalist and pillowcase sewer. Consults Time Called: [phone] Consulting Physician[facility] Returned Call: [phone] I discussed the case with her. The patient will be evaluated for further management. Impression Primary Impression: Hypoxia Additional Impressions: COPD exacerbation CHF exacerbation Critical Care I have personally spent greater than 30 minutes of critical care time in the direct management of this patient. This includes bedside care, interpretation of diagnostic studies, and testing, discussion with consultants, patient, and family members, and other required patient management activities. This 30 minutes is in excess of all separately billable procedures. Scribe Attestation The scribe's documentation has been prepared under my direct and personally reviewed by me in its entirety. I confirm that the note above accurately reflects all work, treatment, procedures, and medical decision making performed by me. Departure Information Dispostion Being Evaluated By Hospitalist Referrals No Doctor, Assigned (PCP) Patient Instructions My [facility] Problem Qualifiers Additional Impressions: CHF exacerbation Congestive heart failure type: unspecified congestive heart failure type Qualified Codes: I50.9 - Heart failure, unspecified
[2016-06-13 20:34] VITALS: BP 108/60; PULSE 101; TEMP 36.5; O2SAT 92
[2016-06-13] MEDS: METHYLPREDNISOLONE IV 40 MG in SYRINGE 0 ML IV SCH (22:15)
[2016-06-13] MEDS: PIPERACILL/TAZOBAC IV 3.375 GM in DEXTROSE 5% 100ML IV SCH (22:15)
[2016-06-13 22:42] LABS: INFLUENZA A PCR Neg for Influ A (NEG); INFLUENZA B PCR Neg for Influ B (NEG)
[2016-06-13 23:52] VITALS: BP 109/68; PULSE 77; TEMP 36.8; O2SAT 92
[2016-06-14] VITALS (10 sets, daily range): BP systolic 108–148; BP diastolic 60–80; PULSE 73–110; TEMP 35.9–36.4; O2SAT 89–98; Ht 180.3 cm; Wt 89.1 kg
[2016-06-14] MEDS ORDERED: VANCOMYCIN INJ 1,350 MG in SODIUM CHLORIDE 0.9% 250ML 250 ML IV SCH (04:00)
[2016-06-14 05:31] LABS: HEMATOCRIT 27.6 % (42-52); MEAN CORPUSCULAR HGB CONC 33.7 g/dl (32-36); MEAN PLATELET VOLUME 10.1 fL (7.4-10.4); PLATELET COUNT 105 K/uL (130-400); RED BLOOD COUNT 3.21 M/uL (4.7-6.1); WHITE BLOOD COUNT 3.19 K/uL (4.8-10.8)
[2016-06-14 05:51] LABS: INR 1.8 (0.9-1.1); PARTIAL THROMBOPLASTIN RATIO 1.5; PROTHROMBIN TIME (PATIENT) 19.8 SECONDS (9.0-12.0)
[2016-06-14 06:06] LABS: BUN/CREATININE RATIO 23.2 (10-20); CALCIUM 8.7 mg/dl (8.5-10.1); CREATININE 0.75 mg/dl (0.60-1.40); MAGNESIUM 2.3 mg/dl (1.8-2.4); POTASSIUM 3.6 mmol/L (3.5-5.1)
[2016-06-14] MEDS: METHYLPREDNISOLONE IV 40 MG in SYRINGE 0 ML IV SCH ×3 (06:36→20:37)
[2016-06-14] MEDS: PIPERACILL/TAZOBAC IV 3.375 GM in DEXTROSE 5% 100ML IV SCH ×3 (06:36→20:38)
[2016-06-14 06:58] LABS: HYPERSEGMENTED POLYS OCCASIONAL
[2016-06-14] MEDS: INSULIN ASPART 100 UNITS/ML 3 ML PEN SC SCH ×4 (07:00→20:39)
[2016-06-14] MEDS: ALBUT/IPRATROP 3MG/0.5MG NEB 3 ML VIAL INH SCH ×4 (07:01→18:53)
[2016-06-14] MEDS: PANTOprazole SOD 40 MG TAB PO SCH (07:42)
[2016-06-14] MEDS: ATORVASTATIN 20 MG TAB PO SCH (07:43)
[2016-06-14] MEDS: CEROVITE ADV FORMULA TAB PO SCH (07:43)
[2016-06-14] MEDS: TAMSULOSIN HCL 0.4 MG CAP PO SCH (07:43)
[2016-06-14] MEDS: POTASSIUM CHLORIDE 10 MEQ TABCR PO SCH (07:43)
[2016-06-14] MEDS: RANITIDINE HCL 150 MG TAB PO SCH (07:43)
[2016-06-14] MEDS: ASPIRIN 81 MG ECTAB PO SCH (07:43)
[2016-06-14] MEDS: FUROSEMIDE 40 MG TAB PO SCH (07:44)
--- NOTE | 2016-06-14 08:52 | DIAGNOSTIC IMAGING REPORT ---
CHEST 2 VIEWS ROUTINE CLINICAL HISTORY: Congestive heart failure versus pneumonia. COMPARISON STUDY: 06/13/2016 FINDINGS: The heart remains enlarged. There is a left subclavian dual-chamber central venous pacemaker. There is a right-sided A-Port catheter. There are diffuse bilateral interstitial pulmonary opacities, similar to the preceding study. No significant pleural effusions are evident.[ IMPRESSION: Stable findings. Persistent cardiac enlargement and diffuse bilateral interstitial pulmonary opacities Electronically signed by: Luciano Cm M.D. 06/14/2016 8:50 AM Dictated Date/Time: 06/14/2016 8:49 AM
--- NOTE | 2016-06-14 10:29 | PULMONARY CONSULTATION ---
DATE OF CONSULTATION: 06/14/2016 TIME: 9:45 a.m. HISTORY OF PRESENT ILLNESS: The patient was seen in room 232. He is an 81-year-old male who was admitted yesterday with severe shortness of breath. The patient has a longstanding history of issues. In June of 2015, he had a colon resection for colon cancer. There was metastatic disease to 4 lymph nodes. He was categorized as a T3 M2a. He did receive chemotherapy. In October of 2015, he was diagnosed with pulmonary embolism. He was hospitalized from April 25 through May 02 with apparent pneumonia. He returned again on May 11 and was hospitalized until May 27. At that point in time, it was thought that perhaps he had a reaction to chemotherapy in light of the fact his symptoms and x-rays had not dramatically improved despite adequate antibiotic therapy. He was then started on prednisone. Clinically, he was improving. At the time of discharge, the patient went home on 50 mg a day. He was followed up by Dr. Steel. The patient states he was doing great for quite a while. However, several members of his family became ill with respiratory type illnesses. This included his son and [id number]. The patient believes that he became ill with a respiratory illness. In the 3 days or so prior to admission, he was getting much weaker than normal. He also had increasing shortness of breath. Yesterday, he was scheduled to have a swallow evaluation because there was some concern about possible aspiration. The patient felt too weak to undergo the swallow test and went immediately to the emergency room where he was evaluated and then admitted. He has a cough. The cough has been productive for only a small amount of phlegm and that was this morning. He states he did not see it well because of macular degeneration but he thinks it was white in color. He is not feeling as tight in the chest as he did yesterday. At home, he had been feeling some congestion and wheezing. He has had some nasal coryza. He is not aware of any fevers or chills or sweats. His appetite has been unchanged from his normal. The patient had been on oxygen at home at 4 liters. He states that for a while when he was feeling good he was not even wearing the oxygen. His oxygen saturation in the ER was as low as 81% on 4 liters. PAST SURGICAL HISTORY: 1. Pacemaker insertion. 2. Appendectomy. 3. Cataract surgeries. 4. Cholecystectomy. 5. Partial colectomy. 6. Port-A-Cath insertion. PAST MEDICAL HISTORY: 1. Coronary artery disease. 2. Congestive heart failure. 3. Hyperlipidemia. 4. Hypertension. 5. Anxiety. SOCIAL HISTORY: Tobacco; the patient quit smoking about 25 years ago. He smoked 1 pack per day for 30-35 years. ETOH -- is rare. ALLERGIES: LISTED ALLERGY TO NOVOCAIN. He states he did have Xylocaine given to him when he had a partial amputation of the finger. He states they used Xylocaine, but took the preservative out. FAMILY HISTORY: Positive for cancer, diabetes and heart disease. There also is a history of stroke. MEDICATIONS: At home: 1. Aspirin 81 mg daily. 2. Lipitor 20 mg daily. 3. Furosemide 40 mg daily. 4. NovoLog a.c. and at bedtime. 5. DuoNeb q.i.d. 6. Omeprazole 20 mg daily. 7. Zofran p.r.n. 8. Potassium 8 mEq daily. 9. Prednisone 50 mg daily. 10. Ranitidine 150 mg daily. 11. Tamsulosin 0.4 mg daily. 12. Coumadin 2.5 mg daily. 13. Ventolin HFA p.r.n. 14. Percocet p.r.n. REVIEW OF SYSTEMS: GENERAL: The patient's energy level has been low. NEUROLOGIC: He has been weak but denies any syncope or near syncope. OPHTHALMIC: The patient has decreased visual acuity. He states from macular degeneration. ENT: The patient has hearing loss. He recounts having a lot of nasal mucous with some blood in over the past couple weeks. He thought he might have a sinus infection. CARDIAC: Denies chest pains or palpitations. PULMONARY: As noted above. GASTROINTESTINAL: The patient states his appetite has been fair. No major problems. Denies any bowel complaints at present. GENITOURINARY: Denies complaints. MUSCULOSKELETAL: Denies myalgias or arthralgias. DERMATOLOGIC: Denies rashes. ENDOCRINE: No lymphadenopathy. PHYSICAL EXAMINATION: GENERAL: The patient is an 81-year-old male who was cooperative, alert and oriented. He seemed anxious. VITAL SIGNS: The patient is afebrile. Most recent temperature 35.9. Heart rate is 74 per minute. Blood pressure 115/65. Respiratory rate 20 breaths per minute. Saturation was 91% on 4 liters. HEENT: Eye exam suggest prior cataract surgery. Nares were unremarkable. Mouth exam was unremarkable. NECK: Palpation of the neck reveals no lymph nodes or masses. CHEST AND LUNGS: Normal expansion and development. The rhythm was somewhat irregular. Rales were heard bilaterally posteriorly. Some mild wheeze on expiration was heard as well. ABDOMEN: Soft. He has multiple scars from prior surgeries. There was no tenderness to palpation, masses or organomegaly. EXTREMITIES: Showed no cyanosis, clubbing or edema. IMAGING DATA: Chest x-rays were done yesterday and today. This shows cardiac enlargement. There is a right-sided Port-A-Cath. There is a pacemaker in place. He has what appears to be diffuse interstitial changes in both lower lung key, but somewhat greater on the left than on the right. I compared this with the prior x-ray done May 16. The left-sided interstitial infiltrates appear increased and the right side appears somewhat decreased in my opinion. LABORATORY DATA: White count yesterday was 12.4, but today was down to 3.19. Hemoglobin yesterday was 12.1, but today is down to 9.3. Platelets yesterday were 134,000 and today was 105,000. Sputum has not yet been obtained. Nasal swab for MRSA was negative. Blood cultures are pending. INR was 1.8 and PTT was 37.8. Electrolytes show sodium 137, potassium 3.6, chloride 100, bicarbonate 27. BUN was 17 with a creatinine of 0.75. Glucose today was 179. BNP was 2489. This would be modestly elevated. Troponin was 0.04. IMPRESSION: 1. Acute respiratory failure with hypoxia. 2. Interstitial lung disease -- questionable secondary to chemotherapy. 3. Rule out pneumonia. 4. Emphysema. 5. Colon cancer. COMMENTS AND RECOMMENDATIONS: The patient feels better today. This is probably related to receiving antibiotics and steroids. He still feels very weak. The exact etiology of the infiltrates is not clear. At the time of his prior hospital stay, it was hypothesized that may have been related to his chemotherapy. By review of prior notes, he had been on irinotecan which rarely can have an acute pulmonary reaction. I do not think we know with certainty. His overall status is fair. He does not look dramatically different than at the time of his last hospital stay. Thankfully, he is feeling better today. I would continue with the antibiotics. Currently, he is on vancomycin and Zosyn because of having been hospitalized recently. We would continue the DuoNebs. We would also continue the Solu-Medrol 40 mg IV q. 8 hours. As he gets better, that can be transitioned back to his prednisone where he ultimately will be discharged on 50 mg. He can then ultimately follow up with Dr. Steel. The patient needs a followup CBC in light of the fact that his white count, hemoglobin, and platelets have all diminished quite a bit compared with yesterday. Thank you for asking me to assist in his care.
--- NOTE | 2016-06-14 13:49 | Pharmacy Progress Note ---
Glycemic: Assessment & Plan Date of Service Jun 14, 2016. Assessment & Plan Assessment * Patient on prednisone 50 mg po daily at home, now increased to methylprednisolone 40 mg IV q8h - continue current dose per pulmonary * Was on Novolog sliding scale ACHS at home (goal 120-150 mg/dL, correction factor 30 mg/dL/unit) * BSG's trended up at lunch 2nd steroid-induced hyperglycemia. Will add on carb ratio. * AM fasting BSG elevated to 150 mg/dL this AM - may consider adding low-dose Lantus if AM fasting BSG's remain elevated Plan * Basal insulin: None for now - may consider adding 06/15 AM * Correctional Insulin: Novolog Correction per scale ACHS Goal Range: Low 120 mg/dL - High 160 mg/dL Correction Factor: 30 mg/dL/unit * Prandial insulin: Add carb ratio of 1 unit per 11 grams CHO consumed Pharmacy will continue to monitor patient daily and write orders per [facility] inpatient glycemic control protocol. Thanks. * Please note that the plan above was derived based on current level of insulin resistance and hospital stress. These recommendations are appropriate for inpatient admission only. Plan of care upon discharge will need to be reassessed to avoid potential outpatient hypo/hyperglycemia.
[2016-06-14] MEDS: WARFARIN SOD 2.5 MG TAB PO SCH (17:12)
--- NOTE | 2016-06-14 22:34 | Progress Note ---
Medicine Progress Note Date & Time of Visit: Jun 14, 2016 at 12:51. Subjective appears fatigued, somewhat winded states that he still gets acutely SOB when standing at bedside Reports that over the last couple of weeks there were 2 hr time blocks that he could remove his oxygen and walk around He got a URI when family members were sick, which caused him to be less responsive to the prednisone and more SOB. Denies chest pain today. Declined swallow study as he feels too tired to stand for it. Couldn't stand for CXR this morning either Objective Last 8 Hrs Date Time Temp Pulse Resp B/P Pulse Ox O2 Delivery O2 Flow Rate FiO2 06/14/16 12:00 Nasal Cannula 06/14/16 11:43 36.4 83 20 108/63 92 Nasal Cannula 4.0 06/14/16 11:11 80 20 90 Nasal Cannula 4.0 06/14/16 08:00 Nasal Cannula 06/14/16 08:00 35.9 73 20 115/65 91 06/14/16 07:01 76 20 92 Nasal Cannula 4.0 Physical Exam: GEN: WNWD, in no acute distress, alert and appropriate, oxygen in place via NC HEENT: NC/AT, normal sclerae CARDIO: reg rate, S1/2 heard without m/g/r LUNGS: CTA bilaterally, no crackles, rales or wheezes, good diaphragmatic excursion ABD: soft, non-tender, non-distended, no rebound or guarding EXTREMITY: no LE swelling or edema, extremities are warm and well-perfused NEURO: CN 2-12 grossly intact, sensation intact throughout MUSC: moves all extremities equally, no gross focal deficits SKIN: warm and dry Laboratory Results: Last 24 Hours Test 06/13/16 13:35 06/13/16 13:41 06/13/16 19:50 06/13/16 21:16 White Blood Count 12.40 K/uL Red Blood Count 4.00 M/uL Hemoglobin 12.1 g/dL Hematocrit 36.0 % Mean Corpuscular Volume 90.0 fL Mean Corpuscular Hemoglobin 30.3 pg Mean Corpuscular Hemoglobin Concent 33.6 g/dl Platelet Count 134 K/uL Mean Platelet Volume 9.9 fL Neutrophils (%) (Auto) 89.5 % Lymphocytes (%) (Auto) 4.0 % Monocytes (%) (Auto) 4.0 % Eosinophils (%) (Auto) 0.0 % Basophils (%) (Auto) 0.0 % Neutrophils # (Auto) 11.10 K/uL Lymphocytes # (Auto) 0.50 K/uL Monocytes # (Auto) 0.49 K/uL Eosinophils # (Auto) 0.00 K/uL Basophils # (Auto) 0.00 K/uL RDW Standard Deviation 56.1 fL RDW Coefficient of Variation 17.4 % Immature Granulocyte % (Auto) 2.5 % Immature Granulocyte # (Auto) 0.31 K/uL Hypersegmented Polys OCCASIONAL Polychromasia 1+ Prothrombin Time 22.1 SECONDS Prothromb Time International Ratio 2.0 Activated Partial Thromboplast Time 34.3 SECONDS Partial Thromboplastin Ratio 1.3 Sodium Level 133 mmol/L Potassium Level 4.1 mmol/L Chloride Level 97 mmol/L Carbon Dioxide Level 22 mmol/L Anion Gap 14.0 mmol/L Blood Urea Nitrogen 20 mg/dl Creatinine 0.89 mg/dl Est Creatinine Clear Calc Drug Dose 69.3 ml/min Estimated GFR () 92.9 Estimated GFR (Non- 80.2 BUN/Creatinine Ratio 22.7 Random Glucose 150 mg/dl Calcium Level 9.1 mg/dl Procalcitonin 2.30 ng/mL Bedside Troponin I 0.040 ng/ml UT-Ire-H-Type Natriuretic Peptide 2489 pg/ml Bedside Glucose 277 mg/dl Influenza Type A (RT-PCR) Neg for Influ A Influenza Type B (RT-PCR) Neg for Influ B Test 06/14/16 04:50 06/14/16 06:48 06/14/16 10:56 White Blood Count 3.19 K/uL Red Blood Count 3.21 M/uL Hemoglobin 9.3 g/dL Hematocrit 27.6 % Mean Corpuscular Volume 86.0 fL Mean Corpuscular Hemoglobin 29.0 pg Mean Corpuscular Hemoglobin Concent 33.7 g/dl RDW Standard Deviation 53.9 fL RDW Coefficient of Variation 17.0 % Platelet Count 105 K/uL Mean Platelet Volume 10.1 fL Prothrombin Time 19.8 SECONDS Prothromb Time International Ratio 1.8 Activated Partial Thromboplast Time 37.8 SECONDS Partial Thromboplastin Ratio 1.5 Sodium Level 137 mmol/L Potassium Level 3.6 mmol/L Chloride Level 100 mmol/L Carbon Dioxide Level 27 mmol/L Anion Gap 10.0 mmol/L Blood Urea Nitrogen 17 mg/dl Creatinine 0.75 mg/dl Est Creatinine Clear Calc Drug Dose 82.2 ml/min Estimated GFR () 99.7 Estimated GFR (Non- 86.0 BUN/Creatinine Ratio 23.2 Random Glucose 179 mg/dl Calcium Level 8.7 mg/dl Magnesium Level 2.3 mg/dl Procalcitonin 1.38 ng/mL Bedside Glucose 150 mg/dl 218 mg/dl Date/Time Source Procedure Growth Status 06/13/16 13:35 Blood Blood Culture Pending Received 06/13/16 13:30 Blood Blood Culture Pending Received 06/13/16 21:16 Nasal MRSA DNA Surveillance Screen - Final Specimen Negative for MRSA by DNA Probe Complete Assessment & Plan 81 year old male presents to the ED with increased SOB, symptoms started after tapering prednisone dose, has associated cough/congestion, generalized weakness IMPRESSION: 1. Acute on chronic respiratory failure-etiologies including but not limited to chemo-induced pneumonitis ([employer]SE [employer]IST-ILD), persistent or reinfection with pneumonia , new aspiration with known elevated risk. Recent URI and sick contacts with family. Pt felt he had a sinus infection recently. CXR with residual bilateral interstitial pneumonia 2. CHF, systolic, chronic-no acute decompensation on exam. Hypoxia attributed to lung issues. -Appears euvolemic, no weight gain, orthopnea, edema -Last echo with EF 40-45% -received 40mg IV Lasix in ED 3. H/o PE 4. Colon cancer with mets-follows with Dr. Barkley, off chemotherapy at this time. 5. h/o MRSA-swab negative today. Three consecutives have been negative so need to check with infection control re: clearance. 6. H/O 3AVB s/p PM 7. BPH 8. GERD PLAN: -Cont Zosyn, Vanc d/c'd with negative MRSA swab -blood cultures/sputum cultures are still pending -reattempt speech assessment with video swallow study when feeling better and can stand for the procedure -cont aspiration precautions -cont oxygen supplementation -Flu PCR negative -cont IV steroids (solumedrol 40mg q6h) until pulm feels appropriate to taper to PO prednisone. -cont Duonebs -flutter valve -cont home Lasix 40mg PO daily -cont Coumadin for goal INR 2-3, daily INR -cont Flomax -Cont Protonix DVT PROPHYLAXIS: Coumadin DNR DO Stephanie Navarro Hospitalist Consultants: Pulfernandez Current Inpatient Medications: Current Inpatient Medications Medications (Trade) Dose Ordered Sig/Karie Route Start Time Stop Time Status Last Admin Dose Admin Acetaminophen (Tylenol Tab) 650 mg Q4H PRN PO 06/13/16 15:45 07/13/16 15:44 Ondansetron HCl (Zofran Inj) 4 mg Q6H PRN IV 06/13/16 15:45 07/13/16 15:44 Nitroglycerin (Nitrostat Tab) 0.4 mg UD PRN SL 06/13/16 15:45 07/13/16 15:44 Aspirin (Ecotrin Tab) 81 mg DAILY PO 06/14/16 09:00 07/14/16 08:59 06/14/16 07:43 81 MG Atorvastatin Calcium (Lipitor Tab) 20 mg QAM PO 06/14/16 09:00 07/14/16 08:59 06/14/16 07:43 20 MG Bisacodyl (Dulcolax Tab) 10 mg DAILY PRN PO 06/13/16 16:00 07/13/16 15:59 Furosemide (Lasix Tab) 40 mg QAM PO 06/14/16 09:00 07/14/16 08:59 06/14/16 07:44 40 MG Multivitamins/ Minerals (Multivitamin W/ Minerals Tab) 1 tab QAM PO 06/14/16 09:00 07/14/16 08:59 06/14/16 07:43 1 TAB Ranitidine HCl (zANTac TAB) 150 mg DAILY PO 06/14/16 09:00 07/14/16 08:59 06/14/16 07:43 150 MG Tamsulosin HCl (Flomax Cap) 0.4 mg DAILY PO 06/14/16 09:00 07/14/16 08:59 06/14/16 07:43 0.4 MG Warfarin Sodium (Coumadin Tab) 2.5 mg DAILY@1600 PO 06/13/16 16:00 07/13/16 15:59 06/13/16 20:06 2.5 MG Pantoprazole Sodium (Protonix Tab) 40 mg QAM PO 06/14/16 09:00 07/14/16 08:59 06/14/16 07:42 40 MG Oxycodone/ Acetaminophen (Percocet 5-325mg Tab) 1 tab Q6H PRN PO 06/13/16 16:00 06/27/16 15:59 Albuterol/ Ipratropium 3 ml 3 ml QIDR INH 06/13/16 16:00 07/13/16 15:59 06/14/16 11:11 3 ML Methylprednisolone Sodium Succinate/ Syringe (Solu-Medrol IV/ Syringe) 0.64 ml @ 1.5 mls/min Q8 IV 06/13/16 22:00 07/13/16 21:59 06/14/16 06:36 1.5 MLS/MIN Insulin Aspart (novoLOG ASPART) SLIDING SCALE If C... ACHS SC 06/13/16 21:00 07/13/16 20:59 06/14/16 12:24 3 UNITS Glucose (Glucose 40% Gel) 15-30 GRAMS 15 GRAMS... UD PRN PO 06/13/16 16:00 07/13/16 15:59 Glucose (Glucose Chew Tab) 4-8 Tablets 4 Tabl... UD PRN PO 06/13/16 16:00 07/13/16 15:59 Dextrose (Dextrose 50% 50ML Syringe) 25-50ML OF 50% DW IV FOR... UD PRN IV 06/13/16 16:00 07/13/16 15:59 Glucagon (Glucagon Inj) 1 mg UD PRN SQ 06/13/16 16:00 07/13/16 15:59 Miscellaneous Information (Consult Glycemic Management Pharmacy) 1 ea UD PRN N/A 06/13/16 16:20 07/13/16 16:19 Piperacillin Sod/ Tazobactam Sod (Consult) 1 ea UD PRN N/A 06/13/16 16:30 07/13/16 16:29 Potassium Chloride 10 meq 10 meq QAM PO 06/14/16 09:00 07/14/16 08:59 06/14/16 07:43 10 MEQ Piperacillin Sod/ Tazobactam Sod/ Dextrose (Zosyn Iv/D5 100ml) 115 ml @ 28.75 mls/ hr Q8H IV 06/13/16 22:00 06/20/16 15:59 06/14/16 06:36 28.75 MLS/HR
[2016-06-15] VITALS (9 sets, daily range): BP systolic 117–160; BP diastolic 57–83; PULSE 52–94; TEMP 36.3–36.8; O2SAT 90–99
[2016-06-15] MEDS: PIPERACILL/TAZOBAC IV 3.375 GM in DEXTROSE 5% 100ML IV SCH ×3 (06:15→21:22)
[2016-06-15] MEDS: METHYLPREDNISOLONE IV 40 MG in SYRINGE 0 ML IV SCH ×3 (06:15→21:22)
[2016-06-15] MEDS: ALBUT/IPRATROP 3MG/0.5MG NEB 3 ML VIAL INH SCH ×4 (06:57→19:44)
[2016-06-15] MEDS: RANITIDINE HCL 150 MG TAB PO SCH (07:39)
[2016-06-15] MEDS: ASPIRIN 81 MG ECTAB PO SCH (07:39)
[2016-06-15] MEDS: CEROVITE ADV FORMULA TAB PO SCH (07:39)
[2016-06-15] MEDS: ATORVASTATIN 20 MG TAB PO SCH (07:39)
[2016-06-15] MEDS: POTASSIUM CHLORIDE 10 MEQ TABCR PO SCH (07:39)
[2016-06-15] MEDS: PANTOprazole SOD 40 MG TAB PO SCH (07:39)
[2016-06-15] MEDS: FUROSEMIDE 40 MG TAB PO SCH (07:40)
[2016-06-15] MEDS: TAMSULOSIN HCL 0.4 MG CAP PO SCH (07:40)
[2016-06-15 07:42] LABS: HEMATOCRIT 30.3 % (42-52); MEAN CELL VOLUME 87.1 fL (80-100); MEAN CORPUSCULAR HGB CONC 33.3 g/dl (32-36); PLATELET COUNT 112 K/uL (130-400); RED BLOOD COUNT 3.48 M/uL (4.7-6.1); WHITE BLOOD COUNT 4.43 K/uL (4.8-10.8)
[2016-06-15 07:51] LABS: INR 1.8 (0.9-1.1); PROTHROMBIN TIME (PATIENT) 19.5 SECONDS (9.0-12.0)
[2016-06-15 08:07] LABS: CALCIUM 9.3 mg/dl (8.5-10.1); CREATININE 0.62 mg/dl (0.60-1.40); POTASSIUM 3.7 mmol/L (3.5-5.1)
[2016-06-15] MEDS: INSULIN ASPART 100 UNITS/ML 3 ML PEN SC SCH ×4 (09:02→21:26)
[2016-06-15] MEDS ORDERED: ALBUTEROL 0.083% NEBU SOLN 3 ML VIAL INH PRN (11:15)
--- NOTE | 2016-06-15 11:39 | PULMONARY PROGRESS NOTE ---
DATE: 06/15/2016 TIME: 11:00 a.m. SUBJECTIVE: The patient states that he developed shortness of breath during the nighttime. He states this occurred when he was simply lying down and it was the first time he had become breathless without exertion. He states he had to call nursing to assist him and it took a while for him to feel better. I asked him if they got a breathing treatment at that time and he said no. I could not find a nighttime note that indicated his situation and his day nurse today was not aware of that problem. The patient feels that he has mucus that he just cannot clear out. He does cough periodically. He feels that he cannot get the phlegm up. He brought up just 1 specimen yesterday. Nothing has been sent to the lab however. The patient continues to feel weak. His appetite is fair. OBJECTIVE: GENERAL: The patient appears fairly comfortable at rest. He is very anxious. He is afebrile. Temperature is 36.8. He has not had any fever since admission. EARS, NOSE, THROAT: Exam is unchanged. HEART: Heart rate is 97 per minute. The rhythm is irregular. Blood pressure is 144/83. Respiratory rate is 24 per minute. LUNGS: Diffuse rales and rhonchi are heard bilaterally posteriorly. Saturation is listed at 99% on room air, but I doubt that. Earlier he had been 94% on 4 liters. I suspect he had the nasal cannula on. ABDOMEN: Soft. It was nontender. No masses were palpable. EXTREMITIES: Showed no cyanosis or clubbing. There is no significant edema noted. LABORATORY DATA: Today shows a white count of 4.43. This is improved from yesterday when it was 3.19. Hemoglobin is 10.1 and yesterday was 9.3. Platelets today are 112,000 and had been 105,000. While he does have some degree of pancytopenia, all of the factors are slightly improved compared with 1 day earlier. INR today was 1.8. Sodium is 137, potassium 3.7, chloride 100, bicarb 27. BUN is 15 with a creatinine of 0.62. Blood sugar 168. IMPRESSIONS: 1. Acute respiratory failure with hypoxia. 2. Interstitial lung disease -- questionable secondary to chemotherapy. 3. Rule out pneumonia. 4. Emphysema. 5. Colon cancer. COMMENTS AND RECOMMENDATIONS: We will give a trial of a flutter valve. The patient had gotten one for home but he had not had a chance to use it. This hopefully will help him clear out his secretions a little easier. I would continue the methylprednisolone as it is at 40 mg IV q. 8. He is on Zosyn and would continue that. His neb treatments are q.i.d. We will also put in for p.r.n. treatments if they are not already ordered.
[2016-06-15] MEDS ORDERED: ALBUT/IPRATROP 3MG/0.5MG NEB 3 ML VIAL INH PRN (11:45)
[2016-06-15] MEDS ORDERED: NURSING VERBAL MED ORDER ONE (11:45)
[2016-06-15] MEDS ORDERED: GUAIFENESIN 600 MG TABCR PO ONE (12:45)
--- NOTE | 2016-06-15 14:39 | Pharmacy Progress Note ---
Glycemic Control: Progress Nt Date of Service Jun 15, 2016. Scope Glycemic Pharmacist consulted by Kinsey Donis PA-C on 06/13/16 for glycemic control and to write orders per [facility] inpatient glycemic control protocol. Objective Accuchecks BSG (last 24hrs): Test 06/14/16 16:19 06/14/16 20:11 06/15/16 00:11 06/15/16 06:33 Bedside Glucose 274 mg/dl (70-99) 225 mg/dl (70-99) 182 mg/dl (70-99) 162 mg/dl (70-99) Test 06/15/16 07:30 06/15/16 11:08 Random Glucose 168 mg/dl (70-99) Bedside Glucose 273 mg/dl (70-99) Laboratory Data (last 24hrs) Test 06/15/16 07:30 Anion Gap 10.0 mmol/L BUN/Creatinine Ratio 24.0 Blood Urea Nitrogen 15 mg/dl Creatinine 0.62 mg/dl Potassium Level 3.7 mmol/L Sodium Level 137 mmol/L White Blood Count 4.43 K/uL Recent Pertinent Medications Outpatient Anti-diabetic Regimen: * Novolog sliding scale (3-6 units usually daily with lunch and dinner; CF= 30unit/mg/dL, goal 120-150mg/dL) * Patient on Prednisone 50mg PO Daily as outpatient * A1c = 5.6 % 05/27/16 The patient is currently receiving: * Correctional Insulin: Novolog Correction per scale ACHS Goal Range: Low 120 mg/dL - High 160 mg/dL Correction Factor: 30 mg/dL/unit * Prandial insulin: Per carb ratio of 1 unit per 11 grams CHO consumed Risk Factors for Insulin Resistance: * Steroids: Solu-medrol 40mg IV Q8H * Infection: IV Zosyn for questionable pneumonia * Diet: Type 2 DM/ AHA Assessment & Plan ASSESSMENT: * ADA & AACE recommend a goal blood sugar range 140-180 mg/dl for the majority of critically ill & non-critically ill patients. However, more stringent targets may be selected in individual cases. Goal of 120-160mg/dl for patient's A1c. * Patient with steroid induced hyperglycemia, CR added yesterday, I will further tighten CF and CR and add a dose of Lantus tomorrow if fasting BSG is elevated. * Patient was seen by DM Educator. See my D/C recommendations below. PLAN FOR INPATIENT GLYCEMIC CONTROL: * Correctional Insulin with NOVOLOG per scale ACHS or Q6hrs while NPO * Goal Range: Low 120 mg/dL - High 160 mg/dL * Tighten: Correction Factor: 20 mg/dL/unit * Tighten: Nutritional / Prandial insulin per carb ratio of 1 unit per 7 grams CHO consumed RECOMMENDATIONS FOR DISCHARGE: * Discontinue Novolog sliding scale * Begin Humulin-N QuickPen - 6 units SQ daily with Prednisone * Please note that the plan above was derived based on current level of insulin resistance and hospital stress. These recommendations are appropriate for inpatient admission only. Plan of care upon discharge will need to be reassessed to avoid potential outpatient hypo/hyperglycemia. Thank you.
[2016-06-15] MEDS: WARFARIN SOD 2.5 MG TAB PO SCH (16:00)
--- NOTE | 2016-06-15 19:49 | Progress Note ---
Medicine Progress Note Date & Time of Visit: Jun 15, 2016 at 18:14. Subjective Pt is about the same today He describes one episode this morning where he acutely became short of breath. His breath came back with a small increase in oxygen and nursing staff helping to get him calmed down Family was at the bedside and we discussed the current plan per pulm and what the possible causes of his worsening could be Spent 30 minutes with the family, and we also discussed the blood sugar issues they have been seeing at home. Went into detail explaining the way insulin works and what may help to control the sugar better at home--re: timing of administration Objective Last 8 Hrs Date Time Temp Pulse Resp B/P Pulse Ox O2 Delivery O2 Flow Rate FiO2 06/15/16 16:00 Nasal Cannula 06/15/16 15:25 36.3 64 22 117/63 90 Nasal Cannula 4.0 06/15/16 15:22 90 22 90 Nasal Cannula 4.0 06/15/16 12:00 Nasal Cannula 06/15/16 11:59 36.6 90 27 160/80 91 Nasal Cannula 5.0 06/15/16 11:17 88 22 91 Nasal Cannula 5.0 Physical Exam: GEN: WNWD, in no acute distress, alert and appropriate, oxygen in place via NC HEENT: NC/AT, normal sclerae, pharynx non-acute, no LAD CARDIO: reg rate, S1/2 heard without m/g/r LUNGS: crackles at the bases bilaterally, no rales or wheezes, good diaphragmatic excursion ABD: soft, non-tender, non-distended, no rebound or guarding EXTREMITY: no LE swelling or edema NEURO: CN 2-12 grossly intact, sensation intact throughout MUSC: moves all extremities equally, no gross focal deficits SKIN: warm and dry Laboratory Results: Last 24 Hours Test 06/14/16 20:11 06/15/16 00:11 06/15/16 06:33 06/15/16 07:30 Bedside Glucose 225 mg/dl 182 mg/dl 162 mg/dl White Blood Count 4.43 K/uL Red Blood Count 3.48 M/uL Hemoglobin 10.1 g/dL Hematocrit 30.3 % Mean Corpuscular Volume 87.1 fL Mean Corpuscular Hemoglobin 29.0 pg Mean Corpuscular Hemoglobin Concent 33.3 g/dl RDW Standard Deviation 54.2 fL RDW Coefficient of Variation 17.0 % Platelet Count 112 K/uL Mean Platelet Volume 10.0 fL Prothrombin Time 19.5 SECONDS Prothromb Time International Ratio 1.8 Sodium Level 137 mmol/L Potassium Level 3.7 mmol/L Chloride Level 100 mmol/L Carbon Dioxide Level 27 mmol/L Anion Gap 10.0 mmol/L Blood Urea Nitrogen 15 mg/dl Creatinine 0.62 mg/dl Est Creatinine Clear Calc Drug Dose 99.5 ml/min Estimated GFR () 107.8 Estimated GFR (Non- 93.0 BUN/Creatinine Ratio 24.0 Random Glucose 168 mg/dl Calcium Level 9.3 mg/dl Test 06/15/16 11:08 06/15/16 16:23 Bedside Glucose 273 mg/dl 121 mg/dl Assessment & Plan 81 year old male presents to the ED with increased SOB, symptoms started after tapering prednisone dose, has associated cough/congestion, generalized weakness IMPRESSION: 1. Acute on chronic respiratory failure-etiologies including but not limited to chemo-induced pneumonitis ([employer]-ILD), persistent or reinfection with pneumonia , new aspiration with known elevated risk. Recent URI and sick contacts with family. Pt felt he had a sinus infection recently. CXR with residual bilateral interstitial pneumonia 2. CHF, systolic, chronic-no acute decompensation on exam. Hypoxia attributed to lung issues. -Appears euvolemic, no weight gain, orthopnea, edema -Last echo with EF 40-45% -received 40mg IV Lasix in ED 3. H/o PE 4. Colon cancer with mets-follows with Dr. Barkley, off chemotherapy at this time. 5. h/o MRSA-swab negative today. Three consecutives have been negative so need to check with infection control re: clearance. 6. H/O 3AVB s/p PM 7. BPH 8. GERD PLAN: -Cont Zosyn, Vanc d/c'd with negative MRSA swab -flutter valve started (06/15) to help break up mucous/Mucinex added -blood cultures negative/sputum cultures are still pending -reattempt speech assessment with video swallow study when feeling better and can stand for the procedure-early next week? -cont aspiration precautions -cont oxygen supplementation -Flu PCR negative -cont IV steroids (solumedrol 40mg q6h) until pulm feels appropriate to taper to PO prednisone. -cont Duonebs scheduled and PRN -cont home Lasix 40mg PO daily -cont Coumadin for goal INR 2-3, daily INR -cont Flomax -Cont Protonix DVT PROPHYLAXIS: Coumadin DNR DO Stephanie Navarro Hospitalist Consultants: Marilyn Current Inpatient Medications: Current Inpatient Medications Medications (Trade) Dose Ordered Sig/Karie Route Start Time Stop Time Status Last Admin Dose Admin Acetaminophen (Tylenol Tab) 650 mg Q4H PRN PO 06/13/16 15:45 07/13/16 15:44 Ondansetron HCl (Zofran Inj) 4 mg Q6H PRN IV 06/13/16 15:45 07/13/16 15:44 Nitroglycerin (Nitrostat Tab) 0.4 mg UD PRN SL 06/13/16 15:45 07/13/16 15:44 Aspirin (Ecotrin Tab) 81 mg DAILY PO 06/14/16 09:00 07/14/16 08:59 06/15/16 07:39 81 MG Atorvastatin Calcium (Lipitor Tab) 20 mg QAM PO 06/14/16 09:00 07/14/16 08:59 06/15/16 07:39 20 MG Bisacodyl (Dulcolax Tab) 10 mg DAILY PRN PO 06/13/16 16:00 07/13/16 15:59 Furosemide (Lasix Tab) 40 mg QAM PO 06/14/16 09:00 07/14/16 08:59 06/15/16 07:40 40 MG Multivitamins/ Minerals (Multivitamin W/ Minerals Tab) 1 tab QAM PO 06/14/16 09:00 07/14/16 08:59 06/15/16 07:39 1 TAB Ranitidine HCl (zANTac TAB) 150 mg DAILY PO 06/14/16 09:00 07/14/16 08:59 06/15/16 07:39 150 MG Tamsulosin HCl (Flomax Cap) 0.4 mg DAILY PO 06/14/16 09:00 07/14/16 08:59 06/15/16 07:40 0.4 MG Warfarin Sodium (Coumadin Tab) 2.5 mg DAILY@1600 PO 06/13/16 16:00 07/13/16 15:59 06/15/16 16:00 2.5 MG Pantoprazole Sodium (Protonix Tab) 40 mg QAM PO 06/14/16 09:00 07/14/16 08:59 06/15/16 07:39 40 MG Oxycodone/ Acetaminophen (Percocet 5-325mg Tab) 1 tab Q6H PRN PO 06/13/16 16:00 06/27/16 15:59 Albuterol/ Ipratropium 3 ml 3 ml QIDR INH 06/13/16 16:00 07/13/16 15:59 06/15/16 15:15 3 ML Methylprednisolone Sodium Succinate/ Syringe (Solu-Medrol IV/ Syringe) 0.64 ml @ 1.5 mls/min Q8 IV 06/13/16 22:00 07/13/16 21:59 06/15/16 13:00 1.5 MLS/MIN Insulin Aspart (novoLOG ASPART) SLIDING SCALE If C... ACHS SC 06/13/16 21:00 07/13/16 20:59 06/15/16 12:08 8 UNITS Glucose (Glucose 40% Gel) 15-30 GRAMS 15 GRAMS... UD PRN PO 06/13/16 16:00 07/13/16 15:59 Glucose (Glucose Chew Tab) 4-8 Tablets 4 Tabl... UD PRN PO 06/13/16 16:00 07/13/16 15:59 Dextrose (Dextrose 50% 50ML Syringe) 25-50ML OF 50% DW IV FOR... UD PRN IV 06/13/16 16:00 07/13/16 15:59 Glucagon (Glucagon Inj) 1 mg UD PRN SQ 06/13/16 16:00 07/13/16 15:59 Miscellaneous Information (Consult Glycemic Management Pharmacy) 1 ea UD PRN N/A 06/13/16 16:20 07/13/16 16:19 Piperacillin Sod/ Tazobactam Sod (Consult) 1 ea UD PRN N/A 06/13/16 16:30 07/13/16 16:29 Potassium Chloride 10 meq 10 meq QAM PO 06/14/16 09:00 07/14/16 08:59 06/15/16 07:39 10 MEQ Piperacillin Sod/ Tazobactam Sod/ Dextrose (Zosyn Iv/D5 100ml) 115 ml @ 28.75 mls/ hr Q8H IV 06/13/16 22:00 06/20/16 15:59 06/15/16 13:01 28.75 MLS/HR Albuterol Sulfate (Ventolin 0.083% 2.5MG/3ML Neb) 2.5 mg Q3R PRN INH 06/15/16 11:15 07/15/16 11:14 Guaifenesin (Mucinex Contr Rel Tab) 600 mg Q12 PO 06/15/16 21:00 07/15/16 20:59 Albuterol/ Ipratropium (Duoneb) 3 ml Q2R PRN INH 06/15/16 11:45 07/15/16 11:44
[2016-06-15] MEDS: GUAIFENESIN 600 MG TABCR PO SCH (20:43)
[2016-06-16] VITALS (13 sets, daily range): BP systolic 130–150; BP diastolic 56–88; PULSE 39–117; TEMP 36.3–36.5; O2SAT 90–99
[2016-06-16] MEDS: PIPERACILL/TAZOBAC IV 3.375 GM in DEXTROSE 5% 100ML IV SCH ×3 (05:55→22:08)
[2016-06-16] MEDS: METHYLPREDNISOLONE IV 40 MG in SYRINGE 0 ML IV SCH ×3 (05:56→22:09)
[2016-06-16 06:28] LABS: MEAN PLATELET VOLUME 10.1 fL (7.4-10.4); PLATELET COUNT 128 K/uL (130-400); RED BLOOD COUNT 3.41 M/uL (4.7-6.1); WHITE BLOOD COUNT 4.93 K/uL (4.8-10.8)
[2016-06-16 06:35] LABS: INR 1.8 (0.9-1.1); PROTHROMBIN TIME (PATIENT) 19.3 SECONDS (9.0-12.0)
[2016-06-16 07:14] LABS: BUN/CREATININE RATIO 20.2 (10-20); CREATININE 0.73 mg/dl (0.60-1.40); POTASSIUM 3.9 mmol/L (3.5-5.1)
[2016-06-16] MEDS: ALBUT/IPRATROP 3MG/0.5MG NEB 3 ML VIAL INH SCH ×4 (07:20→19:49)
[2016-06-16] MEDS: RANITIDINE HCL 150 MG TAB PO SCH (07:53)
[2016-06-16] MEDS: GUAIFENESIN 600 MG TABCR PO SCH ×2 (07:53→20:06)
[2016-06-16] MEDS: PANTOprazole SOD 40 MG TAB PO SCH (07:54)
[2016-06-16] MEDS: CEROVITE ADV FORMULA TAB PO SCH (07:54)
[2016-06-16] MEDS: POTASSIUM CHLORIDE 10 MEQ TABCR PO SCH (07:54)
[2016-06-16] MEDS: TAMSULOSIN HCL 0.4 MG CAP PO SCH (07:54)
[2016-06-16] MEDS: FUROSEMIDE 40 MG TAB PO SCH (07:54)
[2016-06-16] MEDS: ASPIRIN 81 MG ECTAB PO SCH (07:55)
[2016-06-16] MEDS: ATORVASTATIN 20 MG TAB PO SCH (07:55)
[2016-06-16] MEDS: INSULIN ASPART 100 UNITS/ML 3 ML PEN SC SCH ×4 (07:59→20:07)
[2016-06-16] MEDS: WARFARIN SOD 3 MG TAB PO SCH (17:24)
--- NOTE | 2016-06-16 22:36 | Progress Note ---
Medicine Progress Note Date & Time of Visit: Jun 16, 2016 at 15:42. Subjective States that he is not doing well because he intermittently, but acutely loses his wind and then gets it back. Still very winded and requiring 5L NC at rest Tolerating PO -insulin control was tightened Objective Last 8 Hrs Date Time Temp Pulse Resp B/P Pulse Ox O2 Delivery O2 Flow Rate FiO2 06/16/16 15:14 36.4 82 18 130/69 98 5.0 06/16/16 12:00 Nasal Cannula 5.0 06/16/16 11:37 36.4 61 20 146/62 92 Nasal Cannula 5.0 06/16/16 11:16 117 20 90 Nasal Cannula 5.0 06/16/16 08:00 95 Nasal Cannula 5.0 06/16/16 07:53 36.5 60 24 140/60 95 Nasal Cannula 5.0 Physical Exam: GEN: WNWD, in mild distress, alert and appropriate, oxygen in place via NC HEENT: NC/AT, normal sclerae, no LAD CARDIO: reg rate, S1/2 heard without m/g/r LUNGS: crackles at the bases bilaterally, no rales or wheezes, good diaphragmatic excursion ABD: soft, non-tender, non-distended, no rebound or guarding EXTREMITY: no LE swelling or edema NEURO: CN 2-12 grossly intact, sensation intact throughout MUSC: moves all extremities equally, no gross focal deficits SKIN: warm and dry Laboratory Results: Last 24 Hours Test 06/15/16 16:23 06/15/16 20:59 06/16/16 05:48 06/16/16 06:39 Bedside Glucose 121 mg/dl 245 mg/dl 137 mg/dl White Blood Count 4.93 K/uL Red Blood Count 3.41 M/uL Hemoglobin 9.9 g/dL Hematocrit 30.0 % Mean Corpuscular Volume 88.0 fL Mean Corpuscular Hemoglobin 29.0 pg Mean Corpuscular Hemoglobin Concent 33.0 g/dl RDW Standard Deviation 54.3 fL RDW Coefficient of Variation 16.9 % Platelet Count 128 K/uL Mean Platelet Volume 10.1 fL Prothrombin Time 19.3 SECONDS Prothromb Time International Ratio 1.8 Sodium Level 138 mmol/L Potassium Level 3.9 mmol/L Chloride Level 101 mmol/L Carbon Dioxide Level 28 mmol/L Anion Gap 9.0 mmol/L Blood Urea Nitrogen 15 mg/dl Creatinine 0.73 mg/dl Est Creatinine Clear Calc Drug Dose 84.5 ml/min Estimated GFR () 100.8 Estimated GFR (Non- 87.0 BUN/Creatinine Ratio 20.2 Random Glucose 123 mg/dl Calcium Level 9.0 mg/dl Test 06/16/16 11:01 Bedside Glucose 204 mg/dl Assessment & Plan 81 year old male presents to the ED with increased SOB, symptoms started after tapering prednisone dose, has associated cough/congestion, generalized weakness IMPRESSION: 1. Acute on chronic respiratory failure-etiologies including but not limited to chemo-induced pneumonitis (WIND ENERGY MECHANIC-ILD), persistent or reinfection with pneumonia , new aspiration with known elevated risk. Recent URI and sick contacts with family. Pt felt he had a sinus infection recently. CXR with residual bilateral interstitial pneumonia 2. CHF, systolic, chronic-no acute decompensation on exam. Hypoxia attributed to lung issues. -Appears euvolemic, no weight gain, orthopnea, edema -Last echo with EF 40-45% -received 40mg IV Lasix in ED 3. H/o PE 4. Colon cancer with mets-follows with Dr. Barkley, off chemotherapy at this time. 5. h/o MRSA-swab negative today. Three consecutives have been negative so need to check with infection control re: clearance. 6. H/O 3AVB s/p PM 7. BPH 8. GERD 9. Steroid-induced hyperglycemia PLAN: -Cont Zosyn, Vanc d/c'd with negative MRSA swab -flutter valve started (06/15) to help break up mucous/Mucinex added -blood cultures negative/sputum cultures are still pending -reattempt speech assessment with video swallow study when feeling better and can stand for the procedure-early next week? -cont aspiration precautions -cont oxygen supplementation -Flu PCR negative -cont IV steroids (solumedrol 40mg q6h) until pulm feels appropriate to taper to PO prednisone. -cont Duonebs scheduled and PRN -cont home Lasix 40mg PO daily -cont Coumadin for goal INR 2-3, daily INR -cont Flomax -Cont Protonix -ContNovolog with tighter CR and CF controls per pharmacy DVT PROPHYLAXIS: Coumadin DNR DO Stephanie Navarro Hospitalist Consultants: Pulm Current Inpatient Medications: Current Inpatient Medications Medications (Trade) Dose Ordered Sig/Karie Route Start Time Stop Time Status Last Admin Dose Admin Acetaminophen (Tylenol Tab) 650 mg Q4H PRN PO 06/13/16 15:45 07/13/16 15:44 Ondansetron HCl (Zofran Inj) 4 mg Q6H PRN IV 06/13/16 15:45 07/13/16 15:44 Nitroglycerin (Nitrostat Tab) 0.4 mg UD PRN SL 06/13/16 15:45 07/13/16 15:44 Aspirin (Ecotrin Tab) 81 mg DAILY PO 06/14/16 09:00 07/14/16 08:59 06/16/16 07:55 81 MG Atorvastatin Calcium (Lipitor Tab) 20 mg QAM PO 06/14/16 09:00 07/14/16 08:59 06/16/16 07:55 20 MG Bisacodyl (Dulcolax Tab) 10 mg DAILY PRN PO 06/13/16 16:00 07/13/16 15:59 Furosemide (Lasix Tab) 40 mg QAM PO 06/14/16 09:00 07/14/16 08:59 06/16/16 07:54 40 MG Multivitamins/ Minerals (Multivitamin W/ Minerals Tab) 1 tab QAM PO 06/14/16 09:00 07/14/16 08:59 06/16/16 07:54 1 TAB Ranitidine HCl (zANTac TAB) 150 mg DAILY PO 06/14/16 09:00 07/14/16 08:59 06/16/16 07:53 150 MG Tamsulosin HCl (Flomax Cap) 0.4 mg DAILY PO 06/14/16 09:00 07/14/16 08:59 06/16/16 07:54 0.4 MG Pantoprazole Sodium (Protonix Tab) 40 mg QAM PO 06/14/16 09:00 07/14/16 08:59 06/16/16 07:54 40 MG Oxycodone/ Acetaminophen (Percocet 5-325mg Tab) 1 tab Q6H PRN PO 06/13/16 16:00 06/27/16 15:59 Albuterol/ Ipratropium 3 ml 3 ml QIDR INH 06/13/16 16:00 07/13/16 15:59 06/16/16 15:10 3 ML Methylprednisolone Sodium Succinate/ Syringe (Solu-Medrol IV/ Syringe) 0.64 ml @ 1.5 mls/min Q8 IV 06/13/16 22:00 07/13/16 21:59 06/16/16 14:26 1.5 MLS/MIN Insulin Aspart (novoLOG ASPART) SLIDING SCALE If C... ACHS SC 06/13/16 21:00 07/13/16 20:59 06/16/16 12:09 9 UNITS Glucose (Glucose 40% Gel) 15-30 GRAMS 15 GRAMS... UD PRN PO 06/13/16 16:00 07/13/16 15:59 Glucose (Glucose Chew Tab) 4-8 Tablets 4 Tabl... UD PRN PO 06/13/16 16:00 07/13/16 15:59 Dextrose (Dextrose 50% 50ML Syringe) 25-50ML OF 50% DW IV FOR... UD PRN IV 06/13/16 16:00 07/13/16 15:59 Glucagon (Glucagon Inj) 1 mg UD PRN SQ 06/13/16 16:00 07/13/16 15:59 Miscellaneous Information (Consult Glycemic Management Pharmacy) 1 ea UD PRN N/A 06/13/16 16:20 07/13/16 16:19 Piperacillin Sod/ Tazobactam Sod (Consult) 1 ea UD PRN N/A 06/13/16 16:30 07/13/16 16:29 Potassium Chloride 10 meq 10 meq QAM PO 06/14/16 09:00 07/14/16 08:59 06/16/16 07:54 10 MEQ Piperacillin Sod/ Tazobactam Sod/ Dextrose (Zosyn Iv/D5 100ml) 115 ml @ 28.75 mls/ hr Q8H IV 06/13/16 22:00 06/20/16 15:59 06/16/16 14:29 28.75 MLS/HR Albuterol Sulfate (Ventolin 0.083% 2.5MG/3ML Neb) 2.5 mg Q3R PRN INH 06/15/16 11:15 07/15/16 11:14 Guaifenesin (Mucinex Contr Rel Tab) 600 mg Q12 PO 06/15/16 21:00 07/15/16 20:59 06/16/16 07:53 600 MG Albuterol/ Ipratropium (Duoneb) 3 ml Q2R PRN INH 06/15/16 11:45 07/15/16 11:44 Warfarin Sodium (Coumadin Tab) 3 mg DAILY@16 PO 06/16/16 16:00 07/16/16 15:59
[2016-06-17] VITALS (10 sets, daily range): BP systolic 118–144; BP diastolic 65–77; PULSE 67–103; TEMP 36–36.8; O2SAT 90–98
[2016-06-17 05:42] LABS: INR 1.7 (0.9-1.1); PROTHROMBIN TIME (PATIENT) 18.4 SECONDS (9.0-12.0)
[2016-06-17] MEDS: METHYLPREDNISOLONE IV 40 MG in SYRINGE 0 ML IV SCH ×3 (06:18→21:58)
[2016-06-17] MEDS: PIPERACILL/TAZOBAC IV 3.375 GM in DEXTROSE 5% 100ML IV SCH ×3 (06:18→21:58)
[2016-06-17] MEDS: ALBUT/IPRATROP 3MG/0.5MG NEB 3 ML VIAL INH SCH ×3 (07:27→19:44)
[2016-06-17] MEDS: POTASSIUM CHLORIDE 10 MEQ TABCR PO SCH (08:07)
[2016-06-17] MEDS: FUROSEMIDE 40 MG TAB PO SCH (08:07)
[2016-06-17] MEDS: GUAIFENESIN 600 MG TABCR PO SCH ×2 (08:08→21:09)
[2016-06-17] MEDS: ATORVASTATIN 20 MG TAB PO SCH (08:08)
[2016-06-17] MEDS: PANTOprazole SOD 40 MG TAB PO SCH (08:08)
[2016-06-17] MEDS: ASPIRIN 81 MG ECTAB PO SCH (08:08)
[2016-06-17] MEDS: RANITIDINE HCL 150 MG TAB PO SCH (08:08)
[2016-06-17] MEDS: CEROVITE ADV FORMULA TAB PO SCH (08:08)
[2016-06-17] MEDS: TAMSULOSIN HCL 0.4 MG CAP PO SCH (08:09)
[2016-06-17] MEDS: INSULIN ASPART 100 UNITS/ML 3 ML PEN SC SCH ×4 (08:10→21:12)
--- NOTE | 2016-06-17 10:41 | PULMONARY PROGRESS NOTE ---
DATE: 06/17/2016 DATE: 06/17/2016. TIME: 10:00 a.m. SUBJECTIVE: The patient is feeling somewhat better. He feels that his chest is more loose. He expectorated some phlegm 2 times last evening. He does not feel as tight or short of breath as he had been. His mood seemed improved as well. He thinks the flutter valve is helping some. OBJECTIVE: GENERAL: The patient appears comfortable. He is afebrile with a temperature of 36. He has not had any significant temperature elevation since admission. NECK: Palpation of the neck reveals no lymph nodes or masses. HEART: Heart rate is 80 beats per minute. It is irregular. Several of the extrasystoles do not seem to perfuse peripherally. VITAL SIGNS: Blood pressure is 125/77. Oxygen saturation is 94% on 5 liters. LUNGS: Diffuse rhonchi are heard bilaterally. These are actually increased from when I examined him 2 days ago. There is no accessory muscle use. ABDOMEN: Soft. Bowel sounds were actually active. Some of the bowel sounds seem to extend into the chest and I inquired of the patient if he had had a history of hiatal hernia. He states he is not aware of that. EXTREMITIES: Continue to show bilateral peripheral edema. LABORATORY DATA: Sputum Gram stain is still pending. Blood cultures thus far are showing no growth. Her INR today is 1.7. Blood sugar this morning was 129. I do not see other labs from today. IMPRESSIONS: 1. Acute respiratory failure with hypoxia. 2. Interstitial lung disease -- questionable secondary to chemotherapy versus other cause. 3. Rule out pneumonia. 4. Emphysema. 5. Colon cancer. COMMENTS AND RECOMMENDATIONS: The patient feels better, although his chest actually sounds more congested. It could be that he is just moving his air better. We still do not know the source of the underlying interstitial lung disease. The possibility of chemotherapy-induced disease still exist. He is still on the methylprednisolone 40 mg IV q. 8 hours along with Zosyn. He is still on the DuoNebs q.i.d. Would continue same for now.
[2016-06-17] MEDS: WARFARIN SOD 3 MG TAB PO SCH (16:38)
--- NOTE | 2016-06-17 18:08 | Progress Note ---
Medicine Progress Note Date & Time of Visit: Jun 17, 2016 at 17:10. Subjective 81 yoM states "I feel worse today" States that he went to the bathroom "15 times today" because someone gave him a shot of some kind. On review of the MAR there was no shot given, but he did receive his am Lasix 40mg PO. I asked him if he feels this is too much and he said no Reports the same chest pain in the substernal region upon standing that increases when he gets winded from standing up Lungs sound more clear today He is upset about "doctors not knowing anything, and that woman doctor doesn't know what she's talking about" He states again today that "no one knows what they are doing here." He reports using the flutter valve today and was able to cough some sputum up. Per Dr. Chang's assessment this morning, he is actually doing better. We again discussed that this is a slow process. He is also upset about the swallow study being cancelled and how he was treated by the nurse the other day. He was assured that this could be performed on Sunday-and he is fine with that. Spent 30 minutes talking to the patient and his family about the plan and allowed them to air their grievances. They decline transfer to [facility] at this time, which came up in conversation previously Objective Last 8 Hrs Date Time Temp Pulse Resp B/P Pulse Ox O2 Delivery O2 Flow Rate FiO2 06/17/16 16:26 36.3 81 20 118/68 93 Room Air 06/17/16 16:06 103 20 94 Nasal Cannula 5.0 06/17/16 16:00 Nasal Cannula 5.0 06/17/16 12:00 Nasal Cannula 5.0 06/17/16 11:04 36.8 72 20 140/72 98 Nasal Cannula 5.0 Physical Exam: GEN: WNWD, in mild distress, alert and appropriate, oxygen in place via NC HEENT: NC/AT, normal sclerae, no LAD CARDIO: reg rate, S1/2 heard without m/g/r LUNGS: crackles at the bases bilaterally-improved from yesterday, no rales or wheezes, good diaphragmatic excursion ABD: soft, non-tender, non-distended, no rebound or guarding EXTREMITY: no LE swelling or edema NEURO: CN 2-12 grossly intact, sensation intact throughout MUSC: moves all extremities equally, no gross focal deficits SKIN: warm and dry Laboratory Results: Last 24 Hours Test 06/16/16 20:02 06/17/16 04:55 06/17/16 06:49 06/17/16 11:00 Bedside Glucose 250 mg/dl 129 mg/dl 151 mg/dl Prothrombin Time 18.4 SECONDS Prothromb Time International Ratio 1.7 Test 06/17/16 16:11 Bedside Glucose 267 mg/dl Date/Time Source Procedure Growth Status 06/16/16 19:45 Sputum Expectorated Sputum Gram Stain - Final Resulted 06/16/16 19:45 Sputum Expectorated Sputum Sputum Culture - Preliminary LIGHT NORMAL MIGNON Present, Final Rep... Resulted Assessment & Plan 81 year old male presents to the ED with increased SOB, symptoms started after tapering prednisone dose, has associated cough/congestion, generalized weakness IMPRESSION: 1. Acute on chronic respiratory failure-etiologies including but not limited to chemo-induced pneumonitis (RIG MANAGER-ILD), persistent or reinfection with pneumonia , new aspiration with known elevated risk. Recent URI and sick contacts with family. Pt felt he had a sinus infection recently. CXR with residual bilateral interstitial pneumonia 2. CHF, systolic, chronic-no acute decompensation on exam. Hypoxia attributed to lung issues. -Appears euvolemic, no weight gain, orthopnea, edema -Last echo with EF 40-45% -received 40mg IV Lasix in ED 3. H/o PE 4. Colon cancer with mets-follows with Dr. Barkley, off chemotherapy at this time. 5. h/o MRSA-swab negative today. Three consecutives have been negative so need to check with infection control re: clearance. 6. H/O 3AVB s/p PM 7. BPH 8. GERD 9. Steroid-induced hyperglycemia PLAN: -Cont Zosyn, Vanc d/c'd with negative MRSA swab -flutter valve started (06/15) to help break up mucous/Mucinex added -blood cultures negative/sputum cultures are still pending -reattempt speech assessment with video swallow study when feeling better and can stand for the procedure-early next week? -cont aspiration precautions -cont oxygen supplementation -Flu PCR negative -cont IV steroids (solumedrol 40mg q6h) until pulm feels appropriate to taper to PO prednisone. -cont Duonebs scheduled and PRN -cont home Lasix 40mg PO daily -cont Coumadin for goal INR 2-3, daily INR-->increased dose to 3mg PO daily on so given today and yesterday, so expect a rise on tomorrow's lab hopefully to goal. -cont Flomax -Cont Protonix -ContNovolog with tighter CR and CF controls per pharmacy -->06/17: reviewed plan with Dr. Chang by phone this morning who agrees with continuing max therapy as above DVT PROPHYLAXIS: Coumadin DNR DO Stephanie Navarro Hospitalist Consultants: Pulfernandez Current Inpatient Medications: Current Inpatient Medications Medications (Trade) Dose Ordered Sig/Karie Route Start Time Stop Time Status Last Admin Dose Admin Acetaminophen (Tylenol Tab) 650 mg Q4H PRN PO 06/13/16 15:45 07/13/16 15:44 Ondansetron HCl (Zofran Inj) 4 mg Q6H PRN IV 06/13/16 15:45 07/13/16 15:44 Nitroglycerin (Nitrostat Tab) 0.4 mg UD PRN SL 06/13/16 15:45 07/13/16 15:44 Aspirin (Ecotrin Tab) 81 mg DAILY PO 06/14/16 09:00 07/14/16 08:59 06/17/16 08:08 81 MG Atorvastatin Calcium (Lipitor Tab) 20 mg QAM PO 06/14/16 09:00 07/14/16 08:59 06/17/16 08:08 20 MG Bisacodyl (Dulcolax Tab) 10 mg DAILY PRN PO 06/13/16 16:00 07/13/16 15:59 Furosemide (Lasix Tab) 40 mg QAM PO 06/14/16 09:00 07/14/16 08:59 06/17/16 08:07 40 MG Multivitamins/ Minerals (Multivitamin W/ Minerals Tab) 1 tab QAM PO 06/14/16 09:00 07/14/16 08:59 06/17/16 08:08 1 TAB Ranitidine HCl (zANTac TAB) 150 mg DAILY PO 06/14/16 09:00 07/14/16 08:59 06/17/16 08:08 150 MG Tamsulosin HCl (Flomax Cap) 0.4 mg DAILY PO 06/14/16 09:00 07/14/16 08:59 06/17/16 08:09 0.4 MG Pantoprazole Sodium (Protonix Tab) 40 mg QAM PO 06/14/16 09:00 07/14/16 08:59 06/17/16 08:08 40 MG Oxycodone/ Acetaminophen (Percocet 5-325mg Tab) 1 tab Q6H PRN PO 06/13/16 16:00 06/27/16 15:59 Albuterol/ Ipratropium 3 ml 3 ml QIDR INH 06/13/16 16:00 07/13/16 15:59 06/17/16 15:49 3 ML Methylprednisolone Sodium Succinate/ Syringe (Solu-Medrol IV/ Syringe) 0.64 ml @ 1.5 mls/min Q8 IV 06/13/16 22:00 07/13/16 21:59 06/17/16 13:25 1.5 MLS/MIN Insulin Aspart (novoLOG ASPART) SLIDING SCALE If C... ACHS SC 06/13/16 21:00 07/13/16 20:59 06/17/16 16:15 10 UNITS Glucose (Glucose 40% Gel) 15-30 GRAMS 15 GRAMS... UD PRN PO 06/13/16 16:00 07/13/16 15:59 Glucose (Glucose Chew Tab) 4-8 Tablets 4 Tabl... UD PRN PO 06/13/16 16:00 07/13/16 15:59 Dextrose (Dextrose 50% 50ML Syringe) 25-50ML OF 50% DW IV FOR... UD PRN IV 06/13/16 16:00 07/13/16 15:59 Glucagon (Glucagon Inj) 1 mg UD PRN SQ 06/13/16 16:00 07/13/16 15:59 Miscellaneous Information (Consult Glycemic Management Pharmacy) 1 ea UD PRN N/A 06/13/16 16:20 07/13/16 16:19 Piperacillin Sod/ Tazobactam Sod (Consult) 1 ea UD PRN N/A 06/13/16 16:30 07/13/16 16:29 Potassium Chloride 10 meq 10 meq QAM PO 06/14/16 09:00 07/14/16 08:59 06/17/16 08:07 10 MEQ Piperacillin Sod/ Tazobactam Sod/ Dextrose (Zosyn Iv/D5 100ml) 115 ml @ 28.75 mls/ hr Q8H IV 06/13/16 22:00 06/20/16 15:59 06/17/16 13:26 28.75 MLS/HR Albuterol Sulfate (Ventolin 0.083% 2.5MG/3ML Neb) 2.5 mg Q3R PRN INH 06/15/16 11:15 07/15/16 11:14 Guaifenesin (Mucinex Contr Rel Tab) 600 mg Q12 PO 06/15/16 21:00 07/15/16 20:59 06/17/16 08:08 600 MG Albuterol/ Ipratropium (Duoneb) 3 ml Q2R PRN INH 06/15/16 11:45 07/15/16 11:44 Warfarin Sodium (Coumadin Tab) 3 mg DAILY@16 PO 06/16/16 16:00 07/16/16 15:59 06/17/16 16:38 3 MG
[2016-06-17] MEDS ORDERED: NURSING VERBAL MED ORDER ONE (21:30)
[2016-06-18] VITALS (9 sets, daily range): BP systolic 116–146; BP diastolic 55–91; PULSE 45–102; TEMP 36.2–36.4; O2SAT 90–99
[2016-06-18 05:50] LABS: INR 1.8 (0.9-1.1)
[2016-06-18] MEDS: PIPERACILL/TAZOBAC IV 3.375 GM in DEXTROSE 5% 100ML IV SCH ×3 (05:55→22:21)
[2016-06-18] MEDS: METHYLPREDNISOLONE IV 40 MG in SYRINGE 0 ML IV SCH (05:55)
[2016-06-18] MEDS: ALBUT/IPRATROP 3MG/0.5MG NEB 3 ML VIAL INH SCH ×4 (07:19→19:11)
[2016-06-18] MEDS: ATORVASTATIN 20 MG TAB PO SCH (07:27)
[2016-06-18] MEDS: PANTOprazole SOD 40 MG TAB PO SCH (07:27)
[2016-06-18] MEDS: GUAIFENESIN 600 MG TABCR PO SCH ×2 (07:27→20:59)
[2016-06-18] MEDS: RANITIDINE HCL 150 MG TAB PO SCH (07:27)
[2016-06-18] MEDS: CEROVITE ADV FORMULA TAB PO SCH (07:27)
[2016-06-18] MEDS: ASPIRIN 81 MG ECTAB PO SCH (07:27)
[2016-06-18] MEDS: FUROSEMIDE 40 MG TAB PO SCH (07:28)
[2016-06-18] MEDS: TAMSULOSIN HCL 0.4 MG CAP PO SCH (07:28)
[2016-06-18] MEDS: POTASSIUM CHLORIDE 10 MEQ TABCR PO SCH (07:28)
[2016-06-18] MEDS: INSULIN ASPART 100 UNITS/ML 3 ML PEN SC SCH ×4 (07:34→20:59)
--- NOTE | 2016-06-18 12:20 | Progress Note ---
Medicine Progress Note Date & Time of Visit: Jun 18, 2016 at 11:24. Subjective Reports breathing is improved at this time Feels chest tightness has lightened up today Objective Last 8 Hrs Date Time Temp Pulse Resp B/P Pulse Ox O2 Delivery O2 Flow Rate FiO2 06/18/16 10:49 36.2 84 16 129/55 95 Nasal Cannula 4.0 06/18/16 08:00 Nasal Cannula 4.0 06/18/16 07:35 36.4 76 18 146/91 90 4.0 06/18/16 07:19 86 16 95 Nasal Cannula 4.0 06/18/16 04:12 36.4 55 18 120/58 99 Nasal Cannula 4.0 06/18/16 04:02 Nasal Cannula 4.0 Physical Exam: GEN: WNWD, no acute distress, alert and appropriate, oxygen in place via NC HEENT: NC/AT, normal sclerae, no LAD CARDIO: reg rate, S1/2 heard without m/g/r LUNGS: CTA bilaterally, no rales or wheezes, good diaphragmatic excursion ABD: soft, non-tender, non-distended, no rebound or guarding, +BS EXTREMITY: no LE swelling or edema NEURO: CN 2-12 grossly intact, sensation intact throughout MUSC: moves all extremities equally, no gross focal deficits SKIN: warm and dry Laboratory Results: Last 24 Hours Test 06/17/16 16:11 06/17/16 20:15 06/18/16 04:56 06/18/16 06:59 Bedside Glucose 267 mg/dl 227 mg/dl 179 mg/dl Prothrombin Time 20.0 SECONDS Prothromb Time International Ratio 1.8 Test 06/18/16 10:43 Bedside Glucose 269 mg/dl Assessment & Plan 81 year old male presents to the ED with increased SOB, symptoms started after tapering prednisone dose, has associated cough/congestion, generalized weakness IMPRESSION: 1. 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 Recent URI and sick contacts with family. Pt felt he had a sinus infection recently. CXR with residual bilateral interstitial pneumonia 2. CHF, systolic, chronic-no acute decompensation on exam. Hypoxia attributed to lung issues. -Appears euvolemic, no weight gain, orthopnea, edema -Last echo with EF 40-45% -received 40mg IV Lasix in ED 3. H/o PE 4. Colon cancer with mets-follows with Dr. Barkley, off chemotherapy at this time. 5. h/o MRSA-swab negative today. Three consecutives have been negative so need to check with infection control re: clearance. 6. H/O 3AVB s/p PM 7. BPH 8. GERD 9. Steroid-induced hyperglycemia PLAN: -Cont Zosyn, Vanc d/c'd with negative MRSA swab -flutter valve started (06/15) to help break up mucous/Mucinex added -blood cultures negative/sputum cultures negative -reattempt speech assessment with video swallow study when feeling better and can stand for the procedure-will happen Mon, discussed with Speech Path and let the patient know--he is fine with it -cont aspiration precautions -cont oxygen supplementation -Flu PCR negative -cont IV steroids (solumedrol 40mg q6h) until pulm feels appropriate to taper to PO prednisone. -cont Duonebs scheduled and PRN -cont home Lasix 40mg PO daily -cont Coumadin for goal INR 2-3, daily INR-->increased dose to 3mg PO daily on so given today and yesterday, so expect a rise on tomorrow's lab hopefully to goal. INR today increased today to 1.8-->increase coumadin dose if not at goal tomorrow morning. -cont Flomax -Cont Protonix -ContNovolog with tighter CR and CF controls per pharmacy -->06/17: reviewed plan with Dr. Chang by phone this morning who agrees with continuing max therapy as above -->06/18: pulm decreased steroids to 20 IV q8 and ordered CXR for am. DVT PROPHYLAXIS: Coumadin DNR DO Stephanie Navarro Hospitalist Consultants: Pulm Current Inpatient Medications: Current Inpatient Medications Medications (Trade) Dose Ordered Sig/Karie Route Start Time Stop Time Status Last Admin Dose Admin Acetaminophen (Tylenol Tab) 650 mg Q4H PRN PO 06/13/16 15:45 07/13/16 15:44 Ondansetron HCl (Zofran Inj) 4 mg Q6H PRN IV 06/13/16 15:45 07/13/16 15:44 Nitroglycerin (Nitrostat Tab) 0.4 mg UD PRN SL 06/13/16 15:45 07/13/16 15:44 Aspirin (Ecotrin Tab) 81 mg DAILY PO 06/14/16 09:00 07/14/16 08:59 06/18/16 07:27 81 MG Atorvastatin Calcium (Lipitor Tab) 20 mg QAM PO 06/14/16 09:00 07/14/16 08:59 06/18/16 07:27 20 MG Bisacodyl (Dulcolax Tab) 10 mg DAILY PRN PO 06/13/16 16:00 07/13/16 15:59 Furosemide (Lasix Tab) 40 mg QAM PO 06/14/16 09:00 07/14/16 08:59 06/18/16 07:28 40 MG Multivitamins/ Minerals (Multivitamin W/ Minerals Tab) 1 tab QAM PO 06/14/16 09:00 07/14/16 08:59 06/18/16 07:27 1 TAB Ranitidine HCl (zANTac TAB) 150 mg DAILY PO 06/14/16 09:00 07/14/16 08:59 06/18/16 07:27 150 MG Tamsulosin HCl (Flomax Cap) 0.4 mg DAILY PO 06/14/16 09:00 07/14/16 08:59 06/18/16 07:28 0.4 MG Pantoprazole Sodium (Protonix Tab) 40 mg QAM PO 06/14/16 09:00 07/14/16 08:59 06/18/16 07:27 40 MG Oxycodone/ Acetaminophen (Percocet 5-325mg Tab) 1 tab Q6H PRN PO 06/13/16 16:00 06/27/16 15:59 Albuterol/ Ipratropium 3 ml 3 ml QIDR INH 06/13/16 16:00 07/13/16 15:59 06/18/16 07:19 3 ML Methylprednisolone Sodium Succinate/ Syringe (Solu-Medrol IV/ Syringe) 0.64 ml @ 1.5 mls/min Q8 IV 06/13/16 22:00 07/13/16 21:59 06/18/16 05:55 1.5 MLS/MIN Insulin Aspart (novoLOG ASPART) SLIDING SCALE If C... ACHS SC 06/13/16 21:00 07/13/16 20:59 06/18/16 07:34 4 UNITS Glucose (Glucose 40% Gel) 15-30 GRAMS 15 GRAMS... UD PRN PO 06/13/16 16:00 07/13/16 15:59 Glucose (Glucose Chew Tab) 4-8 Tablets 4 Tabl... UD PRN PO 06/13/16 16:00 07/13/16 15:59 Dextrose (Dextrose 50% 50ML Syringe) 25-50ML OF 50% DW IV FOR... UD PRN IV 06/13/16 16:00 07/13/16 15:59 Glucagon (Glucagon Inj) 1 mg UD PRN SQ 06/13/16 16:00 07/13/16 15:59 Miscellaneous Information (Consult Glycemic Management Pharmacy) 1 ea UD PRN N/A 06/13/16 16:20 07/13/16 16:19 Piperacillin Sod/ Tazobactam Sod (Consult) 1 ea UD PRN N/A 06/13/16 16:30 07/13/16 16:29 Potassium Chloride 10 meq 10 meq QAM PO 06/14/16 09:00 07/14/16 08:59 06/18/16 07:28 10 MEQ Piperacillin Sod/ Tazobactam Sod/ Dextrose (Zosyn Iv/D5 100ml) 115 ml @ 28.75 mls/ hr Q8H IV 06/13/16 22:00 06/20/16 15:59 06/18/16 05:55 28.75 MLS/HR Albuterol Sulfate (Ventolin 0.083% 2.5MG/3ML Neb) 2.5 mg Q3R PRN INH 06/15/16 11:15 07/15/16 11:14 Guaifenesin (Mucinex Contr Rel Tab) 600 mg Q12 PO 06/15/16 21:00 07/15/16 20:59 06/18/16 07:27 600 MG Albuterol/ Ipratropium (Duoneb) 3 ml Q2R PRN INH 06/15/16 11:45 07/15/16 11:44 Warfarin Sodium (Coumadin Tab) 3 mg DAILY@16 PO 06/16/16 16:00 07/16/16 15:59 06/17/16 16:38 3 MG Heparin Sodium (Porcine) (Heparin 100 Unit/ml 5ml Flush) 5 ml PRN PRN FLUSH 06/17/16 21:30 07/17/16 21:29 06/18/16 10:03 5 ML
--- NOTE | 2016-06-18 13:01 | PULMONARY PROGRESS NOTE ---
DATE: 06/18/2016 TIME: 12:00 noon. SUBJECTIVE: The patient is feeling much better. He is less short of breath and definitely more comfortable. His cough has decreased somewhat. There has not been much mucus production. He has had no chest pains, chills, fevers or sweats. His mood have been much better apparently. OBJECTIVE: GENERAL: The patient is comfortable. He is sitting up. VITAL SIGNS: Temperature is 36.2. ENT: Negative. No lymph nodes were palpable. HEART: Heart rate is 94 per minute. The rhythm is intermittently irregular. Blood pressure 129/55. CHEST: Respiratory rate 16 breaths per minute. He persists with rales bilaterally posteriorly. Saturation is 95% on 4 liters. ABDOMEN: Soft and nontender. EXTREMITIES: Reveal trace edema. INR today is 1.8. Blood sugar today is 179 fasting and 269 before lunch. IMPRESSIONS: 1. Acute respiratory failure with hypoxia -- improved. 2. Interstitial lung disease -- questionable secondary to chemotherapy versus other causes. 3. Rule out pneumonia. 4. Emphysema. 5. Colon cancer. COMMENTS AND RECOMMENDATIONS: The patient is clinically improving. I will order a chest x-ray for tomorrow morning. I am going to decrease the methylprednisolone to 20 mg IV q. 8 hours. We will do this in light of his clinical improvement. It should also help his blood sugars somewhat. Would continue with his nebulizer treatments. Dr. Steel will be seeing the patient as of tomorrow.
--- NOTE | 2016-06-18 13:12 | Pharmacy Progress Note ---
Glycemic Control: Progress Nt Date of Service Jun 18, 2016. Scope Glycemic Pharmacist consulted by Kinsey Donis PA-C on 06/13/16 for glycemic control and to write orders per [facility] inpatient glycemic control protocol. Objective Accuchecks BSG (last 24hrs): Test 06/17/16 16:11 06/17/16 20:15 06/18/16 06:59 06/18/16 10:43 Bedside Glucose 267 mg/dl (70-99) 227 mg/dl (70-99) 179 mg/dl (70-99) 269 mg/dl (70-99) Recent Pertinent Medications Outpatient Anti-diabetic Regimen: * Novolog sliding scale (3-6 units usually daily with lunch and dinner; CF= 30unit/mg/dL, goal 120-150mg/dL) * Patient on Prednisone 50mg PO Daily as outpatient * A1c = 5.6 % 05/27/16 The patient is currently receiving: * Correctional Insulin: Novolog Correction per scale ACHS Goal Range: Low 120 mg/dL - High 160 mg/dL Correction Factor: 20 mg/dL/unit * Prandial insulin: Per carb ratio of 1 unit per 7 grams CHO consumed Risk Factors for Insulin Resistance: * Steroids: Solu-medrol 40mg IV Q8H --> just decreased to 20mg IV Q8H starting today at 1400 * Infection: IV Zosyn for questionable pneumonia * Diet: Type 2 DM/ AHA Assessment & Plan ASSESSMENT: 06/16/16 * ADA & AACE recommend a goal blood sugar range 140-180 mg/dl for the majority of critically ill & non-critically ill patients. However, more stringent targets may be selected in individual cases. Goal of 120-160mg/dl for patient's A1c. * Patient with steroid induced hyperglycemia, CR added yesterday, I will further tighten CF and CR and add a dose of Lantus tomorrow if fasting BSG is elevated. * Patient was seen by DM Educator. See my D/C recommendations below. 06/18/16 * Solu-medrol decreased from 40mg IV Q8H to 20mg IV Q8H today at 1400. I will continue CF and CR as ordered since BSGs still above goal range, and possibly loosen tomorrow if BSGs respond to decrease in Solu-medrol. PLAN FOR INPATIENT GLYCEMIC CONTROL: * Correctional Insulin with NOVOLOG per scale ACHS or Q6hrs while NPO * Goal Range: Low 120 mg/dL - High 160 mg/dL * Correction Factor: 20 mg/dL/unit * Nutritional / Prandial insulin per carb ratio of 1 unit per 7 grams CHO consumed RECOMMENDATIONS FOR DISCHARGE: * Discontinue Novolog sliding scale * Begin Humulin-N QuickPen - 6 units SQ daily with Prednisone * Please note that the plan above was derived based on current level of insulin resistance and hospital stress. These recommendations are appropriate for inpatient admission only. Plan of care upon discharge will need to be reassessed to avoid potential outpatient hypo/hyperglycemia. Thank you.
[2016-06-18] MEDS: METHYLPREDNISOLONE IV 20 MG in SYRINGE 0 ML IV SCH ×2 (14:06→22:21)
[2016-06-18] MEDS: WARFARIN SOD 3 MG TAB PO SCH (16:00)
[2016-06-19] VITALS (11 sets, daily range): BP systolic 109–142; BP diastolic 66–81; PULSE 52–111; TEMP 36.4–36.7; O2SAT 92–99
[2016-06-19] MEDS: PIPERACILL/TAZOBAC IV 3.375 GM in DEXTROSE 5% 100ML IV SCH ×3 (05:46→21:06)
[2016-06-19] MEDS: METHYLPREDNISOLONE IV 20 MG in SYRINGE 0 ML IV SCH ×3 (05:46→21:06)
[2016-06-19 06:27] LABS: INR 2.4 (0.9-1.1)
[2016-06-19 06:57] LABS: CREATININE 0.76 mg/dl (0.60-1.40)
[2016-06-19] MEDS: ALBUT/IPRATROP 3MG/0.5MG NEB 3 ML VIAL INH SCH ×4 (07:13→20:29)
[2016-06-19] MEDS: INSULIN ASPART 100 UNITS/ML 3 ML PEN SC SCH ×4 (07:56→21:10)
[2016-06-19] MEDS: PANTOprazole SOD 40 MG TAB PO SCH ×2 (07:57→21:05)
[2016-06-19] MEDS: GUAIFENESIN 600 MG TABCR PO SCH ×2 (07:58→21:05)
[2016-06-19] MEDS: ASPIRIN 81 MG ECTAB PO SCH (07:58)
[2016-06-19] MEDS: POTASSIUM CHLORIDE 10 MEQ TABCR PO SCH (07:58)
[2016-06-19] MEDS: FUROSEMIDE 40 MG TAB PO SCH (07:59)
[2016-06-19] MEDS: ATORVASTATIN 20 MG TAB PO SCH (07:59)
[2016-06-19] MEDS: TAMSULOSIN HCL 0.4 MG CAP PO SCH (07:59)
[2016-06-19] MEDS: RANITIDINE HCL 150 MG TAB PO SCH (07:59)
[2016-06-19] MEDS: CEROVITE ADV FORMULA TAB PO SCH (07:59)
--- NOTE | 2016-06-19 10:40 | DIAGNOSTIC IMAGING REPORT ---
CHEST 2 VIEWS ROUTINE CLINICAL HISTORY: f/u on infiltrates hypoxia COMPARISON STUDY: 06/14/2016 FINDINGS: Similar study radiographically. Moderate stable cardiomegaly. Basilar parenchymal infiltrative changes stable. No true consolidative changes. Diaphragms smooth. IMPRESSION: Unchanged study radiographically. Persistent bibasilar parenchymal infiltrative change Electronically signed by: Howrad Brizuela M.D. 06/19/2016 10:39 AM Dictated Date/Time: 06/19/2016 10:37 AM
--- NOTE | 2016-06-19 11:39 | Pharmacy Progress Note ---
Glycemic Control: Progress Nt Date of Service Jun 19, 2016. Scope Glycemic Pharmacist consulted by Kinsey Donis PA-C on 06/13/16 for glycemic control and to write orders per [facility] inpatient glycemic control protocol. Objective Accuchecks BSG (last 24hrs): Test 06/18/16 15:59 06/18/16 20:14 06/19/16 06:58 06/19/16 11:05 Bedside Glucose 201 mg/dl (70-99) 186 mg/dl (70-99) 187 mg/dl (70-99) 154 mg/dl (70-99) Laboratory Data (last 24hrs) Test 06/19/16 05:43 Creatinine 0.76 mg/dl Recent Pertinent Medications Outpatient Anti-diabetic Regimen: * Novolog sliding scale (3-6 units usually daily with lunch and dinner; CF= 30unit/mg/dL, goal 120-150mg/dL) * Patient on Prednisone 50mg PO Daily as outpatient * A1c = 5.6 % 05/27/16 The patient is currently receiving: * Correctional Insulin: Novolog Correction per scale ACHS Goal Range: Low 120 mg/dL - High 160 mg/dL Correction Factor: 20 mg/dL/unit * Prandial insulin: Per carb ratio of 1 unit per 7 grams CHO consumed Risk Factors for Insulin Resistance: * Steroids * Infection * Diet Assessment & Plan ASSESSMENT: 06/19/16 * 81 yo T2D M admitted with SOB, initiated on antibiotics and high dose IV steroids * Pharmacy consulted to manage steroid-induced hyperglycemia * Over the past 24 hours, steroids decreased to Solumedrol 20 mg IV every 12 hours * Fasting BSG 187 mg/dL, Lunch BSG 154 mg/dL * I usually loosen Novolog coverage with each step down in steroids- however, I believe patient can tolerate current regimen as they remain above goal range * ADA & AACE recommend a goal blood sugar range 140-180 mg/dl for the majority of critically ill & non-critically ill patients. However, more stringent targets may be selected in individual cases. Goal of 120-150mg/dl to match with patient's home goal range. * Patient was seen by DM Educator. See my D/C recommendations below. PLAN FOR INPATIENT GLYCEMIC CONTROL: * Correctional Insulin with NOVOLOG per scale ACHS or Q6hrs while NPO * Goal Range: Low 120 mg/dL - High 150 mg/dL * Correction Factor: 20 mg/dL/unit * Nutritional / Prandial insulin per carb ratio of 1 unit per 7 grams CHO consumed RECOMMENDATIONS FOR DISCHARGE: * Discontinue Novolog sliding scale * Begin Humulin-N QuickPen - 6 units SQ daily with Prednisone * Please note that the plan above was derived based on current level of insulin resistance and hospital stress. These recommendations are appropriate for inpatient admission only. Plan of care upon discharge will need to be reassessed to avoid potential outpatient hypo/hyperglycemia. Thank you.
--- NOTE | 2016-06-19 13:42 | DIAGNOSTIC IMAGING REPORT ---
VIDEO SWALLOW STUDY CLINICAL HISTORY: COPD. Hypoxia. COMPARISON STUDY: No priors. Fluoroscopy time: 1.9 minutes. FINDINGS: Fluoroscopic guidance was provided to the Department of Speech Pathology in performing a video swallow study. The patient consumed barium-impregnated pudding, cracker with paste, nectar thick liquid, and thin barium while the swallowing mechanism was observed in real-time. No penetration or aspiration was seen with any of the sampled textures. Significant esophageal dysmotility is observed. IMPRESSION: No penetration or aspiration was identified with any of the sampled textures. See dedicated speech pathology report for detailed findings and recommendations. Electronically signed by: Jean Paul Johnson M.D. 06/19/2016 1:41 PM Dictated Date/Time: 06/19/2016 1:39 PM
--- NOTE | 2016-06-19 16:25 | Gastrointestinal Consultation ---
Gastrointestinal Consultation Date of Consultation: Jun 19, 2016 Attending Physician: Dr. Santiago Consulting Physician: Ida Valdez PA-C Reason for Consultation: Atypical chest pain possibility from dysmotility History of Present Illness Patient is a 81 year old male with an unfortunate medical history including acute on chronic respiratory failure, CHF, & colon cancer who presented to the hospital with increased shortness of breath after tapering his Prednisone. The patient follows with Dr. Barkley for his colon cancer. He is presently on a break from chemotherapy. He has been evaluated by pulmonology due to the severity of his symptoms. Due to his atypical chest discomfort, a video swallow was obtained that indicated severe dysmotility. He is presently on multiple antibiotics and has been on steroid therapy. He reports a sensation of discomfort or tightness in the epigastric area accompanied with SOB. He reports some dysphagia, but reiterates his biggest complain is how short of breath he becomes when he stands up. The patient denies family history of GI malignancy or IBD. Radiology portion of video swallow was read and interpreted as indicating esophageal dysmotility. Speech path report is pending. Past Medical/Surgical History Medical Problems: (1) Colitis Status: Acute (2) Colitis Status: Acute (3) Diarrhea Status: Acute (4) Diarrhea Status: Acute (5) Hypophosphatemia Status: Acute (6) Hypophosphatemia Status: Acute (7) Pneumonia Status: Acute (8) Pneumonia Status: Acute (9) Pneumonia Status: Acute (10) Pneumonia Status: Acute Past Medical History: Colon cancer, CHF, COPD Past Surgical History: colonoscopy, colectomy Family History Cancer BROTHER BROTHER Cancer BROTHER BROTHER Diabetes mellitus FATHER MOTHER FATHER MOTHER Diabetes mellitus FATHER MOTHER FATHER MOTHER Heart disease MOTHER BROTHER SISTER MOTHER BROTHER SISTER Heart disease MOTHER BROTHER SISTER MOTHER BROTHER SISTER Hypertension MOTHER MOTHER Hypertension MOTHER MOTHER Stroke SISTER SISTER Stroke SISTER SISTER Social History Smoking Status: Former Smoker Marital Status: Housing Status: lives with family Occupation Status: retired Allergies Coded Allergies: Procaine (Verified Adverse Reaction, Unknown, SWEATS, SOB, RAPID HEART BEAT, 05/11/16) Current Medications Home Meds and Scripts Medications Dose Route/Sig Max Daily Dose Days Date Category Dose Instructions Zantac (Ranitidine HCl) 150 Mg Tab 150 Mg PO DAILY 06/13/16 Reported Klor-Con Ext Rel (Potassium Chloride) 8 Meq Tabcr 8 Meq PO DAILY 05/27/16 Rx Flomax (Tamsulosin Hcl) 0.4 Mg Cap 0.4 Mg PO DAILY 05/27/16 Rx Dulcolax (Bisacodyl) 5 Mg Tab 2 Tab PO UD PRN 05/27/16 Rx Novolog Flexpen (Insulin Aspart) 100 Units/Ml Inj 0 Units SC ACHS 05/27/16 Rx BLOOD SUGARS GOAL RANGE 120- 150 INSULING SLIDING SCALE BLOOD SUGARS INSULIN 150-180 1 UNIT 180-210 2 UNITS 210-240 3 UNITS 240-270 4 UNITS 270-300 5 UNITS >300 6 UNITS AND CALL FAMILY DOCTOR. Prednisone 10 Mg Tab 50 Mg PO UD 05/27/16 Rx PREDNISONE 50MG PO DAILY UNTIL FURTHER TAPER BY PULMONARY Furosemide 40 Mg Tab 40 Mg PO QAM 05/27/16 Rx Ecotrin Low Strength (Aspirin) 81 Mg Tab 81 Mg PO DAILY 05/11/16 Reported Zofran (Ondansetron Hcl) 4 Mg Tab 4 Mg PO PRN 05/11/16 Reported Duoneb (Ipratropium-Albuterol) 3 Ml Nebu 1 Inha PO QID 05/11/16 Reported Jantoven (Warfarin Sodium) 2.5 Mg Tab 2.5 Mg PO UD 04/25/16 Reported Dose as of 05/10/16 2.5 mg daily. Ventolin Hfa (Albuterol) 200 Puffs/69387 Mcg Aers 2 Puffs INH Q4 PRN 11/03/15 Rx Percocet 5MG/325MG (Oxycodone/Acetaminophen) Tab 1 Tablet PO Q6H PRN 09/08/15 Reported PAIN Ocuvite Preservision (Multivitamins/Minerals) 1 Tab Tab 1 Tab PO QAM 06/10/15 Reported Omeprazole 20 Mg Tab 20 Mg PO QAM 06/10/15 Reported Lipitor (Atorvastatin Calcium) 20 Mg Tab 20 Mg PO QAM 06/10/15 Reported Review of Systems Constitutional: No chills, No fever Eyes: No problem reported Respiratory: + cough, + dyspnea on exertion, + shortness of breath Cardiac: + chest pain Abdomen: + dysphagia, No GI bleeding, No constipation, No diarrhea, No nausea, No pain, No vomiting Musculoskeletal: No problem reported Psych: No problem reported Heme: No problem reported Skin: No problem reported Physical Exam Date Time Temp Pulse Resp B/P Pulse Ox O2 Delivery O2 Flow Rate FiO2 06/19/16 15:47 36.4 78 16 109/72 92 Nasal Cannula 3.0 06/19/16 12:00 Nasal Cannula 4.0 06/19/16 11:32 36.4 111 20 125/81 94 4.0 06/19/16 11:27 72 16 94 Nasal Cannula 4.0 06/19/16 08:00 Nasal Cannula 4.0 06/19/16 07:22 36.4 53 20 142/69 96 4.0 06/19/16 07:13 52 16 98 Nasal Cannula 4.0 06/19/16 04:02 Nasal Cannula 4.0 06/19/16 04:01 36.5 79 18 135/73 93 Nasal Cannula 06/19/16 00:12 36.7 71 18 141/71 99 Nasal Cannula 4.0 06/19/16 00:02 Nasal Cannula 4.0 06/18/16 20:04 Nasal Cannula 4.0 06/18/16 19:28 36.4 84 18 116/64 96 Nasal Cannula 4.0 Humidified Oxygen 06/18/16 19:12 72 16 94 Nasal Cannula 4.0 General Appearance: WD/WN Eyes: normal inspection, PERRL Respiratory/Chest: + decreased breath sounds, + wheezing Cardiovascular: regular rate, rhythm Abdomen: normal bowel sounds, non tender, soft Extremities: non-tender Neurologic/Psych: alert, oriented x 3 Skin: normal color Laboratory Results Last 24 Hours Test 06/18/16 20:14 06/19/16 05:43 06/19/16 06:58 06/19/16 11:05 Bedside Glucose 186 mg/dl 187 mg/dl 154 mg/dl Prothrombin Time 27.0 SECONDS Prothromb Time International Ratio 2.4 Creatinine 0.76 mg/dl Est Creatinine Clear Calc Drug Dose 81.2 ml/min Estimated GFR () 99.2 Estimated GFR (Non- 85.6 Impression Patient is a 81 year old male with past medical history of colon cancer who is currently hospitalized with CHF/COPD exacerbation. GI has been consulted for consideration of his chest pain being influenced by his his dysmotility. Plan 1) Protonix 40 mg BID. 2) Empiric Fluconazole in the event that his symptoms and findings of dysmotility are influenced by esophageal candidiasis as a result of chemo, chronic steroid use, & antibiotics. Will give loading dose of 400 mg today, followed by 200 mg daily. Will hold statin while on this therapy. 3) Patient is interested in an EGD. Will discuss with anesthesia tomorrow. If patient's respiratory status is stable enough, can proceed with this. Otherwise would continue with empiric therapy until able to proceed with endoscopic evaluation. 4) Supportive care per primary team. Thank you for allowing us to participate in the care of this patient. If you should have any further questions or concerns, do not hesitate to contact us. Agree with SALIMA Preciado as above Abd: Soft, NT, ND, +BS Continue current therapy Will plan for EGD during this hospitalization
[2016-06-19] MEDS ORDERED: FLUCONAZOLE 100 MG TAB PO ONE (17:00)
[2016-06-19] MEDS: WARFARIN SOD 3 MG TAB PO SCH (17:03)
--- NOTE | 2016-06-19 20:05 | Progress Note ---
Medicine Progress Note Date & Time of Visit: Jun 19, 2016 at 20:00. Subjective Pt somewhat improved today Work of breathing and chest pain upon standing are about the same. Barium swallow today revealed severe esophageal dysfunction and GI was consulted Recommended empiric fluconazole and EGD in am Otherwise no changes today from a symptom standpoint Objective Last 8 Hrs Date Time Temp Pulse Resp B/P Pulse Ox O2 Delivery O2 Flow Rate FiO2 06/19/16 19:47 36.6 75 18 120/77 94 Nasal Cannula 2.0 06/19/16 16:00 Nasal Cannula 4.0 06/19/16 15:47 36.4 78 16 109/72 92 Nasal Cannula 3.0 06/19/16 15:28 97 16 97 Nasal Cannula 4.0 Physical Exam: GEN: WNWD, no acute distress, alert and appropriate, oxygen in place via NC HEENT: NC/AT, normal sclerae, no LAD CARDIO: reg rate, S1/2 heard without m/g/r LUNGS: CTA bilaterally, crackles at lung bases, no rales or wheezes, good diaphragmatic excursion ABD: soft, non-tender, non-distended, no rebound or guarding, +BS EXTREMITY: no LE swelling or edema NEURO: CN 2-12 grossly intact, sensation intact throughout MUSC: moves all extremities equally, no gross focal deficits SKIN: warm and dry Laboratory Results: Last 24 Hours Test 06/18/16 20:14 06/19/16 05:43 06/19/16 06:58 06/19/16 11:05 Bedside Glucose 186 mg/dl 187 mg/dl 154 mg/dl Prothrombin Time 27.0 SECONDS Prothromb Time International Ratio 2.4 Creatinine 0.76 mg/dl Est Creatinine Clear Calc Drug Dose 81.2 ml/min Estimated GFR () 99.2 Estimated GFR (Non- 85.6 Test 06/19/16 16:11 Bedside Glucose 144 mg/dl Assessment & Plan 81 year old male presents to the ED with increased SOB, symptoms started after tapering prednisone dose, has associated cough/congestion, generalized weakness IMPRESSION: 1. Acute on chronic respiratory failure-etiologies including but not limited to chemo-induced pneumonitis (SCUTCHER TENDER-ILD), persistent or reinfection with pneumonia , new aspiration with known elevated risk. Recent URI and sick contacts with family. Pt felt he had a sinus infection recently. CXR with residual bilateral interstitial pneumonia 2. Severe esophageal dysmotility 2/2 poss esoph candidiasis versus stricture vs other 3. CHF, systolic, chronic-no acute decompensation on exam. Hypoxia attributed to lung issues. -Appears euvolemic, no weight gain, orthopnea, edema -Last echo with EF 40-45% -received 40mg IV Lasix in ED 4. H/o PE 5. Colon cancer with mets-follows with Dr. Barkley, off chemotherapy at this time. 6. h/o MRSA-swab negative today. Three consecutives have been negative so need to check with infection control re: clearance. 7. H/O 3AVB s/p PM 8. BPH 9. GERD 10. Steroid-induced hyperglycemia PLAN: -Cont Zosyn, Vanc d/c'd with negative MRSA swab -flutter valve started (06/15) to help break up mucous/Mucinex added -blood cultures negative/sputum cultures negative -barium swallow with abnormal esophageal motility today; GI started Diflucan for empiric trt of esoph kirk and plan for EGD in am -cont aspiration precautions wtih HOB >30 degrees at all times -cont oxygen supplementation -Flu PCR negative -cont IV steroids (solumedrol 40mg q6h) until pulm feels appropriate to taper to PO prednisone. -cont Duonebs scheduled and PRN -cont home Lasix 40mg PO daily -cont Coumadin for goal INR 2-3, daily INR-->increased dose to 3mg PO daily on so given today and yesterday. INR today increased today to 2.4 so at goal. Cont current dose. If he becomes supratherapeutic, would alternate 2mg/3mg in QOD dosing. -cont Flomax -Cont Protonix -ContNovolog with tighter CR and CF controls per pharmacy -->06/17: reviewed plan with Dr. Chang by phone this morning who agrees with continuing max therapy as above -->06/18: pulm decreased steroids to 20 IV q8 and ordered CXR for am. -->barium swallow abnl; started Fluconazole; NPO for EGD in am per GI team DVT PROPHYLAXIS: Coumadin DNR DO [facility] Consult[facility]: Pulm Current Inpatient Medications: Current Inpatient Medications Medications (Trade) Dose Ordered Sig/Karie Route Start Time Stop Time Status Last Admin Dose Admin Acetaminophen (Tylenol Tab) 650 mg Q4H PRN PO 06/13/16 15:45 07/13/16 15:44 Ondansetron HCl (Zofran Inj) 4 mg Q6H PRN IV 06/13/16 15:45 07/13/16 15:44 Nitroglycerin (Nitrostat Tab) 0.4 mg UD PRN SL 06/13/16 15:45 07/13/16 15:44 Aspirin (Ecotrin Tab) 81 mg DAILY PO 06/14/16 09:00 07/14/16 08:59 06/19/16 07:58 81 MG Bisacodyl (Dulcolax Tab) 10 mg DAILY PRN PO 06/13/16 16:00 07/13/16 15:59 Furosemide (Lasix Tab) 40 mg QAM PO 06/14/16 09:00 07/14/16 08:59 06/19/16 07:59 40 MG Multivitamins/ Minerals (Multivitamin W/ Minerals Tab) 1 tab QAM PO 06/14/16 09:00 07/14/16 08:59 06/19/16 07:59 1 TAB Ranitidine HCl (zANTac TAB) 150 mg DAILY PO 06/14/16 09:00 07/14/16 08:59 06/19/16 07:59 150 MG Tamsulosin HCl (Flomax Cap) 0.4 mg DAILY PO 06/14/16 09:00 07/14/16 08:59 06/19/16 07:59 0.4 MG Oxycodone/ Acetaminophen (Percocet 5-325mg Tab) 1 tab Q6H PRN PO 06/13/16 16:00 06/27/16 15:59 Albuterol/ Ipratropium (Duoneb) 3 ml QIDR INH 06/13/16 16:00 07/13/16 15:59 06/19/16 15:34 3 ML Insulin Aspart (novoLOG ASPART) SLIDING SCALE If C... ACHS SC 06/13/16 21:00 07/13/16 20:59 06/19/16 17:07 4 UNITS Glucose (Glucose 40% Gel) 15-30 GRAMS 15 GRAMS... UD PRN PO 06/13/16 16:00 07/13/16 15:59 Glucose (Glucose Chew Tab) 4-8 Tablets 4 Tabl... UD PRN PO 06/13/16 16:00 07/13/16 15:59 Dextrose (Dextrose 50% 50ML Syringe) 25-50ML OF 50% DW IV FOR... UD PRN IV 06/13/16 16:00 07/13/16 15:59 Glucagon (Glucagon Inj) 1 mg UD PRN SQ 06/13/16 16:00 07/13/16 15:59 Miscellaneous Information (Consult Glycemic Management Pharmacy) 1 ea UD PRN N/A 06/13/16 16:20 07/13/16 16:19 Piperacillin Sod/ Tazobactam Sod (Consult) 1 ea UD PRN N/A 06/13/16 16:30 07/13/16 16:29 Potassium Chloride 10 meq 10 meq QAM PO 06/14/16 09:00 07/14/16 08:59 06/19/16 07:58 10 MEQ Piperacillin Sod/ Tazobactam Sod/ Dextrose (Zosyn Iv/D5 100ml) 115 ml @ 28.75 mls/ hr Q8H IV 06/13/16 22:00 06/20/16 15:59 06/19/16 14:57 28.75 MLS/HR Albuterol Sulfate (Ventolin 0.083% 2.5MG/3ML Neb) 2.5 mg Q3R PRN INH 06/15/16 11:15 07/15/16 11:14 Guaifenesin (Mucinex Contr Rel Tab) 600 mg Q12 PO 06/15/16 21:00 07/15/16 20:59 06/19/16 07:58 600 MG Albuterol/ Ipratropium (Duoneb) 3 ml Q2R PRN INH 06/15/16 11:45 07/15/16 11:44 Warfarin Sodium (Coumadin Tab) 3 mg DAILY@16 PO 06/16/16 16:00 07/16/16 15:59 06/19/16 17:03 3 MG Heparin Sodium (Porcine) 5 ml 5 ml PRN PRN FLUSH 06/17/16 21:30 07/17/16 21:29 06/18/16 10:03 5 ML Methylprednisolone Sodium Succinate/ Syringe (Solu-Medrol IV/ Syringe) 0.32 ml @ 1.5 mls/min Q8@0600,1400,2200 IV 06/18/16 14:00 07/18/16 13:59 06/19/16 14:56 1.5 MLS/MIN Fluconazole (Diflucan Tab) 200 mg QAM PO 06/20/16 12:00 07/09/16 09:01 Pantoprazole Sodium (Protonix Tab) 40 mg BID PO 06/19/16 21:00 07/19/16 20:59
--- NOTE | 2016-06-19 20:29 | Pulmonology Progress Note ---
Pulmonary Progress Note Date of Service Jun 19, 2016. Attending Dr. Rip Steel Subjective Patient notes continued and progressive dyspnea even at rest with intermittent sputum production with an episode of epistaxis Objective Patient notable short of breath using accessory muscles during our conversation Assessment & Plan 81 y/o male with progressive hypoxemia: 1) Pneumonia: Continue Zosyn at this time but Vancomycin d/c as MRSA swab negative and no history of MRSA infections. 2) Pulmonary Toilet: a. Flutter Valve, Mucinex 3) GI/Aspiration: a. Notable esophageal dysmotilty abnormal barium swallow b. Diflucan started for possible esophageal candidiasis 4) Pneumonitis/Hypoxemia: a. IPF vs. Chronic Aspiration vs. irinoticant induced b. Aspiration precautions c. Oxygen Support d. Will d/c steroids if patient diagnosed with esophageal candidiasis Data Medications: Current Inpatient Medications Medications (Trade) Dose Ordered Sig/Karie Route Start Time Stop Time Status Last Admin Dose Admin Acetaminophen (Tylenol Tab) 650 mg Q4H PRN PO 06/13/16 15:45 07/13/16 15:44 Ondansetron HCl (Zofran Inj) 4 mg Q6H PRN IV 06/13/16 15:45 07/13/16 15:44 Nitroglycerin (Nitrostat Tab) 0.4 mg UD PRN SL 06/13/16 15:45 07/13/16 15:44 Aspirin (Ecotrin Tab) 81 mg DAILY PO 06/14/16 09:00 07/14/16 08:59 06/19/16 07:58 81 MG Bisacodyl (Dulcolax Tab) 10 mg DAILY PRN PO 06/13/16 16:00 07/13/16 15:59 Furosemide (Lasix Tab) 40 mg QAM PO 06/14/16 09:00 07/14/16 08:59 06/19/16 07:59 40 MG Multivitamins/ Minerals (Multivitamin W/ Minerals Tab) 1 tab QAM PO 06/14/16 09:00 07/14/16 08:59 06/19/16 07:59 1 TAB Ranitidine HCl (zANTac TAB) 150 mg DAILY PO 06/14/16 09:00 07/14/16 08:59 06/19/16 07:59 150 MG Tamsulosin HCl (Flomax Cap) 0.4 mg DAILY PO 06/14/16 09:00 07/14/16 08:59 06/19/16 07:59 0.4 MG Oxycodone/ Acetaminophen (Percocet 5-325mg Tab) 1 tab Q6H PRN PO 06/13/16 16:00 06/27/16 15:59 Albuterol/ Ipratropium (Duoneb) 3 ml QIDR INH 06/13/16 16:00 07/13/16 15:59 06/19/16 15:34 3 ML Insulin Aspart (novoLOG ASPART) SLIDING SCALE If C... ACHS SC 06/13/16 21:00 07/13/16 20:59 06/19/16 17:07 4 UNITS Glucose (Glucose 40% Gel) 15-30 GRAMS 15 GRAMS... UD PRN PO 06/13/16 16:00 07/13/16 15:59 Glucose (Glucose Chew Tab) 4-8 Tablets 4 Tabl... UD PRN PO 06/13/16 16:00 07/13/16 15:59 Dextrose (Dextrose 50% 50ML Syringe) 25-50ML OF 50% DW IV FOR... UD PRN IV 06/13/16 16:00 07/13/16 15:59 Glucagon (Glucagon Inj) 1 mg UD PRN SQ 06/13/16 16:00 07/13/16 15:59 Miscellaneous Information (Consult Glycemic Management Pharmacy) 1 ea UD PRN N/A 06/13/16 16:20 07/13/16 16:19 Piperacillin Sod/ Tazobactam Sod (Consult) 1 ea UD PRN N/A 06/13/16 16:30 07/13/16 16:29 Potassium Chloride 10 meq 10 meq QAM PO 06/14/16 09:00 07/14/16 08:59 06/19/16 07:58 10 MEQ Piperacillin Sod/ Tazobactam Sod/ Dextrose (Zosyn Iv/D5 100ml) 115 ml @ 28.75 mls/ hr Q8H IV 06/13/16 22:00 06/20/16 15:59 06/19/16 14:57 28.75 MLS/HR Albuterol Sulfate (Ventolin 0.083% 2.5MG/3ML Neb) 2.5 mg Q3R PRN INH 06/15/16 11:15 07/15/16 11:14 Guaifenesin (Mucinex Contr Rel Tab) 600 mg Q12 PO 06/15/16 21:00 07/15/16 20:59 06/19/16 07:58 600 MG Albuterol/ Ipratropium (Duoneb) 3 ml Q2R PRN INH 06/15/16 11:45 07/15/16 11:44 Warfarin Sodium (Coumadin Tab) 3 mg DAILY@16 PO 06/16/16 16:00 07/16/16 15:59 06/19/16 17:03 3 MG Heparin Sodium (Porcine) 5 ml 5 ml PRN PRN FLUSH 06/17/16 21:30 07/17/16 21:29 06/18/16 10:03 5 ML Methylprednisolone Sodium Succinate/ Syringe (Solu-Medrol IV/ Syringe) 0.32 ml @ 1.5 mls/min Q8@0600,1400,2200 IV 06/18/16 14:00 07/18/16 13:59 06/19/16 14:56 1.5 MLS/MIN Fluconazole (Diflucan Tab) 200 mg QAM PO 06/20/16 12:00 07/09/16 09:01 Pantoprazole Sodium (Protonix Tab) 40 mg BID PO 06/19/16 21:00 07/19/16 20:59 I & O: 24-Hour Column 06/19/16 08:00 Intake Total 958 ml Output Total 1675 ml Balance -717 ml Vital Signs: Date Time Temp Pulse Resp B/P Pulse Ox O2 Delivery O2 Flow Rate FiO2 06/19/16 19:47 36.6 75 18 120/77 94 Nasal Cannula 2.0 06/19/16 16:00 Nasal Cannula 4.0 06/19/16 15:47 36.4 78 16 109/72 92 Nasal Cannula 3.0 06/19/16 15:28 97 16 97 Nasal Cannula 4.0 06/19/16 12:00 Nasal Cannula 4.0 06/19/16 11:32 36.4 111 20 125/81 94 4.0 06/19/16 11:27 72 16 94 Nasal Cannula 4.0 06/19/16 08:00 Nasal Cannula 4.0 06/19/16 07:22 36.4 53 20 142/69 96 4.0 06/19/16 07:13 52 16 98 Nasal Cannula 4.0 06/19/16 04:02 Nasal Cannula 4.0 06/19/16 04:01 36.5 79 18 135/73 93 Nasal Cannula 06/19/16 00:12 36.7 71 18 141/71 99 Nasal Cannula 4.0 06/19/16 00:02 Nasal Cannula 4.0 Laboratory Results: Last 24 Hours Test 06/19/16 05:43 06/19/16 06:58 06/19/16 11:05 06/19/16 16:11 Prothrombin Time 27.0 SECONDS Prothromb Time International Ratio 2.4 Creatinine 0.76 mg/dl Est Creatinine Clear Calc Drug Dose 81.2 ml/min Estimated GFR () 99.2 Estimated GFR (Non- 85.6 Bedside Glucose 187 mg/dl 154 mg/dl 144 mg/dl
[2016-06-20] VITALS (10 sets, daily range): BP systolic 115–150; BP diastolic 63–81; PULSE 51–99; TEMP 36.4–36.8; O2SAT 92–99
[2016-06-20] MEDS: PIPERACILL/TAZOBAC IV 3.375 GM in DEXTROSE 5% 100ML IV SCH ×2 (05:48→13:34)
[2016-06-20] MEDS: METHYLPREDNISOLONE IV 20 MG in SYRINGE 0 ML IV SCH ×3 (05:49→20:47)
[2016-06-20 06:11] LABS: HEMATOCRIT 31.5 % (42-52); MEAN CELL VOLUME 91.3 fL (80-100); MEAN CORPUSCULAR HEMOGLOBIN 29.6 pg (25-34); MEAN CORPUSCULAR HGB CONC 32.4 g/dl (32-36); PLATELET COUNT 144 K/uL (130-400); RED BLOOD COUNT 3.45 M/uL (4.7-6.1); WHITE BLOOD COUNT 6.96 K/uL (4.8-10.8)
[2016-06-20 06:19] LABS: INR 2.5 (0.9-1.1); PROTHROMBIN TIME (PATIENT) 27.4 SECONDS (9.0-12.0)
[2016-06-20 06:33] LABS: BUN/CREATININE RATIO 19.7 (10-20); CALCIUM 8.4 mg/dl (8.5-10.1); CREATININE 0.69 mg/dl (0.60-1.40); POTASSIUM 4.2 mmol/L (3.5-5.1)
[2016-06-20] MEDS: INSULIN ASPART 100 UNITS/ML 3 ML PEN SC SCH ×4 (07:00→20:51)
[2016-06-20] MEDS: ALBUT/IPRATROP 3MG/0.5MG NEB 3 ML VIAL INH SCH ×4 (07:15→19:49)
[2016-06-20] MEDS: RANITIDINE HCL 150 MG TAB PO SCH (08:25)
[2016-06-20] MEDS: CEROVITE ADV FORMULA TAB PO SCH (08:25)
[2016-06-20] MEDS: GUAIFENESIN 600 MG TABCR PO SCH ×2 (08:26→20:47)
[2016-06-20] MEDS: FUROSEMIDE 40 MG TAB PO SCH (08:26)
[2016-06-20] MEDS: POTASSIUM CHLORIDE 10 MEQ TABCR PO SCH (08:26)
[2016-06-20] MEDS: ASPIRIN 81 MG ECTAB PO SCH (08:26)
[2016-06-20] MEDS: PANTOprazole SOD 40 MG TAB PO SCH ×2 (08:27→20:48)
[2016-06-20] MEDS: TAMSULOSIN HCL 0.4 MG CAP PO SCH (08:27)
--- NOTE | 2016-06-20 09:08 | Pulmonology Progress Note ---
Pulmonary Progress Note Date of Service Jun 20, 2016. Attending Rip Steel Subjective Patient with continued hypoxia but has increase sputum/mucous clearance Objective Patient continuing mild tachypnea but decrease accessory muscle use at this time. Vital signs: Reviewed stable liters nasal cannula Respiratory: Bilateral lower lobe posterior Velcro inspiratory rales with diffuse rhonchi globally Cardiac: S1-S2 distant heart sounds Extremities: Minimal bruising upper and lower extremities mild 1+ pitting edema Assessment & Plan 81 y/o male with progressive hypoxemia: #1 pneumonia: Patient currently being treated with Zosyn with continuous risk for aspiration I've also ordered dornase for mucus secretion. #2 pulmonary toilet: Continue flutter valve, Mucinex and dornase #3 GI: Patient going for endoscopy for evaluation of possible kirk esophagitis/dysmotility currently being treated with Diflucan #4 Pneumonitis/hypoxia: Etiologies: IPF, chronic aspiration versus severe GERD , drug-induced irinotican a. At this time continue steroids for inflammation. If endoscopy shows infectious etiology for gastroparesis will discontinue steroids at that time b. Continue oxygen support currently stable at 4 L #5 colon cancer: Would be beneficial to have hematology oncology weight and for mortality secondary to recently treated colon cancer Data Medications: Current Inpatient Medications Medications (Trade) Dose Ordered Sig/Karie Route Start Time Stop Time Status Last Admin Dose Admin Acetaminophen (Tylenol Tab) 650 mg Q4H PRN PO 06/13/16 15:45 07/13/16 15:44 Ondansetron HCl (Zofran Inj) 4 mg Q6H PRN IV 06/13/16 15:45 07/13/16 15:44 Nitroglycerin (Nitrostat Tab) 0.4 mg UD PRN SL 06/13/16 15:45 07/13/16 15:44 Aspirin (Ecotrin Tab) 81 mg DAILY PO 06/14/16 09:00 07/14/16 08:59 06/20/16 08:26 81 MG Bisacodyl (Dulcolax Tab) 10 mg DAILY PRN PO 06/13/16 16:00 07/13/16 15:59 Furosemide (Lasix Tab) 40 mg QAM PO 06/14/16 09:00 07/14/16 08:59 06/20/16 08:26 40 MG Multivitamins/ Minerals (Multivitamin W/ Minerals Tab) 1 tab QAM PO 06/14/16 09:00 07/14/16 08:59 06/20/16 08:25 1 TAB Ranitidine HCl (zANTac TAB) 150 mg DAILY PO 06/14/16 09:00 07/14/16 08:59 06/20/16 08:25 150 MG Tamsulosin HCl (Flomax Cap) 0.4 mg DAILY PO 06/14/16 09:00 07/14/16 08:59 06/20/16 08:27 0.4 MG Oxycodone/ Acetaminophen (Percocet 5-325mg Tab) 1 tab Q6H PRN PO 06/13/16 16:00 06/27/16 15:59 Albuterol/ Ipratropium (Duoneb) 3 ml QIDR INH 06/13/16 16:00 07/13/16 15:59 06/20/16 07:15 3 ML Insulin Aspart (novoLOG ASPART) SLIDING SCALE If C... ACHS SC 06/13/16 21:00 07/13/16 20:59 06/19/16 21:10 4 UNITS Glucose (Glucose 40% Gel) 15-30 GRAMS 15 GRAMS... UD PRN PO 06/13/16 16:00 07/13/16 15:59 Glucose (Glucose Chew Tab) 4-8 Tablets 4 Tabl... UD PRN PO 06/13/16 16:00 07/13/16 15:59 Dextrose (Dextrose 50% 50ML Syringe) 25-50ML OF 50% DW IV FOR... UD PRN IV 06/13/16 16:00 07/13/16 15:59 Glucagon (Glucagon Inj) 1 mg UD PRN SQ 06/13/16 16:00 07/13/16 15:59 Miscellaneous Information (Consult Glycemic Management Pharmacy) 1 ea UD PRN N/A 06/13/16 16:20 07/13/16 16:19 Piperacillin Sod/ Tazobactam Sod (Consult) 1 ea UD PRN N/A 06/13/16 16:30 07/13/16 16:29 Potassium Chloride 10 meq 10 meq QAM PO 06/14/16 09:00 07/14/16 08:59 06/20/16 08:26 10 MEQ Piperacillin Sod/ Tazobactam Sod/ Dextrose (Zosyn Iv/D5 100ml) 115 ml @ 28.75 mls/ hr Q8H IV 06/13/16 22:00 06/20/16 15:59 06/20/16 05:48 28.75 MLS/HR Albuterol Sulfate (Ventolin 0.083% 2.5MG/3ML Neb) 2.5 mg Q3R PRN INH 06/15/16 11:15 07/15/16 11:14 Guaifenesin (Mucinex Contr Rel Tab) 600 mg Q12 PO 06/15/16 21:00 07/15/16 20:59 06/20/16 08:26 600 MG Albuterol/ Ipratropium (Duoneb) 3 ml Q2R PRN INH 06/15/16 11:45 07/15/16 11:44 Warfarin Sodium (Coumadin Tab) 3 mg DAILY@16 PO 06/16/16 16:00 07/16/16 15:59 06/19/16 17:03 3 MG Heparin Sodium (Porcine) 5 ml 5 ml PRN PRN FLUSH 06/17/16 21:30 07/17/16 21:29 06/18/16 10:03 5 ML Methylprednisolone Sodium Succinate/ Syringe (Solu-Medrol IV/ Syringe) 0.32 ml @ 1.5 mls/min Q8@0600,1400,2200 IV 06/18/16 14:00 07/18/16 13:59 06/20/16 05:49 1.5 MLS/MIN Fluconazole (Diflucan Tab) 200 mg QAM PO 06/20/16 12:00 07/09/16 09:01 Pantoprazole Sodium (Protonix Tab) 40 mg BID PO 06/19/16 21:00 07/19/16 20:59 06/20/16 08:27 40 MG I & O: 24-Hour Column 06/20/16 07:59 Intake Total 1570 ml Output Total 2550 ml Balance -980 ml Vital Signs: Date Time Temp Pulse Resp B/P Pulse Ox O2 Delivery O2 Flow Rate FiO2 06/20/16 07:26 36.8 65 20 150/74 94 06/20/16 07:15 51 16 99 Nasal Cannula 4.0 06/20/16 04:00 Nasal Cannula 4.0 06/20/16 03:02 36.4 62 17 139/80 99 Nasal Cannula 4.0 06/20/16 00:00 Nasal Cannula 4.0 06/19/16 23:36 36.4 81 21 113/66 98 Nasal Cannula 4.0 06/19/16 20:29 96 16 96 Nasal Cannula 4.0 06/19/16 20:00 Nasal Cannula 4.0 06/19/16 19:47 36.6 75 18 120/77 94 Nasal Cannula 2.0 06/19/16 16:00 Nasal Cannula 4.0 06/19/16 15:47 36.4 78 16 109/72 92 Nasal Cannula 3.0 06/19/16 15:28 97 16 97 Nasal Cannula 4.0 06/19/16 12:00 Nasal Cannula 4.0 06/19/16 11:32 36.4 111 20 125/81 94 4.0 06/19/16 11:27 72 16 94 Nasal Cannula 4.0 Laboratory Results: Last 24 Hours Test 06/19/16 11:05 06/19/16 16:11 06/19/16 20:43 06/20/16 05:00 Bedside Glucose 154 mg/dl 144 mg/dl 227 mg/dl White Blood Count 6.96 K/uL Red Blood Count 3.45 M/uL Hemoglobin 10.2 g/dL Hematocrit 31.5 % Mean Corpuscular Volume 91.3 fL Mean Corpuscular Hemoglobin 29.6 pg Mean Corpuscular Hemoglobin Concent 32.4 g/dl RDW Standard Deviation 56.3 fL RDW Coefficient of Variation 17.3 % Platelet Count 144 K/uL Mean Platelet Volume 10.0 fL Prothrombin Time 27.4 SECONDS Prothromb Time International Ratio 2.5 Sodium Level 139 mmol/L Potassium Level 4.2 mmol/L Chloride Level 100 mmol/L Carbon Dioxide Level 30 mmol/L Anion Gap 9.0 mmol/L Blood Urea Nitrogen 14 mg/dl Creatinine 0.69 mg/dl Est Creatinine Clear Calc Drug Dose 89.4 ml/min Estimated GFR () 103.2 Estimated GFR (Non- 89.0 BUN/Creatinine Ratio 19.7 Random Glucose 193 mg/dl Calcium Level 8.4 mg/dl Test 06/20/16 06:38 Bedside Glucose 144 mg/dl
[2016-06-20] MEDS ORDERED: KETAMINE HCL INJ 50 MG/ML 10 ML VIAL ONE (11:42)
--- NOTE | 2016-06-20 11:59 | GI REPORT ---
Procedure Date: 06/20/2016 11:43 AM Procedure: Upper GI endoscopy Indications: Dysphagia, Unexplained chest pain Medicines: Monitored Anesthesia Care Complications: No immediate complications. Estimated Blood Loss: Estimated blood loss: none. Procedure: Pre-Anesthesia Assessment: - Prior to the procedure, a History and Physical was performed, and patient medications and allergies were reviewed. The patient's tolerance of previous anesthesia was also reviewed. The risks and benefits of the procedure and the sedation options and risks were discussed with the patient. All questions were answered, and informed consent was obtained. Prior Anticoagulants: The patient last took Coumadin (warfarin) 1 day prior to the procedure and last took aspirin on the day of the procedure. ASA Grade Assessment: IV - A patient with severe systemic disease that is a constant threat to life. After reviewing the risks and benefits, the patient was deemed in satisfactory condition to undergo the procedure. After obtaining informed consent, the endoscope was passed under direct vision. Throughout the procedure, the patient's blood pressure, pulse, and oxygen saturations were monitored continuously. The scope was introduced through the mouth, and advanced to the second part of duodenum. The upper GI endoscopy was accomplished without difficulty. The patient tolerated the procedure well. Findings: The esophagus was normal. The stomach was normal. The examined duodenum was normal. Impression: - Normal esophagus. - Normal stomach. - Normal examined duodenum. - No specimens collected. Recommendation: - Return patient to [facility] for [facility] care. - Advance diet as tolerated. - Perform routine esophageal manometry at appointment to be scheduled as outpatient if patient wishes to proceed with further workup. Justin Alonzo, 06/20/2016 11:58:47 AM This report has been signed electronically. Note Initiated On: 06/20/2016 11:43 AM
[2016-06-20] MEDS ORDERED: PROPOFOL IV EMULSION 10 MG/ML 20 ML VIAL IV ONE (12:00)
[2016-06-20] MEDS ORDERED: FLUCONAZOLE 100 MG TAB PO SCH (12:00)
[2016-06-20] MEDS ORDERED: LIDOCAINE HCL 2% 2 ML VIAL (20MG/ML) ONE (12:00)
--- NOTE | 2016-06-20 12:18 | Anesthesiology Progress Note ---
Anesthesia Post Op Note Date & Time Jun 20, 2016 at 12:18 Vital Signs Pain Intensity: 0 Vital Signs Past 12 Hours Date Time Temp Pulse Resp B/P Pulse Ox O2 Delivery O2 Flow Rate FiO2 06/20/16 12:11 70 20 131/69 96 Nasal Cannula 4 06/20/16 11:56 72 16 122/61 98 Mask 6 06/20/16 11:37 36.8 69 18 115/63 Nasal Cannula 4.0 06/20/16 11:32 36.8 69 18 115/63 98 06/20/16 11:18 36.4 68 24 132/81 97 Nasal Cannula 4 06/20/16 08:00 Nasal Cannula 4.0 06/20/16 07:26 36.8 65 20 150/74 94 06/20/16 07:15 51 16 99 Nasal Cannula 4.0 06/20/16 04:00 Nasal Cannula 4.0 06/20/16 03:02 36.4 62 17 139/80 99 Nasal Cannula 4.0 Notes Mental Status: alert / awake / arousable, participated in evaluation Pt Amnestic to Procedure: Yes Nausea / Vomiting: adequately controlled Pain: adequately controlled Airway Patency, RR, SpO2: stable & adequate BP & HR: stable & adequate Hydration State: stable & adequate Anesthetic Complications: no major complications apparent
[2016-06-20] MEDS: WARFARIN SOD 3 MG TAB PO SCH (16:47)
--- NOTE | 2016-06-20 19:49 | Progress Note ---
Medicine Progress Note Date & Time of Visit: Jun 20, 2016 at 19:35. Subjective Pt was seen and examined Lying in bed with no distress Pt said that he continue to have SOB with any exertion pt said that breathing still feels the same he said that he cannot even walk to the bathroom without having SOB He said that when he coughs that he had a hard time to bring it up denies any chest pain and palpitation Objective Last 8 Hrs Date Time Temp Pulse Resp B/P Pulse Ox O2 Delivery O2 Flow Rate FiO2 06/20/16 16:00 Nasal Cannula 4.0 06/20/16 15:25 36.8 57 18 124/75 96 06/20/16 15:18 58 16 97 Nasal Cannula 4.0 06/20/16 13:00 Nasal Cannula 4.0 06/20/16 12:26 60 20 130/83 96 Nasal Cannula 4 06/20/16 12:11 70 20 131/69 96 Nasal Cannula 4 06/20/16 11:56 72 16 122/61 98 Mask 6 06/20/16 11:37 36.8 69 18 115/63 Nasal Cannula 4.0 Physical Exam: General- No acute distress Head- atraumatic Eyes- PERRL, EOMI ENT- oropharynx clear Neck- supple, no JVD Lungs-Coarse BS Heart- regular rhythm; no murmur Abdomen- normal bowel sounds, soft Extremities- no calf tenderness Neuro- alert, oriented x 3; PERRL, EOMI Skin- warm & dry Laboratory Results: Last 24 Hours Test 06/19/16 20:43 06/20/16 05:00 06/20/16 06:38 06/20/16 11:05 Bedside Glucose 227 mg/dl 144 mg/dl 195 mg/dl White Blood Count 6.96 K/uL Red Blood Count 3.45 M/uL Hemoglobin 10.2 g/dL Hematocrit 31.5 % Mean Corpuscular Volume 91.3 fL Mean Corpuscular Hemoglobin 29.6 pg Mean Corpuscular Hemoglobin Concent 32.4 g/dl RDW Standard Deviation 56.3 fL RDW Coefficient of Variation 17.3 % Platelet Count 144 K/uL Mean Platelet Volume 10.0 fL Prothrombin Time 27.4 SECONDS Prothromb Time International Ratio 2.5 Sodium Level 139 mmol/L Potassium Level 4.2 mmol/L Chloride Level 100 mmol/L Carbon Dioxide Level 30 mmol/L Anion Gap 9.0 mmol/L Blood Urea Nitrogen 14 mg/dl Creatinine 0.69 mg/dl Est Creatinine Clear Calc Drug Dose 89.4 ml/min Estimated GFR () 103.2 Estimated GFR (Non- 89.0 BUN/Creatinine Ratio 19.7 Random Glucose 193 mg/dl Calcium Level 8.4 mg/dl Test 06/20/16 16:05 Bedside Glucose 256 mg/dl Assessment & Plan ACUTE ON CHRONIC RESPIRATORY FAILURE -Differential diagnosis to include Pneumonia, COPD exacerbation, Influenza, Acute CHF and other causes POSSIBLE PNEUMONIA CXR showed Persistent bibasilar parenchymal infiltrative change -Blood cultures, sputum cultures negative Continue Empirically abx with Zosyn Continue Supplemental oxygen DYSPHAGIA EGD done today showed normal esophagus, stomach and duodenum. Continue aspiration precaution POSSIBLE COPD EXACERBATION Continue sulumedrol Duonebs QID and prn SOB Flutter Valve Continue Supplemental oxygen Pulmonology on board -Follows closely with Dr. Steel POSSIBLE ACUTE DECOMPENSATION OF SYSTOLIC CHF Appears euvolemic, no weight gain, orthopnea, edema Last echo with EF 40-45% Continue lasix H/O PULMONARY EMBOLISM -INR therapeutic -continue Coumadin METASTATIC COLON CA -follows with Dr. Rosado -Previously pulmonology thought that chemo maybe causing pulmonary fibrosis -patient currently not on any treatment -followup with Heme/onc as previously schedule H/O MRSA -contact precautions -check MRSA swab H/O OF COMPLETE AV BLOCK -s/p pacemaker HLD -continue Statin BPH -continue Flomax GERD -continue PPI DVT PROPHYLAXIS: Coumadin Consultants: Pulm Current Inpatient Medications: Current Inpatient Medications Medications (Trade) Dose Ordered Sig/Karie Route Start Time Stop Time Status Last Admin Dose Admin Acetaminophen (Tylenol Tab) 650 mg Q4H PRN PO 06/13/16 15:45 07/13/16 15:44 Ondansetron HCl (Zofran Inj) 4 mg Q6H PRN IV 06/13/16 15:45 07/13/16 15:44 Nitroglycerin (Nitrostat Tab) 0.4 mg UD PRN SL 06/13/16 15:45 07/13/16 15:44 Aspirin (Ecotrin Tab) 81 mg DAILY PO 06/14/16 09:00 07/14/16 08:59 06/20/16 08:26 81 MG Bisacodyl (Dulcolax Tab) 10 mg DAILY PRN PO 06/13/16 16:00 07/13/16 15:59 Furosemide (Lasix Tab) 40 mg QAM PO 06/14/16 09:00 07/14/16 08:59 06/20/16 08:26 40 MG Multivitamins/ Minerals (Multivitamin W/ Minerals Tab) 1 tab QAM PO 06/14/16 09:00 07/14/16 08:59 06/20/16 08:25 1 TAB Ranitidine HCl (zANTac TAB) 150 mg DAILY PO 06/14/16 09:00 07/14/16 08:59 06/20/16 08:25 150 MG Tamsulosin HCl (Flomax Cap) 0.4 mg DAILY PO 06/14/16 09:00 07/14/16 08:59 06/20/16 08:27 0.4 MG Oxycodone/ Acetaminophen (Percocet 5-325mg Tab) 1 tab Q6H PRN PO 06/13/16 16:00 06/27/16 15:59 Albuterol/ Ipratropium (Duoneb) 3 ml QIDR INH 06/13/16 16:00 07/13/16 15:59 06/20/16 15:18 3 ML Insulin Aspart (novoLOG ASPART) SLIDING SCALE If C... ACHS SC 06/13/16 21:00 07/13/16 20:59 06/20/16 16:51 12 UNITS Glucose (Glucose 40% Gel) 15-30 GRAMS 15 GRAMS... UD PRN PO 06/13/16 16:00 07/13/16 15:59 Glucose (Glucose Chew Tab) 4-8 Tablets 4 Tabl... UD PRN PO 06/13/16 16:00 07/13/16 15:59 Dextrose (Dextrose 50% 50ML Syringe) 25-50ML OF 50% DW IV FOR... UD PRN IV 06/13/16 16:00 07/13/16 15:59 Glucagon (Glucagon Inj) 1 mg UD PRN SQ 06/13/16 16:00 07/13/16 15:59 Miscellaneous Information (Consult Glycemic Management Pharmacy) 1 ea UD PRN N/A 06/13/16 16:20 07/13/16 16:19 Piperacillin Sod/ Tazobactam Sod (Consult) 1 ea UD PRN N/A 06/13/16 16:30 07/13/16 16:29 Potassium Chloride (Klor-Con M10) 10 meq QAM PO 06/14/16 09:00 07/14/16 08:59 06/20/16 08:26 10 MEQ Albuterol Sulfate (Ventolin 0.083% 2.5MG/3ML Neb) 2.5 mg Q3R PRN INH 06/15/16 11:15 07/15/16 11:14 Guaifenesin (Mucinex Contr Rel Tab) 600 mg Q12 PO 06/15/16 21:00 07/15/16 20:59 06/20/16 08:26 600 MG Albuterol/ Ipratropium (Duoneb) 3 ml Q2R PRN INH 06/15/16 11:45 07/15/16 11:44 Warfarin Sodium (Coumadin Tab) 3 mg DAILY@16 PO 06/16/16 16:00 07/16/16 15:59 06/20/16 16:47 3 MG Heparin Sodium (Porcine) 5 ml 5 ml PRN PRN FLUSH 06/17/16 21:30 07/17/16 21:29 06/18/16 10:03 5 ML Methylprednisolone Sodium Succinate/ Syringe (Solu-Medrol IV/ Syringe) 0.32 ml @ 1.5 mls/min Q8@0600,1400,2200 IV 06/18/16 14:00 07/18/16 13:59 06/20/16 13:34 1.5 MLS/MIN Pantoprazole Sodium (Protonix Tab) 40 mg BID PO 06/19/16 21:00 07/19/16 20:59 06/20/16 08:27 40 MG Dornase Ashish (Pulmozyme Inhalation Soln 2.5ml Amp) 2.5 ml BIDR INH 06/20/16 20:00 07/20/16 19:59
[2016-06-20] MEDS: DORNASE ALFA (2500U) 2.5MG/2.5ML INH SCH (20:00)
[2016-06-21] VITALS (14 sets, daily range): BP systolic 125–149; BP diastolic 72–82; PULSE 76–102; TEMP 36.3–36.5; O2SAT 91–99
[2016-06-21 05:50] LABS: HEMATOCRIT 30.8 % (42-52); MEAN CELL VOLUME 90.1 fL (80-100); MEAN CORPUSCULAR HEMOGLOBIN 29.5 pg (25-34); MEAN CORPUSCULAR HGB CONC 32.8 g/dl (32-36); MEAN PLATELET VOLUME 9.9 fL (7.4-10.4); PLATELET COUNT 141 K/uL (130-400); RED BLOOD COUNT 3.42 M/uL (4.7-6.1); WHITE BLOOD COUNT 8.19 K/uL (4.8-10.8)
[2016-06-21 06:01] LABS: INR 3.5 (0.9-1.1)
[2016-06-21] MEDS: METHYLPREDNISOLONE IV 20 MG in SYRINGE 0 ML IV SCH ×3 (06:14→22:18)
[2016-06-21 06:17] LABS: BUN/CREATININE RATIO 20.1 (10-20); CALCIUM 8.4 mg/dl (8.5-10.1); CREATININE 0.82 mg/dl (0.60-1.40); POTASSIUM 4.1 mmol/L (3.5-5.1)
[2016-06-21] MEDS: DORNASE ALFA (2500U) 2.5MG/2.5ML INH SCH ×2 (07:14→20:23)
[2016-06-21] MEDS: ALBUT/IPRATROP 3MG/0.5MG NEB 3 ML VIAL INH SCH ×4 (07:15→20:23)
[2016-06-21] MEDS: INSULIN ASPART 100 UNITS/ML 3 ML PEN SC SCH ×4 (08:20→20:38)
[2016-06-21] MEDS: ASPIRIN 81 MG ECTAB PO SCH (08:22)
[2016-06-21] MEDS: TAMSULOSIN HCL 0.4 MG CAP PO SCH (08:23)
[2016-06-21] MEDS: POTASSIUM CHLORIDE 10 MEQ TABCR PO SCH (08:24)
[2016-06-21] MEDS: FUROSEMIDE 40 MG TAB PO SCH (08:24)
[2016-06-21] MEDS: PANTOprazole SOD 40 MG TAB PO SCH ×2 (08:25→20:27)
[2016-06-21] MEDS: CEROVITE ADV FORMULA TAB PO SCH (08:25)
[2016-06-21] MEDS: GUAIFENESIN 600 MG TABCR PO SCH ×2 (08:25→20:28)
[2016-06-21] MEDS: RANITIDINE HCL 150 MG TAB PO SCH (08:25)
[2016-06-21] MEDS ORDERED: LANTUS PER UNIT CHARGE SQ ONE (08:30)
--- NOTE | 2016-06-21 11:17 | Pulmonology Progress Note ---
Pulmonary Progress Note Date of Service Jun 21, 2016. Attending Rip Steel Subjective Patient with continued SOB even at rest and poor to no sleep Objective Patient continuing mild tachypnea but able to complete full sentences. Vital signs: Reviewed stable liters nasal cannula Respiratory: Bilateral lower lobe posterior Velcro inspiratory rales with diffuse rhonchi globally Cardiac: S1-S2 distant heart sounds Extremities: Minimal bruising upper and lower extremities mild 1+ pitting edema 1) EGD: WNL 2) Microbiology: Sputum, nasal swab and Blood no growth 3) Dornase 4) DuoNebs, 5) Steroids 75mg QD (0.86mg/Kg) 6) Microbiology Reviewed a. Sputum (04/29/16) Eikenella corrodens Assessment & Plan 81 y/o male with progressive hypoxemia: #1 Pneumonia: I will d/c the patients abx at this time as he shows no signs of active infection and will d/c the Dornase as well. #2 Pulmonary toilet: Continue flutter valve, Mucinex #3 GI: no signs of active infection will continue steroids #4 Pneumonitis/hypoxia: Etiologies: IPF, chronic aspiration versus severe GERD , drug-induced irinotecan a. Steroids: currently on 0.87mg/Kg a this time we should continue. b. Continue oxygen support currently stable at 4 L/ Let switch him to a high flow system at this time for respiratory relief #5 colon cancer: Would be beneficial to have hematology oncology weight and for mortality secondary to recently treated colon cancer Data Medications: Current Inpatient Medications Medications (Trade) Dose Ordered Sig/Karie Route Start Time Stop Time Status Last Admin Dose Admin Acetaminophen (Tylenol Tab) 650 mg Q4H PRN PO 06/13/16 15:45 07/13/16 15:44 Ondansetron HCl (Zofran Inj) 4 mg Q6H PRN IV 06/13/16 15:45 07/13/16 15:44 Nitroglycerin (Nitrostat Tab) 0.4 mg UD PRN SL 06/13/16 15:45 07/13/16 15:44 Aspirin (Ecotrin Tab) 81 mg DAILY PO 06/14/16 09:00 07/14/16 08:59 06/21/16 08:22 81 MG Bisacodyl (Dulcolax Tab) 10 mg DAILY PRN PO 06/13/16 16:00 07/13/16 15:59 Furosemide (Lasix Tab) 40 mg QAM PO 06/14/16 09:00 07/14/16 08:59 06/21/16 08:24 40 MG Multivitamins/ Minerals (Multivitamin W/ Minerals Tab) 1 tab QAM PO 06/14/16 09:00 07/14/16 08:59 06/21/16 08:25 1 TAB Ranitidine HCl (zANTac TAB) 150 mg DAILY PO 06/14/16 09:00 07/14/16 08:59 06/21/16 08:25 150 MG Tamsulosin HCl (Flomax Cap) 0.4 mg DAILY PO 06/14/16 09:00 07/14/16 08:59 06/21/16 08:23 0.4 MG Oxycodone/ Acetaminophen (Percocet 5-325mg Tab) 1 tab Q6H PRN PO 06/13/16 16:00 06/27/16 15:59 Albuterol/ Ipratropium (Duoneb) 3 ml QIDR INH 06/13/16 16:00 07/13/16 15:59 06/21/16 07:15 3 ML Insulin Aspart (novoLOG ASPART) SLIDING SCALE If C... ACHS SC 06/13/16 21:00 07/13/16 20:59 06/21/16 08:20 5 UNITS Glucose (Glucose 40% Gel) 15-30 GRAMS 15 GRAMS... UD PRN PO 06/13/16 16:00 07/13/16 15:59 Glucose (Glucose Chew Tab) 4-8 Tablets 4 Tabl... UD PRN PO 06/13/16 16:00 07/13/16 15:59 Dextrose (Dextrose 50% 50ML Syringe) 25-50ML OF 50% DW IV FOR... UD PRN IV 06/13/16 16:00 07/13/16 15:59 Glucagon (Glucagon Inj) 1 mg UD PRN SQ 06/13/16 16:00 07/13/16 15:59 Miscellaneous Information (Consult Glycemic Management Pharmacy) 1 ea UD PRN N/A 06/13/16 16:20 07/13/16 16:19 Potassium Chloride (Klor-Con M10) 10 meq QAM PO 06/14/16 09:00 07/14/16 08:59 06/21/16 08:24 10 MEQ Albuterol Sulfate (Ventolin 0.083% 2.5MG/3ML Neb) 2.5 mg Q3R PRN INH 06/15/16 11:15 07/15/16 11:14 Guaifenesin (Mucinex Contr Rel Tab) 600 mg Q12 PO 06/15/16 21:00 07/15/16 20:59 06/21/16 08:25 600 MG Albuterol/ Ipratropium (Duoneb) 3 ml Q2R PRN INH 06/15/16 11:45 07/15/16 11:44 Warfarin Sodium (Coumadin Tab) 3 mg DAILY@16 PO 06/16/16 16:00 07/16/16 15:59 06/20/16 16:47 3 MG Heparin Sodium (Porcine) 5 ml 5 ml PRN PRN FLUSH 06/17/16 21:30 07/17/16 21:29 06/18/16 10:03 5 ML Methylprednisolone Sodium Succinate/ Syringe (Solu-Medrol IV/ Syringe) 0.32 ml @ 1.5 mls/min Q8@0600,1400,2200 IV 06/18/16 14:00 07/18/16 13:59 06/21/16 06:14 1.5 MLS/MIN Pantoprazole Sodium (Protonix Tab) 40 mg BID PO 06/19/16 21:00 07/19/16 20:59 06/21/16 08:25 40 MG Dornase Ashish (Pulmozyme Inhalation Soln 2.5ml Amp) 2.5 ml BIDR INH 06/20/16 20:00 07/20/16 19:59 06/21/16 07:14 2.5 ML I & O: 24-Hour Column 06/21/16 08:00 Intake Total 425 ml Output Total 1476 ml Balance -1051 ml Vital Signs: Date Time Temp Pulse Resp B/P Pulse Ox O2 Delivery O2 Flow Rate FiO2 06/21/16 10:34 36.5 90 18 131/79 98 Nasal Cannula 4.0 06/21/16 08:06 96 Nasal Cannula 4.0 06/21/16 07:25 36.4 76 139/82 96 Nasal Cannula 4.0 06/21/16 07:15 78 16 97 Nasal Cannula 4.0 06/21/16 04:00 Nasal Cannula 4.0 06/21/16 03:04 36.4 85 22 133/72 99 Nasal Cannula 4.0 06/20/16 23:59 Nasal Cannula 4.0 06/20/16 23:23 36.4 96 20 134/78 94 Nasal Cannula 4.0 06/20/16 20:00 Nasal Cannula 4.0 06/20/16 19:50 99 16 97 Nasal Cannula 4.0 06/20/16 19:38 36.4 84 20 139/81 92 Nasal Cannula 4.0 Humidified Oxygen 06/20/16 16:00 Nasal Cannula 4.0 06/20/16 15:25 36.8 57 18 124/75 96 06/20/16 15:18 58 16 97 Nasal Cannula 4.0 06/20/16 13:00 Nasal Cannula 4.0 06/20/16 12:26 60 20 130/83 96 Nasal Cannula 4 06/20/16 12:11 70 20 131/69 96 Nasal Cannula 4 06/20/16 11:56 72 16 122/61 98 Mask 6 06/20/16 11:37 36.8 69 18 115/63 Nasal Cannula 4.0 06/20/16 11:32 36.8 69 18 115/63 98 06/20/16 11:18 36.4 68 24 132/81 97 Nasal Cannula 4 Laboratory Results: Last 24 Hours Test 06/20/16 16:05 06/20/16 20:08 06/21/16 04:52 06/21/16 06:31 Bedside Glucose 256 mg/dl 245 mg/dl 205 mg/dl White Blood Count 8.19 K/uL Red Blood Count 3.42 M/uL Hemoglobin 10.1 g/dL Hematocrit 30.8 % Mean Corpuscular Volume 90.1 fL Mean Corpuscular Hemoglobin 29.5 pg Mean Corpuscular Hemoglobin Concent 32.8 g/dl RDW Standard Deviation 54.2 fL RDW Coefficient of Variation 17.0 % Platelet Count 141 K/uL Mean Platelet Volume 9.9 fL Prothrombin Time 39.0 SECONDS Prothromb Time International Ratio 3.5 Sodium Level 138 mmol/L Potassium Level 4.1 mmol/L Chloride Level 100 mmol/L Carbon Dioxide Level 30 mmol/L Anion Gap 8.0 mmol/L Blood Urea Nitrogen 17 mg/dl Creatinine 0.82 mg/dl Est Creatinine Clear Calc Drug Dose 75.2 ml/min Estimated GFR () 96.1 Estimated GFR (Non- 82.9 BUN/Creatinine Ratio 20.1 Random Glucose 239 mg/dl Calcium Level 8.4 mg/dl
--- NOTE | 2016-06-21 12:12 | Pharmacy Progress Note ---
Glycemic Control: Progress Nt Date of Service Jun 21, 2016. Scope Glycemic Pharmacist consulted by Kinsey Donis PA-C on 06/13/16 for glycemic control and to write orders per [facility] inpatient glycemic control protocol. Objective Accuchecks BSG (last 24hrs): Test 06/20/16 16:05 06/20/16 20:08 06/21/16 04:52 06/21/16 06:31 Bedside Glucose 256 mg/dl (70-99) 245 mg/dl (70-99) 205 mg/dl (70-99) Random Glucose 239 mg/dl (70-99) Test 06/21/16 11:00 Bedside Glucose 286 mg/dl (70-99) Laboratory Data (last 24hrs) Test 06/21/16 04:52 Anion Gap 8.0 mmol/L BUN/Creatinine Ratio 20.1 Blood Urea Nitrogen 17 mg/dl Creatinine 0.82 mg/dl Potassium Level 4.1 mmol/L Sodium Level 138 mmol/L White Blood Count 8.19 K/uL Recent Pertinent Medications Outpatient Anti-diabetic Regimen: * Novolog sliding scale (3-6 units usually daily with lunch and dinner; CF= 30unit/mg/dL, goal 120-150mg/dL) * Patient on Prednisone 50mg PO Daily as outpatient * A1c = 5.6 % 05/27/16 The patient is currently receiving: * Correctional Insulin: Novolog Correction per scale ACHS Goal Range: Low 120 mg/dL - High 150 mg/dL Correction Factor: 20 mg/dL/unit * Prandial insulin: Per carb ratio of 1 unit per 7 grams CHO consumed Risk Factors for Insulin Resistance: * Steroids * Infection * Diet Assessment & Plan ASSESSMENT: 06/19/16 * 81 yo T2D M admitted with SOB, initiated on antibiotics and high dose IV steroids * Pharmacy consulted to manage steroid-induced hyperglycemia * Over the past 24 hours, steroids decreased to Solumedrol 20 mg IV every 12 hours * Fasting BSG 187 mg/dL, Lunch BSG 154 mg/dL * I usually loosen Novolog coverage with each step down in steroids- however, I believe patient can tolerate current regimen as they remain above goal range * ADA & AACE recommend a goal blood sugar range 140-180 mg/dl for the majority of critically ill & non-critically ill patients. However, more stringent targets may be selected in individual cases. Goal of 120-150mg/dl to match with patient's home goal range. * Patient was seen by DM Educator. See my D/C recommendations below. 06/21/16 * BSGs were stable yesterday morning, but through the evening BSGs climbed to > 250 mg/dL * Fasting BSG 205 mg/dL * Initiate Lantus (weight-based, stress of 1) * Tighten Novolog and add overnight check PLAN FOR INPATIENT GLYCEMIC CONTROL: * Correctional Insulin with NOVOLOG per scale ACHS or Q6hrs while NPO * Goal Range: Low 120 mg/dL - High 150 mg/dL * Correction Factor: 18 mg/dL/unit * Nutritional / Prandial insulin per carb ratio of 1 unit per 6 grams CHO consumed RECOMMENDATIONS FOR DISCHARGE: * Discontinue Novolog sliding scale * Begin Humulin-N QuickPen - 6 units SQ daily with Prednisone * Please note that the plan above was derived based on current level of insulin resistance and hospital stress. These recommendations are appropriate for inpatient admission only. Plan of care upon discharge will need to be reassessed to avoid potential outpatient hypo/hyperglycemia. Thank you.
--- NOTE | 2016-06-21 13:00 | Progress Note ---
Medicine Progress Note Date & Time of Visit: Jun 21, 2016 at 12:09. Subjective Pt was seen and examined Pt lying in bed with no acute distress Pt said that he continue to have breathing problem with minimal exertion Pt is very frustrated because he is breathing is not getting better he said that he had multiple admission for the same problem Pt said that if we cannot treated his breathing, he will go to [facility] denies any chest pain, palpitation, dizziness and sob Objective Last 8 Hrs Date Time Temp Pulse Resp B/P Pulse Ox O2 Delivery O2 Flow Rate FiO2 06/21/16 11:47 95 20 99 Nasal Cannula 4.0 06/21/16 11:38 36.5 90 20 145/79 94 Nasal Cannula 4.0 06/21/16 10:34 36.5 90 18 131/79 98 Nasal Cannula 4.0 06/21/16 08:06 96 Nasal Cannula 4.0 06/21/16 07:25 36.4 76 139/82 96 Nasal Cannula 4.0 06/21/16 07:15 78 16 97 Nasal Cannula 4.0 Physical Exam: General- No acute distress Head- atraumatic Eyes- PERRL, EOMI ENT- oropharynx clear Neck- supple, no JVD Lungs-Coarse BS Heart- regular rhythm; no murmur Abdomen- normal bowel sounds, soft Extremities- no calf tenderness Neuro- alert, oriented x 3; PERRL, EOMI Skin- warm & dry Laboratory Results: Last 24 Hours Test 06/20/16 16:05 06/20/16 20:08 06/21/16 04:52 06/21/16 06:31 Bedside Glucose 256 mg/dl 245 mg/dl 205 mg/dl White Blood Count 8.19 K/uL Red Blood Count 3.42 M/uL Hemoglobin 10.1 g/dL Hematocrit 30.8 % Mean Corpuscular Volume 90.1 fL Mean Corpuscular Hemoglobin 29.5 pg Mean Corpuscular Hemoglobin Concent 32.8 g/dl RDW Standard Deviation 54.2 fL RDW Coefficient of Variation 17.0 % Platelet Count 141 K/uL Mean Platelet Volume 9.9 fL Prothrombin Time 39.0 SECONDS Prothromb Time International Ratio 3.5 Sodium Level 138 mmol/L Potassium Level 4.1 mmol/L Chloride Level 100 mmol/L Carbon Dioxide Level 30 mmol/L Anion Gap 8.0 mmol/L Blood Urea Nitrogen 17 mg/dl Creatinine 0.82 mg/dl Est Creatinine Clear Calc Drug Dose 75.2 ml/min Estimated GFR () 96.1 Estimated GFR (Non- 82.9 BUN/Creatinine Ratio 20.1 Random Glucose 239 mg/dl Calcium Level 8.4 mg/dl Test 06/21/16 11:00 Bedside Glucose 286 mg/dl Assessment & Plan ACUTE ON CHRONIC RESPIRATORY FAILURE -Differential diagnosis to include Pneumonia, COPD exacerbation, Influenza, Acute CHF and other causes POSSIBLE PNEUMONIA CXR showed Persistent bibasilar parenchymal infiltrative change -Blood cultures, sputum cultures negative Completed Zosyn course Continue Supplemental oxygen DYSPHAGIA EGD done today showed normal esophagus, stomach and duodenum. Continue aspiration precaution POSSIBLE COPD EXACERBATION Solumedrol will change to po prednisone Duonebs QID and prn SOB Flutter Valve Continue Supplemental oxygen Case discussed with Pulmonology Dr. Steel POSSIBLE ACUTE DECOMPENSATION OF SYSTOLIC CHF Appears euvolemic, no weight gain, orthopnea, edema Last echo with EF 40-45% Continue lasix H/O PULMONARY EMBOLISM -INR 3.5 today - Coumadin decrease to 2 mg - Check INR in am METASTATIC COLON CA -follows with Dr. Rosado -Previously pulmonology thought that chemo maybe causing pulmonary fibrosis -patient currently not on any treatment -followup with Heme/onc as previously schedule H/O MRSA -contact precautions -check MRSA swab H/O OF COMPLETE AV BLOCK -s/p pacemaker HLD -continue Statin BPH -continue Flomax GERD -continue PPI DVT PROPHYLAXIS: Coumadin Consultants: Pulm Current Inpatient Medications: Current Inpatient Medications Medications (Trade) Dose Ordered Sig/Karie Route Start Time Stop Time Status Last Admin Dose Admin Acetaminophen (Tylenol Tab) 650 mg Q4H PRN PO 06/13/16 15:45 07/13/16 15:44 Ondansetron HCl (Zofran Inj) 4 mg Q6H PRN IV 06/13/16 15:45 07/13/16 15:44 Nitroglycerin (Nitrostat Tab) 0.4 mg UD PRN SL 06/13/16 15:45 07/13/16 15:44 Aspirin (Ecotrin Tab) 81 mg DAILY PO 06/14/16 09:00 07/14/16 08:59 06/21/16 08:22 81 MG Bisacodyl (Dulcolax Tab) 10 mg DAILY PRN PO 06/13/16 16:00 07/13/16 15:59 Furosemide (Lasix Tab) 40 mg QAM PO 06/14/16 09:00 07/14/16 08:59 06/21/16 08:24 40 MG Multivitamins/ Minerals (Multivitamin W/ Minerals Tab) 1 tab QAM PO 06/14/16 09:00 07/14/16 08:59 06/21/16 08:25 1 TAB Ranitidine HCl (zANTac TAB) 150 mg DAILY PO 06/14/16 09:00 07/14/16 08:59 06/21/16 08:25 150 MG Tamsulosin HCl (Flomax Cap) 0.4 mg DAILY PO 06/14/16 09:00 07/14/16 08:59 06/21/16 08:23 0.4 MG Oxycodone/ Acetaminophen (Percocet 5-325mg Tab) 1 tab Q6H PRN PO 06/13/16 16:00 06/27/16 15:59 Albuterol/ Ipratropium (Duoneb) 3 ml QIDR INH 06/13/16 16:00 07/13/16 15:59 06/21/16 11:27 3 ML Insulin Aspart (novoLOG ASPART) SLIDING SCALE If C... ACHS SC 06/13/16 21:00 07/13/16 20:59 06/21/16 08:20 5 UNITS Glucose (Glucose 40% Gel) 15-30 GRAMS 15 GRAMS... UD PRN PO 06/13/16 16:00 07/13/16 15:59 Glucose (Glucose Chew Tab) 4-8 Tablets 4 Tabl... UD PRN PO 06/13/16 16:00 07/13/16 15:59 Dextrose (Dextrose 50% 50ML Syringe) 25-50ML OF 50% DW IV FOR... UD PRN IV 06/13/16 16:00 07/13/16 15:59 Glucagon (Glucagon Inj) 1 mg UD PRN SQ 06/13/16 16:00 07/13/16 15:59 Miscellaneous Information (Consult Glycemic Management Pharmacy) 1 ea UD PRN N/A 06/13/16 16:20 07/13/16 16:19 Potassium Chloride (Klor-Con M10) 10 meq QAM PO 06/14/16 09:00 07/14/16 08:59 06/21/16 08:24 10 MEQ Albuterol Sulfate (Ventolin 0.083% 2.5MG/3ML Neb) 2.5 mg Q3R PRN INH 06/15/16 11:15 07/15/16 11:14 Guaifenesin (Mucinex Contr Rel Tab) 600 mg Q12 PO 06/15/16 21:00 07/15/16 20:59 06/21/16 08:25 600 MG Albuterol/ Ipratropium (Duoneb) 3 ml Q2R PRN INH 06/15/16 11:45 07/15/16 11:44 Warfarin Sodium (Coumadin Tab) 3 mg DAILY@16 PO 06/16/16 16:00 07/16/16 15:59 06/20/16 16:47 3 MG Heparin Sodium (Porcine) 5 ml 5 ml PRN PRN FLUSH 06/17/16 21:30 07/17/16 21:29 06/18/16 10:03 5 ML Methylprednisolone Sodium Succinate/ Syringe (Solu-Medrol IV/ Syringe) 0.32 ml @ 1.5 mls/min Q8@0600,1400,2200 IV 06/18/16 14:00 07/18/16 13:59 06/21/16 06:14 1.5 MLS/MIN Pantoprazole Sodium (Protonix Tab) 40 mg BID PO 06/19/16 21:00 07/19/16 20:59 06/21/16 08:25 40 MG Dornase Ashish (Pulmozyme Inhalation Soln 2.5ml Amp) 2.5 ml BIDR INH 06/20/16 20:00 07/20/16 19:59 06/21/16 07:14 2.5 ML Insulin Glargine (Lantus Solostar Pen) 8 unit BID SC 06/21/16 21:00 07/21/16 20:59 Insulin Aspart (novoLOG ASPART) SLIDING SCALE If C... 0200 SC 06/22/16 02:00 07/22/16 01:59
[2016-06-21] MEDS ORDERED: WARFARIN SOD 2 MG TAB PO SCH (16:00)
[2016-06-21] MEDS: INSULIN GLARGINE SOLOSTAR 100 UNITS/ML 3 ML PEN SC SCH (20:38)
[2016-06-22] VITALS (10 sets, daily range): BP systolic 99–137; BP diastolic 58–82; PULSE 76–102; TEMP 36–36.8; O2SAT 94–98
[2016-06-22] MEDS: INSULIN ASPART 100 UNITS/ML 3 ML PEN SC SCH ×5 (02:19→20:36)
[2016-06-22] MEDS: OXYCODONE/ACETAMINOPHEN 5-325 TAB PO PRN ×2 (02:22→23:40)
[2016-06-22] MEDS: METHYLPREDNISOLONE IV 20 MG in SYRINGE 0 ML IV SCH (06:19)
[2016-06-22 07:11] LABS: PROTHROMBIN TIME (PATIENT) 43.8 SECONDS (9.0-12.0)
[2016-06-22] MEDS: ALBUT/IPRATROP 3MG/0.5MG NEB 3 ML VIAL INH SCH ×4 (07:11→19:20)
[2016-06-22] MEDS: DORNASE ALFA (2500U) 2.5MG/2.5ML INH SCH ×2 (07:11→19:21)
[2016-06-22 07:15] LABS: INR 3.9 (0.9-1.1)
[2016-06-22] MEDS: PANTOprazole SOD 40 MG TAB PO SCH ×2 (08:09→20:04)
[2016-06-22] MEDS: POTASSIUM CHLORIDE 10 MEQ TABCR PO SCH (08:10)
[2016-06-22] MEDS: FUROSEMIDE 40 MG TAB PO SCH (08:10)
[2016-06-22] MEDS: ASPIRIN 81 MG ECTAB PO SCH (08:10)
[2016-06-22] MEDS: GUAIFENESIN 600 MG TABCR PO SCH ×2 (08:10→20:03)
[2016-06-22] MEDS: TAMSULOSIN HCL 0.4 MG CAP PO SCH (08:10)
[2016-06-22] MEDS: CEROVITE ADV FORMULA TAB PO SCH (08:10)
[2016-06-22] MEDS: RANITIDINE HCL 150 MG TAB PO SCH (08:10)
[2016-06-22] MEDS: INSULIN GLARGINE SOLOSTAR 100 UNITS/ML 3 ML PEN SC SCH ×2 (08:12→20:36)
--- NOTE | 2016-06-22 10:38 | Pharmacy Progress Note ---
Glycemic Control: Progress Nt Date of Service Jun 22, 2016. Scope Glycemic Pharmacist consulted by Kinsey Donis PA-C on 06/13/16 for glycemic control and to write orders per [facility] inpatient glycemic control protocol. Objective Accuchecks BSG (last 24hrs): Test 06/21/16 11:00 06/21/16 16:18 06/21/16 20:32 06/22/16 02:00 Bedside Glucose 286 mg/dl (70-99) 222 mg/dl (70-99) 231 mg/dl (70-99) 227 mg/dl (70-99) Test 06/22/16 07:03 Bedside Glucose 202 mg/dl (70-99) Recent Pertinent Medications Outpatient Anti-diabetic Regimen: * Novolog sliding scale (3-6 units usually daily with lunch and dinner; CF= 30unit/mg/dL, goal 120-150mg/dL) * Patient on Prednisone 50mg PO Daily as outpatient * A1c = 5.6 % 05/27/16 The patient is currently receiving: * Basal Insulin: Lantus 8 units SQ BID - started yesterday * Correctional Insulin: Novolog Correction per scale ACHS Goal Range: Low 120 mg/dL - High 150 mg/dL Correction Factor: 18 mg/dL/unit * Prandial insulin: Per carb ratio of 1 unit per 6 grams CHO consumed Risk Factors for Insulin Resistance: * Steroids: Solu-medrol 20mg IV Q8H * Infection: IV Zosyn for questionable pneumonia - discontinued yesterday * Recent surgery: POD1 EGD * Diet: Type 2 DM/ AHA Assessment & Plan ASSESSMENT: 06/22/16 * Blood sugars remain in the 200s despite starting Lantus yesterday and tightening CF and CR. I will tighten CF and CR further and wait another day to increase Lantus as it may take 12-24 more hours to reach steady state. * Also change goal range for A1c 5.6% to 110-140mg/dl. PLAN FOR INPATIENT GLYCEMIC CONTROL: * Lantus 8 units SQ BID (Hold for BSG < 120mg/dl) * Correctional Insulin with NOVOLOG per scale ACHS or Q6hrs while NPO * CHANGE: Goal Range: Low 110 mg/dL - High 140 mg/dL * TIGHTEN: Correction Factor: 15 mg/dL/unit * TIGHTEN: Nutritional / Prandial insulin per carb ratio of 1 unit per 5 grams CHO consumed RECOMMENDATIONS FOR DISCHARGE: * Discontinue Novolog sliding scale * Begin Humulin-N QuickPen - 6 units SQ daily with Prednisone * Please note that the plan above was derived based on current level of insulin resistance and hospital stress. These recommendations are appropriate for inpatient admission only. Plan of care upon discharge will need to be reassessed to avoid potential outpatient hypo/hyperglycemia. Thank you.
--- NOTE | 2016-06-22 11:15 | Pulmonology Progress Note ---
Pulmonary Progress Note Date of Service Jun 22, 2016. Attending Rip Steel Subjective Patient notes increased mucus clearance with decreased work of breathing but continued VELASQUEZ Objective Patient able to complete full sentences with no tachypnea or use of accessory muscles Vital signs: Reviewed stable liters nasal cannula Respiratory: Bilateral lower lobe posterior Velcro inspiratory rales with diffuse rhonchi globally Cardiac: S1-S2 distant heart sounds Extremities: Minimal bruising upper and lower extremities mild 1+ pitting edema 1) EGD: WNL 2) Microbiology: Sputum, nasal swab and Blood no growth 3) Dornase 4) DuoNebs, 5) Steroids (0.86mg/Kg) 6) Microbiology Reviewed a. Sputum (04/29/16) Eikenella corrodens Assessment & Plan 81 y/o male with progressive hypoxemia: #1 Pneumonia: Patient stable off abx at this time with mild increased WBC continue to monitor but better clinical respiraotry status #2 Pulmonary toilet: Continue flutter valve, Mucinex #3 Pneumonitis/hypoxia: Etiologies: IPF, chronic aspiration versus severe GERD , drug-induced irinotecan a. Steroids: change to 20mg/TID for total of .68mg/Kg b. Continue oxygen support currently stable at 4 L/ Let switch him to a high flow system at this time for respiratory relief #5 colon cancer: Would be beneficial to have hematology oncology weight and for mortality secondary to recently treated colon cancer Data Medications: Current Inpatient Medications Medications (Trade) Dose Ordered Sig/Karie Route Start Time Stop Time Status Last Admin Dose Admin Acetaminophen (Tylenol Tab) 650 mg Q4H PRN PO 06/13/16 15:45 07/13/16 15:44 Ondansetron HCl (Zofran Inj) 4 mg Q6H PRN IV 06/13/16 15:45 07/13/16 15:44 Nitroglycerin (Nitrostat Tab) 0.4 mg UD PRN SL 06/13/16 15:45 07/13/16 15:44 Aspirin (Ecotrin Tab) 81 mg DAILY PO 06/14/16 09:00 07/14/16 08:59 06/22/16 08:10 81 MG Bisacodyl (Dulcolax Tab) 10 mg DAILY PRN PO 06/13/16 16:00 07/13/16 15:59 Furosemide (Lasix Tab) 40 mg QAM PO 06/14/16 09:00 07/14/16 08:59 06/22/16 08:10 40 MG Multivitamins/ Minerals (Multivitamin W/ Minerals Tab) 1 tab QAM PO 06/14/16 09:00 07/14/16 08:59 06/22/16 08:10 1 TAB Ranitidine HCl (zANTac TAB) 150 mg DAILY PO 06/14/16 09:00 07/14/16 08:59 06/22/16 08:10 150 MG Tamsulosin HCl (Flomax Cap) 0.4 mg DAILY PO 06/14/16 09:00 07/14/16 08:59 06/22/16 08:10 0.4 MG Oxycodone/ Acetaminophen (Percocet 5-325mg Tab) 1 tab Q6H PRN PO 06/13/16 16:00 06/27/16 15:59 06/22/16 02:22 1 TAB Albuterol/ Ipratropium (Duoneb) 3 ml QIDR INH 06/13/16 16:00 07/13/16 15:59 06/22/16 07:11 3 ML Insulin Aspart (novoLOG ASPART) SLIDING SCALE If C... ACHS SC 06/13/16 21:00 07/13/16 20:59 06/22/16 08:09 14 UNITS Glucose (Glucose 40% Gel) 15-30 GRAMS 15 GRAMS... UD PRN PO 06/13/16 16:00 07/13/16 15:59 Glucose (Glucose Chew Tab) 4-8 Tablets 4 Tabl... UD PRN PO 06/13/16 16:00 07/13/16 15:59 Dextrose (Dextrose 50% 50ML Syringe) 25-50ML OF 50% DW IV FOR... UD PRN IV 06/13/16 16:00 07/13/16 15:59 Glucagon (Glucagon Inj) 1 mg UD PRN SQ 06/13/16 16:00 07/13/16 15:59 Miscellaneous Information (Consult Glycemic Management Pharmacy) 1 ea UD PRN N/A 06/13/16 16:20 07/13/16 16:19 Potassium Chloride (Klor-Con M10) 10 meq QAM PO 06/14/16 09:00 07/14/16 08:59 06/22/16 08:10 10 MEQ Albuterol Sulfate (Ventolin 0.083% 2.5MG/3ML Neb) 2.5 mg Q3R PRN INH 06/15/16 11:15 07/15/16 11:14 Guaifenesin (Mucinex Contr Rel Tab) 600 mg Q12 PO 06/15/16 21:00 07/15/16 20:59 06/22/16 08:10 600 MG Albuterol/ Ipratropium (Duoneb) 3 ml Q2R PRN INH 06/15/16 11:45 07/15/16 11:44 Heparin Sodium (Porcine) 5 ml 5 ml PRN PRN FLUSH 06/17/16 21:30 07/17/16 21:29 06/18/16 10:03 5 ML Methylprednisolone Sodium Succinate/ Syringe (Solu-Medrol IV/ Syringe) 0.32 ml @ 1.5 mls/min Q8@0600,1400,2200 IV 06/18/16 14:00 07/18/16 13:59 06/22/16 06:19 1.5 MLS/MIN Pantoprazole Sodium (Protonix Tab) 40 mg BID PO 06/19/16 21:00 07/19/16 20:59 06/22/16 08:09 40 MG Dornase Ashish (Pulmozyme Inhalation Soln 2.5ml Amp) 2.5 ml BIDR INH 06/20/16 20:00 07/20/16 19:59 06/22/16 07:11 2.5 ML Insulin Glargine (Lantus Solostar Pen) 8 unit BID SC 06/21/16 21:00 07/21/16 20:59 06/22/16 08:12 8 UNIT Insulin Aspart (novoLOG ASPART) SLIDING SCALE If C... 0200 SC 06/22/16 02:00 07/22/16 01:59 06/22/16 02:19 5 UNITS Warfarin Sodium (Coumadin Tab) 2 mg DAILY@16 PO 06/21/16 16:00 07/21/16 15:59 Future Hold 06/21/16 16:45 2 MG I & O: 24-Hour Column 06/22/16 08:00 Intake Total 750 ml Output Total 450 ml Balance 300 ml Vital Signs: Date Time Temp Pulse Resp B/P Pulse Ox O2 Delivery O2 Flow Rate FiO2 06/22/16 08:00 Nasal Cannula 4.0 06/22/16 07:48 36.8 76 22 99/64 95 Nasal Cannula 4.0 06/22/16 07:11 76 18 98 Nasal Cannula 4.0 06/22/16 04:00 Nasal Cannula 4.0 06/22/16 03:56 36.0 93 22 121/76 97 Nasal Cannula 4.0 06/21/16 23:59 Nasal Cannula 4.0 06/21/16 22:59 36.5 102 22 135/74 91 Nasal Cannula 4.0 06/21/16 21:06 36.5 84 20 149/74 93 Nasal Cannula 4.0 06/21/16 20:23 93 18 95 Nasal Cannula 4.0 06/21/16 20:00 Nasal Cannula 4.0 06/21/16 16:00 Nasal Cannula 4.0 06/21/16 15:33 92 24 94 Nasal Cannula 4.0 06/21/16 15:05 36.3 93 18 129/80 95 Nasal Cannula 4.0 06/21/16 13:30 96 06/21/16 12:00 95 Nasal Cannula 4.0 06/21/16 11:47 95 20 99 Nasal Cannula 4.0 06/21/16 11:38 36.5 90 20 145/79 94 Nasal Cannula 4.0 Laboratory Results: Last 24 Hours Test 06/21/16 16:18 06/21/16 20:32 06/22/16 02:00 06/22/16 06:44 Bedside Glucose 222 mg/dl 231 mg/dl 227 mg/dl Prothrombin Time 43.8 SECONDS Prothromb Time International Ratio 3.9 Test 06/22/16 07:03 Bedside Glucose 202 mg/dl
[2016-06-22] MEDS ORDERED: NURSING VERBAL MED ORDER ONE (18:15)
--- NOTE | 2016-06-22 18:59 | Progress Note ---
Medicine Progress Note Date & Time of Visit: Jun 22, 2016 at 18:47. Subjective Pt was seen advised and examined Lying in bed comfortable with no distress Pt said that he feels a little better today he said that he walked to the bathroom today with no shortness of breath He said that he is starting to get back to his baseline denies any chest pain, palpitation, fever and dizziness Objective Last 8 Hrs Date Time Temp Pulse Resp B/P Pulse Ox O2 Delivery O2 Flow Rate FiO2 06/22/16 16:06 102 18 96 Nasal Cannula 4.0 06/22/16 16:00 Nasal Cannula 4.0 06/22/16 15:31 36.4 100 20 126/81 95 4.0 06/22/16 12:00 Nasal Cannula 4.0 06/22/16 11:38 36.6 95 18 135/77 98 Nasal Cannula 4.0 06/22/16 11:30 85 18 98 Nasal Cannula 4.0 Physical Exam: General- No acute distress Head- atraumatic Eyes- PERRL, EOMI ENT- oropharynx clear Neck- supple, no JVD Lungs-mild coarse BS Heart- regular rhythm; no murmur Abdomen- normal bowel sounds, soft Extremities- no calf tenderness Neuro- alert, oriented x 3; PERRL, EOMI Skin- warm & dry Laboratory Results: Last 24 Hours Test 06/21/16 20:32 06/22/16 02:00 06/22/16 06:44 06/22/16 07:03 Bedside Glucose 231 mg/dl 227 mg/dl 202 mg/dl Prothrombin Time 43.8 SECONDS Prothromb Time International Ratio 3.9 Test 06/22/16 11:06 06/22/16 16:06 Bedside Glucose 177 mg/dl 135 mg/dl Assessment & Plan ACUTE ON CHRONIC RESPIRATORY FAILURE -Differential diagnosis to include Pneumonia, COPD exacerbation, Influenza, Acute CHF and other causes POSSIBLE PNEUMONIA CXR showed Persistent bibasilar parenchymal infiltrative change -Blood cultures, sputum cultures negative Completed Zosyn course Continue Supplemental oxygen On prednisone 20mg BID DYSPHAGIA EGD done today showed normal esophagus, stomach and duodenum. Continue aspiration precaution POSSIBLE COPD EXACERBATION Solumedrol will change to po prednisone Duonebs QID and prn SOB Flutter Valve Continue Supplemental oxygen Case discussed with Pulmonology Dr. Steel On prednisone 20 mg BID POSSIBLE ACUTE DECOMPENSATION OF SYSTOLIC CHF Appears euvolemic, no weight gain, orthopnea, edema Last echo with EF 40-45% Continue lasix H/O PULMONARY EMBOLISM -INR 3.9 today - Hold Coumadin today - Check INR in am METASTATIC COLON CA -follows with Dr. Rosado -Previously pulmonology thought that chemo maybe causing pulmonary fibrosis -patient currently not on any treatment -followup with Heme/onc as previously schedule H/O MRSA -contact precautions -check MRSA swab H/O OF COMPLETE AV BLOCK -s/p pacemaker HLD -continue Statin BPH -continue Flomax GERD -continue PPI DVT PROPHYLAXIS: Coumadin Disposition Possible discharge tomorrow Consultants: Pulm Current Inpatient Medications: Current Inpatient Medications Medications (Trade) Dose Ordered Sig/Karie Route Start Time Stop Time Status Last Admin Dose Admin Acetaminophen (Tylenol Tab) 650 mg Q4H PRN PO 06/13/16 15:45 07/13/16 15:44 Ondansetron HCl (Zofran Inj) 4 mg Q6H PRN IV 06/13/16 15:45 07/13/16 15:44 Nitroglycerin (Nitrostat Tab) 0.4 mg UD PRN SL 06/13/16 15:45 07/13/16 15:44 Aspirin (Ecotrin Tab) 81 mg DAILY PO 06/14/16 09:00 07/14/16 08:59 06/22/16 08:10 81 MG Bisacodyl (Dulcolax Tab) 10 mg DAILY PRN PO 06/13/16 16:00 07/13/16 15:59 Furosemide (Lasix Tab) 40 mg QAM PO 06/14/16 09:00 07/14/16 08:59 06/22/16 08:10 40 MG Multivitamins/ Minerals (Multivitamin W/ Minerals Tab) 1 tab QAM PO 06/14/16 09:00 07/14/16 08:59 06/22/16 08:10 1 TAB Ranitidine HCl (zANTac TAB) 150 mg DAILY PO 06/14/16 09:00 07/14/16 08:59 06/22/16 08:10 150 MG Tamsulosin HCl (Flomax Cap) 0.4 mg DAILY PO 06/14/16 09:00 07/14/16 08:59 06/22/16 08:10 0.4 MG Oxycodone/ Acetaminophen (Percocet 5-325mg Tab) 1 tab Q6H PRN PO 06/13/16 16:00 06/27/16 15:59 06/22/16 02:22 1 TAB Albuterol/ Ipratropium (Duoneb) 3 ml QIDR INH 06/13/16 16:00 07/13/16 15:59 06/22/16 16:05 3 ML Insulin Aspart (novoLOG ASPART) SLIDING SCALE If C... ACHS SC 06/13/16 21:00 07/13/16 20:59 06/22/16 17:02 8 UNITS Glucose (Glucose 40% Gel) 15-30 GRAMS 15 GRAMS... UD PRN PO 06/13/16 16:00 07/13/16 15:59 Glucose (Glucose Chew Tab) 4-8 Tablets 4 Tabl... UD PRN PO 06/13/16 16:00 07/13/16 15:59 Dextrose (Dextrose 50% 50ML Syringe) 25-50ML OF 50% DW IV FOR... UD PRN IV 06/13/16 16:00 07/13/16 15:59 Glucagon (Glucagon Inj) 1 mg UD PRN SQ 06/13/16 16:00 07/13/16 15:59 Miscellaneous Information (Consult Glycemic Management Pharmacy) 1 ea UD PRN N/A 06/13/16 16:20 07/13/16 16:19 Potassium Chloride (Klor-Con M10) 10 meq QAM PO 06/14/16 09:00 07/14/16 08:59 06/22/16 08:10 10 MEQ Albuterol Sulfate (Ventolin 0.083% 2.5MG/3ML Neb) 2.5 mg Q3R PRN INH 06/15/16 11:15 07/15/16 11:14 Guaifenesin (Mucinex Contr Rel Tab) 600 mg Q12 PO 06/15/16 21:00 07/15/16 20:59 06/22/16 08:10 600 MG Albuterol/ Ipratropium (Duoneb) 3 ml Q2R PRN INH 06/15/16 11:45 07/15/16 11:44 Heparin Sodium (Porcine) (Heparin 100 Unit/ml 5ml Flush) 5 ml PRN PRN FLUSH 06/17/16 21:30 07/17/16 21:29 06/18/16 10:03 5 ML Pantoprazole Sodium (Protonix Tab) 40 mg BID PO 06/19/16 21:00 07/19/16 20:59 06/22/16 08:09 40 MG Dornase Ashish (Pulmozyme Inhalation Soln 2.5ml Amp) 2.5 ml BIDR INH 06/20/16 20:00 07/20/16 19:59 06/22/16 07:11 2.5 ML Insulin Glargine (Lantus Solostar Pen) 8 unit BID SC 06/21/16 21:00 07/21/16 20:59 06/22/16 08:12 8 UNIT Insulin Aspart (novoLOG ASPART) SLIDING SCALE If C... 0200 SC 06/22/16 02:00 07/22/16 01:59 06/22/16 02:19 5 UNITS Warfarin Sodium (Coumadin Tab) 2 mg DAILY@16 PO 06/21/16 16:00 07/21/16 15:59 Future Hold 06/21/16 16:45 2 MG Prednisone (PredniSONE TAB) 20 mg TID PO 06/22/16 11:30 07/22/16 11:29 06/22/16 16:17 20 MG Miscellaneous Information (Nursing Verbal Med Order) 1 ea ONE ONCE N/A 06/22/16 18:15 06/22/16 18:16 UNV
[2016-06-23] VITALS (10 sets, daily range): BP systolic 113–147; BP diastolic 61–79; PULSE 48–103; TEMP 36.3–36.4; O2SAT 90–99
[2016-06-23] MEDS: INSULIN ASPART 100 UNITS/ML 3 ML PEN SC SCH ×5 (02:00→20:42)
[2016-06-23 06:31] LABS: HEMATOCRIT 30.8 % (42-52); MEAN CELL VOLUME 88.3 fL (80-100); MEAN CORPUSCULAR HEMOGLOBIN 28.9 pg (25-34); MEAN CORPUSCULAR HGB CONC 32.8 g/dl (32-36); MEAN PLATELET VOLUME 9.6 fL (7.4-10.4); PLATELET COUNT 125 K/uL (130-400); RED BLOOD COUNT 3.49 M/uL (4.7-6.1); WHITE BLOOD COUNT 8.43 K/uL (4.8-10.8)
[2016-06-23 06:57] LABS: INR 3.9 (0.9-1.1); PROTHROMBIN TIME (PATIENT) 44.2 SECONDS (9.0-12.0)
[2016-06-23 07:05] LABS: BUN/CREATININE RATIO 29.1 (10-20); CALCIUM 8.6 mg/dl (8.5-10.1); CREATININE 0.6 mg/dl (0.60-1.40); POTASSIUM 4.2 mmol/L (3.5-5.1)
[2016-06-23] MEDS: DORNASE ALFA (2500U) 2.5MG/2.5ML INH SCH (07:09)
[2016-06-23] MEDS: ALBUT/IPRATROP 3MG/0.5MG NEB 3 ML VIAL INH SCH ×4 (07:09→19:24)
[2016-06-23] MEDS: GUAIFENESIN 600 MG TABCR PO SCH ×2 (08:13→20:48)
[2016-06-23] MEDS: PANTOprazole SOD 40 MG TAB PO SCH ×2 (08:13→20:46)
[2016-06-23] MEDS: FUROSEMIDE 40 MG TAB PO SCH (08:13)
[2016-06-23] MEDS: RANITIDINE HCL 150 MG TAB PO SCH (08:13)
[2016-06-23] MEDS: CEROVITE ADV FORMULA TAB PO SCH (08:13)
[2016-06-23] MEDS: ASPIRIN 81 MG ECTAB PO SCH (08:13)
[2016-06-23] MEDS: POTASSIUM CHLORIDE 10 MEQ TABCR PO SCH (08:13)
[2016-06-23] MEDS: TAMSULOSIN HCL 0.4 MG CAP PO SCH (08:14)
[2016-06-23] MEDS: INSULIN GLARGINE SOLOSTAR 100 UNITS/ML 3 ML PEN SC SCH ×2 (08:22→20:43)
--- NOTE | 2016-06-23 17:08 | Pulmonology Progress Note ---
Pulmonary Progress Note Date of Service Jun 23, 2016. Attending Rip Steel Subjective Patient have a mildly increased dyspnea on exertion over the last 24 hours but much improved from admission. Objective Patient able to complete full sentences with no tachypnea or use of accessory muscles Vital signs: Reviewed stable liters nasal cannula Respiratory: Bilateral lower lobe posterior Velcro inspiratory rales with diffuse rhonchi globally Cardiac: S1-S2 distant heart sounds Extremities: Minimal bruising upper and lower extremities mild 1+ pitting edema Assessment & Plan 81 y/o male with end-stage progressive hypoxemia: #1 Pulmonary toilet: Continue flutter valve, Mucinex, will discontinue dornase at this time #2 Pneumonitis/hypoxia: Etiologies: IPF, chronic aspiration versus severe GERD , drug-induced irinotecan a. Steroids: change to 20mg/TID for total of .68mg/Kg b. Continue oxygen support currently stable at 4 L/ Let switch him to a high flow system at this time for respiratory relief c. I spoken to the patient and his family about the progressive nature of his hypoxemia. I've noted that he this is a terminal illness and at this time the patient and family understand. Data Medications: Current Inpatient Medications Medications (Trade) Dose Ordered Sig/Karie Route Start Time Stop Time Status Last Admin Dose Admin Acetaminophen (Tylenol Tab) 650 mg Q4H PRN PO 06/13/16 15:45 07/13/16 15:44 Ondansetron HCl (Zofran Inj) 4 mg Q6H PRN IV 06/13/16 15:45 07/13/16 15:44 Nitroglycerin (Nitrostat Tab) 0.4 mg UD PRN SL 06/13/16 15:45 07/13/16 15:44 Aspirin (Ecotrin Tab) 81 mg DAILY PO 06/14/16 09:00 07/14/16 08:59 06/23/16 08:13 81 MG Bisacodyl (Dulcolax Tab) 10 mg DAILY PRN PO 06/13/16 16:00 07/13/16 15:59 Furosemide (Lasix Tab) 40 mg QAM PO 06/14/16 09:00 07/14/16 08:59 06/23/16 08:13 40 MG Multivitamins/ Minerals (Multivitamin W/ Minerals Tab) 1 tab QAM PO 06/14/16 09:00 07/14/16 08:59 06/23/16 08:13 1 TAB Ranitidine HCl (zANTac TAB) 150 mg DAILY PO 06/14/16 09:00 07/14/16 08:59 06/23/16 08:13 150 MG Tamsulosin HCl (Flomax Cap) 0.4 mg DAILY PO 06/14/16 09:00 07/14/16 08:59 06/23/16 08:14 0.4 MG Oxycodone/ Acetaminophen (Percocet 5-325mg Tab) 1 tab Q6H PRN PO 06/13/16 16:00 06/27/16 15:59 06/22/16 23:40 1 TAB Albuterol/ Ipratropium (Duoneb) 3 ml QIDR INH 06/13/16 16:00 07/13/16 15:59 06/23/16 15:52 3 ML Insulin Aspart (novoLOG ASPART) SLIDING SCALE If C... ACHS SC 06/13/16 21:00 07/13/16 20:59 06/23/16 12:21 13 UNITS Glucose (Glucose 40% Gel) 15-30 GRAMS 15 GRAMS... UD PRN PO 06/13/16 16:00 07/13/16 15:59 Glucose (Glucose Chew Tab) 4-8 Tablets 4 Tabl... UD PRN PO 06/13/16 16:00 07/13/16 15:59 Dextrose (Dextrose 50% 50ML Syringe) 25-50ML OF 50% DW IV FOR... UD PRN IV 06/13/16 16:00 07/13/16 15:59 Glucagon (Glucagon Inj) 1 mg UD PRN SQ 06/13/16 16:00 07/13/16 15:59 Miscellaneous Information (Consult Glycemic Management Pharmacy) 1 ea UD PRN N/A 06/13/16 16:20 07/13/16 16:19 Potassium Chloride (Klor-Con M10) 10 meq QAM PO 06/14/16 09:00 07/14/16 08:59 06/23/16 08:13 10 MEQ Albuterol Sulfate (Ventolin 0.083% 2.5MG/3ML Neb) 2.5 mg Q3R PRN INH 06/15/16 11:15 07/15/16 11:14 Guaifenesin (Mucinex Contr Rel Tab) 600 mg Q12 PO 06/15/16 21:00 07/15/16 20:59 06/23/16 08:13 600 MG Albuterol/ Ipratropium (Duoneb) 3 ml Q2R PRN INH 06/15/16 11:45 07/15/16 11:44 Heparin Sodium (Porcine) (Heparin 100 Unit/ml 5ml Flush) 5 ml PRN PRN FLUSH 06/17/16 21:30 07/17/16 21:29 06/23/16 06:24 5 ML Pantoprazole Sodium (Protonix Tab) 40 mg BID PO 06/19/16 21:00 07/19/16 20:59 06/23/16 08:13 40 MG Dornase Ashish (Pulmozyme Inhalation Soln 2.5ml Amp) 2.5 ml BIDR INH 06/20/16 20:00 07/20/16 19:59 06/23/16 07:09 2.5 ML Warfarin Sodium (Coumadin Tab) 2 mg DAILY@16 PO 06/21/16 16:00 07/21/16 15:59 Future Hold 06/21/16 16:45 2 MG Prednisone (PredniSONE TAB) 20 mg TID PO 06/22/16 11:30 07/22/16 11:29 06/23/16 14:22 20 MG Insulin Glargine (Lantus Solostar Pen) 10 unit BID SC 06/23/16 09:00 07/23/16 08:59 06/23/16 08:22 10 UNIT I & O: 24-Hour Column 06/23/16 07:59 Intake Total 1025 ml Output Total 1100 ml Balance -75 ml Vital Signs: Date Time Temp Pulse Resp B/P Pulse Ox O2 Delivery O2 Flow Rate FiO2 06/23/16 15:52 65 18 96 Nasal Cannula 4.0 06/23/16 15:01 36.4 87 20 113/63 95 Nasal Cannula 4.0 Humidified Oxygen 06/23/16 12:07 36.3 89 20 147/75 99 Nasal Cannula 4.0 06/23/16 12:00 Nasal Cannula 4.0 06/23/16 11:26 96 18 96 Nasal Cannula 4.0 06/23/16 08:00 Nasal Cannula 4.0 06/23/16 07:27 36.4 78 20 139/79 98 Nasal Cannula 4.0 06/23/16 07:09 69 18 96 Nasal Cannula 4.0 06/23/16 04:00 Nasal Cannula 4.0 Humidified Oxygen 06/23/16 03:36 36.4 83 20 145/77 97 Nasal Cannula 4.0 Humidified Oxygen 06/22/16 23:59 Nasal Cannula 4.0 Humidified Oxygen 06/22/16 23:25 36.6 94 22 121/58 94 Nasal Cannula 4.0 Humidified Oxygen 06/22/16 20:00 Nasal Cannula 4.0 Humidified Oxygen 06/22/16 19:21 92 18 96 Nasal Cannula 4.0 06/22/16 19:11 36.4 96 20 137/82 96 4.0 Laboratory Results: Last 24 Hours Test 06/22/16 20:26 06/23/16 02:11 06/23/16 06:20 06/23/16 07:04 Bedside Glucose 278 mg/dl 114 mg/dl 178 mg/dl White Blood Count 8.43 K/uL Red Blood Count 3.49 M/uL Hemoglobin 10.1 g/dL Hematocrit 30.8 % Mean Corpuscular Volume 88.3 fL Mean Corpuscular Hemoglobin 28.9 pg Mean Corpuscular Hemoglobin Concent 32.8 g/dl RDW Standard Deviation 53.9 fL RDW Coefficient of Variation 17.0 % Platelet Count 125 K/uL Mean Platelet Volume 9.6 fL Prothrombin Time 44.2 SECONDS Prothromb Time International Ratio 3.9 Sodium Level 139 mmol/L Potassium Level 4.2 mmol/L Chloride Level 101 mmol/L Carbon Dioxide Level 30 mmol/L Anion Gap 8.0 mmol/L Blood Urea Nitrogen 17 mg/dl Creatinine 0.60 mg/dl Est Creatinine Clear Calc Drug Dose 102.8 ml/min Estimated GFR () 109.3 Estimated GFR (Non- 94.3 BUN/Creatinine Ratio 29.1 Random Glucose 186 mg/dl Calcium Level 8.6 mg/dl Test 06/23/16 11:00 06/23/16 15:58 Bedside Glucose 302 mg/dl 128 mg/dl
--- NOTE | 2016-06-23 17:31 | Progress Note ---
Medicine Progress Note Date & Time of Visit: Jun 23, 2016 at 17:21. Subjective Pt was seen and examined Lying in bed comfortable with no distress Pt said that his breathing improved slightly he said that he realized that this is a terminal illness he agreed to speak to palliative care to discuss future plan he denies any chest pain, palpitation, dizziness Objective Last 8 Hrs Date Time Temp Pulse Resp B/P Pulse Ox O2 Delivery O2 Flow Rate FiO2 06/23/16 15:52 65 18 96 Nasal Cannula 4.0 06/23/16 15:01 36.4 87 20 113/63 95 Nasal Cannula 4.0 Humidified Oxygen 06/23/16 12:07 36.3 89 20 147/75 99 Nasal Cannula 4.0 06/23/16 12:00 Nasal Cannula 4.0 06/23/16 11:26 96 18 96 Nasal Cannula 4.0 Physical Exam: General- No acute distress Head- atraumatic Eyes- PERRL, EOMI ENT- oropharynx clear Neck- supple, no JVD Lungs- coarse BS Heart- regular rhythm; no murmur Abdomen- normal bowel sounds, soft Extremities- no calf tenderness Neuro- alert, oriented x 3; PERRL, EOMI Skin- warm & dry Laboratory Results: Last 24 Hours Test 06/22/16 20:26 06/23/16 02:11 06/23/16 06:20 06/23/16 07:04 Bedside Glucose 278 mg/dl 114 mg/dl 178 mg/dl White Blood Count 8.43 K/uL Red Blood Count 3.49 M/uL Hemoglobin 10.1 g/dL Hematocrit 30.8 % Mean Corpuscular Volume 88.3 fL Mean Corpuscular Hemoglobin 28.9 pg Mean Corpuscular Hemoglobin Concent 32.8 g/dl RDW Standard Deviation 53.9 fL RDW Coefficient of Variation 17.0 % Platelet Count 125 K/uL Mean Platelet Volume 9.6 fL Prothrombin Time 44.2 SECONDS Prothromb Time International Ratio 3.9 Sodium Level 139 mmol/L Potassium Level 4.2 mmol/L Chloride Level 101 mmol/L Carbon Dioxide Level 30 mmol/L Anion Gap 8.0 mmol/L Blood Urea Nitrogen 17 mg/dl Creatinine 0.60 mg/dl Est Creatinine Clear Calc Drug Dose 102.8 ml/min Estimated GFR () 109.3 Estimated GFR (Non- 94.3 BUN/Creatinine Ratio 29.1 Random Glucose 186 mg/dl Calcium Level 8.6 mg/dl Test 06/23/16 11:00 06/23/16 15:58 Bedside Glucose 302 mg/dl 128 mg/dl Assessment & Plan ACUTE ON CHRONIC RESPIRATORY FAILURE -Differential diagnosis to include Pneumonia, COPD exacerbation, Influenza, Acute CHF and other causes POSSIBLE PNEUMONIA CXR showed Persistent bibasilar parenchymal infiltrative change -Blood cultures, sputum cultures negative Completed Zosyn course Continue Supplemental oxygen as per pulmonary continue prednisone 20mg TID will follow up with dr. Steel at the pulmonary clinic Follow up appointment with Dr. Light (Dr. Holm partner) on Jun 29 at 10am consult palliative care DYSPHAGIA EGD done today showed normal esophagus, stomach and duodenum. Continue aspiration precaution POSSIBLE COPD EXACERBATION Solumedrol will change to po prednisone Duonebs QID and prn SOB Flutter Valve Continue Supplemental oxygen Case discussed with Pulmonology Dr. Steel On prednisone 20 mg BID POSSIBLE ACUTE DECOMPENSATION OF SYSTOLIC CHF Appears euvolemic, no weight gain, orthopnea, edema Last echo with EF 40-45% Continue lasix H/O PULMONARY EMBOLISM -INR 3.9 today - Hold Coumadin today - Check INR in am HYPERGLYCEMIA Related to steroid use Recent HBa1c 5.6 (05/27/16) continue subq novolog as directed continue monitor BS METASTATIC COLON CA -follows with Dr. Rosado -Previously pulmonology thought that chemo maybe causing pulmonary fibrosis -patient currently not on any treatment -followup with Heme/onc as previously schedule H/O MRSA -contact precautions -check MRSA swab H/O OF COMPLETE AV BLOCK -s/p pacemaker HLD -continue Statin BPH -continue Flomax GERD -continue PPI DVT PROPHYLAXIS: Coumadin Disposition Possible discharge today Will follow up with dr. Steel at the pulmonary clinic Follow up appointment with Dr. Light (Dr. Holm partner) on Jun 29 @ 10am consult palliative care Consultants: Pulmonary Palliative care Current Inpatient Medications: Current Inpatient Medications Medications (Trade) Dose Ordered Sig/Karie Route Start Time Stop Time Status Last Admin Dose Admin Acetaminophen (Tylenol Tab) 650 mg Q4H PRN PO 06/13/16 15:45 07/13/16 15:44 Ondansetron HCl (Zofran Inj) 4 mg Q6H PRN IV 06/13/16 15:45 07/13/16 15:44 Nitroglycerin (Nitrostat Tab) 0.4 mg UD PRN SL 06/13/16 15:45 07/13/16 15:44 Aspirin (Ecotrin Tab) 81 mg DAILY PO 06/14/16 09:00 07/14/16 08:59 06/23/16 08:13 81 MG Bisacodyl (Dulcolax Tab) 10 mg DAILY PRN PO 06/13/16 16:00 07/13/16 15:59 Furosemide (Lasix Tab) 40 mg QAM PO 06/14/16 09:00 07/14/16 08:59 06/23/16 08:13 40 MG Multivitamins/ Minerals (Multivitamin W/ Minerals Tab) 1 tab QAM PO 06/14/16 09:00 07/14/16 08:59 06/23/16 08:13 1 TAB Ranitidine HCl (zANTac TAB) 150 mg DAILY PO 06/14/16 09:00 07/14/16 08:59 06/23/16 08:13 150 MG Tamsulosin HCl (Flomax Cap) 0.4 mg DAILY PO 06/14/16 09:00 07/14/16 08:59 06/23/16 08:14 0.4 MG Oxycodone/ Acetaminophen (Percocet 5-325mg Tab) 1 tab Q6H PRN PO 06/13/16 16:00 06/27/16 15:59 06/22/16 23:40 1 TAB Albuterol/ Ipratropium (Duoneb) 3 ml QIDR INH 06/13/16 16:00 07/13/16 15:59 06/23/16 15:52 3 ML Insulin Aspart (novoLOG ASPART) SLIDING SCALE If C... ACHS SC 06/13/16 21:00 07/13/16 20:59 06/23/16 12:21 13 UNITS Glucose (Glucose 40% Gel) 15-30 GRAMS 15 GRAMS... UD PRN PO 06/13/16 16:00 07/13/16 15:59 Glucose (Glucose Chew Tab) 4-8 Tablets 4 Tabl... UD PRN PO 06/13/16 16:00 07/13/16 15:59 Dextrose (Dextrose 50% 50ML Syringe) 25-50ML OF 50% DW IV FOR... UD PRN IV 06/13/16 16:00 07/13/16 15:59 Glucagon (Glucagon Inj) 1 mg UD PRN SQ 06/13/16 16:00 07/13/16 15:59 Miscellaneous Information (Consult Glycemic Management Pharmacy) 1 ea UD PRN N/A 06/13/16 16:20 07/13/16 16:19 Potassium Chloride (Klor-Con M10) 10 meq QAM PO 06/14/16 09:00 07/14/16 08:59 06/23/16 08:13 10 MEQ Albuterol Sulfate (Ventolin 0.083% 2.5MG/3ML Neb) 2.5 mg Q3R PRN INH 06/15/16 11:15 07/15/16 11:14 Guaifenesin (Mucinex Contr Rel Tab) 600 mg Q12 PO 06/15/16 21:00 07/15/16 20:59 06/23/16 08:13 600 MG Albuterol/ Ipratropium (Duoneb) 3 ml Q2R PRN INH 06/15/16 11:45 07/15/16 11:44 Heparin Sodium (Porcine) (Heparin 100 Unit/ml 5ml Flush) 5 ml PRN PRN FLUSH 06/17/16 21:30 07/17/16 21:29 06/23/16 06:24 5 ML Pantoprazole Sodium (Protonix Tab) 40 mg BID PO 06/19/16 21:00 07/19/16 20:59 06/23/16 08:13 40 MG Warfarin Sodium (Coumadin Tab) 2 mg DAILY@16 PO 06/21/16 16:00 07/21/16 15:59 Future Hold 06/21/16 16:45 2 MG Prednisone (PredniSONE TAB) 20 mg TID PO 06/22/16 11:30 07/22/16 11:29 06/23/16 14:22 20 MG Insulin Glargine (Lantus Solostar Pen) 10 unit BID SC 06/23/16 09:00 07/23/16 08:59 06/23/16 08:22 10 UNIT
[2016-06-24] VITALS (8 sets, daily range): BP systolic 120–130; BP diastolic 74–84; PULSE 74–104; TEMP 36.4–36.8; O2SAT 93–96
[2016-06-24 05:59] LABS: INR 2.5 (0.9-1.1); PROTHROMBIN TIME (PATIENT) 27.5 SECONDS (9.0-12.0)
[2016-06-24] MEDS: ALBUT/IPRATROP 3MG/0.5MG NEB 3 ML VIAL INH SCH ×3 (07:06→15:18)
[2016-06-24] MEDS: ASPIRIN 81 MG ECTAB PO SCH (08:14)
[2016-06-24] MEDS: PANTOprazole SOD 40 MG TAB PO SCH (08:14)
[2016-06-24] MEDS: FUROSEMIDE 40 MG TAB PO SCH (08:14)
[2016-06-24] MEDS: GUAIFENESIN 600 MG TABCR PO SCH (08:14)
[2016-06-24] MEDS: RANITIDINE HCL 150 MG TAB PO SCH (08:14)
[2016-06-24] MEDS: CEROVITE ADV FORMULA TAB PO SCH (08:14)
[2016-06-24] MEDS: TAMSULOSIN HCL 0.4 MG CAP PO SCH (08:15)
[2016-06-24] MEDS: POTASSIUM CHLORIDE 10 MEQ TABCR PO SCH (08:15)
[2016-06-24] MEDS: INSULIN ASPART 100 UNITS/ML 3 ML PEN SC SCH ×2 (08:18→12:57)
[2016-06-24] MEDS: INSULIN GLARGINE SOLOSTAR 100 UNITS/ML 3 ML PEN SC SCH (08:19)
--- NOTE | 2016-06-24 11:49 | Pharmacy Progress Note ---
Glycemic Control: Progress Nt Date of Service Jun 24, 2016. Scope Glycemic Pharmacist consulted by Kinsey Donis PA-C on 06/13/16 for glycemic control and to write orders per [facility] inpatient glycemic control protocol. Objective Accuchecks BSG (last 24hrs): Test 06/23/16 15:58 06/23/16 20:21 06/24/16 06:29 06/24/16 07:41 Bedside Glucose 128 mg/dl (70-99) 229 mg/dl (70-99) 225 mg/dl (70-99) 198 mg/dl (70-99) HbA1c: 5.6% on 05/27/16 Recent Pertinent Medications Outpatient Anti-diabetic Regimen: Novolog sliding scale (3-6 units usually daily with lunch and dinner; CF=30unit/ mg/dL, goal 120-150mg/dL) * Patient on Prednisone 50mg PO Daily as outpatient The patient is currently receiving: * Basal insulin: Lantus 10 units every 12 hours * Correctional Insulin: Novolog Correction per scale ACHS Goal Range: Low 110 mg/dL - High 140 mg/dL Correction Factor: 15 mg/dL/unit * Prandial insulin: Per carb ratio of 1 unit per 6 grams CHO consumed Risk Factors for Insulin Resistance: * Steroids * Diet Assessment & Plan ASSESSMENT: * 81yo T2DM male with significant steroid induced hyperglycemia. * Patient uses prandial insulin coverage as an outpatient but basal insulin was added on 06/21 to help cover sustained hyperglycemia d/t round the clock steroid dosing. * Patient has received 44 units of insulin over the past 24hrs * 20 units of basal insulin + 24 units of prandial/correctional insulin * BSGs ranging 128-302mg/dl * Both basal and bolus insulin doses need tightened for adequate glycemic control. Will conservatively increase since palliative care is a possibility. Do not want to induce hypoglycemia for patient comfort. * ADA & AACE recommend a goal blood sugar range 140-180 mg/dl for the majority of critically ill & non-critically ill patients. However, more stringent targets may be selected in individual cases. Will utilize more stringent goal range of 110-140mg/dl for a tightly controlled diabetic at baseline. PLAN FOR INPATIENT GLYCEMIC CONTROL: * Basal insulin with LANTUS 12 units SQ BID * Correctional Insulin with NOVOLOG / REGULAR per scale ACHS or Q6hrs while NPO * Goal Range: Low 110 mg/dL - High 140 mg/dL * Correction Factor: 13 mg/dL/unit * Nutritional / Prandial insulin per carb ratio of 1 unit per 5 grams CHO consumed * Please note that the plan above was derived based on current level of insulin resistance and hospital stress. These recommendations are appropriate for inpatient admission only. Plan of care upon discharge will need to be reassessed to avoid potential outpatient hypo/hyperglycemia. Thank you.
--- NOTE | 2016-06-24 13:53 | Progress Note ---
Medicine Progress Note Date & Time of Visit: Jun 24, 2016 at 13:44. Subjective Pt was seen and examined Lying in bed with no distress Pt said that he is breathing feels stable He feels comfortable to go home today denies any chest pain, palpitation, dizziness Objective Last 8 Hrs Date Time Temp Pulse Resp B/P Pulse Ox O2 Delivery O2 Flow Rate FiO2 06/24/16 12:00 93 Nasal Cannula 4.0 06/24/16 11:30 36.8 95 22 126/78 93 Nasal Cannula 4.0 06/24/16 10:57 104 16 96 Nasal Cannula 4.0 06/24/16 10:06 36.4 74 24 94 Nasal Cannula 06/24/16 08:00 94 Nasal Cannula 4.0 06/24/16 07:34 36.4 74 24 130/84 94 Nasal Cannula 4.0 06/24/16 07:06 83 16 96 Nasal Cannula 4.0 Physical Exam: General- No acute distress Head- atraumatic Eyes- PERRL, EOMI ENT- oropharynx clear Neck- supple, no JVD Lungs- very mild coarse BS Heart- regular rhythm; no murmur Abdomen- normal bowel sounds, soft Extremities- no calf tenderness Neuro- alert, oriented x 3; PERRL, EOMI Skin- warm & dry Laboratory Results: Last 24 Hours Test 06/23/16 15:58 06/23/16 20:21 06/24/16 05:20 06/24/16 06:29 Bedside Glucose 128 mg/dl 229 mg/dl 225 mg/dl Prothrombin Time 27.5 SECONDS Prothromb Time International Ratio 2.5 Test 06/24/16 07:41 06/24/16 11:18 Bedside Glucose 198 mg/dl 128 mg/dl Assessment & Plan ACUTE ON CHRONIC RESPIRATORY FAILURE -Differential diagnosis to include Pneumonia, COPD exacerbation, Influenza, Acute CHF and other causes POSSIBLE PNEUMONIA CXR showed Persistent bibasilar parenchymal infiltrative change -Blood cultures, sputum cultures negative Completed Zosyn course Continue Supplemental oxygen as per pulmonary continue prednisone 20mg TID will follow up with dr. Steel at the pulmonary clinic in 2 weeks Follow up appointment with Dr. Light (Dr. Holm partner) on Jun 29 at 10am DYSPHAGIA EGD done today showed normal esophagus, stomach and duodenum. Continue aspiration precaution Contact GI for esophageal manometry appointment to be schedule if pt wishes to proceed with further workup POSSIBLE COPD EXACERBATION Solumedrol will change to po prednisone Duonebs QID and prn SOB Flutter Valve Continue Supplemental oxygen Case discussed with Pulmonology Dr. Steel Continue prednisone 20 mg BID until seeing Dr. Steel at the pulmonary clinic POSSIBLE ACUTE DECOMPENSATION OF SYSTOLIC CHF Appears euvolemic, no weight gain, orthopnea, edema Last echo with EF 40-45% Continue lasix H/O PULMONARY EMBOLISM -INR 2.5 today - Resume Coumadin today - Check INR and dose as directed (coag clinic) HYPERGLYCEMIA Related to steroid use Recent HBa1c 5.6 (05/27/16) continue subq novolog as directed continue monitor BS METASTATIC COLON CA -follows with Dr. Rosado -Previously pulmonology thought that chemo maybe causing pulmonary fibrosis -patient currently not on any treatment -followup with Heme/onc as previously schedule H/O MRSA -contact precautions -check MRSA swab H/O OF COMPLETE AV BLOCK -s/p pacemaker HLD -continue Statin BPH -continue Flomax GERD -continue PPI DVT PROPHYLAXIS: Coumadin Disposition Will follow up with dr. Steel at the pulmonary clinic within 2 weeks Follow up appointment with Dr. Light (Dr. Holm partner) on Jun 9 @ 10am Check INR on Sunday Consultants: Pulmonary PT Current Inpatient Medications: Current Inpatient Medications Medications (Trade) Dose Ordered Sig/Karie Route Start Time Stop Time Status Last Admin Dose Admin Acetaminophen (Tylenol Tab) 650 mg Q4H PRN PO 06/13/16 15:45 07/13/16 15:44 Ondansetron HCl (Zofran Inj) 4 mg Q6H PRN IV 06/13/16 15:45 07/13/16 15:44 Nitroglycerin (Nitrostat Tab) 0.4 mg UD PRN SL 06/13/16 15:45 07/13/16 15:44 Aspirin (Ecotrin Tab) 81 mg DAILY PO 06/14/16 09:00 07/14/16 08:59 06/24/16 08:14 81 MG Bisacodyl (Dulcolax Tab) 10 mg DAILY PRN PO 06/13/16 16:00 07/13/16 15:59 Furosemide (Lasix Tab) 40 mg QAM PO 06/14/16 09:00 07/14/16 08:59 06/24/16 08:14 40 MG Multivitamins/ Minerals (Multivitamin W/ Minerals Tab) 1 tab QAM PO 06/14/16 09:00 07/14/16 08:59 06/24/16 08:14 1 TAB Ranitidine HCl (zANTac TAB) 150 mg DAILY PO 06/14/16 09:00 07/14/16 08:59 06/24/16 08:14 150 MG Tamsulosin HCl (Flomax Cap) 0.4 mg DAILY PO 06/14/16 09:00 07/14/16 08:59 06/24/16 08:15 0.4 MG Oxycodone/ Acetaminophen (Percocet 5-325mg Tab) 1 tab Q6H PRN PO 06/13/16 16:00 06/27/16 15:59 06/22/16 23:40 1 TAB Albuterol/ Ipratropium (Duoneb) 3 ml QIDR INH 06/13/16 16:00 07/13/16 15:59 06/24/16 10:56 3 ML Insulin Aspart (novoLOG ASPART) SLIDING SCALE If C... ACHS SC 06/13/16 21:00 07/13/16 20:59 06/24/16 12:57 5 UNITS Glucose (Glucose 40% Gel) 15-30 GRAMS 15 GRAMS... UD PRN PO 06/13/16 16:00 07/13/16 15:59 Glucose (Glucose Chew Tab) 4-8 Tablets 4 Tabl... UD PRN PO 06/13/16 16:00 07/13/16 15:59 Dextrose (Dextrose 50% 50ML Syringe) 25-50ML OF 50% DW IV FOR... UD PRN IV 06/13/16 16:00 07/13/16 15:59 Glucagon (Glucagon Inj) 1 mg UD PRN SQ 06/13/16 16:00 07/13/16 15:59 Miscellaneous Information (Consult Glycemic Management Pharmacy) 1 ea UD PRN N/A 06/13/16 16:20 07/13/16 16:19 Potassium Chloride (Klor-Con M10) 10 meq QAM PO 06/14/16 09:00 07/14/16 08:59 06/24/16 08:15 10 MEQ Albuterol Sulfate (Ventolin 0.083% 2.5MG/3ML Neb) 2.5 mg Q3R PRN INH 06/15/16 11:15 07/15/16 11:14 Guaifenesin (Mucinex Contr Rel Tab) 600 mg Q12 PO 06/15/16 21:00 07/15/16 20:59 06/24/16 08:14 600 MG Albuterol/ Ipratropium (Duoneb) 3 ml Q2R PRN INH 06/15/16 11:45 07/15/16 11:44 Heparin Sodium (Porcine) (Heparin 100 Unit/ml 5ml Flush) 5 ml PRN PRN FLUSH 06/17/16 21:30 07/17/16 21:29 06/23/16 06:24 5 ML Pantoprazole Sodium (Protonix Tab) 40 mg BID PO 06/19/16 21:00 07/19/16 20:59 06/24/16 08:14 40 MG Warfarin Sodium (Coumadin Tab) 2 mg DAILY@16 PO 06/21/16 16:00 07/21/16 15:59 Future Hold 06/21/16 16:45 2 MG Prednisone (PredniSONE TAB) 20 mg TID PO 06/22/16 11:30 07/22/16 11:29 06/24/16 08:15 20 MG Insulin Glargine (Lantus Solostar Pen) 12 unit BID SC 06/24/16 16:45 07/24/16 16:44
[2016-06-24] MEDS ORDERED: PRD20 PO (14:07)
[2016-06-24] MEDS ORDERED: CMD2 PO (14:07)
[2016-06-24] MEDS ORDERED: OXYC-57 PO ×2 (14:07→14:09)
--- NOTE | 2016-06-24 14:19 | Discharge Instructions ---
Discharge Instructions Admission Reason for Admission: Acute respiratory failure Discharge Discharge Diagnosis / Problem: Acute on chronic respiratory failure, Pneumonia , COPD exacerbation, Dysphag Discharge Goals Goal(s): Decrease discomfort, Improve function, Improve disease control Activity Recommendations Activity Limitations: resume your previous activity (as tolerated) . Instructions / Follow-Up Instructions / Follow-Up Follow up with dr. Steel at the pulmonary clinic within 2 weeks Follow up appointment with Dr. Light (Dr. Holm partner) on Jun 29 @ 10am Follow up with oncology Check INR on Sunday (Today INR 2.5) Take coumadin 2mg daily continue monitor Blood sugar Continue prednisone 20mg three times daily until seeing the nutritional services cook Dr. Steel Script written for lancet and test strips Current Hospital Diet Patient's current hospital diet: AHA Diet (Heart Healthy), Diabetes Type 2 Diet Discharge Diet Recommended Diet: Diabetes Type 2 Diet Pending Studies Studies pending at discharge: no Laboratory Results Hemoglobin A1c Test 05/27/16 06:10 Range/Units Estimated Average Glucose 114 mg/dl Hemoglobin A1c 5.6 4.5-5.6 % Medical Emergencies . Who to Call and When: Medical Emergencies: If at any time you feel your situation is an emergency, please call 911 immediately. . Non-Emergent Contact Non-Emergency issues call your: Primary Care Provider Call Non-Emergent contact if: you have any medication questions . . "Provider Documentation" section prepared by Remy Isidro. VTE Core Measure Inpt VTE Proph given/why not?: Warfarin (Coumadin) [place] Drug Monitoring Program Search Results: no issues identified
[2016-06-24] MEDS ORDERED: INSULIN GLARGINE SOLOSTAR 100 UNITS/ML 3 ML PEN SC SCH (16:45)
--- NOTE | 2016-06-25 08:16 | Discharge Summary ---
Discharge Summary Admission Date: Jun 13, 2016 at 15:43 Discharge Date: Jun 24, 2016 Discharge Disposition: Home Principal Diagnosis: Acute on chronic respiratory failure Secondary Diagnoses/Problems: Acute on chronic respiratory failure Pneumonia COPD exacerbation Dysphagia METASTATIC COLON CA H/O PULMONARY EMBOLISM Hyperglycemia due to steroid Consultations: Pulmonary PT Medication Reconciliation New Medications: Prednisone (Prednisone) 20 Mg Tab 20 MG PO TID for 20 Days, #60 TAB Warfarin Sod (Coumadin) 2 Mg Tab 2 MG PO DAILY@16 for 30 Days, TAB Changed Medications: Oxycodone/Acetaminophen 5MG/325MG (Percocet 5MG/325MG) Tab 1 TABLET PO Q12 PRN for Pain for 7 Days, #14 TAB (Changed from: PAIN) hold for lethargy and drowsiness Continued Medications: Albuterol Hfa (Ventolin Hfa) 200 Puffs/20115 Mcg Aers 2 PUFFS INH Q4 PRN for SOB/Wheezing, #1 2 Refills Aspirin (Ecotrin Low Strength) 81 Mg Tab 81 MG PO DAILY, TAB 3 Refills Atorvastatin (Lipitor) 20 Mg Tab 20 MG PO DAILY, TAB Bisacodyl (Dulcolax) 5 Mg Tab 2 TAB PO UD PRN for Constipation, #30 TAB 2 Refills Furosemide (Furosemide) 40 Mg Tab 40 MG PO QAM, #30 TAB 2 Refills Insulin Aspart (Novolog Flexpen) 100 Units/Ml Inj 0 UNITS SC ACHS, #1 2 Refills BLOOD SUGARS GOAL RANGE 120- 150 INSULING SLIDING SCALE BLOOD SUGARS INSULIN 150-180 1 UNIT 180-210 2 UNITS 210-240 3 UNITS 240-270 4 UNITS 270-300 5 UNITS >300 6 UNITS AND CALL FAMILY DOCTOR. Insulin Aspart (Novolog) 100 Units/Ml Inj 0 SQ UD sliding scale Ipratropium-Albuterol (Duoneb) 3 Ml Nebu 1 INHA PO QID, #360 Ipratropium-Albuterol (Duoneb) 3 Ml Nebu 1 TREATMENT INH Q6H, INHA Multiple Vitamins W/ Minerals (Preservision Areds) 1 Cap Cap 1 CAP PO DAILY Ocuvite Preservision (Ocuvite Preservision) 1 Tab Tab 1 TAB PO QAM, TAB Omeprazole (Prilosec) 20 Mg Cap 20 MG PO DAILY, CAP Ondansetron Hcl (Zofran) 4 Mg Tab 4 MG PO PRN, TAB Potassium Chloride (Klor-Con Ext Rel) 8 Meq Tabcr 8 MEQ PO DAILY, CAP Ranitidine Hcl (Zantac) 150 Mg Tab 150 MG PO PM, TAB Ranitidine Hcl (Zantac) 150 Mg Tab 150 MG PO DAILY, TAB Tamsulosin Hcl (Flomax) 0.4 Mg Cap 0.4 MG PO DAILY, #30 CAP 2 Refills Discontinued Medications: Atorvastatin (Lipitor) 20 Mg Tab 20 MG PO QAM, TAB Furosemide (Lasix) 40 Mg Tab 40 MG PO DAILY, TAB Omeprazole (Omeprazole) 20 Mg Tab 20 MG PO QAM, TAB Potassium Chloride (Klor-Con Ext Rel) 8 Meq Tabcr 8 MEQ PO DAILY, #30 CAP 2 Refills Prednisone Tab (Prednisone) 10 Mg Tab 50 MG PO UD, #60 TAB 2 Refills PREDNISONE 50MG PO DAILY UNTIL FURTHER TAPER BY PULMONARY Prednisone Tab (Prednisone) 10 Mg Tab 50 MG PO DAILY, TAB Tamsulosin Hcl (Flomax) 0.4 Mg Cap 0.4 MG PO, CAP Warfarin Sod (Jantoven) 2.5 Mg Tab 2.5 MG PO UD, TAB Dose as of 05/10/16 2.5 mg daily. Warfarin Sod (Coumadin) 2.5 Mg Tab 2.5 MG PO DAILY@1600, TAB Admission Information HPI (per Admitting provider): Patient seen and examined. 81 year old male recently admitted to this hospital from 05/11-05/27/15 with acute respiratory failure secondary to pneumonia versus chemo induced pneumonitis with PMHx of COPD, Interstitial lung disease, pulmonary embolism on Coumadin, systolic CHF, Complete AV block s/p pacemaker, HTN, HLD, and colon CA with mets presents to the ED today complaining of increased SOB x 1 week. Patient reports he was doing well upon discharge until last week when his prednisone was decreased from 50mg daily to 20 mg BID, the next day the patient reports he started to become more SOB, he resumed his 50mg daily but his symptoms continued to worsen. Today the patient reports he can not stand up without becoming extremely SOB. He reports associated cough with minimal sputum production, but states he feels like there is a lot of "junk" in his lungs that he can't cough up. He reports he is to use a flutter valve to help with this but it just arrived yesterday. He states he can hear rattling in his chest and sometimes wheezing. He has associated rhinorrhea. He reports he feels generally weak and wiped out. He states he was to have a speech eval and swallow study today for concerns about aspiration but he was too tired to do. He denies fevers, chills, chest pain, palpitations, dyspnea at rest, orthopnea, PND, nausea, vomiting, diarrhea, dysuria, calf pain and edema. He is on 4L oxygen chronically at home. He reports family has had flu like symptoms. In the ED patient is hypoxic on his 4L, other VS are stable, WBC count is 12K, BNP is 2.5K, CXR shows pneumonia, versus CHF. He received a duoneb, solu-medrol and lasix. He is resting comfortably, he will be admitted for further workup and treatment. Physical Exam (per Admitting): General Appearance: + pertinent finding (Pleasant WD/WN 81 year old male lying in bed in NAD with family at bedside ) Head: normocephalic, atraumatic Eyes: PERRL, EOMI, sclerae normal ENT: pharynx normal, + pertinent finding (hearing grossly decreased ) Neck: supple, no JVD, trachea midline Respiratory/Chest: chest non-tender, no respiratory distress, no accessory muscle use, + crackles (bibasilar L>R, no wheezinge, no rales ) Cardiovascular: regular rate, rhythm, no edema, no gallop, no JVD, no murmur , normal peripheral pulses Abdomen/GI: normal bowel sounds, non tender, soft Back: normal inspection, no muscle spasm Extremities/Musculoskelatal: no calf tenderness, normal capillary refill, no pedal edema Neurologic/Psych: alert, oriented x 3, + pertinent finding (no focal deficits noted on gross exam ) Skin: normal color, warm/dry, no rash Lymphatic: no adenopathy Hospital Course ACUTE ON CHRONIC RESPIRATORY FAILURE -Differential diagnosis to include Pneumonia, COPD exacerbation, Influenza, Acute CHF and other causes POSSIBLE PNEUMONIA CXR showed Persistent bibasilar parenchymal infiltrative change -Blood cultures, sputum cultures negative Completed Zosyn course Continue Supplemental oxygen as per pulmonary continue prednisone 20mg TID will follow up with dr. Steel at the pulmonary clinic in 2 weeks Follow up appointment with Dr. Light (Dr. Holm partner) on Jun 29 at 10am DYSPHAGIA EGD done today showed normal esophagus, stomach and duodenum. Continue aspiration precaution Contact GI for esophageal manometry appointment to be schedule if pt wishes to proceed with further workup POSSIBLE COPD EXACERBATION Solumedrol will change to po prednisone Duonebs QID and prn SOB Flutter Valve Continue Supplemental oxygen Case discussed with Pulmonology Dr. Steel Continue prednisone 20 mg BID until seeing Dr. Steel at the pulmonary clinic POSSIBLE ACUTE DECOMPENSATION OF SYSTOLIC CHF Appears euvolemic, no weight gain, orthopnea, edema Last echo with EF 40-45% Continue lasix H/O PULMONARY EMBOLISM -INR 2.5 today - Resume Coumadin today - Check INR and dose as directed (coag clinic) METASTATIC COLON CA -follows with Dr. Rosado -Previously pulmonology thought that chemo maybe causing pulmonary fibrosis -patient currently not on any treatment -followup with Heme/onc as previously schedule HYPERGLYCEMIA Related to steroid use Recent HBa1c 5.6 (05/27/16) continue subq novolog as directed continue monitor BS H/O MRSA -contact precautions -check MRSA swab H/O OF COMPLETE AV BLOCK -s/p pacemaker HLD -continue Statin BPH -continue Flomax GERD -continue PPI DVT PROPHYLAXIS: Coumadin Disposition Will follow up with dr. Steel at the pulmonary clinic within 2 weeks Follow up appointment with Dr. Light (Dr. Holm partner) on Jun 29 @ 10am Check INR on Sunday Total time spent on discharge = 45 minutes This includes examination of the patient, discharge planning, medication reconciliation, and communication with other providers. Discharge Instructions Discharge Instructions Admission Reason for Admission: Acute respiratory failure Discharge Discharge Diagnosis / Problem: Acute on chronic respiratory failure, Pneumonia , COPD exacerbation, Dysphag Discharge Goals Goal(s): Decrease discomfort, Improve function, Improve disease control Activity Recommendations Activity Limitations: resume your previous activity (as tolerated) . Instructions / Follow-Up Instructions / Follow-Up Follow up with dr. Steel at the pulmonary clinic within 2 weeks Follow up appointment with Dr. Light (Dr. Holm partner) on Jun 29 @ 10am Check INR on Sunday (Today INR 2.5) Take coumadin 2mg daily continue monitor Blood sugar Continue prednisone 20mg three times daily until seeing the extractor loader and unloader Dr. Steel Script written for lancet and test strips Current Hospital Diet Patient's current hospital diet: AHA Diet (Heart Healthy), Diabetes Type 2 Diet Discharge Diet Recommended Diet: Diabetes Type 2 Diet Pending Studies Studies pending at discharge: no Laboratory Results Hemoglobin A1c Test 05/27/16 06:10 Range/Units Estimated Average Glucose 114 mg/dl Hemoglobin A1c 5.6 4.5-5.6 % Medical Emergencies . Who to Call and When: Medical Emergencies: If at any time you feel your situation is an emergency, please call 911 immediately. . Non-Emergent Contact Non-Emergency issues call your: Primary Care Provider Call Non-Emergent contact if: you have any medication questions . . "Provider Documentation" section prepared by Remy Isidro. VTE Core Measure Inpt VTE Proph given/why not?: Warfarin (Coumadin) [place] Drug Monitoring Program Search Results: no issues identified Additional Copies To Melisa Holm D.O.
== END 2016-06-24 15:29 | disposition home health service (06) | DRG 189 ==
LOC: ENRESERVTM → ENRESERVDT → C.EDB 13:14 → UNMERGE 15:43 → C.2T 15:43 → UNDOADMIN 15:43 → MERGE 15:43 → CANBEDREQ 17:54
PROVIDERS: ADMIT Internal Medicine; ATTEND Internal Medicine
PROC: 0DJ08ZZ Inspection of Upper Intestinal Tract, Via Natural or Artificial Opening Endoscopic (ICD-10-PCS; principal; 2016-06-20 11:12)
DX: J96.21 Acute and chronic respiratory failure with hypoxia (principal); J44.1 Chronic obstructive pulmonary disease with (acute) exacerbation; J18.9 Pneumonia, unspecified organism; I50.23 Acute on chronic systolic (congestive) heart failure; C77.9 Secondary and unspecified malignant neoplasm of lymph node, unspecified; J84.9 Interstitial pulmonary disease, unspecified; R13.10 Dysphagia, unspecified; J45.909 Unspecified asthma, uncomplicated; I25.10 Atherosclerotic heart disease of native coronary artery without angina pectoris; E78.5 Hyperlipidemia, unspecified; K21.9 Gastro-esophageal reflux disease without esophagitis; N40.0 Benign prostatic hyperplasia without lower urinary tract symptoms; R73.9 Hyperglycemia, unspecified; T38.0X5A Adverse effect of glucocorticoids and synthetic analogues, initial encounter; I10 Essential (primary) hypertension; Z92.21 Personal history of antineoplastic chemotherapy; Z79.52 Long term (current) use of systemic steroids; Z79.899 Other long term (current) drug therapy; Z79.82 Long term (current) use of aspirin; Z79.01 Long term (current) use of anticoagulants; Z87.891 Personal history of nicotine dependence; Z95.0 Presence of cardiac pacemaker; Z86.711 Personal history of pulmonary embolism; Z85.038 Personal history of other malignant neoplasm of large intestine; Z90.49 Acquired absence of other specified parts of digestive tract; Z66 Do not resuscitate